=== PATIENT | female | born 1945 | race Caucasian/White ===

== ENCOUNTER → 2018-11-29 10:16 | Outpatient (CLI) | payer MEDICARE, OTHER, SELFPAY ==
--- NOTE | 2018-11-29 16:29 | P.PCN_ITS ---
Cardiac Stress Test Report Referral & Results Date Patient Seen: 11/29/18 Requesting provider: Elias Rojas Indication: Known coronary disease Rest ECG: Right bundle branch block Procedure Note: Today following both written and verbal informed consent the patient was exercised according to a standard Wiliam protocol patient went for a total of 6 min 6 sec achieving a maximum heart rate of 155 maximum systolic blood pressure of 190. This is approximately 7.0 METS. Exercise was terminated at this point because of targets were met. Patient was also given Cardiolite through a previously started Hep-Lock IV by the ground nuclear weapons assembly officer approximately 1 minute prior to the cessation of exercise. There are no ST-T segment changes noted although patient does have right bundle branch block at rest which will certainly obscures some changes Occasional PVC Functional aerobic impairment rated-20% on the active scale Impression: No ECG evidence of ischemia in the face of underlying right bundle branch block Excellent exercise capacity Perfusion imaging to be reported separately Please note: Actual ECG tracings can be found in the PACS system.
--- NOTE | 2018-11-30 08:20 | DI.NM.S_ITS ---
DATE OF SERVICE: 11/29/2018 PROCEDURE PERFORMED: Stress and rest exercise myocardial perfusion study with gating to assess ejection fraction and regional wall motion. ORDERING PROVIDER: Elias Rojas MD INDICATIONS: The patient is a 73-year-old female with a history of LAD stenting with recent new T-wave inversions. EXERCISE TREADMILL TESTING: The patient was able to exercise for a total of 6 minutes 6 seconds on a standard Wiliam protocol, suggesting good exercise capacity with an DAIN of -20%. She had a normal heart rate and blood pressure response to exercise, achieving a maximum heart rate of 155 bpm (105% of her predicted maximum). She had no chest discomfort. Her resting ECG shows a nonspecific interventricular conduction delay with associated ST and T-wave abnormalities. With stress, there were no clear ST segment shifts. There were no arrhythmias. At 5 minutes of exercise, at a heart rate of 152 bpm, 26.9 mCi of technetium-99 Myoview was injected, and the patient was imaged 15 minutes later. She had previously been injected with 13.5 technetium-99 Myoview at rest and imaged 30 minutes after that injection. FINDINGS: 1. RAW DATA: There is fair myocardial tracer uptake, but fairly dense breast shadows are noted, consistent with breast implants, that clearly produce significant attenuation. The lung/heart ratio is normal at 0.32 with a normal TID ratio of 0.98. 2. QUANTITATIVE GATED SPECT: Post-stress ejection fraction is estimated at 46% with severe hypokinesis of the entire inferior and inferoposterior vargas, extending out to the apex. The anterior wall appears to have normal contractility. The resting ejection fraction is estimated at 41% with a similar contraction pattern. Resting end-diastolic volume is borderline increased at 128 mL. 3. MYOCARDIAL PERFUSION SCAN: Post-stress supine images show near-absent perfusion in the majority of the inferolateral wall, extending into the distal inferoapex and septum. This defect persists unchanged on the prone images. In addition, the mid and distal portions of the interventricular septum have mildly reduced perfusion that also remains unchanged on the prone images. The resting images show a very similar perfusion pattern with very slight improvement of the defect near the periphery of the inferolateral defect, but this is a predominantly fixed defect. IMPRESSION: 1. Abnormal myocardial perfusion study. 2. Predominantly fixed but slightly reversible perfusion defect involving the majority of the inferolateral wall, extending out to the apex, and involving the mid to distal portions of the interventricular septum. This would be consistent with a previous transmural myocardial infarction with mild chela-infarct ischemia at the periphery. 3. Moderately reduced left ventricular systolic function with severe hypokinesis of the inferolateral segment, consistent with previous infarction or hibernating myocardium. 4. Good exercise capacity without angina or obvious ECG changes of ischemia, although baseline interventricular conduction abnormalities reduced the sensitivity of the ECG. Reyna Weiss - RS/fn/ts doc#: [id number]/job#: [id number] dd: 11/29/2018 16:28:00 dt: 11/30/2018 07:50:00 DICTATING MD/COPIES TO: Dawson Butler MD; Elias Rojas MD COPIES MNE: KAT AGUILAR
== END ==
PROVIDERS: Family Provider Physician Assistant; PCP Physician Assistant; Visit Provider Internal Medicine Cardiovascular Disease
DX: R94.31 Abnormal electrocardiogram [ECG] [EKG] (principal); I25.10 Atherosclerotic heart disease of native coronary artery without angina pectoris; I45.10 Unspecified right bundle-branch block; Z95.5 Presence of coronary angioplasty implant and graft
CPT/HCPCS: 78452; 93016; 93017; 93018; A9502

== ENCOUNTER 2019-09-30 04:32 | Inpatient (IN) | payer MEDICARE, OTHER, SELFPAY ==
[2019-09-30] VITALS (20 sets, daily range): BP systolic 93–119; BP diastolic 54–76; PULSE 80–110; RESP 7–18; TEMP 36.5–37.8; O2SAT 93–100; BMI 16.7
--- NOTE | 2019-09-30 | DI.RAD.S_ITS ---
PROCEDURE: XR ELBOW RT MIN 3V INDICATIONS: intra-operative right elbow TECHNIQUE: 3 views of the elbow were acquired. COMPARISON: [facility], , XR ELBOW RT MIN 3V, 09/30/2019, 4:57. FINDINGS: Fluoroscopic images demonstrating comminuted olecranon fracture. Fracture fragments are overlapping. IMPRESSION: Intraoperative olecranon fracture. Dictated by: Nesha Baker M.D. on 09/30/2019 at 20:21 Approved by: Nesha Baker M.D. on 09/30/2019 at 20:23
--- NOTE | 2019-09-30 04:37 | ED.EXTPRO ---
HPI - Extremity Problem General Chief complaint: Extremity Injury, Upper Stated complaint: thinks right arm is broken had fall 1 wk ago Time Seen by Provider: 09/30/19 04:36 Source: patient Mode of arrival: Ambulatory Limitations: no limitations History of Present Illness HPI Narrative: This is a 74-year-old female comes to the emergency department who comes in with complaint of right arm pain and swelling. Patient states she fell about a week to week and a half ago. She states she fell into a wooden wall. Since then she has had quite a bit of pain particularly just above the elbow, patient states painful for her to try to flex or extend the arm. She has pretty much been keeping immobilized. She has had increasing swelling over the last week. She did have a small laceration over the elbow which she states drain blood for 2 days. He continues to drain intermittently although she describes it as sort of pinkish clearish fluid. She denies fevers or chills. She denies any new redness or erythema. She denies any warmth. She denies any numbness or tingling. She denies any weakness. She has continued to do her normal activities including [place] shopping, cooking and laundry. She states she takes cardiac medications include lisinopril, metoprolol, simvastatin, aspirin and Plavix. She had cardiac stents placed 12 year ago. She did have a stress test in November 2018. Patient finally came in tonight because she was having increasing episodes of pain intermittently. These episodes would resolve but then returned later. Related Data Home Medications Medication Instructions Recorded Confirmed simvastatin 40 mg PO QDAY #0 08/07/17 09/30/19 aspirin 81 mg PO DAILY 09/30/19 09/30/19 clopidogrel [Plavix] 75 mg PO DAILY 09/30/19 09/30/19 lisinopril 2.5 mg PO DAILY 09/30/19 09/30/19 metoprolol tartrate 25 mg PO BID 09/30/19 09/30/19 Allergies Allergy/AdvReac Type Severity Reaction Status Date / Time No Known Drug Allergies Allergy Unknown Unverified 02/13/18 12:05 [NO KNOWN DRUG ALLERGIES] oxycodone [OXYCODONE] AdvReac Intermediate ?or Unverified 02/13/18 12:05 oxycontin? diarrhea morphine [MORPHINE] AdvReac Mild n/v Unverified 02/13/18 12:05 Review of Systems Review of Systems ROS Unobtainable: All systems reviewed & are unremarkable except as noted in HPI and below Constitutional Constitutional: Denies chills, Denies fever(s), Denies lethargy and Denies weakness ENT Ears, Nose, Mouth, and Throat: Denies neck pain Cardiovascular Cardiovascular: Denies chest pain, Denies dyspnea and Denies dyspnea on exertion Respiratory Respiratory: Denies dyspnea and Denies dyspnea on exertion Gastrointestinal Gastrointestinal: Denies abdominal pain, Denies nausea and Denies vomiting Musculoskeletal Musculoskeletal: Reports as per HPI, Denies back pain, Reports arthralgias, Reports joint swelling, Reports limited range of motion, Denies muscle weakness, Denies neck pain, Denies numbness, Denies stiffness and Denies tingling Integumentary/Breasts Skin/Breast: Reports unusual bruising and Reports wounds Neurologic Neurologic: Denies numbness, Denies tingling and Denies weakness Patient History Medical History (Updated 09/30/19 @ 06:28 by Elise Sinclair DO) Coronary artery disease (Acute) Dyslipidemia (Acute) Hypertension (Acute) Surgical History (Updated 09/30/19 @ 06:29 by Elise Sinclair DO) H/O heart artery stent (Acute) Social History Smoking Status: Current some day smoker Exam Narrative Exam Narrative: GENERAL: Alert and oriented x three, thin, well-appearing female who ambulated in the department. HEENT: Head normocephalic, atraumatic, EOMI, pupils reactive, face symmetric, moist mucous membranes NECK: Supple, full range of motion CARDIOVASCULAR: Regular rate and rhythm without murmurs, rubs or gallops. RESPIRATORY: Breath sounds equal bilaterally, no wheezes rales or rhonchi. ABDOMEN: Soft, nontender. Normoactive bowel sounds all 4 quadrants. No guarding or rebound, rigidity, no mass : No CVA tenderness EXTREMITIES: Decreased range of motion of the right elbow, patient has extensive swelling extending from just above the elbow on the right all the way into the hand. Patient has quite a bit of bruising. Patient has some mild erythema over the elbow. There is a laceration 2cm in length over the olecranon that is deep with subcutaneous tissue exposed, draining serosanguineous drainage, no clubbing. Patient has 2+ radial pulses bilaterally. Decorating Kiln Operator are equal bilaterally. Patient has full range of motion of fingers with extension flexion. She has full range of motion at the wrist. Patient does not have any bony tenderness of the hand or wrist and has very minimal of the proximal forearm majority is the distal humerus elbow region. Patient does have sensation to light touch. Neurovascularly intact NEUROLOGICAL: Cranial nerves II through XII grossly intact. Moving all extremities SKIN: Warm, dry, no petechiae, see above. Initial Vital Signs Initial Vital Signs: Vital Signs Pulse Rate 96 H 09/30/19 04:40 Respiratory Rate 17 09/30/19 04:40 Blood Pressure 112/63 09/30/19 04:40 Pulse Oximetry 100 09/30/19 04:40 Course Orders Ordered: ED Orders 09/30/19 04:44 XR elbow RT min 3V Stat 09/30/19 05:23 Basic Metabolic Panel Stat Complete Blood Count AUTO DIFF Stat EKG-12 Lead Stat Discontinued Medications Diphtheria/Tetanus/Acell Pertussis (Adacel) 0.5 ml IM .ONCE ONE Stop: 09/30/19 05:16 Last Admin: 09/30/19 05:38 Dose: 0.5 ml Documented by: LUPE Cefazolin Sodium/Dextrose (Ancef) 2 gm in 100 mls @ 200 mls/hr IV NOW ONE Stop: 09/30/19 05:40 Last Infusion: 09/30/19 06:20 Dose: 0 mls/hr Documented by: Infusion: 09/30/19 05:41 Dose: 200 mls/hr Documented by: Infusion: 09/30/19 05:40 Dose: 0 mls/hr Documented by: Admin: 09/30/19 05:39 Dose: 200 mls/hr Documented by: LUPE Vital Signs Vital signs: Vital Signs - 8 hr 09/30/19 04:40 09/30/19 05:45 09/30/19 05:51 Pulse Rate 96 H 83 Pulse Rate [Right Radial] 80 Respiratory Rate 17 14 Blood Pressure 112/63 Blood Pressure [Left Arm] 109/66 Pulse Oximetry 100 100 MDM - Extremity (Nontraumatic) Lab Data Result diagrams: 09/30/19 05:23 09/30/19 05:23 Labs: Lab Results 09/30/19 09/30/19 Range/Units 05:23 05:23 WBC 11.5 H (4.5-11.0) X10^3/uL RBC 2.87 L (4.0-5.2) X10^6/uL Hgb 10.9 L (12.0-16.0) g/dL Hct 31.5 L (36-46) % MCV 109.9 H (80-100) fL MCH 37.9 H (26-34) PG MCHC 34.5 (30-36) % RDW 12.9 (11.6-14.8) % Plt Count 222 (150-400) X10^3/uL Neut % (Auto) 71.7 (50-75) % Lymph % (Auto) 7.0 L (25-40) % [place] % (Auto) 20.9 H (3-14) % Eos % (Auto) 0.1 L (2-4) % Baso % (Auto) 0.3 (0-2) % Neut # (Auto) 8200 H (1419-6184) /uL Lymph # (Auto) 800 L (6864-9149) /uL [place] # (Auto) 2400 H (0-900) /uL Eos # (Auto) 0 (0-450) /uL Baso # (Auto) 0 (0-100) /uL Sodium 128 L (137-145) mmol/L Potassium 4.5 (3.4-5.1) mmol/L Chloride 95 L (98-107) mmol/L Carbon Dioxide 27 (22-32) mmol/L BUN 21 H (7-17) mg/dL Creatinine 0.70 (0.52-1.04) mg/dL Estimated GFR > 60.0 (>60) mL/min BUN/Creatinine Ratio 30.0 H (6-22) Glucose 99 (80-110) mg/dL Calcium 9.2 (8.4-10.2) mg/dL ECG Data Attestation EKG: I personally reviewed and interpreted this ECG as follows: Prior ECG tracings: not available for review Interpretation: Sinus rhythm rate of 76 UT 178 QRS of 152 and QTC of 420. LBBB, no prior EKGs available for comparison. MDM Narrative Medical decision making narrative: Spoke with Dr. Dominguez from orthopedic surgery, reviewed images with Dr. Dominguez. Open fracture with mild redness at elbow and extensive swelling of arm. Recommends patient be splinted in extension, IV antibiotics regularly scheduled. If medicine will take the patient based on her cardiac history they would appreciate for surgical clearance plan for OR possibly today but maybe tomorrow. Patient was updated on timeframe, orthopedic recommendations. Spoke with DATA STEWARD Kelly Carter, reviewed patient history, orthopedic recommendations. Patient did have a stress test in November 2018 with abnormalities consistent with prior infarct. She asked if we can contact patient's cardiology team to discuss if she has any outstanding care or concerns. Spoke with cardiology, they did not read the stress test but did review patient records. Findings are consistent with prior infarct and slightly decreased EF. No outstanding care/treatment at this time. Reviewed patient's current medications. They did call back after reviewing patients info, they with a possibly moderate risk more based on patient's EF than motion artifact. She states based on patient's old infarct her stent was in the LAD and this could possibly be motion artifact from that. She states that the stress test was ordered based on patient's EKG and not on symptomatology according to Dr. Khan's notes. And potentially patient might need to have some close watching of fluids but that she would expect she still needs surgery regardless. She did state that may be in the office today and it may be helpful to talk with him as he knows the patient personally. This was all related to the [employer] [employer] [facility] OFFICER and plan for observation at this time. Patient may have some additional work up for cardiac clearance. EKG also shared with hospitalist. splint placed by nursing, patient in extension. NVI afterwards with 2+ radial pulse. Patient continues to have drainage and nursing asked to relay to floor staff so they can keep a close eye on elbow and change as needed if becoming too saturated. Discharge Plan Departure Patient Disposition: Admitted as Observation Clinical Impression: Fracture, olecranon, open, Cellulitis Referrals: Debi Peterson PA-C [Primary Care Provider] - Admit Date/Time: 09/30/19 06:23 Admit Provider: Kelly Carter
--- NOTE | 2019-09-30 04:44 | DI.RAD.S_ITS ---
PROCEDURE: XR ELBOW RT MIN 3V INDICATIONS: right elbow/lower humeral pain x 1 week post fall TECHNIQUE: 3 views of the elbow were acquired. COMPARISON: None. FINDINGS: Bones: Proximal ulnar fracture of the olecranon, with approximately 2 cm diastasis. Linear calcific density projecting at the lateral epicondyle potentially background chronic lateral epicondylitis sequela Soft tissues: No elbow joint effusion. No suspicious soft tissue calcifications. IMPRESSION: Markedly displaced olecranon fracture Dictated by: Keanu Carter M.D. on 09/30/2019 at 9:00 Approved by: Keanu Carter M.D. on 09/30/2019 at 9:02
[2019-09-30 05:33] LABS: Add Manual Diff / Slide Review NO; Basophils Absolute Auto 0 /uL (0-100); Basophils Percent Auto 0.3 % (0-2); Eosinophils Absolute Auto 0 /uL (0-450); Eosinophils Percent Auto 0.1 % (2-4); Hematocrit 31.5 % (36-46); Hemoglobin 10.9 g/dL (12.0-16.0); Lymphocytes Absolute Auto 800 /uL (1100-4500); Mean Corpuscular HGB Conc 34.5 % (30-36); Mean Corpuscular Hemoglobin 37.9 PG (26-34); Mean Corpuscular Volume 109.9 fL (80-100); Monocytes Absolute Auto 2400 /uL (0-900); Monocytes Percent Auto 20.9 % (3-14); Neutrophils Absolute Auto 8200 /uL (1500-7000); Neutrophils Percent Auto 71.7 % (50-75); Platelet Count 222 X10^3/uL (150-400); Red Blood Cell Count 2.87 X10^6/uL (4.0-5.2); Red Cell Distribution Width 12.9 % (11.6-14.8); White Blood Cell Count 11.5 X10^3/uL (4.5-11.0)
[2019-09-30] MEDS: TET,DIPH,PERTUSS(ACELL),VAC/PF 0.5 ML SYRINGE IM (05:38)
[2019-09-30] MEDS: CEFAZOLIN 2 GM/100 ML FROZ.PIGGY IV ×3 (05:39→18:50)
[2019-09-30 05:42] LABS: Blood Urea Nitrogen 21 mg/dL (7-17); Calcium 9.2 mg/dL (8.4-10.2); Carbon Dioxide 27 mmol/L (22-32); Chloride 95 mmol/L (98-107); Estimated Glomerular Filt Rate > 60.0 mL/min (>60); Glucose 99 mg/dL (80-110); HEMOLYSIS < 15 (0-50); Potassium 4.5 mmol/L (3.4-5.1); Sodium 128 mmol/L (137-145)
--- NOTE | 2019-09-30 06:44 | DI.ECHO.S_ITS ---
[facility]---------+ [facility] +---------+ : : [address] : : : : [id number] : : : : Phone: [phone]+ Echocardiogram Report + + :Name: NATALIE BOLANOS Study Date: 09/30/2019 Height: 68 in : :[facility] Weight: 110 lb : : Gender: Female BSA: 1.6 m2 : :: 1945 Age: 74 yrs BP: 108/61 mmHg: :Reason For Study: PRE OP : : Performed By: [facility] Staff : :Referring: MORENA GARNETT : + + Interpretation Summary The study quality was technically limited. Limited windows due to breast implants. The left ventricle is normal in size. The ejection fraction is estimated to be 25-30%. Except lateral segments, apex and basal posterior wall, rest of the LV segments are severely hypokinetic to akinetic. Anterior wall and inferior wall not well seen. The right ventricle is normal in size and function. There is mild to moderate mitral regurgitation. There is trace tricuspid regurgitation. The right ventricular systolic pressure is estimated to be at least 41 mmHg based on an estimated right atrial pressure of 15 mm Hg. Procedure: A two-dimensional transthoracic echocardiogram with color flow and Doppler was performed. The study quality was technically limited. Limited windows due to breast implants. The patient was in normal sinus rhythm during the exam. Left Ventricle: The left ventricle is normal in size. There is mild concentric left ventricular hypertrophy. There is no thrombus. The ejection fraction is estimated to be 25-30%. Except lateral segments, apex and basal posterior wall, rest of the segments are severely hypokinetic to akinetic. Anterior wall and inferior wall not well seen. Diastolic function could not be accurately assessed due to unobtainable data. Right Ventricle: The right ventricle is normal in size and function. Atria: The left atrium is not well visualized. Right atrium not well visualized. The interatrial septum is intact with no evidence for an atrial septal defect. Mitral Valve: The mitral valve leaflets appear mildly thickened, but open well. There is mild mitral annular calcification. The mitral valve chordae are thickened and/or calcified. There is mild to moderate mitral regurgitation. Aortic Valve: There is mild aortic valve sclerosis. The aortic valve is trileaflet. There is minimally reduced leaflet mobility. There is no hemodynamically significant valvular aortic stenosis. No aortic regurgitation is present. Tricuspid Valve: The tricuspid valve is not well visualized. There is trace tricuspid regurgitation. The right ventricular systolic pressure is estimated to be at least 41 mmHg based on an estimated right atrial pressure of 15 mm Hg. Pulmonic Valve: The pulmonic valve is not well visualized. There is trace pulmonic regurgitation. Great Vessels: The aortic root is normal size. The ascending aorta could not be visualized. The pulmonary artery is normal size. The IVC is dilated (diameter is greater than 2.1 cm) and it collapses less than 50% with a sniff. This suggests a high right atrial pressure of 15 mm Hg. Pericardium/ Pleura There is a trivial pericardial effusion noted. There is an anterior echo-free space consistent with a fat pad. There are no echocardiographic indications of cardiac tamponade. There is no pleural effusion. MMode/2D Measurements & Calculations LVIDd: 4.0 cm LVOT diam: 2.0 cm LVIDs: 3.2 cm Ao root diam: 2.7 cm FS: 20.7 % EPSS: 1.1 cm IVSd: 1.2 cm LVPWd: 1.3 cm LV elmore. diameter/BSA (cm/m^2): 2.5 LV sys. diameter/BSA (cm/m^2): 2.0 TAPSE: 1.8 cm Doppler Measurements & Calculations Ao V2 max: 161.7 cm/sec TR max karena: 256.1 cm/sec Ao V2 mean: 109.9 cm/sec TR max P.2 mmHg Ao max P.5 mmHg PA V2 max: 94.3 cm/sec Ao mean P.5 mmHg PA V2 mean: 63.1 cm/sec Ao V2 VTI: 28.6 cm PA mean P.9 mmHg PA Accel Time: 0.13 sec Reading Physician:02:15 PM
--- NOTE | 2019-09-30 06:47 | P.HP_ITS ---
History of Present Illness History of Present Illness Date Patient Seen: 09/30/19 Time Patient Seen: 06:00 Chief complaint: thinks right arm is broken had fall 1 wk ago Narrative: Reyna Weiss is a pleasant 74 y.o. female who was in her usual state of health when she tripped over a rug in her home and when bracing the fall, hit her right elbow against a wood panelled wall approximately 8-9 days ago. She initially thought she just sustained a laceration, and presented to the ED a week plus later due to increased swelling, drainage and pain. She was found to have a displaced open olecrenon fracture of her right elbow. Patient's xray was evaluated in the ED by orthopedic surgery and they requested the Hospitalist service admit the patient for medical management. Patient has a history of stent placements in Patient History Medical History Coronary artery disease (Chronic) Dyslipidemia (Chronic) Hypertension (Chronic) PAD (peripheral artery disease) (Chronic) Surgical History (Updated 09/30/19 @ 06:53 by MARK Serna) H/O heart artery stent (Acute) Family & Social History Family History (Updated 09/30/19 @ 06:52 by MARK Serna) Father Heart disease Mother Alzheimer disease Social History: household members significant other Prior Living Arrangements House Safety & Behavioral: Feels Safe in Current Yes Environment Been Physically Hurt or No Threatened By a Person Suicidal Ideation Description None Suicide Plan Description No Plan Tobacco & Substance use: Tobacco type Smoking Status quit 12 years ago alcohol intake current alcohol intake frequency 0-2 drinks per day Substance Use Type does not use Meds Home Medications and Allergies Home Medications Medication Instructions Recorded Confirmed Type simvastatin 40 mg PO QDAY #0 08/07/17 09/30/19 History aspirin 81 mg PO DAILY 09/30/19 09/30/19 History clopidogrel [Plavix] 75 mg PO DAILY 09/30/19 09/30/19 History lisinopril 2.5 mg PO DAILY 09/30/19 09/30/19 History metoprolol tartrate 25 mg PO BID 09/30/19 09/30/19 History Allergies Allergy/AdvReac Type Severity Reaction Status Date / Time No Known Drug Allergies Allergy Unknown Unverified 02/13/18 12:05 [NO KNOWN DRUG ALLERGIES] oxycodone [OXYCODONE] AdvReac Intermediate ?or Unverified 02/13/18 12:05 oxycontin? diarrhea morphine [MORPHINE] AdvReac Mild n/v Unverified 02/13/18 12:05 Exam Vital Signs (past 8 hours): - 09/30/19 04:40 09/30/19 05:45 09/30/19 05:51 Pulse Rate 96 H 83 Pulse Rate [Right Radial] 80 Respiratory Rate 17 14 Blood Pressure 112/63 Blood Pressure [Left Arm] 109/66 Pulse Oximetry 100 100 Oxygen Delivery Method Room Air Objective Labs Result Diagrams: 09/30/19 05:23 09/30/19 05:23 Labs: Laboratory Results - last 24 hr 09/30/19 09/30/19 05:23 05:23 WBC 11.5 H RBC 2.87 L Hgb 10.9 L Hct 31.5 L MCV 109.9 H MCH 37.9 H MCHC 34.5 RDW 12.9 Plt Count 222 Neut % (Auto) 71.7 Lymph % (Auto) 7.0 L [place] % (Auto) 20.9 H Eos % (Auto) 0.1 L Baso % (Auto) 0.3 Neut # (Auto) 8200 H Lymph # (Auto) 800 L [place] # (Auto) 2400 H Eos # (Auto) 0 Baso # (Auto) 0 Sodium 128 L Potassium 4.5 Chloride 95 L Carbon Dioxide 27 BUN 21 H Creatinine 0.70 Estimated GFR > 60.0 BUN/Creatinine Ratio 30.0 H Glucose 99 Calcium 9.2
--- NOTE | 2019-09-30 07:01 | PM.HP.1 ---
History of Present Illness History of Present Illness Chief complaint: thinks right arm is broken had fall 1 wk ago Narrative: Reyna Weiss is a pleasant 74 y.o. female who was in her usual state of health when she tripped over a rug in her home and when bracing the fall, hit her right elbow against a wood panelled wall approximately 8-9 days ago. She initially thought she just sustained a laceration, and presented to the ED a week plus later due to increased swelling, drainage and pain. She was found to have a displaced open olecrenon fracture of her right elbow. She denies loss of consciousness, jaw pain, chest pain, shortness of breath, nausea or vomiting, dysuria, diarrhea or constipation or numbing and tingling of the affected extremity. Patient's xray was evaluated in the ED by orthopedic surgery and they requested the Hospitalist service admit the patient for medical management. Patient has a history of stent placements in the LAD and her left calf approximately 2006 and her slurry control operator helper is Dr. Rojas. She had an abnormal myocardial perfusion study in November 2018, however the patient stated they did not make any changes. At that time she had a post stress EF of 46% and a resting EF of 41% with severe hypokinesis of of the entire inferior and inferoposterior vargas extending to the apex and the impression indicated a slightly reversible perfusion defect. I requested the ED provider to discuss her possible admission due to these findings and they indicated she should repeat the study or undergo an echocardiogram prior to surgery. Patient History Medical History Coronary artery disease (Chronic) Dyslipidemia (Chronic) Hypertension (Chronic) PAD (peripheral artery disease) (Chronic) Surgical History (Updated 09/30/19 @ 06:53 by MARK Serna) H/O heart artery stent (Acute) Family & Social History Family History (Updated 09/30/19 @ 06:52 by MARK Serna) Father Heart disease Mother Alzheimer disease Social History: household members significant other Prior Living Arrangements House Safety & Behavioral: Feels Safe in Current Yes Environment Been Physically Hurt or No Threatened By a Person Suicidal Ideation Description None Suicide Plan Description No Plan Tobacco & Substance use: Tobacco type cigarettes Smoking Status Current some day smoker alcohol intake current alcohol intake frequency 0-2 drinks per day Substance Use Type does not use Meds Home Medications and Allergies Home Medications Medication Instructions Recorded Confirmed Type simvastatin 40 mg PO QDAY #0 08/07/17 09/30/19 History aspirin 81 mg PO DAILY 09/30/19 09/30/19 History clopidogrel [Plavix] 75 mg PO DAILY 09/30/19 09/30/19 History lisinopril 2.5 mg PO DAILY 09/30/19 09/30/19 History metoprolol tartrate 25 mg PO BID 09/30/19 09/30/19 History Allergies Allergy/AdvReac Type Severity Reaction Status Date / Time No Known Drug Allergies Allergy Unknown Unverified 02/13/18 12:05 [NO KNOWN DRUG ALLERGIES] oxycodone [OXYCODONE] AdvReac Intermediate ?or Unverified 02/13/18 12:05 oxycontin? diarrhea morphine [MORPHINE] AdvReac Mild n/v Unverified 02/13/18 12:05 Review of Systems Review of Systems ROS Unobtainable: All systems reviewed & are unremarkable except as noted in HPI and below Exam Vital Signs (past 8 hours): - 09/30/19 04:40 09/30/19 05:45 09/30/19 05:51 Pulse Rate 96 H 83 Pulse Rate [Right Radial] 80 Respiratory Rate 17 14 Blood Pressure 112/63 Blood Pressure [Left Arm] 109/66 Pulse Oximetry 100 100 Oxygen Delivery Method Room Air Narrative Exam Narrative: Gen: Alert, oriented, well-developed 74 y.o. female HEENT: normocephalic, atraumatic, conjunctiva clear, sclera non-icteric, oral mucosa pink and moist Neck: supple, full ROM Resp: Lungs CTA, non-labored breathing CV: RRR, no murmur or rubs Abd: soft, non-tender, normoactive BTs Skin: draining serosanguinous fluid from her right elbow Neuro: Alert and oriented w/no focal deficits Extremities: right arm has been splinted, has 2-3+ swelling, though brisk capillary refill Psyche: normal mood and affect. Objective Labs Result Diagrams: 09/30/19 05:23 09/30/19 05:23 Labs: Laboratory Results - last 24 hr 09/30/19 09/30/19 05:23 05:23 WBC 11.5 H RBC 2.87 L Hgb 10.9 L Hct 31.5 L MCV 109.9 H MCH 37.9 H MCHC 34.5 RDW 12.9 Plt Count 222 Neut % (Auto) 71.7 Lymph % (Auto) 7.0 L [place] % (Auto) 20.9 H Eos % (Auto) 0.1 L Baso % (Auto) 0.3 Neut # (Auto) 8200 H Lymph # (Auto) 800 L [place] # (Auto) 2400 H Eos # (Auto) 0 Baso # (Auto) 0 Sodium 128 L Potassium 4.5 Chloride 95 L Carbon Dioxide 27 BUN 21 H Creatinine 0.70 Estimated GFR > 60.0 BUN/Creatinine Ratio 30.0 H Glucose 99 Calcium 9.2 Assessment & Plan Assessment & Plan narrative: Reyna Weiss will be admitted to the hospitalist service with orthopedic surgery consulting for a right sided open olecrenon fracture. 1. Right open olecrenon fracture, acute, present on admission Orthopedic surgery to see and may do surgery today or tomorrow NPO unless surgery is delayed to tomorrow She received ancef in the ED LR at 125 ml/hour 2. CAD, chronic, POA She will undergo an echocardiogram Recommend coordination with her slurry control operator helper, Dr. Rojas Holding plavix, she took this am's dose prior to presenting to the ED 3. Essential hypertension, chronic, POA Continue home doses of metoprolol and lisinopril within hypertension parameters Holding aspirin, she took this am's dose prior to presenting to the ED 4. Hyperlipidemia, chronic, POA Resume home dose of simvastatin tonight Patient is admitted inpatient as her stay is anticipated to exceed 2 midnights. FEN: LR at 125 ml/hour, NPO, chemistries in the am. VTE Prophylaxis: bilateral SCDs Disposition: likely discharge to home w/outpatient PT Code status: Full Admission time: 75 minutes Meds reconciled: Yes Time Spent With Patient Time with patient: 15-24 minutes
--- NOTE | 2019-09-30 07:40 | PC.ADMIT ---
Safe hand off from ED. Pt VSS, pain is 6/10 Right elbow. Pt on tele. Bed is low and locked, and pt was educated about use of call light. SCD's are on. [id number] [facility] Admission Note: The patient,Reyna Weiss,74 y/o, was given written information regarding hospital policies, unit procedures and contact persons. Patient's smoking status: Current some day smoker. Vital Signs - 8 hr 09/30/19 04:40 09/30/19 05:45 09/30/19 05:51 Temperature Pulse Rate 96 H 83 Pulse Rate [Right Radial] 80 Respiratory Rate 17 14 Blood Pressure 112/63 Blood Pressure [Left Arm] 109/66 Pulse Oximetry 100 100 09/30/19 06:35 Temperature 98.2 F Pulse Rate 90 Pulse Rate [Right Radial] Respiratory Rate 18 Blood Pressure 119/73 Blood Pressure [Left Arm] Pulse Oximetry 100
--- NOTE | 2019-09-30 07:53 | PM.HP.1 ---
History of Present Illness History of Present Illness Date Patient Seen: 09/30/19 Time Patient Seen: 07:53 Chief complaint: thinks right arm is broken had fall 1 wk ago Narrative: Fior 4-year-old [id number] female fell against a wooden floor and wall approximately 1 week ago and hit her right elbow and hip. She is states she had a cut on her elbow that took about 2 days to stop bleeding and was bleeding quite a bunch. She initially did not notice pain but has had pain over the last 2-3 days and increased bruising and came to the emergency room this morning was diagnosed with a displaced right olecranon fracture with an associated laceration for an open fracture. She denies any fevers or chills. She does have a cardiac history and stents that were placed over 15 years ago. She takes aspirin and Plavix. She last took her Plavix at 3:00 a.m. this morning just before coming to the emergency room. She is currently NPO. She denies any allergies to antibiotics. The wound was washed and placed into a posterior splint in the ER and she is on scheduled IV antibiotics. She states her hip does not hurt anymore. She denies any numbness or tingling. Patient History Medical History Coronary artery disease (Chronic) Dyslipidemia (Chronic) Hypertension (Chronic) PAD (peripheral artery disease) (Chronic) Surgical History H/O heart artery stent (Acute) Family & Social History Family History Father Heart disease Mother Alzheimer disease Social History: household members significant other Prior Living Arrangements House Safety & Behavioral: Feels Safe in Current Yes Environment Been Physically Hurt or No Threatened By a Person Suicidal Ideation Description None Suicide Plan Description No Plan Tobacco & Substance use: Tobacco type cigarettes Smoking Status Current some day smoker alcohol intake current alcohol intake frequency 0-2 drinks per day Substance Use Type does not use Meds Home Medications and Allergies Home Medications Medication Instructions Recorded Confirmed Type simvastatin 40 mg PO QDAY #0 08/07/17 09/30/19 History aspirin 81 mg PO DAILY 09/30/19 09/30/19 History clopidogrel [Plavix] 75 mg PO DAILY 09/30/19 09/30/19 History lisinopril 2.5 mg PO DAILY 09/30/19 09/30/19 History metoprolol tartrate 25 mg PO BID 09/30/19 09/30/19 History Allergies Allergy/AdvReac Type Severity Reaction Status Date / Time No Known Drug Allergies Allergy Unknown Unverified 02/13/18 12:05 [NO KNOWN DRUG ALLERGIES] oxycodone [OXYCODONE] AdvReac Intermediate ?or Unverified 02/13/18 12:05 oxycontin? diarrhea morphine [MORPHINE] AdvReac Mild n/v Unverified 02/13/18 12:05 Review of Systems Review of Systems ROS Unobtainable: All systems reviewed & are unremarkable except as noted in HPI and below Exam Vital Signs (past 8 hours): - 09/30/19 04:40 09/30/19 05:45 09/30/19 05:51 Temperature Pulse Rate 96 H 83 Pulse Rate [Right Radial] 80 Respiratory Rate 17 14 Blood Pressure 112/63 Blood Pressure [Left Arm] 109/66 Pulse Oximetry 100 100 09/30/19 06:35 Temperature 98.2 F Pulse Rate 90 Pulse Rate [Right Radial] Respiratory Rate 18 Blood Pressure 119/73 Blood Pressure [Left Arm] Pulse Oximetry 100 Oxygen Delivery Method Room Air Oxygen Flow Rate 0 Narrative Exam Narrative: General alert and oriented female no acute distress lying in bed HEENT normocephalic atraumatic Respiratory exam unlabored on room air lungs clear to auscultation bilaterally CV exam regular rate and rhythm Upper extremity exam: Right upper extremity and posterior splint. There is ecchymosis over the arm. Moderate swelling. Per ER evaluation there is a 2 cm laceration posterior elbow no blisters. Brisk capillary refill. Sensation grossly intact to light touch median radial ulnar nerves. Demonstrates wrist extension flexion finger extension and flexion. Left upper extremity nontraumatic sensation intact. No tenderness to palpation full range of motion Lower extremities nontender to palpation full range of motion brisk capillary refill. SCDs in place Objective Labs Result Diagrams: 09/30/19 05:23 09/30/19 05:23 Labs: Laboratory Results - last 24 hr 09/30/19 09/30/19 05:23 05:23 WBC 11.5 H RBC 2.87 L Hgb 10.9 L Hct 31.5 L MCV 109.9 H MCH 37.9 H MCHC 34.5 RDW 12.9 Plt Count 222 Neut % (Auto) 71.7 Lymph % (Auto) 7.0 L [place] % (Auto) 20.9 H Eos % (Auto) 0.1 L Baso % (Auto) 0.3 Neut # (Auto) 8200 H Lymph # (Auto) 800 L [place] # (Auto) 2400 H Eos # (Auto) 0 Baso # (Auto) 0 Sodium 128 L Potassium 4.5 Chloride 95 L Carbon Dioxide 27 BUN 21 H Creatinine 0.70 Estimated GFR > 60.0 BUN/Creatinine Ratio 30.0 H Glucose 99 Calcium 9.2 Assessment & Plan Assessment and plan (1) Fracture of olecranon, right, open: Problem details: Open displaced fracture right olecranon. Patient has been indicated for washout and operative fixation of her displaced olecranon fracture to restore her extensor mechanism and reduce the risk of infection. The patient will be on scheduled antibiotics until surgery and for 2 doses after surgery. We discussed depending on her skin integrity she may need a staged procedure with a washout and later fixation but most likely be able to have both procedures in the same setting. We did discuss the patient is on Plavix she may have more bleeding she will hold it from now for a few days after surgery to reduce the bleeding. The risks and benefits of the procedure have been discussed with the patient even opportunity to ask questions. The risks of surgery include but are not limited to infection, malunion, nonunion, persistence of pain, damage to nerves and blood vessels, posttraumatic arthritis, DVT, PE, cardiopulmonary complications and . The patient expressed a thorough understanding of the risks and benefits of surgery and has elected to proceed. Consent was signed today. Plan remain NPO surgery this evening. Continue scheduled antibiotics. Will stay the night after surgery for antibiotics and likely discharged Sunday morning for pain control. Patient will be in a splint. May restart Plavix after 2 days. May continue aspirin Current visit: Yes Status: Acute Quality VTE Deep Vein Thrombosis/Pulmonary Embolism Present on Admission: No
[2019-09-30] MEDS: LACTATED RINGERS 1,000 ML 125 ML IV ×2 (08:48→17:10)
[2019-09-30] MEDS: MORPHINE 2 MG/ML INJ 0.5 MG IV ×2 (11:21→15:47)
--- NOTE | 2019-09-30 12:32 | DIET.PN ---
Dietary Progress Note Assessment: 74y F admitted for fx of olecranon, is currently NPO awaiting surgery at 1700 today. Pt experiencing some px. Reports early to bed and early to rise, looking forward to a light breakfast tomorrow. 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 Encouraged pt to include PRO with each meal and snack with an extra PRO serving per day in form of yogurt or other dairy product to support bone health. HT: 172.7cm WT: 49.8kg UBW: 49.8kg BMI: 16.7 (severe for age) MNA: 11 r/t low bmi Thiago: 21 Nutrition Diagnosis: inadequate PRO intake r/t healing support for olecranon fx aeb increased need for healing, low BMI of 16.7, increased risk for bone fx and osteoporosis r/t low BMI. Interventions: Inc pro to 1.2g/kg with added PRO dairy snack to support tissue healing and bone health Diet Order: NPO awaiting surgery EER: 1500kcal, 60g PRO (1.2g/kg), 1.7cc fluids Monitoring/Evaluations: diet advancement, procedure tolerance
--- NOTE | 2019-09-30 14:25 | PC.NURSE ---
Addendum entered by Liliya Pham R.N. 09/30/19 15:53: Patient resting in bed, would like 0.5 mg of morphine for pain in RUE. Pulse is present, hand edematous, patient still has sensation and cap refill <2. Patient denies further needs at this time. Original Note: Patient resting in bed. Working on ipad. Denies pain at this time. Denies SOB, chest pain, dizziness, numbness or tingling in her RUE. Splint in place from upper right arm to wrist. Pulses are palpable, right hand is edematous, puffy, shiny and bruised. Patient denies hand pain when palpitated. IV is infusing, dsg CDI, site is free from redness, streaking or pain. Tele in place. Patient notified of later sx time, patient states she will call to inform him of delay. Call light in reach, patient denies further needs at this time.
--- NOTE | 2019-09-30 15:34 | CM.DANOTE ---
Discharge Planning/Care Management DCP: case received and discussed in Team Rounds. RN coordinator noted pt was scheduled for surger later this evening. Met with pt and introduced self and role. Pt is a 74 year old female who admitted early this morning to care of hospitalist team. Dr. Claudio is consulting for orthopedics and will take pt to surgery this evening to repair a fractured elbow that s/p a fall about a week ago. Pt confirms she is functionally independent at baseline but was drinking coffee, setting the table and tripped on the area rug in dining room during this process. Admission status: confirmed INPT: [facility] CHANDRAKANT Nelson Payer: Medicare and [facility]. PCP: Brittany Peterson. Pt agrees that more will be known tomorrow after she has had surgery and worked with therapy. She says her romanart Bhanu is available to assist her at home if need be. DCP team will be following as needs unfold. CM Discharge Assessment Start: 09/30/19 15:31 Freq: Status: Active Protocol: Document 09/30/19 15:33 ITV (Rec: 09/30/19 15:34 ITV [id number]) Discharge Planning Assessment Advance Directives? Yes History Provided By Patient,Medical Record Prior Living Arrangements House Household Members significant other Comment lives with life partner of 45 years: Bhanu Sena. Type of transporation used prior to Drives own vehicle admit Independent with ADL's Yes Is patient alert and oriented? Yes Review Status In Process
--- NOTE | 2019-09-30 18:40 | PM.PREOP ---
Pre-operative Note Interval Note History & Physical reviewed/Exam performed by Physician: Yes Changes to H&P: No
--- NOTE | 2019-09-30 20:25 | SUR.OPER ---
Lateral on padded OR bed on granados bad positioner, head on pillow, gel axillary roll in place, bottom leg bent with gel pad under hip to foot, upper leg straight and supported with pillows. Upper arm supported by arm postioner padded with gel padding controlled by surgeon, down arm secured to padded arm board. Safety belt at hip, tape over blanket lower legs, gel between feet.
--- NOTE | 2019-09-30 20:27 | PM.OP.1 ---
Operative Date/Time/Diagnoses Date of procedure: 09/30/19 Time of procedure: 20:27 Pre-op diagnosis: 1. Open fracture right olecranon Post-op diagnosis: other (1. Open fracture right olecranon 2. Septic arthritis an open fracture olecranon with infection ) Procedure & Clinicians Procedure: 1. Irrigation debridement soft tissue muscle and bone, right olecranon open fracture with infection 2. Placement of antibiotic spacer. Same procedure as scheduled: No (I and D and placement of antibiotic spacer. ) Indications: Reyna is a 74-year-old female with a cardiac history on aspirin and Plavix. She is right-hand dominant. She fell and hit her right elbow last week. She sustained a cut but did not present to the emergency 3 room until this morning. She notes at the time of the injury the cut blood for while into the bed 2 days to stop. She has had more pain and swelling over the last few days. Presented [facility] Emergency room this morning where she was found to have an open olecranon fracture. She was admitted for scheduled antibiotics and planned open reduction internal fixation washout. The risks and benefits of the procedure have been discussed with the patient even opportunity to ask questions. The risks of surgery include but are not limited to infection, malunion, nonunion, persistence of pain, damage to nerves and blood vessels, posttraumatic arthritis, DVT, PE, cardiopulmonary complications and . The patient expressed a thorough understanding of the risks and benefits of surgery and has elected to proceed. Consent was signed. Surgeon: Margarita Dominguez [employer] Supervisor: Alber Leon Anesthesia Type: General and Local Operative Notes Findings: Gross purulence drainage right olecranon open wound produce deep to bone fracture and elbow joint. Laceration was excised and incision extended to expose the fracture site and elbow joint. There is gross purulence from the joint again this was cultured and synovium and fracture hematoma sent for culture as well. Joint was thoroughly irrigated. Vancomycin powder and antibiotic spacer with gentamicin was placed. Closure Type: primary Specimen(s): other (Tissue and cultures sent) Estimated Blood Loss (mL): 20 Blood products transfused: none Tourniquet time (min): 30 Procedure in detail: Patient was seen in the preoperative area she has taken back to the operating room by the anesthesia team and positioned on the operative table. General anesthesia was administered. All bony prominences well padded. SCDs were on the lower extremities. Patient was positioned in the lateral decubitus position on the beanbag. Care was taken to pad all bony prominences. The splint was taken down on the right arm and the 2 cm posterior laceration was visualized. At this point there was gross purulence draining from the incision down the arm which was a change from previous reports. This wound did probe deep to the fracture site easily. Cultures were obtained. And decision was made to proceed with I and D placement of antibiotic spacer but defer formal open reduction internal fixation due to the presence of gross infection. The right arm was then prepped and draped in the standard sterile fashion. Formal time-out procedure was performed confirming the patient's side and site of surgery presence of informed consent and administration of appropriate preoperative antibiotics. All were in agreement. [place] exsanguination was utilized and the tourniquet was elevated to 250 mm of mercury and stayed there for 30 minutes. Curvilinear incision was taken around the olecranon incorporating the laceration which was X excised in its entirety. The skin and subcutaneous tissues were elevated in standard fashion which led directly down to the olecranon fracture and into the elbow joint. Again more gross purulence was encountered. Deep cultures were taken as well as fracture hematoma and synovium sent for culture as well. At this point pulsatile lavage with gentamicin was utilized to thoroughly irrigate the joint for 3 L followed by 1 L of normal saline. Next antibiotic cement with gentamicin was then used to make a antibiotic spacer. Additionally 1 g of vancomycin was placed into the wound bed as well for local antibiotic. Once this was placed the elbow was closed in extension and placed into an extension splint. Two 0 PDS and 3 O nylon were used for the closure. A well-padded posterior splint was placed in extension. Tourniquet was released during wound closure and hemostasis was achieved. The drapes removed patient was awoken from anesthesia and taken to the recovery room in good condition. There no immediate complications from this procedure. Complications: none Post-operative Condition: stable Disposition: PACU Plan for aftercare: Nonweightbearing right upper extremity stay in extension splint. Will be on scheduled antibiotics on the floor. Will narrow based on cultures. Will get IV antibiotics before discharge tomorrow. And will have oral antibiotics for . Will arrange for Sunday return to OR for repeat washout and hopefully formal open reduction internal fixation at that point. We discussed if the wound is still purulence at that time would encourage longer admission with home IV antibiotics. Patient will continue to hold Plavix. May take aspirin if desired by Internal Medicine team.
--- NOTE | 2019-09-30 20:43 | SUR.PHASEI ---
Report called to CHANDRAKANT Swann on acute care floor. Pt in stable condition, vss. Drsg observed to be C/D/I. Pt denies any pain/discomfort or nausea at this time. Pt resting in bed with eyes closed, easily arousable to voice when spoken to. pt being transferred to acute care floor at this time.
[2019-09-30] MEDS: VANCOMYCIN 1,000 MG VIAL 1000 MG INTRA-ARTI (21:05)
[2019-09-30] MEDS: GENTAMICIN 80 MG in SODIUM CHLORIDE 0.9% 1,000 ML 12024 MG IRR (21:06)
[2019-09-30] MEDS: BUPIVACAINE 0.25% W/ EPI 30 ML VIAL INJ (21:06)
--- NOTE | 2019-09-30 21:08 | SUR.PHASEI ---
pt transferred to acute care floor in stable condition. VSS upon arrival. Bedside report given to CHANDRAKANT Swann. Pt significant other in room upon arrival. Transferred care of pt to CHANDRAKANT Swann at that time.
[2019-09-30] MEDS: SIMVASTATIN 40 MG TABLET PO (22:05)
[2019-09-30] MEDS: DOCUSATE 100 MG CAPSULE PO (22:06)
[2019-09-30] MEDS: ACETAMINOPHEN 325 MG TABLET 975 MG PO (22:13)
[2019-09-30] MEDS: VANCOMYCIN 1,000 MG/200 ML PIGGYBACK 200 MG IV (23:04)
[2019-10-01] VITALS (9 sets, daily range): BP systolic 87–109; BP diastolic 53–74; PULSE 70–100; RESP 16–18; TEMP 36.2–36.9; O2SAT 94–98
[2019-10-01] MEDS: CIPROFLOXACIN 500 MG TABLET 750 MG PO ×2 (00:35→10:23)
[2019-10-01] MEDS: SODIUM CHLORIDE 0.9% 1,000 ML 1000 ML IV (02:14)
--- NOTE | 2019-10-01 02:17 | PC.NURSE ---
MARK Carter. notified that pt. was hypotensive B/P @ 0031 89/56 HR> 86. Manual B/P 90/52, after she got up to the BSC her B/P was 100/53. Rechecked her B/P again was 89/59, HR 83. Denies any dizziness & other discomfort. Orders received to bolus her with 1 liter of NS, discontinue LR. After bolus is completed to change her IVF to NS @ 150 cc/hr. Did not void much when she used the BSC approximately 2 cc. Bladder scanned her noted 261 cc in her bladder. Will Cont. POC & monitor.
--- NOTE | 2019-10-01 02:42 | PC.NURSE ---
Clarified earlier notes she only voided 2 cc. With bladder scanned of showing 261 cc in her bladder.
[2019-10-01] MEDS: SODIUM CHLORIDE 0.9% 1,000 ML 150 ML IV (03:17)
--- NOTE | 2019-10-01 03:24 | PC.NURSE ---
1 liter NS bolus infused, recheked B/P 90/61 & HR. 85, NS @ 150 cc/hr. infusing. Will monitor.
[2019-10-01 05:50] LABS: Add Manual Diff / Slide Review NO; Basophils Absolute Auto 0 /uL (0-100); Basophils Percent Auto 0.1 % (0-2); Eosinophils Absolute Auto 0 /uL (0-450); Hemoglobin 9.7 g/dL (12.0-16.0); Lymphocytes Absolute Auto 300 /uL (1100-4500); Lymphocytes Percent Auto 2.8 % (25-40); Mean Corpuscular HGB Conc 34.7 % (30-36); Mean Corpuscular Hemoglobin 38.4 PG (26-34); Mean Corpuscular Volume 110.6 fL (80-100); Monocytes Absolute Auto 800 /uL (0-900); Monocytes Percent Auto 8.4 % (3-14); Neutrophils Absolute Auto 8000 /uL (1500-7000); Neutrophils Percent Auto 88.7 % (50-75); Platelet Count 207 X10^3/uL (150-400); Red Blood Cell Count 2.54 X10^6/uL (4.0-5.2); Red Cell Distribution Width 12.7 % (11.6-14.8)
[2019-10-01 05:57] LABS: BUN Creatinine Ratio 28.3 (6-22); Blood Urea Nitrogen 17 mg/dL (7-17); Calcium 7.9 mg/dL (8.4-10.2); Carbon Dioxide 24 mmol/L (22-32); Chloride 100 mmol/L (98-107); Estimated Glomerular Filt Rate > 60.0 mL/min (>60); Glucose 185 mg/dL (80-110); HEMOLYSIS < 15 (0-50); Potassium 4.1 mmol/L (3.4-5.1); Sodium 130 mmol/L (137-145)
[2019-10-01 06:11] LABS: Erythrocyte Sedimentation Rate 65 MM/HR (0-20)
[2019-10-01 06:12] LABS: C-Reactive Protein Quant 22.2 mg/dL (<1.0)
[2019-10-01 06:22] LABS: Macrocytosis 2+
--- NOTE | 2019-10-01 09:00 | P.PN_ITS ---
Subjective Subjective Date Patient Seen: 10/01/19 Time Patient Seen: 09:00 Interval history: Pain is mild. Denies fever/ chills. No numbness tingling right upper extremity. Exam Vital Signs (past 8 hours): - 10/01/19 01:50 10/01/19 03:23 10/01/19 04:00 Temperature 98.5 F Pulse Rate 83 85 70 Respiratory Rate 18 Blood Pressure 89/59 L 90/61 95/62 Pulse Oximetry 97 10/01/19 07:45 Temperature 97.2 F L Pulse Rate 73 Respiratory Rate 16 Blood Pressure 87/59 L Pulse Oximetry 98 Oxygen Delivery Method Room Air Oxygen Flow Rate 0 Narrative Exam Narrative: Pleasant 74-year-old female resting comfortably in bed in no apparent distress. Splint and dressing intact. Sensation grossly intact to light touch right distal upper extremity. Motor functions intact with good finger motion. Good capillary refill. Objective Labs Result Diagrams: 10/01/19 05:40 10/01/19 05:40 Labs: Laboratory Results - last 24 hr 10/01/19 10/01/19 10/01/19 05:40 05:40 05:40 WBC 9.0 RBC 2.54 L Hgb 9.7 L Hct 28.0 L MCV 110.6 H MCH 38.4 H MCHC 34.7 RDW 12.7 Plt Count 207 Neut % (Auto) 88.7 H Lymph % (Auto) 2.8 L [place] % (Auto) 8.4 Eos % (Auto) 0.0 L Baso % (Auto) 0.1 Neut # (Auto) 8000 H Lymph # (Auto) 300 L [place] # (Auto) 800 Eos # (Auto) 0 Baso # (Auto) 0 RBC Morphology See below Macrocytosis 2+ H ESR 65 H Sodium 130 L Potassium 4.1 Chloride 100 Carbon Dioxide 24 BUN 17 Creatinine 0.60 Estimated GFR > 60.0 BUN/Creatinine Ratio 28.3 H Glucose 185 H Calcium 7.9 L C-Reactive Protein 10/01/19 05:40 WBC RBC Hgb Hct MCV MCH MCHC RDW Plt Count Neut % (Auto) Lymph % (Auto) [place] % (Auto) Eos % (Auto) Baso % (Auto) Neut # (Auto) Lymph # (Auto) [place] # (Auto) Eos # (Auto) Baso # (Auto) RBC Morphology Macrocytosis ESR Sodium Potassium Chloride Carbon Dioxide BUN Creatinine Estimated GFR BUN/Creatinine Ratio Glucose Calcium C-Reactive Protein 22.[address] [facility] CLIA ID [id number] [address] [place] [id number] RUN DATE: 10/01/19 Specimen Inquiry PAGE 1 RUN TIME: 901 Name: Reyna Weiss Age/Sex: 74/F Attend Dr: Kelly Carter Unit#: [id number] : 1945Location: AC 211- Re09/30/19 Disch: Status: ADM IN SPEC #: [id number] LEEANNE: 09/30/19 STATUS: RES REQ #: [id number] SPDESC: RECD: 09/30/[address]: Margarita Dominguez MD SOURCE: Arm Rt ENTR: 09/30/[address]: Debi Peterson P.A-C, Debra ARNP FAX TO: ORDERED: WOUND Cx and GS COMMENTS: Comment right olecranon wound superficial Procedure Result Verified Site Gram Stain Final 09/30/192230 No Organism Seen No organisms seen White blood cells Many WBCs seen Aerobic Culture for wounds Pending Anaerobic Culture Pending Assessment & Plan Post-op Postoperative Procedures: Procedures Operation Date: 09/30/19 17:15 Actual Procedures Side Surgeon p ORIF Olecraron Fx Right Margarita Dominguez MD Postop day 1 status post irrigation debridement soft tissue, muscle and bone, right olecranon open fracture with infection. Placement of antibiotic spacer. Per op note:Plan for aftercare: Nonweightbearing right upper extremity stay in extension splint. Will be on scheduled antibiotics on the floor. Will narrow based on cultures. Will get IV antibiotics before discharge tomorrow. And will have oral antibiotics for . Will arrange for Sunday return to OR for repeat washout and hopefully formal open reduction internal fixation at that point. We discussed if the wound is still purulence at that time would encourage longer admission with home IV antibiotics. Patient will continue to hold Plavix. May take aspirin if desired by Internal Medicine team. Discharge home per hospitalist. Patient does really want to be home for and Dr. Dominguez is comfortable with this as long as she receives a dose of vanc. today and may be discharged with oral Bactrim and Cipro. Arrangements are being made for patient to return Sunday10/03/2019 for washout versus fixation. Quality VTE Deep Vein Thrombosis/Pulmonary Embolism Present on Admission: No
--- NOTE | 2019-10-01 09:30 | PT.IIE ---
Current Diagnoses Displaced fracture of olecranon process without intraarticular extension of right ulna, initial encounter for open fracture type I or II (09/30/19) Surgery Performed Operation Date: 09/30/19 17:15 Actual Procedures p ORIF Olecraron Fx(Right) - Margarita Dominguez MD Surgical History (Last Reviewed 09/30/19 @ 07:54 by Margarita Dominguez MD) H/O heart artery stent (Acute) Medical History (Last Reviewed 09/30/19 @ 07:54 by Margarita Dominguez MD) Coronary artery disease (Chronic) Dyslipidemia (Chronic) Hypertension (Chronic) PAD (peripheral artery disease) (Chronic) Physical Therapy Inpatient Evaluation/Re-Eval M1 PT/OT-IP Prior Functional Status Start: 10/01/19 11:11 Freq: NEEDED Status: Active Protocol: Document 10/01/19 09:30 AB (Rec: 10/01/19 11:26 AB [id number]) Medical Review Prior Functional Status Medical History Reviewed Yes Communication able to make needs known Mobility and Gait pt stated that she is independent with all mobilities and ambulation without AD. stated that occasionally has difficulty in walking due to hip pain Social History Household Members significant other Living Arrangements House Number of Floors (Floors) Two Floors Number of Stairs To Enter/Railing? 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 M2 PT-IP Current Condition Start: 10/01/19 11:11 Freq: NEEDED Status: Active Protocol: Document 10/01/19 09:30 AB (Rec: 10/01/19 11:26 AB [id number]) Physical Therapy Current Condition Current Condition Evaluation Date 10/01/19 Treatment Diagnosis R displaced olecranon fx s/p I &D w/ space; difficulty in walking Onset Date 09/30/19 Precautions Brace R UE extension splint Weight Bearing Status Weight Bearing Status Non-Weight Bearing Allowed Weight Bearing Amount (enter % NWB RUE or #) (%) M3 PT-IP Subjective Start: 10/01/19 11:11 Freq: NEEDED Status: Active Protocol: Document 10/01/19 09:30 AB (Rec: 10/01/19 11:26 AB [id number]) Subjective Physical Therapy Visit Type Type Initial Evaluation Visit Start Time 09:30 Visit Stop Time 10:14 Total Visit Minutes 44 Number of BASE FILLER OPERATOR Visits 0 Physical Therapy Visit Comments Patient Comments pt agreeable to do PT Therapy Pain Assessment Pain Present Pain Present Denied Pain M4 PT-IP Mobility and Gait Start: 10/01/19 11:11 Freq: NEEDED Status: Active Protocol: Document 10/01/19 09:30 AB (Rec: 10/01/19 11:26 AB [id number]) PT-Bed Mobility Assessment Supine to Sit Supine to Sit Moderate Assistance,Maximum Assistance,1 Person Assistance Scooting Scooting to Edge of Bed Standby Assistance PT-Transfer Assessment Sit to and From Stand Sit to and from Stand Standby Assistance Equipment Transfer Assistive Device None,Gait Belt Transfers Transfer Destination Chair,Toilet Transfer Technique pt ambulated without AD Transfer Ability Level of Assist Standby Assistance,Contact Guard Assistance Comments Mobility Comments pt completed supine to sit requiring mod to max A and cues. stated that spouse will be able to assist her. pt completed sit to stand SBA and ambulated in room SBA to CGA without AD. pt requested to use the toilet and ambulated to the toilet without AD SBA. completed toileting without assistance. ambulated from the toilet to the sink SBA without AD and was able to maintain standing while completing handwashing SBA. BP stable: 98/63 to 125/66 at end of tx session without c/o nausea/lightheadedness/ dizziness. pt completed ambulation and stair climbing and agreed to sit up on the chair after PT session. set up on chair. call light and table placed within reach. Gait Assessment Gait Gait Assistance Required: Standby Assistance,Contact Guard Assist Distance (Feet) 100 Able to Maintain Weight Bearing Status Yes During Gait Assistive Devices Assistive Device None,Gait Belt Orthotic/Prosthetic Devices or Brace: Yes Gait Deviations General Gait Pattern Antalgic,Decreased Stride Length,Decreased Feet Clearance Factors Limiting Gait Function Factors Limiting Gait Function Decreased Activity Tolerance, Limited Range of Motion,Poor Balance Comments Gait Comments pt requires SBA to occasional CGA with ambulation without AD ~ 100 ft x 2. pt presents with unsteady gait but without LOB; pt can be impulsive. Stair Climbing Assessment Evaluation Level of Assist On Stairs Standby Assistance,Contact Guard Assistance Devices Stair Climbing Assistive Devices None,Left Railing Technique/Endurance Stair Climbing Direction Ascend and Descend Stair Climbing Technique Step to Step Number of Steps Climbed 3 Query Text: Stair Climbing Set # Repetitions (reps) 2 Comments Stair Climbing Comments completed up steps without AD CGA but descend with use of L rail. stated that she has steps in the front of the house and spouse will be able to assist. completed up/down steps with one rail SBA. PT-Balance Assessment Sitting Balance and Reactions Static Sitting Balance Ability Good Dynamic Sitting Balance Ability Good Standing Balance and Reactions Static Standing Balance Ability Fair Dynamic Standing Balance Ability Fair Device Used without AD M5 PT-IP Objective Assessments Start: 10/01/19 11:11 Freq: NEEDED Status: Active Protocol: Document 10/01/19 09:30 AB (Rec: 10/01/19 11:26 AB [id number]) Orientation Orientation/Cognition Level of Alertness Alert Orientation Name,Age,Birthday,Month,Date, Year,Day of Week,Place, Situation Language Function Ability No Deficits Noted Safety Awareness Decreased Safety Awareness Memory Description No Deficits Noted Gross Range of Motion Lower Extremity ROM Assessment Within Functional Limits Strength Lower Extremity Strength Assessment Within Functional Limits Muscle Tone Muscle Tone WNL Yes M6 PT-IP Treatment Start: 10/01/19 11:11 Freq: NEEDED Status: Active Protocol: Document 10/01/19 09:30 AB (Rec: 10/01/19 11:26 AB [id number]) Physical Therapy Treatment Education Education Provided Precautions,Weight Bearing Status,Safety M7 PT-IP Assessment and Plan Start: 10/01/19 11:11 Freq: NEEDED Status: Active Protocol: Document 10/01/19 09:30 AB (Rec: 10/01/19 11:26 AB [id number]) PT Summary Assessment and Plan Potential Rehabilitation Potential Good Status of Condition at Evaluation Stable Summary Impairments Pain,ROM,Strength,Balance, Coordination,Bed Mobility, Transfers,Gait,Activity Tolerance Assessment Summary pt requires SBA to CGA with transfers/ambulation but required mod to max A with supine to sit but spouse will be able to assist pt. pt plans to go home and come back for another elbow surgery on sunday. Goals Bed Mobility Goal Independent Transfer Goal Independent Gait Goal Independent Gait Distance 250 Other Goals up/down 3 steps 1 rail SBA Days to Meet Goals 5 Frequency of Treatment Frequency Of Treatment Once a Day Treatment Plan Physical Therapy Treatment Plan Bed Mobility Training,Transfer Training,Gait Training, Therapeutic Exercise,Balance Retraining,Post Op Education, Discharge Planning,Hot or Cold Pack,Neuromuscular Re-ed, Coordination Retraining,Manual Therapy Recommendations To Nursing Amount of Assist Needed Standby Assistance Discharge Recommendations PT Discharge Recommendations Home with Assistance
[2019-10-01] MEDS: ACETAMINOPHEN 325 MG TABLET 975 MG PO (10:19)
[2019-10-01] MEDS: DOCUSATE 100 MG CAPSULE PO (10:20)
[2019-10-01] MEDS: ASPIRIN EC 81 MG TABLET PO (10:20)
[2019-10-01] MEDS: METOPROLOL IR 25 MG TABLET PO (10:20)
[2019-10-01] MEDS: VANCOMYCIN 1,000 MG/200 ML PIGGYBACK 200 MG IV (11:25)
--- NOTE | 2019-10-01 11:52 | OT.IP.TRT ---
Current Diagnoses Displaced fracture of olecranon process without intraarticular extension of right ulna, initial encounter for open fracture type I or II (09/30/19) Surgery Performed Operation Date: 09/30/19 17:15 Actual Procedures p ORIF Olecraron Fx(Right) - Margarita Dominguez MD Occupational Therapy Treatment Note M3 OT- IP Subjective and Pain Start: 10/01/19 11:44 Freq: Status: Active Protocol: Document 10/01/19 11:44 [facility] (Rec: 10/01/19 11:52 [facility] [id number]) OT- Subjective Occupational Therapy Visit Type Type Treatment Note Visit Start Time 11:25 Visit Stop Time 11:36 Total Visit Minutes 11 Occupational Therapy Visit Comments Patient Comments Pt just being attached to IV for antibiotics but willing to talk to OT. Pt just completed PT eval and PT states pt doing well and has supportive life partner to assist for all needs at home. Patient/Caregiver Goals Pt wanting to go home today and be back sunday for surgery . OT Pain Assessment Pain When Pain Assessed At Rest Pain Present Pain Present Denied Pain M4 OT- IP ADL's Start: 10/01/19 11:44 Freq: Status: Active Protocol: Document 10/01/19 11:44 [facility] (Rec: 10/01/19 11:52 [facility] [id number]) OT ADL-Dressing Comments OT Dressing Comments Spoke at length regarding suggestions of cutting off sweatshirt for right arm. To be sure to hanh right arm first and then over head and then left arm in. Use of loose pants as would be easily then zip up pants or tight clothing as only able to use left hand to assist for clothing needs. OT ADL-Toileting Comments OT Toileting Comments Educated pt may be benficial to wear pad/brief at night as gets up 2-3 time at night. OT ADL-Bathing Comments OT Bathing Comments Use of trash bag to cover her arm while showering.
[2019-10-01 12:50] LABS: Troponin I < 0.012 ng/mL (0.01-0.034)
--- NOTE | 2019-10-01 13:09 | PC.NURSE ---
Patient denies pain to right arm; arm elevated on pillow, MARTIN wrap intact; c/m/s to RUE positive; BP wnl; patient tolerating IV ABx; SBA to bathroom; patient hoping to d/c this afternoon, pending Cardiology
--- NOTE | 2019-10-01 14:13 | PM.DS.1 ---
History of Present Illness History of Present Illness Date Patient Seen: 10/01/19 Time Patient Seen: 13:00 Chief complaint: thinks right arm is broken had fall 1 wk ago Narrative: As per MARK Serna: Reyna Weiss is a pleasant 74 y.o. female who was in her usual state of health when she tripped over a rug in her home and when bracing the fall, hit her right elbow against a wood panelled wall approximately 8-9 days ago. She initially thought she just sustained a laceration, and presented to the ED a week plus later due to increased swelling, drainage and pain. She was found to have a displaced open olecrenon fracture of her right elbow. She denies loss of consciousness, jaw pain, chest pain, shortness of breath, nausea or vomiting, dysuria, diarrhea or constipation or numbing and tingling of the affected extremity. Patient's xray was evaluated in the ED by orthopedic surgery and they requested the Hospitalist service admit the patient for medical management. Patient has a history of stent placements in the LAD and her left calf approximately 2006 and her nuclear chemistry technician is Dr. Rojas. She had an abnormal myocardial perfusion study in November 2018, however the patient stated they did not make any changes. At that time she had a post stress EF of 46% and a resting EF of 41% with severe hypokinesis of of the entire inferior and inferoposterior vargas extending to the apex and the impression indicated a slightly reversible perfusion defect. I requested the ED provider to discuss her possible admission due to these findings and they indicated she should repeat the study or undergo an echocardiogram prior to surgery. Discharge Providers Provider Date of admission: 09/30/19 06:23 Discharge Date: 10/01/19 Primary care physician: Debi Peterson PA-C Consults: 09/30/19 06:43 Consult to Physician Routine Comment: Consulting Provider: Margarita Dominguez Reason for consultation: right sided olecrenon fracture Has provider been notified: Yes 09/30/19 06:47 Consult to Dietitian, Adult Routine Comment: Reason For Exam: per protocol 09/30/19 21:38 Consult to Physical Therapy Evaluate & Treat Comment: JENNA PANIAGUA Physician Instructions: Evaluate and Treat Consult to Respiratory Therapy Evaluate & Treat Comment: Physician Instructions: Evaluate and treat 10/01/19 10:22 Consult to Occupational Therapy Evaluate & Treat Comment: Physician Instructions: Evaluate and treat Discharge provider: Manoj Ulloa DO Summary Hospital Course Hospital Course: Reyna Weiss is a 74 year old female with PMH of CHFrEF, CAD, HTN, and HLD who was admitted to medicine service with right open olecrenon fracture. She underwent washout and was found to have a joint space infection and patient was started on antibiotics and an antibiotic spacer was placed in the OR. She is being discharged home on antibiotics per orthopedic surgery with plans for returning on 10/03 for either another washout or fixation depending on intra-operative findings at that time. As part of her pre-operative evaluation she had a repeat echocardiogram given a stress test showing a decreased EF, which revealed an EF of 25-30% which is down from approximately 40% on her stress testing. She further has a LBBB and needs to follow up with her nuclear chemistry technician for possible STEEL CONSTRUCTION WORKER or further workup of her cardiomyopathy. She is asymptomatic from her cardiac disease at this time, however, and this workup should not preclude her from further surgeries and she has excellent functional status. She will need to be monitored after surgical interventions as she is at moderate cardiac risk. Post operative troponin after her washout was checked and was negative. 1. Right open olecrenon fracture, acute, present on admission - Appeciate orthopedic surgery management. Patient to return on Sunday for either additional washout or fixation. - Continue bactrim and ciprofloxacin while discharged for joint space infection per orthopedic surgery recommendations. - non-weight bearing RUE - evaluated by PT and OT, appreciate assistance - prescribed a few doses of PO morphine as outpatient (patient does not prefer oxycodone but did okay with morphine) for severe pain. 2. Septic arthritis, R joint infection, acute, present on admission, secondary to above open fracture. - see antibiotics noted above - intra-operative cultures are pending. Gram stain negative with many WBCs. 3. CAD, chronic, POA - echocardiogram as noted above - Recommend follow up with Dr. Rojas as an outpatient for further evaluation of worsened EF. She remains asymptomatic. - Hold plavix until surgical procedures are complete and then resume, continue asa 81 mg 4. CHFrEF - - patient is already on an marcial-inhibitor and beta sam. Uptitration of medications was limited by low-normal blood pressures. - recommend outpatient follow up as noted above for possible STEEL CONSTRUCTION WORKER if EF is persistent while on maximal therapy. 5. Essential hypertension, chronic, POA Continue home doses of metoprolol and lisinopril. Hold lisinopril tomorrow given plan for OR on Sunday. 6. Hyperlipidemia, chronic, POA Resume home dose of simvastatin tonight Exam Vital Signs (past 8 hours): - 10/01/19 07:45 10/01/19 10:21 10/01/19 11:27 Temperature 97.2 F L 98.2 F Pulse Rate 73 100 H 72 Respiratory Rate 16 16 Blood Pressure 87/59 L 103/74 109/64 Pulse Oximetry 98 98 Oxygen Delivery Method Room Air Oxygen Flow Rate 0 Narrative Exam Narrative: GENERAL APPEARANCE: Well developed, well nourished, elderly female in no acute distress. SKIN: Inspection of the skin reveals no rashes, ulcerations or petechiae. HEENT: The sclerae were anicteric and conjunctivae were pink and moist. Extraocular movements were intact and pupils were equal, round with normal accommodation. External inspection of the ears and nose showed no scars, lesions, or masses. Lips, teeth, and gums showed normal mucosa. The oral mucosa, hard and soft palate, tongue and posterior pharynx were unremarkable. NECK: Supple and symmetric. There was no thyroid enlargement, and no tenderness, or masses were felt. CHEST: Normal AP diameter and normal contour without any kyphoscoliosis. LUNGS: Auscultation of the lungs revealed no wheezes, rhonchi, or rales. CARDIOVASCULAR: There was a regular rate and rhythm without any murmurs, gallops, rubs. Peripheral pulses were 2+ and symmetric. ABDOMEN: Soft and nontender with normal bowel sounds. No ascites was noted. MUSCULOSKELETAL: RUE marcial wrap in place and dressings c/d/i. EXTREMITIES: No cyanosis, clubbing. There is RUE swelling notable in her R hand. No LE edema. NEUROLOGIC: Alert and oriented x 3. Normal affect. Sensation to touch was normal. Objective Labs Result Diagrams: 10/01/19 05:40 10/01/19 05:40 Labs: Laboratory Results - last 24 hr 10/01/19 10/01/19 10/01/19 05:40 05:40 05:40 WBC 9.0 RBC 2.54 L Hgb 9.7 L Hct 28.0 L MCV 110.6 H MCH 38.4 H MCHC 34.7 RDW 12.7 Plt Count 207 Neut % (Auto) 88.7 H Lymph % (Auto) 2.8 L [place] % (Auto) 8.4 Eos % (Auto) 0.0 L Baso % (Auto) 0.1 Neut # (Auto) 8000 H Lymph # (Auto) 300 L [place] # (Auto) 800 Eos # (Auto) 0 Baso # (Auto) 0 RBC Morphology See below Macrocytosis 2+ H ESR 65 H Sodium 130 L Potassium 4.1 Chloride 100 Carbon Dioxide 24 BUN 17 Creatinine 0.60 Estimated GFR > 60.0 BUN/Creatinine Ratio 28.3 H Glucose 185 H Calcium 7.9 L Troponin I C-Reactive Protein 10/01/19 10/01/19 05:40 05:40 WBC RBC Hgb Hct MCV MCH MCHC RDW Plt Count Neut % (Auto) Lymph % (Auto) [place] % (Auto) Eos % (Auto) Baso % (Auto) Neut # (Auto) Lymph # (Auto) [place] # (Auto) Eos # (Auto) Baso # (Auto) RBC Morphology Macrocytosis ESR Sodium Potassium Chloride Carbon Dioxide BUN Creatinine Estimated GFR BUN/Creatinine Ratio Glucose Calcium Troponin I < 0.012 C-Reactive Protein 22.2 H Discharge Plan Discharge Plan Patient Disposition: Home Discharge comment: You were admitted to the hospital with an open fracture of your right elbow. You underwent a washout procedure with Orthopedic surgery. You were given antibiotics. You are being discharged home with plan for further operative intervention on Sunday. Your right upper extremity is nonweightbearing at this time. Have given you a prescription for antibiotics to continue until you return on Sunday as well as morphine for severe pain. Continue to take Tylenol at home for mild pain. Should you have any symptoms of chest pain or pressure please come to the emergency room. You should continue taking your aspirin but stopped your Plavix. Do not take your lisinopril tomorrow. As part of your evaluation prior to surgery you had an echocardiogram which showed a slight decrease in your ejection fraction compared to your stress test done earlier this year. You will need to follow up with her nuclear chemistry technician for possible placement of a STEEL CONSTRUCTION WORKER device. Following her operative intervention on Sunday should stay overnight for monitoring as well. Discharge orders & Medications Prescriptions: New acetaminophen 325 mg Tablet 975 mg PO TID 10 Days Qty: 90 RF: 0 ciprofloxacin HCl 500 mg tablet 500 mg PO BID 5 Days Qty: 10 RF: 0 sulfamethoxazole-trimethoprim 800-160 mg tablet 1 tab PO BID 5 Days Qty: 10 RF: 0 morphine 15 mg tablet 15 mg PO BID PRN (Reason: pain) 4 Days Qty: 8 RF: 0 Continued simvastatin 40 MG tablet 40 mg PO QDAY Qty: 0 RF: 0 aspirin 81 mg Tablet,Chewable 81 mg PO DAILY RF: 0 lisinopril 2.5 mg Tablet 2.5 mg PO DAILY RF: 0 metoprolol tartrate tablet 25 mg PO BID RF: 0 Discontinued clopidogrel [Plavix] 75 mg Tablet 75 mg PO DAILY RF: 0 Follow up/Referrals: Debi Peterson PA-C [Primary Care Provider] - Diet/Activity/Treatments Diet: Diet as Tolerated and Low-cholesterol Activity: Non weight-bearing right upper extremity Visit Report/Discharge Packet Instructions: DI for Open Reduction Internal Fixation Surgery Discharge Data Primary Care Provider: Debi Peterson Discharges patient from system. Discharge Date/Time: 10/01/19 16:02 Quality VTE Deep Vein Thrombosis/Pulmonary Embolism Present on Admission: No
--- NOTE | 2019-10-01 16:02 | PC.NURSE ---
Pt fully dressed sitting up in recliner. Spouse is present at chairside. Pt has intact marcial wrap to right arm/elbow. Discharge instructions presented to pt and pt reports hospitalist has reviewed all of this information with pt. Repeated as necessary by this law writer to clarify. Written discharge instructions given to pt and pt is in possession for prescription for morphine. Antibiotics have been electronically submitted by MD and pt and spouse informed to pick this up to begin today. Pt left hospital with spouse ambulatory with all personal belongings accounted for. Pt left hospital in stable condition to return Wednesday 10/03 for ORIF.
== END 2019-10-01 16:02 | disposition home or self-care (01) | DRG 501 ==
LOC: ED 06:20 → AC 07:18
PROVIDERS: Internal Medicine; Orthopaedic Surgery Foot and Ankle Surgery; Admitting Provider Nurse Practitioner Family; Emergency Provider Emergency Medicine; Family Provider Physician Assistant; PCP Physician Assistant; Visit Provider Nurse Practitioner Family
PROC: 0RSL04Z Reposition Right Elbow Joint with Internal Fixation Device, Open Approach (ICD-10-PCS; principal; 2019-09-30 17:15)
DX: S52.021B Displaced fracture of olecranon process without intraarticular extension of right ulna, initial encounter for open fracture type I or II (principal); M00.821 Arthritis due to other bacteria, right elbow; I50.20 Unspecified systolic (congestive) heart failure; I11.0 Hypertensive heart disease with heart failure; I25.10 Atherosclerotic heart disease of native coronary artery without angina pectoris; I44.7 Left bundle-branch block, unspecified; I73.9 Peripheral vascular disease, unspecified; F17.210 Nicotine dependence, cigarettes, uncomplicated; E78.5 Hyperlipidemia, unspecified; W01.198A Fall on same level from slipping, tripping and stumbling with subsequent striking against other object, initial encounter; Y92.009 Unspecified place in unspecified non-institutional (private) residence as the place of occurrence of the external cause; Z23 Encounter for immunization
CPT/HCPCS: 36415; 73080; 76000; 80048; 84484; 85025; 85651; 86140; 87070; 87075; 87077; 87147; 87186; 87205; 90471; 93005; 93306; 96365; 97116; 97161; 97535; 99283; 99285; 90715; J0690; J1100; J1170; J2250; J2270; J2405; J2704; J3010

== ENCOUNTER 2019-10-03 15:00 | Observation (INO) | payer MEDICARE, OTHER, SELFPAY ==
[2019-09-30 06:38] VITALS: BMI 16.7
--- NOTE | 2019-10-01 18:28 | P.DS_ITS ---
History of Present Illness History of Present Illness Date Patient Seen: 10/01/19 Time Patient Seen: 13:00 Chief complaint: [id number] Narrative: As per MARK Serna: Reyna Weiss is a pleasant 74 y.o. female who was in her usual state of health when she tripped over a rug in her home and when bracing the fall, hit her right elbow against a wood panelled wall approximately 8-9 days ago. She initially thought she just sustained a laceration, and presented to the ED a week plus later due to increased swelling, drainage and pain. She was found to have a displaced open olecrenon fracture of her right elbow. She denies loss of consciousness, jaw pain, chest pain, shortness of breath, nausea or vomiting, dysuria, diarrhea or constipation or numbing and tingling of the affected extremity. Patient's xray was evaluated in the ED by orthopedic surgery and they requested the Hospitalist service admit the patient for medical management. Patient has a history of stent placements in the LAD and her left calf approximately 2006 and her aerotriangulation specialist is Dr. Rojas. She had an abnormal myocardial perfusion study in November 2018, however the patient stated they did not make any changes. At that time she had a post stress EF of 46% and a resting EF of 41% with severe hypokinesis of of the entire inferior and inferoposterior vargas extending to the apex and the impression indicated a slightly reversible perfusion defect. I requested the ED provider to discuss her possible admission due to these findings and they indicated she should repeat the study or undergo an echocardiogram prior to surgery. Discharge Providers Provider Discharge provider: Manoj Ulloa DO Summary Hospital Course Hospital Course: Reyna Weiss is a 74 year old female with PMH of CHFrEF, CAD, HTN, and HLD who was admitted to medicine service with right open olecrenon fracture. She underwent washout and was found to have a joint space infection and patient was started on antibiotics. She is being discharged home on antibiotics per orthopedic surgery with plans for returning on 10/03 for either another washout or fixation depending on intra-operative findings at that time. 1. Right open olecrenon fracture, acute, present on admission Orthopedic surgery to see and may do surgery today or tomorrow NPO unless surgery is delayed to tomorrow She received ancef in the ED LR at 125 ml/hour 2. R joint infection, acute, present on admission, secondary to above open fracture. 3. CAD, chronic, POA She will undergo an echocardiogram Recommend coordination with her aerotriangulation specialist, Dr. Rojas Holding plavix, she took this am's dose prior to presenting to the ED 4. CHFrEF - 5. Essential hypertension, chronic, POA Continue home doses of metoprolol and lisinopril within hypertension parameters Holding aspirin, she took this am's dose prior to presenting to the ED 6. Hyperlipidemia, chronic, POA Resume home dose of simvastatin tonight Discharge Plan Discharge Med Rec/Prescriptions Prescriptions: No Action simvastatin 40 MG tablet 40 mg PO QDAY Qty: 0 RF: 0 aspirin 81 mg Tablet,Chewable 81 mg PO DAILY RF: 0 lisinopril 2.5 mg Tablet 2.5 mg PO DAILY RF: 0 metoprolol tartrate tablet 25 mg PO BID RF: 0 acetaminophen 325 mg Tablet 975 mg PO TID 10 Days Qty: 90 RF: 0 ciprofloxacin HCl 500 mg tablet 500 mg PO BID 5 Days Qty: 10 RF: 0 sulfamethoxazole-trimethoprim 800-160 mg tablet 1 tab PO BID 5 Days Qty: 10 RF: 0 morphine 15 mg tablet 15 mg PO BID PRN (Reason: pain) 4 Days Qty: 8 RF: 0 Discharge Data Attending Provider: Margarita Dominguez
[2019-10-03] VITALS (12 sets, daily range): BP systolic 100–122; BP diastolic 64–77; PULSE 70–100; RESP 8–20; TEMP 36.2–37.1; O2SAT 92–100; BMI 16.7
--- NOTE | 2019-10-03 | DI.RAD.S_ITS ---
PROCEDURE: XR ELBOW RT MIN 3V INDICATIONS: ORIF OLECRANON, IRRIGATION DEBREDEMENT (RT) TECHNIQUE: 8 intraoperative views of the elbow were acquired. COMPARISON: [facility], ELLA, XR ELBOW RT MIN 3V, 09/30/2019, 20:35. FINDINGS: Intraoperative fluoroscopic images of the right elbow demonstrate interval ORIF of olecranon fracture of the proximal ulna. Alignment appears anatomic. No acute hardware complication identified. IMPRESSION: Intraoperative fluoroscopic support for ORIF of right olecranon fracture. Postsurgical alignment appears anatomic. No acute hardware complication identified. Dictated by: Tera Marrero M.D. on 10/03/2019 at 22:46 Approved by: Tera Marrero M.D. on 10/03/2019 at 22:48
[2019-10-03] MEDS: VANCOMYCIN 1,000 MG/200 ML PIGGYBACK 200 MG IV ×2 (15:42→22:44)
[2019-10-03] MEDS: LACTATED RINGERS 1,000 ML 42 ML IV ×2 (15:42→18:39)
[2019-10-03 16:24] LABS: Basophils Absolute Auto 0 /uL (0-100); Basophils Percent Auto 0.6 % (0-2); Eosinophils Absolute Auto 0 /uL (0-450); Eosinophils Percent Auto 0.7 % (2-4); Hematocrit 27.8 % (36-46); Hemoglobin 9.7 g/dL (12.0-16.0); Lymphocytes Absolute Auto 800 /uL (1100-4500); Lymphocytes Percent Auto 11.5 % (25-40); Mean Corpuscular Hemoglobin 38.5 PG (26-34); Mean Corpuscular Volume 109.9 fL (80-100); Monocytes Absolute Auto 1400 /uL (0-900); Monocytes Percent Auto 20.9 % (3-14); Neutrophils Absolute Auto 4400 /uL (1500-7000); Neutrophils Percent Auto 66.3 % (50-75); Platelet Count 266 X10^3/uL (150-400); Red Blood Cell Count 2.53 X10^6/uL (4.0-5.2); Red Cell Distribution Width 12.6 % (11.6-14.8); White Blood Cell Count 6.6 X10^3/uL (4.5-11.0)
[2019-10-03 16:28] LABS: Add Manual Diff / Slide Review SLIDE REVIEW
[2019-10-03 16:36] LABS: Blood Urea Nitrogen 20 mg/dL (7-17); C-Reactive Protein Quant 7.9 mg/dL (<1.0); Calcium 9.3 mg/dL (8.4-10.2); Carbon Dioxide 26 mmol/L (22-32); Chloride 102 mmol/L (98-107); Estimated Glomerular Filt Rate > 60.0 mL/min (>60); Glucose 95 mg/dL (80-110); HEMOLYSIS < 15 (0-50); Potassium 4.3 mmol/L (3.4-5.1); Sodium 134 mmol/L (137-145)
--- NOTE | 2019-10-03 16:45 | PM.PREOP ---
Pre-operative Note Interval Note History & Physical reviewed/Exam performed by Physician: Yes Changes to H&P: No
[2019-10-03 16:50] LABS: Macrocytosis 2+
[2019-10-03] MEDS: SODIUM CHLORIDE IRRIG SOLUTION 3,000 ML, GENTAMICIN 240 MG IRR (18:19)
--- NOTE | 2019-10-03 18:33 | SUR.OPER ---
right Lateral on padded OR bed, head on pillow, gel axillary roll in place, bottom leg bent with gel pad under knee to foot, upper leg straight and supported with pillows. Upper arm supported by pillows and secured over bottom arm to padded arm board. Safety belt at hip, tape over blanket lower legs.
[2019-10-03] MEDS: TOBRAMYCIN 1.2 GM VIAL 2.4 GM INTRA-ARTI (18:48)
[2019-10-03] MEDS: VANCOMYCIN 1,000 MG VIAL 1000 MG TOP (18:49)
[2019-10-03] MEDS: BUPIVACAINE 0.25% W/ EPI (PF) 10 ML VIAL 20 ML INJ (20:38)
--- NOTE | 2019-10-03 21:04 | SUR.PHASEI ---
Dr. Mendez aware of bundle branch block. No new orders
[2019-10-03] MEDS: fentaNYL 100 MCG/2 ML INJ IV (21:12)
--- NOTE | 2019-10-03 21:15 | PM.OP.1 ---
Operative Date/Time/Diagnoses Date of procedure: 10/03/19 Time of procedure: 18:48 Pre-op diagnosis: Right open olecranon fracture S52.021 Septic arthritis Post-op diagnosis: same Procedure & Clinicians Procedure: 1. Open reduction internal fixation right olecranon fracture, open CPT code 33501 Removal antibiotic spacer CPT code 57170 Irrigation debridement fracture subcutaneous tissue fashion bone, CPT code 46787 Same procedure as scheduled: Yes Indications: The patient is a 74-year-old female that sustained an open olecranon fracture approximately week and half ago. She had a delayed presentation. On the date of her presentation she had infection present as well. She went for an irrigation and debridement and antibiotic spacer was placed. The patient was then kept on IV antibiotics. She is brought back today for staged removal of the antibiotic spacer second-look washout and ORIF with an antibiotic coated plate. Risks and benefits of the procedure were discussed with the patient in detail. She is right-hand dominant and has multiple medical comorbidities. We discussed this is a difficult problem a dealing with the fracture and the infection. We discussed delayed treatment with immobilization until infection is cleared however this is not ideal given the fracture displacement and functional limitations. Additionally this extremity is not not easily tolerable of external fixation. We discussed option for internal fixation with a antibiotic cement coated plate to provide both fracture fixation as well as local antibiotic delivery. We did discuss this would make fixation higher profile and may lead to a higher chance of secondary surgery for plate removal once the fracture is healed I did discuss with the patient that this area of the body is a high risk for needing removal due to plate irritation either way. The patient expressed her consent like to proceed with fixation. We also discussed the necessity for IV antibiotics her approximately 6 weeks postoperatively. The risks and benefits of the procedure have been discussed with the patient even opportunity to ask questions. The risks of surgery include but are not limited to infection, malunion, nonunion, persistence of pain, damage to nerves and blood vessels, posttraumatic arthritis, DVT, PE, cardiopulmonary complications and . The patient expressed a thorough understanding of the risks and benefits of surgery and has elected to proceed. Consent was signed. The patient will be a planned admission and comanagement with the medical service team. Once she has a PICC line and antibiotics set up for home she will be discharged. Currently her cultures have grown gram-positive cocci but these have not be seated out yet. Her CRP is much improved from her 1st washout from 20 to to 7.9 today and she remains afebrile stable vital signs. Surgeon: Margarita Dominguez Click Yes if Unassisted: Yes Anesthesia Type: General and Local Operative Notes Findings: Open olecranon fracture sutures are removed antibiotic spacer removed no additional gross purulence. Fracture is irrigated and remaining hematoma removed. This is an oblique fracture after through irrigation debridement and change of the drapes and gloves this was reduced with a ilhgl-wl-[id number] reduction clamp then pinned an interfragmentary lag screw was placed across the oblique fracture then a 1/3 tubular plate was bent and contoured to the fracture this was then removed and coated with antibiotic cement with tobramycin and vancomycin and then replaced in the fracture site. Care was made to leave the screw heads open for easy removal should this be necessary. Closure Type: primary Specimen(s): other (Tissue for PCR site deep elbow, right) Applied: implant(s) (Main and Nephew 7 hole 1/3 tubular locking plate coated with antibiotic cement with 2.4 g tobramycin 1 g vancomycin) Estimated Blood Loss (mL): 30 Blood products transfused: none Tourniquet time (min): 106 Procedure in detail: Patient was seen in the preoperative area the site of surgery was marked informed consent confirmed. The patient was then brought back to the operating room by the anesthesia team positioned supine on the operative table. General anesthesia was administered. The patient was then positioned in the lateral position on the beanbag. All bony prominences were well padded. Gel pads were placed under the legs perineal nerve between the legs on and around all bony prominences. SCDs were 1 on the legs. The arm was positioned lateral over a bolster. An axillary bump was placed. The right upper extremity was prepped and draped in the standard sterile fashion formal time-out procedure was performed confirming the patient's side and site of surgery administration of preoperative antibiotics which in this case was vancomycin. All were in agreement. At this point the I and D took place . Fracture hematoma edges and devitalized fascia and subcutaneous tissue were removed. A deep tissue was sent for culture. This was an excisional debridement. The incision was reopened and the antibiotic spacer removed. The wound was then irrigated with 6 L of saline using pulsatile lavage. The 1st 3 L contained gentamicin. The 2nd 3 L was plain saline. Following this the drapes were changed and gloves changed and the separate Zazueta stand that was used for the ID was moved to the side. Next new drapes were placed and gloves were changed the sterile tourniquet was placed onto the brachium and the arm was elevated for gravity exsanguination then elevated to 250 mm of mercury and stayed there for 106 minutes. The incision was extended proximally and distally. The fracture site was further cleaned and then reduced this was an oblique pattern and the paoem-uy-dryni clamp was used for reduction. This was then pinned in pain place provisionally and 2.7 inter frag lag screws placed across the oblique fracture perpendicular to the fracture line. Next a 7 hole 1/3 tubular locking plate from the Main and Nephew set was contoured to the posterior olecranon using the bending irons and this was provisionally placed on the olecranon using nonlocking screws to help contour it to the bone both proximally and distally. Once the plate was contoured to her satisfaction it was then removed. At this time the cement and antibiotics were mixed this was 40 g of cement with 2.4 g of tobramycin and 1 g of vancomycin. Unfortunately there was some difficulty with some equipment on the back table in a splint did get hard quite quickly therefore the underside and most of the plate but not all of it were coated with the cement once this was hardened trimmed around the edges to provide a nice even thin coating this was then placed on to the olecranon again. The plate holes had been cleared out using a screw from the set as well as the and drill. This was placed in place again using the nonlocking screws 1st proximally and distally and then several locking screws were added for additional fixation. Next to finish a coding the plate and also filling in any remaining gaps another bag of cement vancomycin were mixed and spread along with a remaining open area is again keep taking care to make sure the screw heads a remained open but all other aspects of plate were covered in a good layer of antibiotic cement. Once this had finished drying the wound was irrigated and closed in layers with 0 PDS, 2 0 PDS, 2 O and 3 O nylon suture. Final x-rays were taken the elbow was taken through full range of motion and pronation and supination without any grinding or evidence of impingement. Final AP and lateral fluoroscopic views were obtained. Sterile dressing was placed with Xeroform, gauze, ABD pads and a posterior splint. Patient was awoken from anesthesia and taken to the recovery room in good condition. There no immediate complications from this procedure. All counts were correct. Complications: none Post-operative Condition: stable Disposition: Acute Care Plan for aftercare: 2 lb weight limit right upper extremity. Elevate hand above heart level to help with swelling. May use hand for eating or pencil or typing appear continue splint for 2 weeks. Follow up as an outpatient for wound check. Sutures will remain in place minimum 2 weeks. Patient will get a PICC line and have home antibiotics tailored. She will have 6 weeks of IV antibiotics with weekly CRP ESR BMP and CBC with diff.
--- NOTE | 2019-10-03 21:26 | SUR.PHASEI ---
Patient verbalized pain abating slowly.
--- NOTE | 2019-10-03 21:49 | P.PN_ITS ---
Subjective Subjective Date Patient Seen: 10/03/19 Time Patient Seen: 21:49 Interval history: Postop day 0 I and D ORIF with antibiotic cement coated plate for open olecranon fracture. Patient resting easily in bed. Plan 2 lb weight limit right upper extremity, maintain splint. Elevate hand to help with swelling. Will continue scheduled vancomycin. Dosing per pharmacy. Will get PICC line. Still waiting for speciation of gram-positive cocci. Once this is c omplete discharge with appropriate antibiotics--will get IV antibiotics 6 weeks. Will need weekly ESR CRP CBC with diff and BMP. May restart Plavix 48 hours from surgery. may continue aspirin now. Exam Vital Signs (past 8 hours): - 10/03/19 15:43 10/03/19 20:51 10/03/19 20:55 Temperature 97.2 F L 98.0 F Pulse Rate 100 H 95 H 96 H Respiratory Rate 20 10 L 12 Blood Pressure 122/77 104/64 105/68 Pulse Oximetry 100 92 95 10/03/19 21:00 10/03/19 21:05 10/03/19 21:16 Temperature Pulse Rate 93 H 91 H 89 Respiratory Rate 11 L 10 L 8 L Blood Pressure 101/72 109/68 108/66 Pulse Oximetry 95 94 94 10/03/19 21:26 10/03/19 21:35 Temperature 97.4 F L Pulse Rate 91 H 85 Respiratory Rate 13 11 L Blood Pressure 113/70 110/68 Pulse Oximetry 96 96 Oxygen Delivery Method Nasal Cannula Oxygen Flow Rate 2 Objective Labs Result Diagrams: 10/03/19 15:45 10/03/19 15:45 Labs: Laboratory Results - last 24 hr 10/03/19 10/03/19 15:45 15:45 WBC 6.6 RBC 2.53 L Hgb 9.7 L Hct 27.8 L MCV 109.9 H MCH 38.5 H MCHC 35.0 RDW 12.6 Plt Count 266 Neut % (Auto) 66.3 Lymph % (Auto) 11.5 L [place] % (Auto) 20.9 H Eos % (Auto) 0.7 L Baso % (Auto) 0.6 Neut # (Auto) 4400 Lymph # (Auto) 800 L [place] # (Auto) 1400 H Eos # (Auto) 0 Baso # (Auto) 0 RBC Morphology sociology research assistant Macrocytosis 2+ H Sodium 134 L Potassium 4.3 Chloride 102 Carbon Dioxide 26 BUN 20 H Creatinine 0.80 Estimated GFR > 60.0 BUN/Creatinine Ratio 25.0 H Glucose 95 Calcium 9.3 C-Reactive Protein 7.9 H Assessment & Plan Post-op Postoperative Procedures: Procedures Operation Date: 10/03/19 16:45 Actual Procedures Side Surgeon p ORIF Olecranon , Irrigation Debridement Margarita Dominguez MD
--- NOTE | 2019-10-03 21:52 | SUR.PHASEI ---
Report called to Jerry
--- NOTE | 2019-10-03 22:09 | SUR.PHASEI ---
Patient transferred to the floor on o2 monitor, deep breaths encouraged intermittently. Report given to Jerry. VS stable. Rt arm dressing CDI, sling in place. Pt moving fingers independently. IV saline locked. Belongings bag and cloth bag with patient.
[2019-10-03] MEDS: LACTATED RINGERS 1,000 ML 75 ML IV (22:43)
[2019-10-03] MEDS: SIMVASTATIN 40 MG TABLET PO (22:44)
[2019-10-03] MEDS: DOCUSATE 100 MG CAPSULE PO (22:44)
[2019-10-03 23:08] LABS: BUN Creatinine Ratio 23.8 (6-22); Blood Urea Nitrogen 19 mg/dL (7-17); Carbon Dioxide 26 mmol/L (22-32); Chloride 101 mmol/L (98-107); Estimated Glomerular Filt Rate > 60.0 mL/min (>60); Glucose 120 mg/dL (80-110); HEMOLYSIS < 15 (0-50); Potassium 4.5 mmol/L (3.4-5.1); Sodium 133 mmol/L (137-145)
--- NOTE | 2019-10-03 23:25 | PC.NURSE ---
Arrival to Floor Patient arrives to acute care floor alert and oriented. Right arm secured in sling, MARTIN wrap CDI. Patient denies any numbness or tingling to right arm, denies pain. Right hand and fingers swollen and discolored with abrasions noted upon arrival to floor, OR care team aware per RESPIRATORY CARE PRACTITIONER. 2 RN skin assessment completed and ordered IV fluids and ABX administered. Care is ongoing.
--- NOTE | 2019-10-04 | DI.RAD.S_ITS ---
PROCEDURE: XR CHEST FOR PICC 1V INDICATIONS: PICC PLACEMENT COMPARISON: None. FINDINGS: PICC was placed by the intravenous therapy team from the left side. Fluoroscopic spot film demonstrates the tip of PICC overlying the left brachiocephalic vein. IMPRESSION: Tip of PICC projects overlying the left brachiocephalic vein. Please consider repositioning, as clinically appropriate. Dictated by: Marty León M.D. on 10/04/2019 at 11:11 Approved by: Marty León M.D. on 10/04/2019 at 11:12
[2019-10-04 02:10] VITALS: BP 107/67; PULSE 95; RESP 16; TEMP 37.2; O2SAT 95
[2019-10-04] MEDS: TRAMADOL 50 MG TABLET PO ×2 (02:42→12:23)
[2019-10-04 03:10] VITALS: BP 108/67; PULSE 99; RESP 15; TEMP 37.2; O2SAT 99
[2019-10-04 07:30] VITALS: BP 102/67; PULSE 102; RESP 16; TEMP 37.1; O2SAT 99
[2019-10-04 07:32] LABS: Hematocrit 27.6 % (36-46); Hemoglobin 9.4 g/dL (12.0-16.0); Mean Corpuscular HGB Conc 34.2 % (30-36); Platelet Count 254 X10^3/uL (150-400); Red Blood Cell Count 2.48 X10^6/uL (4.0-5.2); Red Cell Distribution Width 12.6 % (11.6-14.8); White Blood Cell Count 7.2 X10^3/uL (4.5-11.0)
[2019-10-04] MEDS: ACETAMINOPHEN 325 MG TABLET 975 MG PO (08:57)
[2019-10-04] MEDS: DOCUSATE 100 MG CAPSULE PO (08:57)
[2019-10-04] MEDS: METOPROLOL IR 25 MG TABLET PO (08:57)
[2019-10-04] MEDS: SODIUM CHLORIDE 0.9% FLUSH 10 ML IV (08:58)
[2019-10-04] MEDS: ASPIRIN 81 MG CHEW TAB PO (09:08)
--- NOTE | 2019-10-04 10:53 | CM.DANOTE ---
Addendum entered by REN Guzman 10/04/19 13:45: ADD: [facility] called pt and updated that pt could be responsible for around $600 a day if her Reg[employer] doesn't cover. Pt initially states she would prefer to look into other options besides Home infusion. SW and RN met with pt and discussed outpt infusion twice a day or SNF and pt declines both options for multiple reasons. SW discussed with Pharmacy and helpdesk specialist options of changing to Q24 and since pt's cultures and trough not available until tomorrow at the earliest then no safe abx change at this time but likely pt will be able to safely change to Q24 soon pending trough. PRAMOD discussed above with pt bedside and inquired if pt would be willing to stay tonight until trough could be drawn in the morning to provide more information about changing her dosing frequency and pt states she does not want to stay another night and her preference is to pay [facility] for home dosing and wait for them to draw her trough and determine if she can eventually change to Q24. Pt requests that SW set up services for her through [facility] for d/c home via sig other today. PRAMOD called Judy at [facility] and updated and she is agreeable with setting the pt up for service for tomorrow and requests pt's next dose be provided by them around 0900 tomorrow and trough draw Sunday for a more reliable test. PRAMOD called Dr. Main and updated and she is agreeable with [facility] plan. PRAMOD called Judy back and confirmed they will open pt to service in the morning and will call and update pt as well and confirm her home address. PRAMOD called [facility] and confirmed they received referral and they can open the pt to service within 48 hours and SW faxed MD Marzena orders and d/c summary. PRAMOD updated RN. Plan: Patient to d/c home this afternoon via sig other POV and [facility] to open pt to service in the morning with Trough draw Sunday and [facility] HH RN and maybe OT to open pt to service. REN Guzman Original Note: Patient is a 74 year old female READMIT on 10/03/19 for I&D. Pt has MCR and REG [place] for insurance and her PCP is not listed. EMR was reviewed. Per [place] DOMINGUEZ, pt will require 6 weeks IV-Abx at d/c and waiting final culture results to determine abx and frequency. PICC to be placed today. SW met bedside with pt and explained role and pt confirms that she was recently discharged home with sig other and oral abx and failed outpt. Pt lives at home in [place] with her very supportive Sig Bronwyn Bhanu who is available for assist at d/c. 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 SW discussed the need for IV-Abx for 6 weeks at d/c and discussed options of oupt infusion, home infusion, SNF pending culture results to determine final abx, frequency and dosing. Pt states that currently her preference is home infusion and agreeable to SW making referral to [facility] after reviewing HH/Infusion Choice List to determine her coverage and possible out of pocket expense. Pt has no HH RN preference and agreeable to HH to follow for PICC and med management. Pt states she does not want to ask her Sig Other for daily transport to oupt infusion center as she cannot currently drive with her arm healing at this time. Pt is adamant that she cannot go to SNF as she works from home and is not interested in staying in SNF for 6 weeks. SW faxed clinicals to [facility] to review and determine coverage for IV-Abx and [facility] weekend sanitation truck cleaner staff cannot run pt's insurance as its the weekend but think that likely she will not be covered much by her insurance and will call pt in her room to discuss further to determine pt's Regence secondary. SW made HH referral to [facility] based on Vendor Calendar as pt has no HH preference. Plan: SW to follow closely for [facility] discussion with pt regarding coverage and out of pocket expense to determine if Home infusion an option and [facility] review for HH RN for new PICC and IV-Abx. REN Guzman Discharge Planning/Care Management CM Discharge Assessment Start: 10/04/19 10:39 Freq: Status: Active Protocol: Document 10/04/19 10:40 BF (Rec: 10/04/19 10:53 BF [id number]) Discharge Planning Assessment Assigned Senior Software Systems Engineer REN Jiménez Advance Directives? Yes Advance Directives on File No History Provided By Patient,Medical Record Has Patient been admitted in last 30 Yes days? Comment Discharged home with sig other and po meds on 10/01/19 Prior Living Arrangements House Household Members significant other Type of transporation used prior to Drives own vehicle admit Independent with ADL's Yes Is patient alert and oriented? Yes Patient/Family Preference Home with Home Health Comment 6 weeks IV-Abx needed Barriers to Discharge No Discharge Plan Home with Home Health Community [facility] Home Health Nurse,IV Therapy Transportation Arrangement Sig Other available to provide transport at d/c. Referrals Initiated Other Additional Comment [facility] referral made to determine coverage Medicare Choice List Provided Yes SNF/HH Preference Preference is home with home infusion Whiteboard Updated in Patient Room with Yes name and ext. # of Senior Software Systems Engineer Review Status In Process Please Provide Date Initial DC 10/04/19 Assessment Was Performed Next Review Type Continued Stay Review
--- NOTE | 2019-10-04 11:20 | P.CONS_ITS ---
History of Present Illness Consult details Date Patient Seen: 10/04/19 Time Patient Seen: 11:20 Chief complaint: [id number] Reason for consult: Coronary Artery Disease Requesting provider: Margarita Dominguez Narrative: This is a 74 year old female with a right elbow infection and a history of CAD. She has been admitted for a washout/fixation of the right olecranon fracture. Previously a spacer had been placed and oral antibiotics were initiated. The culture so far is reportedly growing Staph aureus which has not been clarified as to sensitivities yet. On her recent admission 10/01 she was noted to have a decreased ejection fraction of 25-30% on echocardiogram which was decreased from her previous 40% on stress testing. She has been directed to follow up with her farmhand for possible WEB MARKETING COORDINATOR and needed to be monitored after her surgical intervention because of her moderate cardiac risk. Her Plavix has been held but her aspirin, metoprolol and simvastatin have been given. Lisinopril was also held. Overnight she has done well without any heart failure or anginal symptoms and with close monitoring on telemetry. She will be discharging home with a plan for 6 weeks of IV antibiotics, and either va ncomycin or some other antibiotic depending on the culture sensitivity results. Her last cardiac stress test was in November and was read as severe hypokinesis of the anterior inferior and inferoposterior vargas extending to the apex with a slightly reversible perfusion defect. 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 She drinks one glass of wine per day. Meds Home Medications and Allergies Home Medications Medication Instructions Recorded Confirmed Type simvastatin 40 mg PO QDAY #0 08/07/17 10/03/19 History aspirin 81 mg PO DAILY 09/30/19 10/03/19 History lisinopril 2.5 mg PO DAILY 09/30/19 10/03/19 History metoprolol tartrate 25 mg PO BID #0 09/30/19 10/03/19 History acetaminophen 975 mg PO TID 10 Days #90 tab 10/01/19 10/03/19 Rx ciprofloxacin HCl 500 mg PO BID 5 Days #10 tab 10/01/19 10/03/19 Rx tramadol 50 mg PO QID PRN #0 tab 10/04/19 Rx vancomycin in dextrose 5 % 750 mg IV Q12H 41 Days #24886 ml 10/04/19 Rx Allergies Allergy/AdvReac Type Severity Reaction Status Date / Time oxycodone [OXYCODONE] AdvReac Intermediate ?or Verified 10/03/19 15:41 oxycontin? diarrhea morphine [MORPHINE] AdvReac Mild n/v Verified 10/03/19 15:41 Review of Systems Review of Systems Narrative: Positive for right arm pain and swelling negative for fevers, chills, sweats, chest pain, nausea, vomiting, shortness of breath, coughing, rashes, dysuria, bleeding, seizures, headaches, sore throat, new allergies, difficulty talking. ROS Unobtainable: All systems reviewed & are unremarkable except as noted in HPI and below Exam Vital Signs (past 8 hours): - 10/04/19 07:30 Temperature 98.7 F Pulse Rate 102 H Respiratory Rate 16 Blood Pressure 102/67 Pulse Oximetry 99 Oxygen Delivery Method Room Air Oxygen Flow Rate 0 Narrative Exam Narrative: She is alert and oriented. No apparent distress. She is definitely a very ?take charge? personality. Pupils are equally round and reactive to light and accommodation. Extraocular muscles are intact. Sclerae are pink and nonicteric. Throat looks normal. No lymph nodes are felt head, neck, supraclavicular area. There is no thyromegaly. JVD is less than 6 cm. There is no carotid bruit heard. Heart is regular rate and rhythm without murmur. Lungs are clear to auscultation bilaterally. Abdomen is soft, bowel sounds positive, nontender, no organomegaly. Extremities there is no ankle edema. There is no left hand edema. The right hand is swollen 3+ with a sling in place and a brace/splint around the right elbow. She is able to move the right hand and fingers normally. She has normal sensation in the right hand. Cranial nerves 2-12 test intact. There is no tremor. Motor function is 5/5 throughout except for 4/5 in the right hand. Skin has no rash or jaundice. Objective Labs Result Diagrams: 10/04/19 07:16 10/03/19 22:31 Labs: Laboratory Results - last 24 hr 10/03/19 10/03/19 10/03/19 15:45 15:45 22:31 WBC 6.6 RBC 2.53 L Hgb 9.7 L Hct 27.8 L MCV 109.9 H MCH 38.5 H MCHC 35.0 RDW 12.6 Plt Count 266 Neut % (Auto) 66.3 Lymph % (Auto) 11.5 L [place] % (Auto) 20.9 H Eos % (Auto) 0.7 L Baso % (Auto) 0.6 Neut # (Auto) 4400 Lymph # (Auto) 800 L [place] # (Auto) 1400 H Eos # (Auto) 0 Baso # (Auto) 0 RBC Morphology gender studies professor Macrocytosis 2+ H Sodium 134 L 133 L Potassium 4.3 4.5 Chloride 102 101 Carbon Dioxide 26 26 BUN 20 H 19 H Creatinine 0.80 0.80 Estimated GFR > 60.0 > 60.0 BUN/Creatinine Ratio 25.0 H 23.8 H Glucose 95 120 H Calcium 9.3 9.0 C-Reactive Protein 7.9 H 10/04/19 07:16 WBC 7.2 RBC 2.48 L Hgb 9.4 L Hct 27.6 L MCV 111.0 H MCH 38.0 H MCHC 34.2 RDW 12.6 Plt Count 254 Neut % (Auto) Lymph % (Auto) [place] % (Auto) Eos % (Auto) Baso % (Auto) Neut # (Auto) Lymph # (Auto) [place] # (Auto) Eos # (Auto) Baso # (Auto) RBC Morphology Macrocytosis Sodium Potassium Chloride Carbon Dioxide BUN Creatinine Estimated GFR BUN/Creatinine Ratio Glucose Calcium C-Reactive Protein Assessment & Plan Assessment & Plan narrative: Coronary Artery Disease - Continue Aspirin, Metoprolol and Simvastatin - Resume Lisinopril and Plavix at home tomorrow - Follow up with Dr. Rojas for possible WEB MARKETING COORDINATOR soon Right Olecranon Fracture - ORIF after second washout procedure yesterday - management and follow up with orthopedics Septic Arthritis - Apparent Staph growth with sensitivities pending - PICC placement today with plan for 6 weeks of IV treatment CHFrEF - Continue Metoprolol Hypertension - Continue Metoprolol and resume Lisinopril Hyperlipidemia - Continue Simvastatin Anemia - Hgb 9.7 to 9.4 - Continue following this with your primary care physician
--- NOTE | 2019-10-04 11:40 | P.DS_ITS ---
History of Present Illness History of Present Illness Date Patient Seen: 10/04/19 Time Patient Seen: 11:40 Chief complaint: [id number] Narrative: She notes that she is doing well. She has been afebrile overnight. She has had a vancomycin peak drawn and is awaiting a trough which is due tomorrow a.m.. 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 She has no pain in her elbow. Discharge Providers Provider Discharge Date: 10/04/19 Consults: 10/03/19 22:11 Consult to Discharge Planning Routine Comment: iv abx at home x 6 wks Consult to Hospitalist Service Routine Comment: Consulting Provider: Shea Tidwell Reason for consultation: cardiac -medical management Has provider been notified: Yes Consult to Physical Therapy Evaluate & Treat Comment: 2# limit RUE Physician Instructions: Evaluate and Treat Consult to Respiratory Therapy Evaluate & Treat Comment: Physician Instructions: Evaluate and treat Discharge provider: Beata Main MD Exam Vital Signs (past 8 hours): - 10/04/19 07:30 Temperature 98.7 F Pulse Rate 102 H Respiratory Rate 16 Blood Pressure 102/67 Pulse Oximetry 99 Oxygen Delivery Method Room Air Oxygen Flow Rate 0 Objective Labs Result Diagrams: 10/04/19 07:16 10/03/19 22:31 Labs: Laboratory Results - last 24 hr 10/03/19 10/03/19 10/03/19 15:45 15:45 22:31 WBC 6.6 RBC 2.53 L Hgb 9.7 L Hct 27.8 L MCV 109.9 H MCH 38.5 H MCHC 35.0 RDW 12.6 Plt Count 266 Neut % (Auto) 66.3 Lymph % (Auto) 11.5 L [place] % (Auto) 20.9 H Eos % (Auto) 0.7 L Baso % (Auto) 0.6 Neut # (Auto) 4400 Lymph # (Auto) 800 L [place] # (Auto) 1400 H Eos # (Auto) 0 Baso # (Auto) 0 RBC Morphology window cutter Macrocytosis 2+ H Sodium 134 L 133 L Potassium 4.3 4.5 Chloride 102 101 Carbon Dioxide 26 26 BUN 20 H 19 H Creatinine 0.80 0.80 Estimated GFR > 60.0 > 60.0 BUN/Creatinine Ratio 25.0 H 23.8 H Glucose 95 120 H Calcium 9.3 9.0 C-Reactive Protein 7.9 H 10/04/19 07:16 WBC 7.2 RBC 2.48 L Hgb 9.4 L Hct 27.6 L MCV 111.0 H MCH 38.0 H MCHC 34.2 RDW 12.6 Plt Count 254 Neut % (Auto) Lymph % (Auto) [place] % (Auto) Eos % (Auto) Baso % (Auto) Neut # (Auto) Lymph # (Auto) [place] # (Auto) Eos # (Auto) Baso # (Auto) RBC Morphology Macrocytosis Sodium Potassium Chloride Carbon Dioxide BUN Creatinine Estimated GFR BUN/Creatinine Ratio Glucose Calcium C-Reactive Protein Discharge Plan Discharge Plan Patient Disposition: Home Discharge comment: Okay to discharge to home when PICC line is adequately placed and outpatient IV antibiotics have been arranged for 6 weeks of IV vancomycin. Discharge orders & Medications Prescriptions: New tramadol 50 mg Tablet 50 mg PO QID PRN (Reason: Pain, Moderate (4-6)) Qty: 0 RF: 0 vancomycin in dextrose 5 % 750 mg/150 mL Piggyback 750 mg IV Q12H 41 Days Qty: 82249 RF: 0 Continued simvastatin 40 MG tablet 40 mg PO QDAY Qty: 0 RF: 0 aspirin 81 mg Tablet,Chewable 81 mg PO DAILY RF: 0 lisinopril 2.5 mg Tablet 2.5 mg PO DAILY RF: 0 metoprolol tartrate 25 mg Tablet 25 mg PO BID Qty: 0 RF: 0 acetaminophen 325 mg Tablet 975 mg PO TID 10 Days Qty: 90 RF: 0 ciprofloxacin HCl 500 mg tablet 500 mg PO BID 5 Days Qty: 10 RF: 0 Discontinued sulfamethoxazole-trimethoprim 800-160 mg tablet 1 tab PO BID 5 Days Qty: 10 RF: 0 morphine 15 mg tablet 15 mg PO BID PRN (Reason: pain) 4 Days Qty: 8 RF: 0 Diet/Activity/Treatments Diet: Diet as Tolerated Activity: sling prn Cold/Heat Therapy: ice as needed Other treatments: vancomycin 750mg iv every 12 hours. vancomycin trough tomorrow at 1030 prior to 11am dose of vancomycin. Skin/Wound/Dressing Care Report to your healthcare provider any signs of infection, such as:: chills, fever, night sweats, increased pain, unusual drainage and unusual redness Dressing: keep spint on, ok to move shoulder Visit Report/Discharge Packet Instructions: DI for Open Reduction Internal Fixation Surgery Stand Alone Forms: Surgery Discharge Discharge Data Attending Provider: Margarita Dominguez Admit Date/Time: 10/03/19 15:00 Discharges patient from system. Discharge Date/Time: 10/04/19 13:57 Quality VTE Deep Vein Thrombosis/Pulmonary Embolism Present on Admission: No
[2019-10-04] MEDS: VANCOMYCIN 750 MG/150 ML FROZ.PIGGY 150 MG IV (12:23)
--- NOTE | 2019-10-04 13:45 | PC.NURSE ---
assumed care of Pt from Nava STALLINGS. Pt to be d/c'd soon. PICC patent and intact. Pt home with . Abx at home with infusion solutions.
== END 2019-10-04 13:57 | disposition home or self-care (01) ==
LOC: OR 15:07 → AC 22:04
PROVIDERS: Admitting Provider Orthopaedic Surgery Foot and Ankle Surgery; Visit Provider Orthopaedic Surgery Foot and Ankle Surgery
PROC: (CPT 24685; principal; 2019-10-03 16:45)
DX: S52.021A Displaced fracture of olecranon process without intraarticular extension of right ulna, initial encounter for closed fracture (principal); I25.10 Atherosclerotic heart disease of native coronary artery without angina pectoris; M00.021 Staphylococcal arthritis, right elbow; B95.8 Unspecified staphylococcus as the cause of diseases classified elsewhere; D64.9 Anemia, unspecified; F17.210 Nicotine dependence, cigarettes, uncomplicated; I10 Essential (primary) hypertension
CPT/HCPCS: 24685; 11982; 36415; 36569; 73080; 76000; 80048; 85025; 85027; 86140; 87040; 87801; G0378; J1100; J2250; J2405; J2704; J3010; J3370

== ENCOUNTER 2019-10-08 02:29 | Inpatient (IN) | payer MEDICARE, OTHER, SELFPAY ==
[2019-10-03 22:09] VITALS: BMI 16.7
[2019-10-08] VITALS (28 sets, daily range): BP systolic 57–144; BP diastolic 21–99; PULSE 74–135; RESP 13–29; TEMP 35.9–37.2; O2SAT 83–100; BMI 17.2; BMI 20.2
--- NOTE | 2019-10-08 02:37 | ED_ITS ---
HPI - SOB/Dyspnea General Chief Complaint: Shortness of Breath/Dyspnea Stated Complaint: dizzy, incoherent, possible allergic rx Time Seen by Provider: 10/08/19 02:30 Source: patient and old records reviewed Mode of arrival: Family Vehicle Limitations: no limitations History of Present Illness HPI Narrative: This is a 74-year-old female who comes in complaining of possible allergic reaction. Patient states that she was admitted here for fracture elbow with an infection. Her fracture had been present for a week prior to being seen in the emergency department, there was a open wound and she was seen here at the hospital admitted for IV antibiotics and She was discharged home on vancomycin. They have been giving a twice daily regularly. Her last dose was about 4:00 a.m. in the afternoon. Patient started developing shortness of breath this evening about 9:00 a.m. and has been worsening. She denies chest pain or pressure. She feels lightheaded like she wants to pass out. She states that she has felt swollen all over. She has not noticed any redness or other rash. Related Data Home Medications Medication Instructions Recorded Confirmed simvastatin 40 mg PO QDAY #0 08/07/17 10/03/19 aspirin 81 mg PO DAILY 09/30/19 10/03/19 lisinopril 2.5 mg PO DAILY 09/30/19 10/03/19 metoprolol tartrate 25 mg PO BID #0 09/30/19 10/03/19 Previous Rx's Medication Instructions Recorded acetaminophen 975 mg PO TID 10 Days #90 tab 10/01/19 ciprofloxacin HCl 500 mg PO BID 5 Days #10 tab 10/01/19 tramadol 50 mg PO QID PRN #0 tab 10/04/19 vancomycin in dextrose 5 % 750 mg IV Q12H 41 Days #35541 ml 10/04/19 Allergies Allergy/AdvReac Type Severity Reaction Status Date / Time oxycodone [OXYCODONE] AdvReac Intermediate ?or Verified 10/03/19 15:41 oxycontin? diarrhea morphine [MORPHINE] AdvReac Mild n/v Verified 10/03/19 15:41 Review of Systems Review of Systems ROS Unobtainable: All systems reviewed & are unremarkable except as noted in HPI and below Constitutional Constitutional: Denies chills, Denies fever(s), Denies lethargy and Denies weakness Cardiovascular Cardiovascular: Denies chest pain, Denies syncope, Reports edema (all over per patient), Denies irregular heart rhythm, Denies lightheadedness, Denies palpitat ions, Reports dyspnea, Denies dyspnea on exertion and Denies orthopnea Respiratory Respiratory: Denies change in phlegm color, Denies chest congestion, Denies cough, Reports dyspnea, Denies dyspnea on exertion and Denies wheezing Gastrointestinal Gastrointestinal: Denies abdominal pain, Denies melena, Denies hematochezia, Denies change in bowel habits, Denies diarrhea, Denies nausea and Denies vomiting Genitourinary Genitourinary: Denies hematuria, Denies urinary frequency, Denies dysuria, Denies flank pain, Denies urinary incontinence and Denies urinary urgency Musculoskeletal Musculoskeletal: Reports as per HPI, Denies muscle weakness, Denies numbness, Denies tingling and Reports other (healing fracture right arm, no increase in pain.) Integumentary/Breasts Skin/Breast: Denies erythema and Denies rash Neurologic Neurologic: Reports confusion, Denies syncope, Denies numbness, Denies tingling and Denies weakness Psychiatric Psychiatric: Reports confusion Endocrine Endocrine: Denies palpitations Allergic/Immunologic Allergic/Immunologic: Denies wheezing Patient History Medical History Coronary artery disease (Chronic) Dyslipidemia (Chronic) Hypertension (Chronic) PAD (peripheral artery disease) (Chronic) Septic olecranon bursitis of right elbow (Acute) Surgical History H/O elbow surgery (Acute) H/O heart artery stent (Acute) Social History household members: significant other Smoking Status: Current some day smoker alcohol intake: current tobacco type: cigarettes alcohol intake frequency: 0-2 drinks per day Substance Use Type: does not use Exam Initial Vital Signs Initial Vital Signs: Vital Signs Temperature 96.7 F L 10/08/19 02:54 Pulse Rate 135 H 10/08/19 02:54 Respiratory Rate 26 H 10/08/19 02:54 Blood Pressure 64/21 L 10/08/19 02:54 Pulse Oximetry 83 L 10/08/19 02:54 GEN: well nourished, female, alert and oriented x 3, patient appears to be in severe distress. patient appears pale. HEENT: Atraumatic, pupils are equal round reactive to light, extraocular movements are intact, nares are clear, Throat is clear without any exudates, erythema, tonsillar enlargement or uvular deviation HEART: Tachycardic but Regular rate and rhythm without murmur, clicks, rubs. No carotid bruits, pulses are equal in upper and lower extremities. patient has some mottling of her distal fingers and toes. LUNGS:Lungs clear to auscultation, no wheezes, rales, crackles, chest moves symmetrically ABD:bowel sounds normal, soft, non-tender, no guarding, rebound, rigidity, no masses noted, no hepatosplenomegaly :No CVA tenderness. MSCL: Non-tender, no muscle atrophy, patient's right upper extremity is in a splint, she has 2+ radial pulse on the right with full range of motion of her fingers. I do not appreciate any swelling of her right hand in comparison to the left. Patient was able to stand and pivot to bed. NEURO:CN 2-12 intact, sensation normal SKIN: no rash noted. Course Orders Ordered: ED Orders 10/08/19 02:38 Consult to Respiratory Therapy Evaluate & Treat Arterial Blood Gas Stat EKG-12 Lead Stat 10/08/19 02:39 XR chest 1V Stat 10/08/19 02:40 B Type Natriuretic Peptide Stat Complete Blood Count AUTO DIFF Stat Comprehensive Metabolic Panel Stat D Dimer Stat Lactate (Lactic Acid) Stat Magnesium Stat Partial Thromboplastin Time Stat Procalcitonin Stat Prothrombin Time INR Stat Troponin & CK Cardiac Panel Stat 10/08/19 02:41 CT angio chest PE protocol Stat 10/08/19 03:05 Blood Culture Stat 10/08/19 03:18 Arterial Blood Gas Stat Dopamine HCl/Dextrose (Dopamine 400 Mg-D5w 250 Ml) 400 mg in 250 mls @ 9.355 mls/hr IV TITRATE SALINAS; Protocol Last Admin: 10/08/19 04:33 Dose: Not Given Documented by: JUSTA Discontinued Medications Furosemide (Lasix) 60 mg IV NOW ONE Stop: 10/08/19 03:23 Last Admin: 10/08/19 04:00 Dose: 60 mg Documented by: JUSTA Sodium Chloride (Normal Saline 0.9%) 1,000 mls @ 1,000 mls/hr IV BOLUS ONE Stop: 10/08/19 03:37 Last Infusion: 10/08/19 04:14 Dose: 0 mls/hr Documented by: Admin: 10/08/19 02:58 Dose: 1,000 mls/hr Documented by: [email or web address] Methylprednisolone (Solu-Medrol 125 Mg Vial) 125 mg IV NOW ONE Stop: 10/08/19 02:39 Last Admin: 10/08/19 02:57 Dose: 125 mg Documented by: ERWIN Vital Signs Vital signs: Vital Signs - 8 hr 10/08/19 02:54 10/08/19 03:03 10/08/19 03:07 Temperature 96.7 F L Pulse Rate 135 H 130 H 131 H Respiratory Rate 26 H 29 H 28 H Blood Pressure 64/21 L Blood Pressure [Left Wrist] 61/39 L 57/28 L Pulse Oximetry 83 L 99 99 10/08/19 03:19 10/08/19 03:55 10/08/19 03:56 Temperature 97.7 F Pulse Rate 130 H Respiratory Rate 20 Blood Pressure 130/97 H Blood Pressure [Left Wrist] 137/93 H Pulse Oximetry 99 10/08/19 04:04 10/08/19 04:07 Temperature Pulse Rate 132 H 129 H Respiratory Rate 24 23 Blood Pressure Blood Pressure [Left Wrist] 130/97 H 144/99 H Pulse Oximetry 97 97 MDM - SOB/Dyspnea Lab Data Attestation: I reviewed the patient's lab results. Result diagrams: 10/08/19 02:40 10/08/19 02:40 Labs: Lab Results 10/08/19 10/08/19 10/08/19 Range/Units 02:40 02:40 02:40 WBC 10.9 (4.5-11.0) X10^3/uL RBC 2.49 L (4.0-5.2) X10^6/uL Hgb 9.4 L (12.0-16.0) g/dL Hct 27.5 L (36-46) % MCV 110.1 H (80-100) fL MCH 37.6 H (26-34) PG MCHC 34.1 (30-36) % RDW 12.9 (11.6-14.8) % Plt Count 429 H (150-400) X10^3/uL Neut % (Auto) Not Reportable Lymph % (Auto) Not Reportable Hamb[place] % (Auto) Not Reportable Eos % (Auto) Not Reportable Baso % (Auto) Not Reportable Lymph # (Auto) Not Reportable Hamb[place] # (Auto) Not Reportable Baso # (Auto) Not Reportable Total Counted 100 Seg Neutrophils % 67.0 (38-70) % Lymphocytes % (Manual) 17.0 L (25-45) % Monocytes % (Manual) 15.0 H (2-11) % Eosinophils % (Manual) 1.0 L (2-4) % Neutrophils # (Manual) 7303 H (9335-8927) /uL RBC Morphology See below Macrocytosis 2+ H PT 11.8 (10.1-12.7) SECONDS INR 1.0 (0.9-1.3) APTT 26 L (26.4-36.2) SECONDS D-Dimer 2329 H (<230) ng/mL ABG pH (7.35-7.45) ABG pCO2 (35-45) mmHg ABG pO2 (80-100) mmHg ABG HCO3 (22-26) mmol/L ABG Total CO2 (21-31) mmol/L ABG O2 Saturation (95-100) % ABG Base Excess (-2-2) mmol/L FiO2 Sodium 134 L (137-145) mmol/L Potassium 4.2 (3.4-5.1) mmol/L Chloride 103 (98-107) mmol/L Carbon Dioxide 21 L (22-32) mmol/L BUN 16 (7-17) mg/dL Creatinine 0.70 (0.52-1.04) mg/dL Estimated GFR > 60.0 (>60) mL/min BUN/Creatinine Ratio 22.9 H (6-22) Glucose 219 H (80-110) mg/dL Lactate (0.7-2.1) mmol/L Calcium 8.9 (8.4-10.2) mg/dL Magnesium 2.0 (1.6-2.3) mg/dL Total Bilirubin 0.6 (0.2-1.3) mg/dL AST 37 H (14-36) IU/L ALT 16 (<35) IU/L Alkaline Phosphatase 114 (38-126) U/L Total Creatine Kinase 38 (30-135) U/L CK-MB (CK-2) TNP CK-MB (CK-2) Rel Index TNP Troponin I < 0.012 (0.01-0.034) ng/mL B-Natriuretic Peptide 1200 H (<100) Total Protein 6.7 (6.3-8.2) g/dL Albumin 3.3 L (3.5-5.0) g/dL Globulin 3.4 (1.7-4.1) g/dL Albumin/Globulin Ratio 1.0 (1.0-2.8) Procalcitonin (<0.5) ng/mL 10/08/19 10/08/19 10/08/19 Range/Units 02:40 02:40 03:18 WBC (4.5-11.0) X10^3/uL RBC (4.0-5.2) X10^6/uL Hgb (12.0-16.0) g/dL Hct (36-46) % MCV (80-100) fL MCH (26-34) PG MCHC (30-36) % RDW (11.6-14.8) % Plt Count (150-400) X10^3/uL Neut % (Auto) Lymph % (Auto) Hamb[place] % (Auto) Eos % (Auto) Baso % (Auto) Lymph # (Auto) Hamb[place] # (Auto) Baso # (Auto) Total Counted Seg Neutrophils % (38-70) % Lymphocytes % (Manual) (25-45) % Monocytes % (Manual) (2-11) % Eosinophils % (Manual) (2-4) % Neutrophils # (Manual) (8415-8622) /uL RBC Morphology Macrocytosis PT (10.1-12.7) SECONDS INR (0.9-1.3) APTT (26.4-36.2) SECONDS D-Dimer (<230) ng/mL ABG pH 7.34 L (7.35-7.45) ABG pCO2 36.8 (35-45) mmHg ABG pO2 91 (80-100) mmHg ABG HCO3 20 L (22-26) mmol/L ABG Total CO2 21 (21-31) mmol/L ABG O2 Saturation 97 (95-100) % ABG Base Excess -6.0 L (-2-2) mmol/L FiO2 0.50 Sodium (137-145) mmol/L Potassium (3.4-5.1) mmol/L Chloride (98-107) mmol/L Carbon Dioxide (22-32) mmol/L BUN (7-17) mg/dL Creatinine (0.52-1.04) mg/dL Estimated GFR (>60) mL/min BUN/Creatinine Ratio (6-22) Glucose (80-110) mg/dL Lactate 2.5 H (0.7-2.1) mmol/L Calcium (8.4-10.2) mg/dL Magnesium (1.6-2.3) mg/dL Total Bilirubin (0.2-1.3) mg/dL AST (14-36) IU/L ALT (<35) IU/L Alkaline Phosphatase (38-126) U/L Total Creatine Kinase (30-135) U/L CK-MB (CK-2) CK-MB (CK-2) Rel Index Troponin I (0.01-0.034) ng/mL B-Natriuretic Peptide (<100) Total Protein (6.3-8.2) g/dL Albumin (3.5-5.0) g/dL Globulin (1.7-4.1) g/dL Albumin/Globulin Ratio (1.0-2.8) Procalcitonin < 0.05 (<0.5) ng/mL Point of Care Testing Glucose POC 168 Urine Dip Bedside Urine Glucose Negative Bedside Urine Bilirubin - Negative Bedside Urine Ketone - Negative Urine Specific Dahlgren 1.020 Bedside Urine Occult Blood + Bedside Urine pH 6.0 Bedside Urine Protein + 30 Bedside Urine Urobilinogen - Negative Bedside Urine Nitrite - Negative Bedside Urine Leukocytes - Negative Esterase ABG Data ABG results: pH7.342/PCO2 36/O2 91/bicarb of 19 on 50% FiO2. Attestation: I personally reviewed and interpreted this ABG as follows: Interpretation: metabolic acidosis Imaging Data Chest x-ray: Attestation: I personally reviewed and interpreted this imaging study as follows: My impression: pulm edema, patient has prior CXR for PICC line for comparison which appears similar so patient may have some pulm fibrosis. Patient has implants which obscure image some. CT scan - chest: Radiologist's impression: No PE, aortic aneurysm or aortic dissection, thickening of the internal in interlobular septa with moderate-sized bilateral pleural effusions suggesting congestive heart failure. Innumerable pulmonary nodules measuring up to 9 x 6 mm recommend 3-6 month follow-up CT. Prominent mediastinal and hilar lymph nodes likely reactive. Small pericardial effusion. ECG Data Attestation: I personally reviewed and interpreted this ECG as follows: Prior ECG tracings: available for review Interpretation: Sinus tachycardia rate of 136 P are 147 QRS of 141 and QTC of 371. Patient has left axis deviation. Patient does not appear to have new ST elevation. She has ST segments that appears to her prior EKG from 09/30/2019. Does not meet Sgarbossa criteria. MDM Narrative Medical decision making narrative: Patient's echo showed an EF fraction of 25- 30% with severely hypo to akinetic segments except for lateral, apex and basal posterior wall. Right ventricle is normal size and function with mild to moderate mitral regurg and trace tricuspid regurg. There is mild concentric left ventricular. Trivial pericardial effusion noted there is an anterior echo free space consistent fat pad there are no echocardiographic indications of cardiac tamponade and no pleural effusion. Patient was placed on bipap, O2 improved quickly. Patient is feeling better but still uncomfortable. CXR appears to show pulmonary edema. Spoke with cardiology, Dr. Benjamin. Patient's regular english composition teacher is Dr. Khan in [place]. Pending labs but discussed recommendations with patient's EF of 2 5%, s/s of CHF and potential PE. Recommends dopamine, lasix and respiratory support from cardiology standpoint if BP is not improving. [place] does not have beds regardless. Hemoglobin stable at 9.4, white count 10 with a platelets 429. Patient's D-dimer is 2300, show sodium 134 with a CO2 of 21 and a glucose of 219 with lactated 2.5. Renal function appears normal and consistent with prior visits. BNP is 1200. Troponin is negative, procalcitonin is negative. PE study shows, no pulmonary emboli, patient has pulmonary edema with multiple pulmonary nodules. Patient was updated on her CT findings and that she would need further imaging in the future regarding her pulmonary nodules. Patient's asked that I call Dr. Dominguez, I discussed that we may be in contact with her when patient is more stable but my main concern is her lungs and to protect her breathing and evaluating the main cause of this, patient's was also quiet concerned about patient receiving her Vancomycin at 4am and we also discussed that this is important but my first goal is to stablize her first. I did ask the patient about code status, she is full code and stated in front of . Spoke SIGN LANGUAGE TEACHER Yesenia, discussed initial cardiology recommendations from Dr. Benjamin although this was prior to labs being returned. Patient's labs, imaging, potential that her CHF may have been exacerbated by recent hospital stay and twice daily IV vancomycin infusions for her infected open fracture. We did discuss that patient appeared quite wet initially, her blood pressure improved significantly during her ER stay so dopamine was not started, she did receive Lasix and has been on BiPAP since initial arrival. We discussed that her heart rate has continued to be tachycardic although her respiratory rate has improved, and patient has been feeling much better. Patient and I discussed it is her preference to stay locally at [facility]. She has been improving during her stay in the ER and I feel that would be appropriate at this time. Patient has had several episodes of urine output since lasix given. Lungs sound more clear at this time. Critical Care Time Critical Care Time Critical Care Time: Yes Total Critical Care Time: 95 Attestation: The high probability of a clinically significant, sudden or life threatening deterioration of the [cardiac and pulmonary] system(s) required my full and direct attention, intervention and personal management. The aggregate critical care time was [95] minutes. This time is in addition to time spent performing reported procedures but includes the following: [x] Data Review and interpretation [x] Patient assessment and monitoring of vital signs [x] Documentation [x] Medication orders and management Discharge Plan Departure Patient Disposition: Home Clinical Impression: Acute respiratory failure with hypoxia, CHF exacerbation Admit Date/Time: 10/08/19 04:47 Admit Provider: Nena Patterson
--- NOTE | 2019-10-08 02:39 | DI.RAD.S_ITS ---
PROCEDURE: XR CHEST 1V INDICATIONS: shortness of breath, hypoxia, tachycardia, recent fracture in arm TECHNIQUE: One view of the chest was acquired. COMPARISON: None. FINDINGS: Surgical changes and devices: None. Lungs and pleura: There is cephalization of pulmonary vasculature and interstitial prominence including Nancy B-lines compatible with CHF. No pleural effusions or pneumothorax. Mediastinum: Mediastinal contours appear normal. Heart is enlarged Bones and chest wall: No suspicious bony lesions. Overlying soft tissues appear unremarkable. IMPRESSION: Pulmonary edema likely related to CHF. Dictated by: Tatiana Catalan MD, PhD on 10/08/2019 at 8:51 Approved by: Tatiana Catalan MD, PhD on 10/08/2019 at 8:52
--- NOTE | 2019-10-08 02:41 | DI.CT.S_ITS ---
PROCEDURE: CT ANGIO CHEST PE PROTOCOL INDICATIONS: shortness of breath, recent surgery TECHNIQUE: After the administration of intravenous contrast, 2 mm thick sections acquired from the pulmonary apices to the posterior costophrenic angles. 3-dimensional maximum intensity projection (MIP) coronal and sagittal reformats were then acquired through the thorax. For radiation dose reduction, the following was used: automated exposure control, adjustment of mA and/or kV according to patient size. COMPARISON: None. FINDINGS: Image quality: Excellent. Pulmonary arteries: Pulmonary arteries are normal in size, and demonstrate no intraluminal filling defects to suggest central pulmonary embolism. Lungs and pleura: There is a diffuse interstitial pattern with thickening of intralobular septa. There are innumerable bilateral pulmonary nodules throughout. The largest pulmonary nodule is present to on image 194/5, measuring 0.9 x 0.6 cm. Mild to moderate right pleural effusion and mild left pleural effusion with bibasilar compressive atelectasis. Mediastinum: Heart size is normal, without pericardial effusion. Extensive coronary artery calcifications. No mediastinal or hilar adenopathy. Thoracic aorta is normal in caliber and enhancement. Extensive atherosclerotic plaque. Esophagus is normal in caliber, without hiatal hernia. Bones and chest wall: No suspicious bony lesions. Ribs and thoracic spine appear intact throughout. Thyroid gland is unremarkable. No axillary or supraclavicular adenopathy. Calcified breast implants. Abdomen: Question cirrhotic change in the liver. IMPRESSION: 1. Extensive interstitial pattern with innumerable small pulmonary nodules. Differential diagnosis includes interstitial spread of tumor, miliary TB, sarcoidosis, pneumoconiosis, and histoplasmosis. 2. Findings may also represent congestive heart fire with pulmonary edema and pleural effusions superimposed on a separate process involving innumerable pulmonary nodules. 3. Question cirrhotic change in the liver. Comment: In addition to other potential diagnostic testing, recommend followup CT with contrast in 3 months Comment: Final report is concordant with preliminary interpretation provided by [facility]. Dictated by: Britton Lucero M.D. on 10/08/2019 at 7:56 Approved by: Britton Lucero M.D. on 10/08/2019 at 8:10
[2019-10-08] MEDS: methylPREDNISolone 125 MG/2 ML VIAL IV (02:57)
[2019-10-08] MEDS: SODIUM CHLORIDE 0.9% 1,000 ML 1000 ML IV (02:58)
[2019-10-08 03:01] LABS: Hematocrit 27.5 % (36-46); Hemoglobin 9.4 g/dL (12.0-16.0); Mean Corpuscular HGB Conc 34.1 % (30-36); Mean Corpuscular Hemoglobin 37.6 PG (26-34); Mean Corpuscular Volume 110.1 fL (80-100); Platelet Count 429 X10^3/uL (150-400); Red Blood Cell Count 2.49 X10^6/uL (4.0-5.2); Red Cell Distribution Width 12.9 % (11.6-14.8); White Blood Cell Count 10.9 X10^3/uL (4.5-11.0)
[2019-10-08 03:06] LABS: Add Manual Diff / Slide Review YES; Prothrombin Time 11.8 SECONDS (10.1-12.7)
[2019-10-08 03:09] LABS: PTT Partial Thromboplastin Tim 26 SECONDS (26.4-36.2)
[2019-10-08 03:13] LABS: Alanine Aminotransferase 16 IU/L (<35); Albumin 3.3 g/dL (3.5-5.0); Alkaline Phosphatase 114 U/L (38-126); Aspartate Aminotransferase 37 IU/L (14-36); BUN Creatinine Ratio 22.9 (6-22); Bilirubin Total 0.6 mg/dL (0.2-1.3); Blood Urea Nitrogen 16 mg/dL (7-17); Calcium 8.9 mg/dL (8.4-10.2); Carbon Dioxide 21 mmol/L (22-32); Chloride 103 mmol/L (98-107); Creatine Kinase 38 U/L (30-135); Estimated Glomerular Filt Rate > 60.0 mL/min (>60); Globulin 3.4 g/dL (1.7-4.1); Glucose 219 mg/dL (80-110); HEMOLYSIS < 15 (0-50); Potassium 4.2 mmol/L (3.4-5.1); Sodium 134 mmol/L (137-145); Total Protein 6.7 g/dL (6.3-8.2)
[2019-10-08 03:14] LABS: Lactate (Lactic Acid) 2.5 mmol/L (0.7-2.1)
[2019-10-08 03:16] LABS: D Dimer 2329 ng/mL (<230)
[2019-10-08 03:18] LABS: B Type Natriuretic Peptide 1200 (<100)
[2019-10-08 03:22] LABS: Macrocytosis 2+; Neutrophils Absolute Manual 7303 /uL (3000-5900); Total Cells Counted 100
[2019-10-08 03:25] LABS: Troponin I < 0.012 ng/mL (0.01-0.034)
[2019-10-08 03:27] LABS: Procalcitonin < 0.05 ng/mL (<0.5)
[2019-10-08 03:31] LABS: PCO2 ABG 36.8 mmHg (35-45); pH ABG 7.34 (7.35-7.45)
[2019-10-08 03:32] LABS: HCO3 ABG 20 mmol/L (22-26); Oxygen Saturation ABG 97 % (95-100); PO2 ABG 91 mmHg (80-100); TCO2 ABG 21 mmol/L (21-31)
[2019-10-08] MEDS: FUROSEMIDE 100 MG/10 ML VIAL 60 MG IV (04:00)
[2019-10-08 04:56] LABS: Reflexed Lactate in 2 Hours Y
--- NOTE | 2019-10-08 04:56 | P.HP_ITS ---
History of Present Illness History of Present Illness Date Patient Seen: 10/08/19 Chief complaint: dizzy, incoherent, possible allergic rx Narrative: The patient is a 74-year-old female with PMH of HTN, CAD (h/o PCI, stenting), HFrEF 25-30%, PAD, dyslipidemia, prior tobacco dependence, and Raynaud's. Patient presented to the ED on 10/08/2019 with sudden onset of dyspnea. Sy mptoms initially noted on 10/07/19 in the 2100 hour. Associated symptoms include lightheadedness, diaphoresis, and peripheral edema. Patient reports progressive worsening lower extremity edema since Sunday (10/03). Patient denies experiencing fever, chills, headache, orthopnea, PND, syncopal events, pleurisy, palpitations, abdominal pain, gastrointestinal distress, new rash, joint pain, or changes in pattern of micturition. She is known to have HFrEF of 25-30% per echo . Patient's weight on 09/30 is noted as 110 lbs. Today (10/08) her admitting weight is 129 lbs. She is not on a diuretic. Patient presented to the ED acutely ill. She was hemodynamically unstable. T 96.7F BP 64/21 mmHg HR 135 RR 26 and SpO2 83% on room air. She was noted to be in a severe respiratory distress with associated diaphoresis, accessory muscle use, hypoxia, and hypotension. She was treated with methylprednisolone 125 mg IV x1 (0257), 1L NS bolus (0258), started on BiPap, and received 60 mg of IV lasix. She responded well, with significant improvement. Diuresed 1400 ml. Patient was recently hospitalized 09/30 through 10/04 for an acute displaced right olecranon fracture. Patient had a delayed presentation at that time, almost 1 week after the injury has occurred. On 09/30 patient was taken to the OR and underwent an irrigation and debridement with placement of an antibiotic s pacer. On 10/03 patient underwent removal of the antibiotic spacer with a follow- up excisional irrigation /debridement of the fracture, evacuation of a small hematoma those at site, and ORIF. Consequently, she was discharged home (10/04) on a 6 week course of IV vancomycin. Her cultures from 09/30 have grown gram MRSA. Patient has CAD with prior PCI and stenting. She was on ASA and Plavix. On discharge patient did not know she had to continue Plavix, and for this reason has not take the medicatioin. Patient History Medical History Coronary artery disease (Chronic) Dyslipidemia (Chronic) Hypertension (Chronic) PAD (peripheral artery disease) (Chronic) Septic olecranon bursitis of right elbow (Acute) Surgical History H/O elbow surgery (Acute) H/O heart artery stent (Acute) Family & Social History Family History Father Heart disease Mother Alzheimer disease Social History: household members significant other Safety & Behavioral: Feels Safe in Current Yes Environment Tobacco & Substance use: Tobacco type cigarettes Smoking Status former smoker, quit 12 years ago alcohol intake current alcohol intake frequency 0-2 drinks per day Substance Use Type does not use Meds Home Medications and Allergies Home Medications Medication Instructions Recorded Confirmed Type simvastatin 40 mg PO QDAY #0 08/07/17 10/08/19 History aspirin 81 mg PO DAILY 09/30/19 10/08/19 History lisinopril 2.5 mg PO DAILY 09/30/19 10/08/19 History metoprolol tartrate 25 mg PO BID #0 09/30/19 10/08/19 History vancomycin in dextrose 5 % 750 mg IV Q12H 41 Days #31366 ml 10/04/19 10/08/19 Rx clopidogrel [Plavix] 75 mg PO DAILY 10/08/19 10/08/19 History Allergies Allergy/AdvReac Type Severity Reaction Status Date / Time oxycodone [OXYCODONE] AdvReac Intermediate ?or Verified 10/03/19 15:41 oxycontin? diarrhea morphine [MORPHINE] AdvReac Mild n/v Verified 10/03/19 15:41 Review of Systems Review of Systems ROS Unobtainable: All systems reviewed & are unremarkable except as noted in HPI and below Exam Vital Signs (past 8 hours): - 10/08/19 02:54 10/08/19 03:03 10/08/19 03:07 Temperature 96.7 F L Pulse Rate 135 H 130 H 131 H Respiratory Rate 26 H 29 H 28 H Blood Pressure 64/21 L Blood Pressure [Left Wrist] 61/39 L 57/28 L Pulse Oximetry 83 L 99 99 10/08/19 03:19 10/08/19 03:55 10/08/19 03:56 Temperature 97.7 F Pulse Rate 130 H Respiratory Rate 20 Blood Pressure 130/97 H Blood Pressure [Left Wrist] 137/93 H Pulse Oximetry 99 10/08/19 04:04 10/08/19 04:07 Temperature Pulse Rate 132 H 129 H Respiratory Rate 24 23 Blood Pressure Blood Pressure [Left Wrist] 130/97 H 144/99 H Pulse Oximetry 97 97 Fraction of Inspired Oxygen 0.40 Oxygen Delivery Method BiPAP Narrative Exam Narrative: Constitutional: NAD, still mildly tachypneic, BMI 20.3 / weight 58.8 kg Neurologic: AOx3, no focal neurological deficits Head: NC, AT Eyes: PERRL, EOMI, sclerae anicteric Ears: external ears normal, no otorrhea Nose: external nose normal, no rhinorrhea or epistaxis Throat: MMM, oropharynx w/o exudate Neck: no masses, lymphadenopathy, or JVD Chest / Respiratory: DIminished, tolerating BiPAP FiO2 40% Heart / CV: S1S2, distant heart tones Abdomen / GI: round, NT, ND, + BS, no organomegaly : no suprapubic distention, tenderness Peripheral / Vascular: BLE + edema 2-3+ pitting, mildly cool RUE in a cast, sensation intact, radial pulse palpable Musc: Limited ROM of right upper extremity Skin: no ecchymosis or suspicious lesions / ulcers Bilateral fingers with Raynaud phenomena (patient does not endorse new discoloration from her baseline) Objective Labs Result Diagrams: 10/08/19 02:40 10/08/19 02:40 Labs: Laboratory Results - last 24 hr 10/08/19 10/08/19 10/08/19 02:40 02:40 02:40 WBC 10.9 RBC 2.49 L Hgb 9.4 L Hct 27.5 L MCV 110.1 H MCH 37.6 H MCHC 34.1 RDW 12.9 Plt Count 429 H Neut % (Auto) Not Reportable Lymph % (Auto) Not Reportable Dickinson % (Auto) Not Reportable Eos % (Auto) Not Reportable Baso % (Auto) Not Reportable Lymph # (Auto) Not Reportable Dickinson # (Auto) Not Reportable Baso # (Auto) Not Reportable Total Counted 100 Seg Neutrophils % 67.0 Lymphocytes % (Manual) 17.0 L Monocytes % (Manual) 15.0 H Eosinophils % (Manual) 1.0 L Neutrophils # (Manual) 7303 H RBC Morphology See below Macrocytosis 2+ H PT 11.8 INR 1.0 APTT 26 L D-Dimer 2329 H ABG pH ABG pCO2 ABG pO2 ABG HCO3 ABG Total CO2 ABG O2 Saturation ABG Base Excess FiO2 Sodium 134 L Potassium 4.2 Chloride 103 Carbon Dioxide 21 L BUN 16 Creatinine 0.70 Estimated GFR > 60.0 BUN/Creatinine Ratio 22.9 H Glucose 219 H Lactate Calcium 8.9 Magnesium 2.0 Total Bilirubin 0.6 AST 37 H ALT 16 Alkaline Phosphatase 114 Total Creatine Kinase 38 CK-MB (CK-2) TNP CK-MB (CK-2) Rel Index TNP Troponin I < 0.012 B-Natriuretic Peptide 1200 H Total Protein 6.7 Albumin 3.3 L Globulin 3.4 Albumin/Globulin Ratio 1.0 Procalcitonin 10/08/19 10/08/19 10/08/19 02:40 02:40 03:18 WBC RBC Hgb Hct MCV MCH MCHC RDW Plt Count Neut % (Auto) Lymph % (Auto) Dickinson % (Auto) Eos % (Auto) Baso % (Auto) Lymph # (Auto) Dickinson # (Auto) Baso # (Auto) Total Counted Seg Neutrophils % Lymphocytes % (Manual) Monocytes % (Manual) Eosinophils % (Manual) Neutrophils # (Manual) RBC Morphology Macrocytosis PT INR APTT D-Dimer ABG pH 7.34 L ABG pCO2 36.8 ABG pO2 91 ABG HCO3 20 L ABG Total CO2 21 ABG O2 Saturation 97 ABG Base Excess -6.0 L FiO2 0.50 Sodium Potassium Chloride Carbon Dioxide BUN Creatinine Estimated GFR BUN/Creatinine Ratio Glucose Lactate 2.5 H Calcium Magnesium Total Bilirubin AST ALT Alkaline Phosphatase Total Creatine Kinase CK-MB (CK-2) CK-MB (CK-2) Rel Index Troponin I B-Natriuretic Peptide Total Protein Albumin Globulin Albumin/Globulin Ratio Procalcitonin < 0.05 Assessment & Plan Assessment & Plan narrative: Patient is being admitted to the ICU for acute respiratory failure and acute on chronic systolic heart failure. Pulmonary edema with decompensated congestive heart failure w/ reduced LV function, present on admission, active/improving - CTA chest No PE, aortic aneurysm, or aortic dissection. Thickening of the internal and interlobular septa with moderate-sized bilateral pleural effusions suggesting CHF. Innumerable pulmonary nodules measuring up to 9 x 6 mm. Prominent mediastinal and hilar lymph nodes, likely reactive. Small pericardial effusion. - Echo (09/30/19), LVEF 25-30%(previously 41% 11/2018). LV is normal in size. LV segments are severely hypokinetic to akinetic, with exception of lateral segments, apex, and basal posterior wall. Right ventricle is normal in size and function. Mild to moderate mitral regurgitation. Trace tricuspid regurgitation. RVSP 41 mmHg. Trivial pericardial effusion noted. Anterior echo free space consistent with a fat pad. - Elevated D-Dimer 9. CTA chest (PE protocol) -negative for PE, aortic aneurysm, and aortic dissection. - ABG 7.34 pCO2 36.8 pO2 91 HCO3 20... Primary metabolic acidosis w/ normal AG, w/full respiratory compensation. Continue BiPap for now. - Questionable EKG w/ concern for AFlutter vs ST, repeat EKG this am - Received 60 mg IV lasix (@ 0400), diuresed 1400. Will give another dose of 40 mg IV Lasix at 1200. - Repeat EKG this am, concern for arrhythmia - Daily weight, strict I/O is Septic shock, acute, present on admission, active - Concern for septic shock given history of recent MRSA positive tissue culture - Lactate 2.5, repeat lactate w/ am lab. Hypotension w/ acute respiratory decompensation - Blood cx collected in ED pending - Check UA, - CXR and PE not indicative of an infectious organism - Reports improved swelling in right extremity, no change/decrease in sensation - Continue vancomycin Acute respiratory failure with hypoxia, present on admission, active / improving - 2/2 pulmonary edema / HF - see 'POC' for pulmonary edema CAD, chronic condition w/ remote history of PCI-stenting, stable - On [employer] regimen of ASA, Plavix, metoprolol, and lisinopril - Patient had her Plavix held temporarily, she has not restarted the Plavix aft er going home, restart today History of right olecranon fracture, subacute, present on admission, active - complicated by septic arthritis w/ tissue cultures positive for MRSA - contineu vancomycin - neurovascular check Q4H Macrocytic anemia, chronic condition, present on admission, active / stable - Hgb 9.4 MCV 110.1 - Trend Hgb level w/ routine lab Code status discussed. Wishes to be full code. Home medications reviewed and reconciled accordingly. Plavix restarted. VTE prophylaxis w/ SCDs
--- NOTE | 2019-10-08 07:59 | P.HP_ITS ---
History of Present Illness History of Present Illness Date Patient Seen: 10/08/19 Time Patient Seen: 07:59 Chief complaint: dizzy, incoherent, possible allergic rx Narrative: Reyna is a 75 Reyna is a 74-year-old female that is status post right open olecranon fracture I and D ORIF with antibiotic coated plate. She is on vancomycin 750 b.i.d. through PICC line on home infusions. I was called by the patient has a life partner Bhanu Sena, while the patient was then [facility] Emergency Room. He reports to me that over the course of the day she'd been filling generalized worsening and then about 2:00 a.m. in the morning complained that she was having trouble breathing. They had noticed throughout the day both feet were swollen. Alternatively, her right hand which had been swollen prior to surgery has very much improved over the last few days as she has been able to elevate it. He states he had to carry her out of the house to bring her to [facility] Emergency Room. In the emergency room the patient was worked up for cardiac and pulmonary issues she was found to have appeared to be volume overload was given Lasix. Her pulmonary CT was negative for embolism. She was admitted to the hospitalist service in the ICU. I've evaluated her this morning she is on BiPAP she reports that she is doing much better feeling much improved and she was earlier in the morning. She was able to tell me that she did urinate several times after the Lasix. She states she has no elbow pain and is impressed with how much her swelling in her hand is improved. She stated prior to coming to the emergency room she was feeling ?horrible and per Bhanu like she was going to . She states she feels much better now and is conversational with me this morning. Patient History Medical History Coronary artery disease (Chronic) Dyslipidemia (Chronic) Hypertension (Chronic) PAD (peripheral artery disease) (Chronic) Septic olecranon bursitis of right elbow (Acute) Surgical History H/O elbow surgery (Acute) H/O heart artery stent (Acute) Family & Social History Family History Father Heart disease Mother Alzheimer disease Social History: household members significant other Prior Living Arrangements House Safety & Behavioral: Feels Safe in Current Yes Environment Been Physically Hurt or No Threatened By a Person Suicidal Ideation Description None Suicide Plan Description No Plan Tobacco & Substance use: Tobacco type cigarettes Smoking Status Former smoker alcohol intake current alcohol intake frequency 0-2 drinks per day Substance Use Type does not use Meds Home Medications and Allergies Home Medications Medication Instructions Recorded Confirmed Type simvastatin 40 mg PO QDAY #0 08/07/17 10/08/19 History aspirin 81 mg PO DAILY 09/30/19 10/08/19 History lisinopril 2.5 mg PO DAILY 09/30/19 10/08/19 History metoprolol tartrate 25 mg PO BID #0 09/30/19 10/08/19 History vancomycin in dextrose 5 % 750 mg IV Q12H 41 Days #50841 ml 10/04/19 10/08/19 Rx clopidogrel [Plavix] 75 mg PO DAILY 10/08/19 10/08/19 History Allergies Allergy/AdvReac Type Severity Reaction Status Date / Time oxycodone [OXYCODONE] AdvReac Intermediate ?or Verified 10/03/19 15:41 oxycontin? diarrhea morphine [MORPHINE] AdvReac Mild n/v Verified 10/03/19 15:41 Review of Systems Review of Systems Narrative: On presentation had dyspnea, improving now after Lasix and BiPAP ROS Unobtainable: All systems reviewed & are unremarkable except as noted in HPI and below Exam Vital Signs (past 8 hours): - 10/08/19 02:54 10/08/19 03:03 10/08/19 03:07 Temperature 96.7 F L Pulse Rate 135 H 130 H 131 H Respiratory Rate 26 H 29 H 28 H Blood Pressure 64/21 L Blood Pressure [Left Wrist] 61/39 L 57/28 L Pulse Oximetry 83 L 99 99 10/08/19 03:19 10/08/19 03:55 10/08/19 03:56 Temperature 97.7 F Pulse Rate 130 H Respiratory Rate 20 Blood Pressure 130/97 H Blood Pressure [Left Wrist] 137/93 H Pulse Oximetry 99 10/08/19 04:04 10/08/19 04:07 10/08/19 05:45 Temperature 96.6 F L Pulse Rate 132 H 129 H 112 H Respiratory Rate 24 23 26 H Blood Pressure 107/62 Blood Pressure [Left Wrist] 130/97 H 144/99 H Pulse Oximetry 97 97 100 10/08/19 06:00 10/08/19 06:03 10/08/19 07:00 Temperature 97.2 F L Pulse Rate 104 H 106 H Respiratory Rate 20 22 Blood Pressure 89/67 L Blood Pressure [Left Wrist] Pulse Oximetry 100 100 10/08/19 07:02 10/08/19 07:52 Temperature Pulse Rate 95 H Respiratory Rate 16 Blood Pressure 110/70 110/70 Blood Pressure [Left Wrist] Pulse Oximetry 100 Fraction of Inspired Oxygen 0.30 Oxygen Delivery Method BiPAP Narrative Exam Narrative: General: Alert and oriented female. Wearing a BiPAP mask but no acute distress HEENT exam: Normocephalic atraumatic Respiratory exam: On BiPAP. Conversing easily with me through mask CV exam: Positive bilateral pedal edema. Musculoskeletal exam: Splint in place on right upper extremity hand swelling much improved from several days ago. Demonstrates active finger flexion and extension. Skin intact. Sensation grossly intact median radial ulnar nerves. Palpable radial pulse. Left upper extremity moving full range of motion no tenderness to palpation. Bilateral lower extremities: Moving freely no tenderness to palpation. There is bilateral pedal edema, no wounds or blisters. Calves are soft. Demonstrates active knee flexion extension ankle flexion extension. Objective Labs Result Diagrams: 10/08/19 02:40 10/08/19 02:40 Labs: Laboratory Results - last 24 hr 10/08/19 10/08/19 10/08/19 02:40 02:40 02:40 WBC 10.9 RBC 2.49 L Hgb 9.4 L Hct 27.5 L MCV 110.1 H MCH 37.6 H MCHC 34.1 RDW 12.9 Plt Count 429 H Neut % (Auto) Not Reportable Lymph % (Auto) Not Reportable Emanuel % (Auto) Not Reportable Eos % (Auto) Not Reportable Baso % (Auto) Not Reportable Lymph # (Auto) Not Reportable Emanuel # (Auto) Not Reportable Baso # (Auto) Not Reportable Total Counted 100 Seg Neutrophils % 67.0 Lymphocytes % (Manual) 17.0 L Monocytes % (Manual) 15.0 H Eosinophils % (Manual) 1.0 L Neutrophils # (Manual) 7303 H RBC Morphology See below Macrocytosis 2+ H PT 11.8 INR 1.0 APTT 26 L D-Dimer 2329 H ABG pH ABG pCO2 ABG pO2 ABG HCO3 ABG Total CO2 ABG O2 Saturation ABG Base Excess FiO2 Sodium 134 L Potassium 4.2 Chloride 103 Carbon Dioxide 21 L BUN 16 Creatinine 0.70 Estimated GFR > 60.0 BUN/Creatinine Ratio 22.9 H Glucose 219 H Lactate Calcium 8.9 Magnesium 2.0 Total Bilirubin 0.6 AST 37 H ALT 16 Alkaline Phosphatase 114 Total Creatine Kinase 38 CK-MB (CK-2) TNP CK-MB (CK-2) Rel Index TNP Troponin I < 0.012 B-Natriuretic Peptide 1200 H Total Protein 6.7 Albumin 3.3 L Globulin 3.4 Albumin/Globulin Ratio 1.0 Procalcitonin 10/08/19 10/08/19 10/08/19 02:40 02:40 03:18 WBC RBC Hgb Hct MCV MCH MCHC RDW Plt Count Neut % (Auto) Lymph % (Auto) Emanuel % (Auto) Eos % (Auto) Baso % (Auto) Lymph # (Auto) Emanuel # (Auto) Baso # (Auto) Total Counted Seg Neutrophils % Lymphocytes % (Manual) Monocytes % (Manual) Eosinophils % (Manual) Neutrophils # (Manual) RBC Morphology Macrocytosis PT INR APTT D-Dimer ABG pH 7.34 L ABG pCO2 36.8 ABG pO2 91 ABG HCO3 20 L ABG Total CO2 21 ABG O2 Saturation 97 ABG Base Excess -6.0 L FiO2 0.50 Sodium Potassium Chloride Carbon Dioxide BUN Creatinine Estimated GFR BUN/Creatinine Ratio Glucose Lactate 2.5 H Calcium Magnesium Total Bilirubin AST ALT Alkaline Phosphatase Total Creatine Kinase CK-MB (CK-2) CK-MB (CK-2) Rel Index Troponin I B-Natriuretic Peptide Total Protein Albumin Globulin Albumin/Globulin Ratio Procalcitonin < 0.05 10/08/19 05:20 WBC RBC Hgb Hct MCV MCH MCHC RDW Plt Count Neut % (Auto) Lymph % (Auto) Emanuel % (Auto) Eos % (Auto) Baso % (Auto) Lymph # (Auto) Emanuel # (Auto) Baso # (Auto) Total Counted Seg Neutrophils % Lymphocytes % (Manual) Monocytes % (Manual) Eosinophils % (Manual) Neutrophils # (Manual) RBC Morphology Macrocytosis PT INR APTT D-Dimer ABG pH ABG pCO2 ABG pO2 ABG HCO3 ABG Total CO2 ABG O2 Saturation ABG Base Excess FiO2 Sodium Potassium Chloride Carbon Dioxide BUN Creatinine Estimated GFR BUN/Creatinine Ratio Glucose Lactate 1.0 Calcium Magnesium Total Bilirubin AST ALT Alkaline Phosphatase Total Creatine Kinase CK-MB (CK-2) CK-MB (CK-2) Rel Index Troponin I B-Natriuretic Peptide Total Protein Albumin Globulin Albumin/Globulin Ratio Procalcitonin Assessment & Plan Assessment & Plan narrative: 1. Status post ORIF I and D and antibiotic coated plate right open olecranon fracture with septic arthritis. Continue splint. 2 lb weight limit right hand. Once stable from medical perspective please restart vancomycin 750 b.i.d.--pharmacy can manage dosing in-hospital then will resume home infusions when discharge for total of 6 weeks IV antibiotics. 2. Will follow-up as scheduled 2 weeks status post surgery for wound check and suture removal. Time Spent With Patient Time with patient: less than 15 minutes Quality VTE Deep Vein Thrombosis/Pulmonary Embolism Present on Admission: No
[2019-10-08 08:08] LABS: Bacteria Urine None Seen; RBC Urine None Seen (0-5/HPF); WBC Urine None Seen (0-5/HPF)
[2019-10-08 08:12] LABS: Appearance Urine UA CLEAR; Bilirubin Urine UA NEGATIVE (NEGATIVE); Color Urine UA YELLOW; Glucose Urine UA NEGATIVE (Negative); Ketones Urine UA NEGATIVE (NEGATIVE); Leukocyte Esterase Urine UA NEGATIVE (NEGATIVE); Nitrite Urine UA NEGATIVE (Negative); Occult Blood Urine UA NEGATIVE (Negative); Protein Urine UA NEGATIVE (Negative); Specific Gravity Urine UA <=1.005 (1.000-1.035); Urobilinogen Urine UA 0.2 E.U./dL (0.2)
[2019-10-08 08:16] LABS: pH Urine UA 5.5 (4.5-8.0)
[2019-10-08 08:22] LABS: Culture Indicated Urine Cult Not Indicated; Urine Comments Microscopic Normal
[2019-10-08 09:07] LABS: BUN Creatinine Ratio 27.1 (6-22); Blood Urea Nitrogen 19 mg/dL (7-17); Calcium 8.7 mg/dL (8.4-10.2); Carbon Dioxide 26 mmol/L (22-32); Chloride 102 mmol/L (98-107); Estimated Glomerular Filt Rate > 60.0 mL/min (>60); Glucose 132 mg/dL (80-110); HEMOLYSIS < 15 (0-50); Lactate (Lactic Acid) 0.7 mmol/L (0.7-2.1); Magnesium 1.9 mg/dL (1.6-2.3); Potassium 4.2 mmol/L (3.4-5.1); Sodium 134 mmol/L (137-145)
[2019-10-08 09:12] LABS: Add Manual Diff / Slide Review NO; Basophils Absolute Auto 0 /uL (0-100); Basophils Percent Auto 0.3 % (0-2); Eosinophils Absolute Auto 0 /uL (0-450); Hematocrit 27.2 % (36-46); Hemoglobin 9.3 g/dL (12.0-16.0); Lymphocytes Absolute Auto 200 /uL (1100-4500); Lymphocytes Percent Auto 1.8 % (25-40); Mean Corpuscular HGB Conc 34.2 % (30-36); Mean Corpuscular Hemoglobin 37.6 PG (26-34); Mean Corpuscular Volume 109.9 fL (80-100); Monocytes Absolute Auto 300 /uL (0-900); Monocytes Percent Auto 2.7 % (3-14); Neutrophils Absolute Auto 11200 /uL (1500-7000); Neutrophils Percent Auto 95.2 % (50-75); Platelet Count 382 X10^3/uL (150-400); Red Blood Cell Count 2.48 X10^6/uL (4.0-5.2); Red Cell Distribution Width 12.6 % (11.6-14.8); White Blood Cell Count 11.8 X10^3/uL (4.5-11.0)
[2019-10-08] MEDS: ASPIRIN 81 MG CHEW TAB PO (10:05)
[2019-10-08] MEDS: VANCOMYCIN 750 MG/150 ML FROZ.PIGGY 100 MG IV ×2 (10:05→20:39)
[2019-10-08] MEDS: METOPROLOL IR 25 MG TABLET PO ×2 (10:05→22:26)
[2019-10-08] MEDS: CLOPIDOGREL 75 MG TABLET PO (10:05)
--- NOTE | 2019-10-08 12:33 | CM.DANOTE ---
DCP Assessment: EMR reviewed: Patient is a 74 yr old female who was admitted to the ICU for difficulty breathing. patients PCP is ANJELICA Peterson. CM/RN met with patient at the bedside and explained CM/RN role. patient was alert and oriented x3 during CM/Rn visit. Patient currently lives in a two story home but does not need to go the second floor. Patient lives with her life partner Bhanu. Patient was just d/c from the hospital on 10/04/2019 after having surgery to repair her fractured elbow. Patient ended up with MRSA infection and was placed on 6 wk IV antibiotics. [facility] care with [facility] prior to this IP stay. CM spoke with Kirt at [facility] at [phone] about the patient. Letting them know that patient will be receiving her IV antibiotics while she is here at the hospital but will finish up with [facility] once she is D/C home. CM department will contact Kirt at discharge to let him know when to start services back up again. I: 1st medicare 2nd: [facility] Plan: D/C home when medically stable with family and finish 6weeks of IV antibiotic treatment with [facility]. CM department will continue to follow to determine if any other d/c planning needs arise. Komal Main RN Discharge Planning/Care Management Advanced directive, confirm from FAMILY Start: 10/08/19 06:00 Freq: Q24H Status: Active Protocol: Document 10/08/19 06:00 HNB (Rec: 10/08/19 06:33 HNB [id number]) Advance Directive, confirm on record Time 06:33 Person contacted Bhanu Copy received No CM Discharge Assessment Start: 10/08/19 12:31 Freq: Status: Active Protocol: Document 10/08/19 12:31 HS (Rec: 10/08/19 12:33 HS [id number]) Discharge Planning Assessment Assigned [employer] Komal Main RN DPOA/Assigned Designee Name Bhanu hughes (life partner) Contact Information [phone] Advance Directives? Yes Advance Directives on File No History Provided By Patient,Medical Record Has Patient been admitted in last 30 Yes days? Comment Patient was inpatient on 09-30 thru 10/04. Prior Living Arrangements House Household Members significant other Type of transporation used prior to Drives own vehicle admit Independent with ADL's Yes Is patient alert and oriented? Yes Discharge Plan Home Transportation Arrangement Sig Other available to provide transport at d/c. Referrals Initiated Other Additional Comment [facility] referral made to determine coverage and will continue at D/C Whiteboard Updated in Patient Room with Yes name and ext. # of [employer] Review Status In Process Next Review Type Continued Stay Review Komal Main RN
[2019-10-08] MEDS: FUROSEMIDE 40 MG/4 ML VIAL IV ×2 (12:49→17:05)
[2019-10-08 15:35] LABS: Adenovirus Not Detected (Not Detect); Bordetella pertussis Not Detected (Not Detect); Chlamydophila pneumoniae Not Detected (Not Detect); Coronavirus 229E Not Detected (Not Detect); Coronavirus HKU1 Not Detected (Not Detect); Coronavirus NL 63 Not Detected (Not Detect); Coronavirus OC43 Not Detected (Not Detect); Human Metapneumovirus Not Detected (Not Detect); Human Rhinovirus/Enterovirus Not Detected (Not Detect); Influenza A Not Detected (Not Detect); Influenza B Not Detected (Not Detect); Mycoplasma pneumoniae Not Detected (Not Detect); Parainfluenza Virus 1 Not Detected (Not Detect); Parainfluenza Virus 2 Not Detected (Not Detect); Parainfluenza Virus 3 Not Detected (Not Detect); Parainfluenza Virus 4 Not Detected (Not Detect); Respiratory Syncytial Virus Not Detected (Not Detect)
[2019-10-08] MEDS: AZITHROMYCIN 500 MG in DEXTROSE 5% IN WATER 250 ML IV (17:07)
[2019-10-08] MEDS: SIMVASTATIN 40 MG TABLET PO (20:39)
--- NOTE | 2019-10-08 22:59 | PC.NURSE ---
Evening shift: Patient complains of no pain or shortness of breath. Sat 96% on room air. Patient says Dr. Bay told her she does not have to wear Bipap at night as she is having no problems breathing. No significant decrease in edema of lower extremities during shift. Initially held metoprolol for BP 90's/50's but around 2029 patient's BP had come up to 120/60 and resting HR in 80's so metoprolol was given around 2029. Heart rate increased to 120's briefly while patient was agitated trying to get comfortable in bed around 2029 as well.
[2019-10-09] VITALS (8 sets, daily range): BP systolic 92–127; BP diastolic 61–78; PULSE 72–95; RESP 11–20; TEMP 36.3–36.7; O2SAT 94–99
[2019-10-09 08:55] LABS: Vancomycin Trough 18.6 ug/mL (10-20)
[2019-10-09] MEDS: CLOPIDOGREL 75 MG TABLET PO (09:20)
[2019-10-09] MEDS: METOPROLOL IR 25 MG TABLET PO (09:20)
[2019-10-09] MEDS: ASPIRIN 81 MG CHEW TAB PO (09:20)
[2019-10-09] MEDS: VANCOMYCIN 750 MG/150 ML FROZ.PIGGY 100 MG IV (09:20)
--- NOTE | 2019-10-09 13:07 | CM.DPC ---
DCP continued: CHRIST/Rn spoke with Kirt with [facility] and let him know that the patient is d/c home today and will need to continue IV antibiotics Vancomycin 750mg q 12 hours. Kirt stated he will reach out to the patient today and f/u with them with services. CHRIST/RN will fax d/c summary when it is ready. Komal Main RN.
[2019-10-09 14:33] LABS: BUN Creatinine Ratio 32.5 (6-22); Blood Urea Nitrogen 26 mg/dL (7-17); Calcium 8.4 mg/dL (8.4-10.2); Carbon Dioxide 27 mmol/L (22-32); Chloride 101 mmol/L (98-107); Estimated Glomerular Filt Rate > 60.0 mL/min (>60); Glucose 103 mg/dL (80-110); HEMOLYSIS < 15 (0-50); Potassium 3.7 mmol/L (3.4-5.1); Sodium 133 mmol/L (137-145)
--- NOTE | 2019-10-09 16:03 | PC.NURSE ---
Reviewed discharge instructions with patient and significant other. D/C'd peripheral IV from left forearm, upper arm PICC remaining for outpatient infusion of vanc. No additional questions on discharge information. Discharged by wheelchair to private vehicle.
--- NOTE | 2019-10-09 17:12 | P.DS_ITS ---
History of Present Illness History of Present Illness Date Patient Seen: 10/08/19 Chief complaint: dizzy, incoherent, possible allergic rx Narrative: Written by Nena FLORES: The patient is a 74-year-old female with PMH of HTN, CAD (h/o PCI, stenting), HFrEF 25-30%, PAD, dyslipidemia, prior tobacco dependence, and Raynaud's. Patient presented to the ED on 10/08/2019 with sudden onset of dyspnea. Symptoms initially noted on 10/07/19 in the 2100 hour. Associated symptoms include lightheadedness, diaphoresis, and peripheral edema. Patient reports progressive worsening lower extremity edema since Sunday (10/03). Patient denies experiencing fever, chills, headache, orthopnea, PND, syncopal events, pleurisy, palpitations, abdominal pain, gastrointestinal distress, new rash, joint pain, or changes in pattern of micturition. She is known to have HFrEF of 25-30% per echo . Patient's weight on 09/30 is noted as 110 lbs. Today (10/08) her admitting weight is 129 lbs. She is not on a diuretic. Patient presented to the ED acutely ill. She was hemodynamically unstable. T 96.7F BP 64/21 mmHg HR 135 RR 26 and SpO2 83% on room air. She was noted to be in a severe respiratory distress with associated diaphoresis, accessory muscle use, hypoxia, and hypotension. She was treated with methylprednisolone 125 mg IV x1 (0257), 1L NS bolus (0258), started on BiPap, and received 60 mg of IV lasix. She responded well, with significant improvement. Diuresed 1400 ml. Patient was recently hospitalized 09/30 through 10/04 for an acute displaced right olecranon fracture. Patient had a delayed presentation at that time, almost 1 week after the injury has occurred. On 09/30 patient was taken to the OR and underwent an irrigation and debridement with placement of an antibiotic spacer. On 10/03 patient underwent removal of the antibiotic spacer with a follow- up excisional irrigation /debridement of the fracture, evacuation of a small hematoma those at site, and ORIF. Consequently, she was discharged home (10/04) on a 6 week course of IV vancomycin. Her cultures from 09/30 have grown gram MRSA. Patient has CAD with prior PCI and stenting. She was on ASA and Plavix. On discharge patient did not know she had to continue Plavix, and for this reason has not take the medicatioin. Discharge Providers Provider Date of admission: 10/08/19 04:47 Discharge Date: 10/09/19 Consults: 10/08/19 02:38 Consult to Respiratory Therapy Evaluate & Treat Comment: Physician Instructions: Evaluate and treat Discharge provider: Kaylee Bay DO Summary Hospital Course Discharge Diagnosis: 1. Decompensated congestive heart failure with reduced LV function, present on admission. Resolved. 2. Sepsis and septic shock ruled out. 3. Abnormal CTA chest, unclear acuity, present on admission. Stable. 4. Acute hypoxemic respiratory failure, present on admission. Resolved. 5. CAD status post stents, chronic, present on admission. Presumed stable. 6. History of right olecranon fracture, subacute, present on admission. Stable. 7. Macrocytic anemia, chronic, present on admission. Stable. 8. Alcohol dependence, chronic, present on admission. Stable. Hospital Course: 1. Decompensated congestive heart failure with reduced LV function, present on admission. Resolved. -Echo (09/30/19) demonstrated LVEF 25-30%(previously 41% 11/2018). LV is normal in size. LV segments are severely hypokinetic to akinetic, with exception of lateral segments, apex, and basal posterior wall. Right ventricle is normal in size and function. Mild to moderate mitral regurgitation. Trace tricuspid regurgitation. RVSP 41 mmHg. Trivial pericardial effusion noted. Anterior echo free space consistent with a fat pad. -Elevated D-Dimer 2329. CTA chest PE protocol was negative for PE, aortic aneurysm, and aortic dissection. -ABG demonstrated 7.34 pCO2 36.8 pO2 91 HCO3 20. Primary metabolic acidosis with normal AG and respiratory compensation. Continued BiPap and titrated off as tolerated. -EKG with concern for atrial flutter versus sinus tachycardia and repeat demonstrated normal sinus rhythm. -Received 60 mg IV lasix (@ 0400), diuresed 1400. Will give another dose of 40 mg IV Lasix at 1200. -Continue daily weights and strict I&Os. Net -2 L. 2. Sepsis and septic shock ruled out. -Initially concerned for septic shock given history of recent MRSA positive tissue culture. Do not believe the patient was septic on admission rather in decompensated heart failure with hypoxemia causing lactic acidosis and hypotension due to diuresis. -Lactate 2.5 and resolved with diuresis. -Blood cultures x 2 have no growth to date. -UA negative. -CXR and PE not indicative of an infectious organism. -Reports improved swelling in right extremity, no change/decrease in sensation -Continued outpatient vancomycin infusions. 3. Abnormal CTA chest, unclear acuity, present on admission. Stable. -CTA chest demonstrated: No PE, aortic aneurysm, or aortic dissection. Thickening of the internal and interlobular septa with moderate-sized bilateral pleural effusions suggesting CHF. Innumerable pulmonary nodules measuring up to 9 x 6 mm. Prominent mediastinal and hilar lymph nodes, likely reactive. Small pericardial effusion. -Discussed case with on-call pulmonology at [facility] who recommended treatment for atypical pneumonia do due to CT findings of it extensive interstitial lung disease with micronodular appearance. Differential diagnosis is vast. 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 and [facility]. Patient is also a former smoker, therefore, malignancy is not out of the question. She denies history of night sweats or unintentional weight loss. She is very thin and cachectic appearing but reports she has been this way her entire life and her weight does not usually fluctuate from 110-112 lbs. Recommended treat for atypical pneumonia with azithromycin 500 mg x 3 doses which the patient was discharged with one dose to complete course. Plan for outpatient follow-up with pulmonology. 4. Acute hypoxemic respiratory failure, present on admission. Resolved. -Secondary to pulmonary edema and CHF exacerbation. -Treated underlying cause as above. 5. CAD status post stents, chronic, present on admission. Presumed stable. -Continued home regimen of ASA, Plavix, metoprolol, and lisinopril. -Patient had Plavix held temporarily during last hospitalization and she never restarted it as instructed at previous discharge. Restarted plavix 75 mg daily. 6. History of right olecranon fracture, subacute, present on admission. Stable. -Complicated by recent septic arthritis with tissue cultures positive for MRSA. -Continued vancomycin -Continued to monitor neurovascular status which was intact. 7. Macrocytic anemia, chronic, present on admission. Stable. -Likely due to anemia of chronic disease and possibly bone marrow suppression from alcohol use. Recommend outpatient work-up per PCP. -Hgb 9.4 with MCV 110.1. -Continued to monitor CBC which was stable. 8. Alcohol dependence, chronic, present on admission. Stable. -Patient endorses 1-2 glasses of wine a night. -CTA chest demonstrated nodular appearance of liver with possible cirrhosis or other etiology. -Low threshold to initiate CIWA but patient did not exhibit any signs of alcohol withdraw during admission. -Recommended cut back significantly or abstain from alcohol indefinitely. Exam Vital Signs (past 8 hours): - 10/09/19 10:00 10/09/19 12:00 10/09/19 14:00 Pulse Rate 87 95 H 79 Respiratory Rate 18 20 20 Blood Pressure 95/63 98/78 120/76 Pulse Oximetry 96 99 97 Fraction of Inspired Oxygen 0.30 Oxygen Delivery Method Room Air Oxygen Flow Rate 0 Narrative Exam Narrative: General: Elderly thin and cachetic female lying in bed and in no acute distress, appears older than stated age, anxious but otherwise appropriately interactive. HEENT: Normocephalic, atraumatic. External ears without defect. Pupils equal, round, and reactive to light. Anicteric sclerae, moist conjunctivae, and no lid lag. Neck: Supple with full range of motion. No jugular venous distension. No lymphadenopathy or thyromegaly. Cardiovascular: Regular rate and rhythm without murmurs, rubs, or gallops appreciated. Pulmonary: Clear to auscultation bilaterally without crackles, wheezes, or rhonchi. Normal respiratory effort with no use of accessory muscles. Abdomen: Soft, bowel sounds present, nontender, nondistended. No hepatosplenom egaly or masses appreciated. Extremities: No clubbing or cyanosis. Bilateral lower extremity edema resolved with compression stockings in place. Right are with dressing in place and distal pulse and ROM intact. Skin: Normal temperature, turgor, and texture; no rash, ulcers, or subcutaneous nodules appreciated. Neurological: Cranial nerves grossly intact. Psychiatric: Anxious mood and affect. Alert and oriented to person, place, and time. Objective Labs Result Diagrams: 10/08/19 08:40 10/09/19 14:10 Labs: Laboratory Results - last 24 hr 10/09/19 10/09/19 08:20 14:10 Sodium 133 L Potassium 3.7 Chloride 101 Carbon Dioxide 27 BUN 26 H Creatinine 0.80 Estimated GFR > 60.0 BUN/Creatinine Ratio 32.5 H Glucose 103 Calcium 8.4 Magnesium 2.0 Vancomycin Trough 18.6 Discharge Plan Discharge Plan Patient Disposition: Home Discharge comment: You're being discharged home. You had a heart failure exacerbation and were diuresed with removal of 2L of fluid. You have been provided CHF teaching. Please eat a diet low in sodium less than 2 g or 2000 mg a day and fluid restriction of 1.5 L daily. Please weigh yourself daily and keep track of your weight in a journal. If you gain more than 2-3 lb in a 1-2 day period or become symptomatic with swelling of your lower extremity or shortness of breath you may take furosemide 20 mg and call your physician. Please follow-up with your optometry assistant, Dr. Khan, as soon as possible at your scheduled appointment. Please follow-up with your primary care provider, Brittany Peterson, in the next 1 week at your scheduled appointment regarding your hospitalization. Continue your vancomycin infusions through the infusion company as previously directed. Please follow-up with Orthopedic surgery as previously directed. You also have a nodular appearance to your lung tissue for which the differential diagnosis is vast. You are being treated for atypical pneumonia and have 1 more dose of azithromycin 500 mg tomorrow to complete the course. Please have your primary care provider place in expedited referral to pulmonology for further evaluation of your lungs. You also have a nodular appearance to your liver which potentially is due to scarring from alcohol use versus other etiology. Please discuss further workup with your primary care provider. Discharge orders & Medications Prescriptions: Continued simvastatin 40 MG tablet 40 mg PO QDAY Qty: 0 RF: 0 vancomycin in dextrose 5 % 750 mg/150 mL Piggyback 750 mg IV Q12H 41 Days Qty: 90638 RF: 0 clopidogrel [Plavix] 75 mg Tablet 75 mg PO DAILY RF: 0 aspirin 81 mg Tablet,Chewable 81 mg PO DAILY RF: 0 lisinopril 2.5 mg Tablet 2.5 mg PO DAILY RF: 0 metoprolol tartrate 25 mg Tablet 25 mg PO BID Qty: 0 RF: 0 No Action furosemide 20 mg tablet 20 mg PO DAILY PRN (Reason: edema or shortness of breath) Qty: 90 RF: 0 Follow up/Referrals: Debi Peterson PA-C [[facility] [employer] [facility]] - 1 Week Diet/Activity/Treatments Diet: Low-fat, Low-sodium and Low-cholesterol Diet comment: Fluid restriction 1.5 L and low sodium diet less than 2g or 2000 mg daily Activity: Activity as tolerated Visit Report/Discharge Packet Instructions: DI for Heart Failure, DI for Cirrhosis, Fluid Restricted Diet, Low-Sodium Diet, Furosemide, Azithromycin Discharges patient from system. Discharge Date/Time: 10/09/19 16:08 Quality VTE Deep Vein Thrombosis/Pulmonary Embolism Present on Admission: No
[2019-10-11 17:40] LABS: Strep pneumoniae Ag, Urine NOT DETECTED
== END 2019-10-09 16:08 | disposition home or self-care (01) | DRG 291 ==
LOC: ED 04:47 → AC 04:48 → ICU 04:54
PROVIDERS: Internal Medicine; Admitting Provider Nurse Practitioner Gerontology; Emergency Provider Emergency Medicine; Visit Provider Nurse Practitioner Gerontology
DX: I11.0 Hypertensive heart disease with heart failure (principal); J96.01 Acute respiratory failure with hypoxia; J18.9 Pneumonia, unspecified organism; M00.9 Pyogenic arthritis, unspecified; M00.021 Staphylococcal arthritis, right elbow; I50.23 Acute on chronic systolic (congestive) heart failure; B95.62 Methicillin resistant Staphylococcus aureus infection as the cause of diseases classified elsewhere; I25.10 Atherosclerotic heart disease of native coronary artery without angina pectoris; E78.5 Hyperlipidemia, unspecified; I73.9 Peripheral vascular disease, unspecified; I73.00 Raynaud's syndrome without gangrene; D53.9 Nutritional anemia, unspecified; Z87.891 Personal history of nicotine dependence
CPT/HCPCS: 36415; 36592; 36600; 71045; 71275; 80048; 80053; 80202; 81001; 81003; 82550; 82805; 82962; 83605; 83735; 83880; 84145; 84484; 85025; 85379; 85610; 85730; 87040; 87449; 87633; 87797; 93005; 94660; 94762; 96361; 96374; 96375; 99285; 99291; J1940; J2930; J3370; Q9967

== ENCOUNTER → 2019-10-23 07:06 | Outpatient (CLI) | payer MEDICARE, OTHER, SELFPAY ==
[2019-10-08 04:50] VITALS: BMI 20.2
[2019-10-08 07:52] VITALS: PULSE 93; RESP 16; O2SAT 100
[2019-10-23 09:19] LABS: HEMOLYSIS < 15 (0-50); Iron 64 ug/dL (37-170)
[2019-10-23 09:29] LABS: Percent Iron Saturation 27 % (15-50); Total Iron Binding Capacity 235 ug/dL (265-497); Transferrin 183 mg/dL (206-381)
[2019-10-23 09:54] LABS: Ferritin 85.9 ng/mL (11.1-264)
[2019-10-23 10:07] LABS: Vitamin B12 940 pg/mL (239-931)
== END ==
PROVIDERS: PCP Family Medicine; Visit Provider Family Medicine
DX: I10 Essential (primary) hypertension (principal); I50.9 Heart failure, unspecified; Z13.0 Encounter for screening for diseases of the blood and blood-forming organs and certain disorders involving the immune mechanism
CPT/HCPCS: 36415; 82607; 82728; 83540; 83550

== ENCOUNTER 2019-11-14 06:05 | Day surgery (SDC) | payer MEDICARE, OTHER, SELFPAY ==
[2019-10-08 04:50] VITALS: BMI 20.2
[2019-10-08 07:52] VITALS: PULSE 93; RESP 16; O2SAT 100
[2019-11-12 15:10] VITALS: BMI 18.3
[2019-11-14] VITALS (18 sets, daily range): BP systolic 79–104; BP diastolic 46–64; PULSE 67–91; RESP 10–18; TEMP 36.2–37.3; O2SAT 92–100; BMI 16.6
--- NOTE | 2019-11-14 | DI.RAD.S_ITS ---
PROCEDURE: XR ELBOW RT MIN 3V INDICATIONS: RIGHT ELBOW OLECRANON REPAIR TECHNIQUE: 3 views of the elbow were acquired. COMPARISON: [facility], CR, XR ELBOW RT MIN 3V, 09/30/2019, 20:35. [facility], CR, XR ELBOW 1 OR 2 VIEWS RIGHT, 10/16/2019, 14:25. [facility], CR, XR ELBOW RT MIN 3V, 10/03/2019, 19:31. FINDINGS: 3 intraoperative fluoroscopy images demonstrate removal of surgical hardware and partial resection of olecranon fracture fragments. Please correlate with the surgical note. IMPRESSION: Fluoroscopy for intraoperative olecranon repair. Dictated by: Nixon Burnham M.D. on 11/14/2019 at 9:56 Approved by: Nixon Burnham M.D. on 11/14/2019 at 9:58
[2019-11-14] MEDS: LACTATED RINGERS 1,000 ML 42 ML IV ×2 (06:53→10:14)
[2019-11-14] MEDS: VANCOMYCIN 1,000 MG/200 ML PIGGYBACK 200 MG IV (06:56)
--- NOTE | 2019-11-14 07:27 | PM.PREOP ---
Pre-operative Note Interval Note History & Physical reviewed/Exam performed by Physician: Yes Changes to H&P: No
--- NOTE | 2019-11-14 07:27 | PM.OP.1 ---
Operative Date/Time/Diagnoses Date of procedure: 11/14/19 Pre-op diagnosis: 1. Type 1 open olecranon fracture with infection at presentation, right 2. Wound dehiscence with exposed hardware, right elbow Post-op diagnosis: same Procedure & Clinicians Procedure: 1. Excision and triceps advancement right elbow olecranon fracture 38790 2. Staged removal of hardware and antibiotic coated plate right elbow 14789-65 3. Irrigation debridement bone, subcutaneous tissue, fascia cpt 34009 Same procedure as scheduled: Yes Indications: Patient is a 74-year-old female that had a late presentation of an open olecranon fracture. She presented with acute infection over week after her fracture. She had staged treatment with irrigation debridement antibiotic spacer and then repair with antibiotic coated plate. She was on IV antibiotics with vancomycin for MRSA. She was doing well and then presented postoperatively with wound dehiscence and exposed antibiotic coated plate and hardware. She was indicated for staged removal of the antibiotic coated plate and excision of the fragment and advancement of the triceps tendon to remove hardware burden and retained continuity of the extensor mechanism. Was discussed with the patient that she may require wound care and or negative pressure wound therapy if the wound is not closable opened again. Patient understands and agrees with the plan. The risks and benefits of the procedure have been discussed with the patient even opportunity to ask questions. She has no evidence of sepsis and her inflammatory markers have returned to normal with her scheduled IV antibiotics. The again discussed the complex nature of the patient's presentation with an open displaced fracture with acute infection and the staged treatments required to eradicate infection and restore integrity of the extensor mechanism. The risks of surgery include but are not limited to infection, malunion, nonunion, persistence of pain, damage to nerves and blood vessels, posttraumatic arthritis, DVT, PE, cardiopulmonary complications and . The patient expressed a thorough understanding of the risks and benefits of surgery and has elected to proceed. Consent was signed in the office . Surgeon: Margarita Dominguez Click Yes if Unassisted: Yes Anesthesia Type: General and Local Operative Notes Findings: Open 2 x 3 cm area directly over the olecranon with exposed antibiotic plate. No surrounding erythema but friable tissue. No purulence or abscess. Incision was reopened in plate was was removed along with all screws. Olecranon nonunion fragment was excised. The triceps was freed up and repaired with 2. FiberWire through 3 drill holes and over tied at the ulna. Excellent repair was obtained and tested in extension and flexion without gapping. Wound was closed primarily. Closure Type: primary Specimen(s): other (Tissue for culture) Prosthetic devices, grafts, tissues, transplants, or devices: None Estimated Blood Loss (mL): 30 Blood products transfused: none Tourniquet time (min): 90 Procedure in detail: Patient was seen in the preoperative area the site of surgery was marked and informed consent confirmed. The patient was brought back to the operating by the anesthesia team. General anesthesia was administered. Patient was then positioned on the lateral position on the beanbag. All bony prominences well padded. An axillary bump was placed. And the peroneal nerve was well-padded. Right upper extremity was positioned on a bolster that was padded. This was prepped and draped in the standard sterile fashion. Formal time-out procedure was performed confirming the patient's side and site of surgery presence of informed consent. Patient had IV antibiotics with vancomycin administered. All were in agreement. Sterile brachial tourniquet was placed. Elevation was used for exsanguination the tourniquet was raised on the brachium to 250 mm of mercury and stayed there for 90 minutes. Attention was turned to the right olecranon. The open wound was debrided and the remainder of the incision reopened and old sutures removed. The antibiotic coated plate was exposed the screw heads had been left expose exposed and were removed. The 3rd screw did take some removal of a small amount of antibiotic cement for access but this was removed with little difficulty. The plate an antibiotic spacer were removed in their entirety. This exposed the nonunion olecranon fragment. Meticulous dissection was taken at the skin flaps there was copious start scar tissue. And meticulous dissection was taken to expose and protect the ulnar nerve throughout the case. Once this was identified and protected the remainder of the olecranon fragment was excised free up the triceps for mobilization and repair. The wound was then irrigated with pulsatile lavage. The triceps was prepped with 2. Krackow suture for a 4 strand repair. And then 3 drill holes were placed in the proximal olecranon starting close to the joint line to give a tight repair of the triceps to the level of the joint. The drill holes exited out the posterior surface of the ulna. The strands were brought through the drill holes with the lateral medial strands brought through the lateral medial holes and the 2 middle strands brought through the middle hole. These were isolated tensioned and tied securely creating a excellent repair. This was then taken through range of motion and no gapping was noted. Additionally the drill holes were done under fluoroscopic guidance confirming adequate trajectory and placement close to the joint line. The wound was irrigated again with pulsatile lavage and then closed the layered fashion with 2 O Vicryl and 2 O and 3 O nylon suture. 1 g of powdered vancomycin was placed in the wound. Approximately 10 cc of lidocaine was used for local anesthetic in the skin. The tourniquet was released and the hemostasis achieved in the arm pinked up well. A kinjal dressing was placed to suction. And a posterior extensions splint placed with ABD pads along the olecranon to make sure that the elbow was well-padded. The patient was then woken from anesthesia and taken to the recovery room in good condition. Complications: none Post-operative Condition: stable Disposition: Acute Care Plan for aftercare: The patient will go to the floor she will be monitored. Plan for discharge tomorrow morning. Patient will resume antibiotic therapy with home infusion. We've kinjal dressing in place. Follow up next orthopedic clinic. Maintain splint. Wiggle fingers. Nonweightbearing to right upper extremity.
--- NOTE | 2019-11-14 08:25 | SUR.OPER ---
Lateral on granados bag on OR bed, head on pillow, gel axillary roll in place, bottom leg bent with gel pad under knee to foot, upper leg straight and supported with pillows. Upper arm supported by pillows and secured over bottom arm to padded arm board. Safety belt at hip, tape over blanket lower legs.
[2019-11-14] MEDS: VANCOMYCIN 1,000 MG VIAL 1000 MG TOP (09:35)
[2019-11-14] MEDS: BUPIVACAINE 0.25% W/ EPI (PF) 10 ML VIAL 20 ML INJ (09:48)
[2019-11-14] MEDS: TRAMADOL 50 MG TABLET PO (10:59)
--- NOTE | 2019-11-14 11:01 | P.PN_ITS ---
Subjective Subjective Date Patient Seen: 11/14/19 Time Patient Seen: 11:01 Interval history: Postop day 0 removal of hardware and triceps advancement for open right olecranon fracture with infection and wound dehiscence. Wound was able to be closed. This was done primarily. Nirali dressing was placed. Patient will keep this intact until she follows up with me. Make an appointment for 11/20/2019. Patient will receive vancomycin while in the hospital. She has a PICC line and has already been set up with [facility]. on discharge she will resume her vancomycin with [facility]. She will remain nonweightbearing on the right upper extremity and in the splint to take tension off the repair. She may resume her aspirin and Plavix on 11/15/2019. Plan for discharge to home on 11/15/2019 Discussed with home infusion--most current dosage was 850 mg of vancomycin Q 24 hours. She doses this typically at 4:00 p.m.--therefore plan will be the single dose patient had today and then no more dosing while in the hospital and patient will resume home infusion does on Sunday11/15/2019 with home infusions.--please call home infusions tomorrow morning in preparation for discharge to confirm this plan. I did speak with them today and state that this would be the anticipated plan. [email or web address]: [phone] fax number: [phone] Exam Vital Signs (past 8 hours): - 11/14/19 07:03 11/14/19 10:30 11/14/19 10:36 Temperature 97.1 F L 98.3 F Pulse Rate 67 84 76 Respiratory Rate 15 15 16 Blood Pressure 96/63 83/47 L 80/46 L Pulse Oximetry 100 94 94 11/14/19 10:42 11/14/19 10:49 11/14/19 10:53 Temperature 98.7 F Pulse Rate 78 83 78 Respiratory Rate 18 15 10 L Blood Pressure 83/54 L 89/54 L 80/46 L Pulse Oximetry 94 92 94 Oxygen Delivery Method Room Air Assessment & Plan Post-op Postoperative Procedures: Procedures Operation Date: 11/14/19 07:45 Actual Procedures Side Surgeon p ORIF olecranon triceps advancement, I&D - removable antibiotic spacer Right Margarita Dominguez MD
--- NOTE | 2019-11-14 11:29 | CM.IDA ---
Addendum entered by REN Reid 11/14/19 13:45: Met w/pt this afternoon and she confirmed she was going home tomorrow w/resumption of infusion services through [facility]. Pt very pleased w/[facility]. Pt explains further that her partner Bhanu and she have been together for 45 years and he is available to assist her as needed w/ADLs, chores and transportation. Bhanu has been assisting w/infusion at home and will continue to do so. LAZARO Original Note: Initial DCP Assessment Note: Pt is a 74 yo female, resident of [place]. Pt here for wound closure, s/p recent repair of an elbow fx and subsequent wound dihiscence. Dr Dominguez is following performing wound closure this AM. PCP: Galen Michael Payer: DADA/Eloy Per chart review, pt has had [facility] for her home infusion of Vanc Q24 and pt and Dr Dominguez would like this to resume upon pt's DC, expected on 11.15.19. This SPECTROGRAPHIC ANALYST placed call to [facility] w/ [facility], explained above and that pt would receive a 1600 dose of her usual Vanc today and would need to be seen Sunday, at home, after DC from . Kirt will investigate and f/u w/this SPECTROGRAPHIC ANALYST. This SPECTROGRAPHIC ANALYST will plan to complete a more thorough assessment today w/pt once she returns from the OR. REN Reid
[2019-11-14] MEDS: ACETAMINOPHEN 325 MG TABLET 975 MG PO ×2 (14:36→20:56)
[2019-11-14] MEDS: SIMVASTATIN 40 MG TABLET PO (14:37)
[2019-11-14] MEDS: LACTATED RINGERS 1,000 ML 20 ML IV (14:56)
--- NOTE | 2019-11-14 15:17 | PT.IIE ---
Current Diagnoses Displaced fracture of olecranon process without intraarticular extension of right ulna, initial encounter for open fracture type I or II (11/14/19) Surgery Performed Operation Date: 11/14/19 07:45 Actual Procedures p ORIF olecranon triceps advancement, I&D - removable antibiotic spacer(Right) - Margarita Dominguez MD Surgical History (Last Updated 11/13/19 @ 08:54 by Kandi Calvo RN) Anesthesia (Resolved) H/O elbow surgery (Acute ~10/2019) H/O heart artery stent (Acute ~2006) History of bilateral breast implants (Acute) History of cataract removal with insertion of prosthetic lens (Resolved ~2016) History of incision and drainage (Acute 09/30/19) History of knee surgery (Resolved ~2005) Hx of bilateral cataract extraction (Acute ~2016) Medical History (Last Updated 11/12/19 @ 15:18 by Kandi Calvo RN) Chicken pox (Resolved) Coronary artery disease (Chronic ~2006) Dyslipidemia (Chronic) Fracture of right olecranon process (Acute ~09/2019) HLD (hyperlipidemia) (Acute) Hypertension (Chronic) Mumps (Resolved) Osteoarthritis (Chronic) PAD (peripheral artery disease) (Chronic) Pulmonary edema (Acute) Septic olecranon bursitis of right elbow (Acute) Wrist fracture (Resolved ~2014) Physical Therapy Inpatient Evaluation/Re-Eval M1 PT/OT-IP Prior Functional Status Start: 11/14/19 17:11 Freq: NEEDED Status: Active Protocol: Document 11/14/19 15:17 AB (Rec: 11/14/19 17:28 AB [id number]) Medical Review Prior Functional Status Medical History Reviewed Yes Communication able to make needs known Mobility and Gait pt stated that she is modified independent with bed mobility , transfers and ambulation without AD Activities of Daily Living and IADL's partner assists pt with putting her shoes on and house chores Social History Household Members significant other Living Arrangements House Number of Floors (Floors) Two Floors Number of Stairs To Enter/Railing? 1 step to enter from the garage without rails but stated that there is a table that she hold on to; has 2 steps from the front with L rail ascending has 8 steps +landing+7 steps all with 2 rails to 2nd level bedroom Home Environment High Toilet,Walk in Shower, Built-In Shower Seat Home Equipment Hand Held Shower,Grab Bars Near Toilet,Grab Bars In Shower Additional Social History Comment pt stated she just sponge bathe due to picc line and RUE cannot get wet. pt washes her hair by the sink M2 PT-IP Current Condition Start: 11/14/19 17:11 Freq: NEEDED Status: Active Protocol: Document 11/14/19 15:17 AB (Rec: 11/14/19 17:28 AB [id number]) Physical Therapy Current Condition Current Condition Evaluation Date 11/14/19 Treatment Diagnosis R olecranon fx s/p hardware removal and wound closure; difficulty in walkin Onset Date 11/14/2019 Precautions Brace has R arm splint Weight Bearing Status Weight Bearing Status Non-Weight Bearing Allowed Weight Bearing Amount (enter % RUE NWB or #) (%) M3 PT-IP Subjective Start: 11/14/19 17:11 Freq: NEEDED Status: Active Protocol: Document 11/14/19 15:17 AB (Rec: 11/14/19 17:28 AB [id number]) Subjective Physical Therapy Visit Type Type Initial Evaluation Visit Start Time 15:17 Visit Stop Time 15:48 Total Visit Minutes 31 Number of CONTRACT ADMINISTRATIVE ASSISTANT Visits 0 Physical Therapy Visit Comments Patient Goals to go home Therapy Pain Assessment Pain Present Pain Present Denied Pain M4 PT-IP Mobility and Gait Start: 11/14/19 17:11 Freq: NEEDED Status: Active Protocol: Document 11/14/19 15:17 AB (Rec: 11/14/19 17:28 [id number]) PT-Bed Mobility Assessment Supine to Sit Supine to Sit Standby Assistance,Head of Bed Elevated Sit to Supine Sit to Supine Standby Assistance PT-Transfer Assessment Sit to and From Stand Sit to and from Stand Standby Assistance Equipment Transfer Assistive Device None,Gait Belt Orthotic/Prosthetic Devices or Brace: Yes Comments Mobility Comments Pt with a PICC line on L upper arm and has surgery on R arm. positioned BP cuff on L forearm but cuff is still too big for pt. BP taken from L leg/calf: 116/62. pt completed bed mobility supine to sit SBA with HOB elevated. pt was able to sit on EOB SBA. pt without complaints and stated that she feels great. BP checked in sittin/68. pt ambulated in room ~ 25 ft without AD. pt requested to go back to bed and completed sit to supine SBA. positioned pt in bed. BP: 122/65. call light and table placed within reach. Gait Assessment Gait Gait Assistance Required: Standby Assistance Distance (Feet) 25 Able to Maintain Weight Bearing Status Yes During Gait Assistive Devices Assistive Device None,Gait Belt Orthotic/Prosthetic Devices or Brace: Yes Gait Deviations General Gait Pattern Antalgic,Lateral Trunk Lean Factors Limiting Gait Function Factors Limiting Gait Function Decreased Strength,Poor Balance Comments Gait Comments pt ambulate in room SBA; presents with unsteady antalgic gait with increase trunk lean to the R but without any LOB. PT-Balance Assessment Sitting Balance and Reactions Static Sitting Balance Ability Good Dynamic Sitting Balance Ability Good Standing Balance and Reactions Static Standing Balance Ability Good Dynamic Standing Balance Ability Fair Device Used without AD M5 PT-IP Objective Assessments Start: 11/14/19 17:11 Freq: NEEDED Status: Active Protocol: Document 11/14/19 15:17 AB (Rec: 11/14/19 17:28 AB [id number]) Orientation Orientation/Cognition Level of Alertness Alert Orientation Name,Place,Situation Language Function Ability No Deficits Noted Memory Description No Deficits Noted Gross Range of Motion Upper Extremity ROM Impairments RUE on a splint Lower Extremity ROM Assessment Within Functional Limits Strength Lower Extremity Strength Assessment Within Functional Limits Muscle Tone Muscle Tone WNL Yes M6 PT-IP Treatment Start: 11/14/19 17:11 Freq: NEEDED Status: Active Protocol: Document 11/14/19 15:17 AB (Rec: 11/14/19 17:28 AB [id number]) Physical Therapy Treatment Education Education Provided Weight Bearing Status,Safety M7 PT-IP Assessment and Plan Start: 11/14/19 17:11 Freq: NEEDED Status: Active Protocol: Document 11/14/19 15:17 AB (Rec: 11/14/19 17:28 AB [id number]) PT Summary Assessment and Plan Potential Rehabilitation Potential Good Status of Condition at Evaluation Stable Summary Impairments Pain,ROM,Strength,Balance, Coordination,Bed Mobility, Transfers,Gait,Activity Tolerance Assessment Summary pt requiring SBA with mobility . pt has her partner to assist her at home and stated that her partner has been assisting her since the initial fracture with her arm. will conduct stair climbing prior to d/c. Goals Bed Mobility Goal Independent Transfer Goal Independent Gait Goal Independent Gait Distance 150 Other Goals up/dwon 16 steps with 1 rail SBA Days to Meet Goals 3 Frequency of Treatment Frequency Of Treatment Twice a Day Treatment Plan Physical Therapy Treatment Plan Bed Mobility Training,Transfer Training,Gait Training, Therapeutic Exercise,Balance Retraining,Post Op Education, Discharge Planning,Hot or Cold Pack,Neuromuscular Re-ed, Coordination Retraining,Manual Therapy Other Recommendations and Next Treatment ambulation, stair climbing Focus Recommendations To Nursing Amount of Assist Needed 1 Person Assist Discharge Recommendations PT Discharge Recommendations Home with Assistance
[2019-11-14] MEDS: DOCUSATE 100 MG CAPSULE PO (20:55)
--- NOTE | 2019-11-15 00:16 | PC.NURSE ---
Patient is alert and oriented. Breath sounds CTA with RA sat of 96%. HRR. Low BP of 84/56 which is reportedly normal for patient. Denies nausea. BT present and states has passed some flatus. Denies dysuria, frequency or urgency. Able to move self in bed. Out of bed with 1 assist and is steady on feet. Right UE with TOYA dressing, splint and wrapped with marcial which is all CDI. CMS is intact with good cap refill. Denies pain at present time. Wearing bilateral calf SCD's. Fell in September which is how original injury occurred; fall risk score is high and bed alarm is activated.
[2019-11-15 04:30] VITALS: BP 85/57; PULSE 84; RESP 16; TEMP 37; O2SAT 96
[2019-11-15] MEDS: TRAMADOL 50 MG TABLET PO (04:45)
[2019-11-15 08:00] VITALS: BP 128/70; PULSE 78; RESP 16; TEMP 36.9; O2SAT 97
[2019-11-15] MEDS: ACETAMINOPHEN 325 MG TABLET 975 MG PO (08:28)
[2019-11-15] MEDS: DOCUSATE 100 MG CAPSULE PO (08:29)
[2019-11-15] MEDS: ASPIRIN 81 MG CHEW TAB PO (08:29)
[2019-11-15] MEDS: METOPROLOL IR 25 MG TABLET PO (08:31)
[2019-11-15] MEDS: LISINOPRIL 5 MG TABLET 2.5 MG PO (08:31)
--- NOTE | 2019-11-15 08:50 | PM.DS.1 ---
History of Present Illness History of Present Illness Date Patient Seen: 11/15/19 Time Patient Seen: 08:50 Chief complaint: [id number] Narrative: Interval history: Postop day 1 removal of hardware and triceps advancement for open right olecranon fracture with infection and wound dehiscence. Reyna is a 74-year-old female that fell and sustained a displaced type 1 open olecranon fracture. Unfortunately the patient did not realize she had a fracture little wound open fracture and did not present until over week after her presentation. By the time she presented she was infected and draining. She underwent staged treatment with serial debridement/I&D, placement of antibiotic spacer and then 2nd debridement with antibiotic plate and treatment with IV antibiotics. She then presented to clinic this week with wound dehiscence and exposed antibiotic cement and hardware. She was taken to the OR for I and D removal of the antibiotic plate fragment excision and triceps advancement in order to facilitate wound closure and remove remaining hardware. Cultures were taken intraop no growth to date. Patient will remain on her IV vancomycin. The wound was closable and triceps advanced through drill holes with good repair. Patient was admitted to the floor postoperatively for monitoring given her medical comorbidities including coronary artery disease heart failure with EF estimated less than 25%. She also has a recent history of flash pulmonary edema and CHF. Fluid status was monitored carefully in the hospital. Patient had no acute events postoperatively. And pain is controlled this morning. Discharge Providers Provider Date of admission: 11/14/19 06:05 Discharge Date: 11/15/19 Primary care physician: Galen Michael DO Consults: 11/14/19 06:00 Consult to Anesthesiology Routine Comment: Consulting Provider: Anesthesiologist Reason for consultation: cardiac Has provider been notified: No 11/14/19 11:37 Consult to Discharge Planning Routine Comment: will resume IV abx- has them Consult to Physical Therapy Evaluate & Treat Comment: Physician Instructions: Evaluate and Treat Consult to Physician Routine Comment: Consulting Provider: Kaylee Bay Reason for consultation: medical management-- cardiac hx Has provider been notified: Yes Consult to Respiratory Therapy Evaluate & Treat Comment: Physician Instructions: Evaluate and treat Discharge provider: Margarita Dominguez MD Summary Hospital Course Discharge Diagnosis: Open type 1 olecranon fracture with infection Coronary artery disease Hospital Course: Interval history: Postop day 1 removal of hardware and triceps advancement for open right olecranon fracture with infection and wound dehiscence. Doing well postop day 1. Pain controlled on occasional tramadol. Wiggles fingers. Denies numbness or tingling. Comfortable in bed eating breakfast. Vital signs stable. Appropriate for discharge. Wound was able to be closed. This was done primarily. Kinjal dressing was placed. Patient will keep this intact until she follows up with me. Make an appointment for 11/20/2019. Patient will receive vancomycin while in the hospital. She has a PICC line and has already been [facility] with [facility]. on discharge she will resume her vancomycin with [facility]. She will remain nonweightbearing on the right upper extremity and in the splint to take tension off the repair. She may resume her aspirin and Plavix on 11/15/2019. Plan for discharge to home today 11/15/2019 Discussed with home infusion--most current dosage was 850 mg of vancomycin Q 24 hours. She doses this typically at 4:00 p.m.--therefore plan will be to resume home infusion on Sunday11/15/2019 with home infusions.-- [facility]: [phone] fax number: [phone]. [facility] aware of plan. Status at Discharge Cognitive/behavioral status at discharge: oriented Functional status at discharge: independent ambulation Time Spent with Patient Time spent: Less than 30 minutes Exam Vital Signs (past 8 hours): - 11/15/19 04:30 11/15/19 08:00 Temperature 98.6 F 98.5 F Pulse Rate 84 78 Respiratory Rate 16 16 Blood Pressure 85/57 L 128/70 Pulse Oximetry 96 97 Oxygen Delivery Method Room Air Oxygen Flow Rate 0 Narrative Exam Narrative: General: Alert oriented female in no acute distress. Sitting up in bed eating breakfast. No complaints. Very thin HEENT exam: Normocephalic atraumatic Respiratory exam: Unlabored on room air CV exam: Regular rate and rhythm Extremity exam: Right upper extremity in splint. And no visible edema. Wiggles fingers the flexes and extends wrist. Demonstrates finger flexion extension. Sensation grossly intact median radial ulnar nerves. FPL EPL and interosseous 5/5. Splinted elbow in place and extension. Kinjal dressing in place with good suction. Moving left upper extremity and bilateral lower extremities full range of motion no tenderness no wounds. Full range of motion. SCDs on bilateral lower extremities Discharge Plan Discharge Plan Patient Disposition: Home Discharge comment: Will resume home infusion with vancomycin--this afternoon at 4:00 p.m. may resume her home Plavix and aspirin tomorrow. Discharge orders & Medications Prescriptions: New tramadol 50 mg Tablet 50 mg PO Q6H PRN (Reason: Pain, Moderate (4-6)) Qty: 40 RF: 0 Continued simvastatin 40 MG tablet 40 mg PO QDAY Qty: 0 RF: 0 furosemide 20 mg tablet 20 mg PO DAILY PRN (Reason: edema or shortness of breath) Qty: 90 RF: 0 clopidogrel [Plavix] 75 mg Tablet 75 mg PO DAILY RF: 0 aspirin 81 mg Tablet,Chewable 81 mg PO DAILY RF: 0 lisinopril 2.5 mg Tablet 2.5 mg PO DAILY RF: 0 metoprolol tartrate 25 mg Tablet 25 mg PO BID Qty: 0 RF: 0 Changed vancomycin in dextrose 5 % 750 mg/150 mL Piggyback 850 mg IV Q24H 41 Days Qty: 21086 RF: 0 Follow up/Referrals: Margarita Dominguez MD [Physician] - (Call for appointment to follow up next week on 11/20/2019) Galen Michael DO [Primary Care Provider] - Diet/Activity/Treatments Diet: Diet as Tolerated Activity: Nonweightbearing right upper extremity. May wiggle fingers. No lifting. keep splint in place. Keep kinjal dressing in place. Skin/Wound/Dressing Care Report to your healthcare provider any signs of infection, such as:: chills, fever, night sweats and increased pain Dressing: Keep splint clean dry and intact. Visit Report/Discharge Packet Instructions: DI for Open Reduction Internal Fixation Surgery Stand Alone Forms: Surgery Discharge Discharge Data Primary Care Provider: Galen Michael Quality VTE Deep Vein Thrombosis/Pulmonary Embolism Present on Admission: No
[2019-11-15 09:10] VITALS: PULSE 78; RESP 14; O2SAT 98
--- NOTE | 2019-11-15 09:17 | PC.NURSE ---
Addendum entered by Jillian Lancaster R.N. 11/15/19 10:26: Discharge Summary packet reviewed with pt and her spouse Bhanu. All questions answered. Pt aware to call Dr. Dominguez office on Sunday AM to make a follow up appointment. Pt states has all her belongings. Pt left unit via wheelchair at 1017 with Float RN escort, pt's Bhanu present to drive pt home. Original Note: Day Shift- Pt A&OX4, denies any pain to right arm, TOYA dressing covered with splint and marcial wrap. Battery pack flashing green intermittent light. Radial pulse palpable, denies numbness or tingling. Able to move all fingers and touch fingers to thumb. OOB with SBA, steady gait. BP taken to Left Ankle 128/70. Scheduled BP medications given. Pt states normally has low BP. Asymptomatic at this time. Will monitor. Pt states her Bhanu was taught to give Vancomycin infusions at home, pt to resume infusions tonight, states starts around 1600. business continuity planner confirming with home infusion care. Pt states is ready to go home. Her will pick her up for discharge.
--- NOTE | 2019-11-15 09:42 | PT.IPTN ---
Current Diagnoses Displaced fracture of olecranon process without intraarticular extension of right ulna, initial encounter for open fracture type I or II (11/14/19) Surgery Performed Operation Date: 11/14/19 07:45 Actual Procedures p ORIF olecranon triceps advancement, I&D - removable antibiotic spacer(Right) - Margarita Dominguez MD Physical Therapy Treatment Note M2 PT-IP Current Condition Start: 11/14/19 17:11 Freq: NEEDED Status: Active Protocol: Document 11/14/19 15:17 AB (Rec: 11/14/19 17:28 AB [id number]) Physical Therapy Current Condition Current Condition Evaluation Date 11/14/19 Treatment Diagnosis R olecranon fx s/p hardware removal and wound closure; difficulty in walkin Onset Date 11/14/2019 Precautions Brace has R arm splint Weight Bearing Status Weight Bearing Status Non-Weight Bearing Allowed Weight Bearing Amount (enter % RUE NWB or #) (%) M3 PT-IP Subjective Start: 11/14/19 17:11 Freq: NEEDED Status: Active Protocol: Document 11/15/19 09:09 LJ (Rec: 11/15/19 09:42 LJ [id number]) Subjective Physical Therapy Visit Type Type Treatment Note Visit Start Time 09:09 Visit Stop Time 09:23 Total Visit Minutes 14 Number of INDUSTRIAL X RAY OPERATOR Visits 1 Physical Therapy Visit Comments Patient Goals to go home Therapy Pain Assessment Pain Present Pain Present Denied Pain M4 PT-IP Mobility and Gait Start: 11/14/19 17:11 Freq: NEEDED Status: Active Protocol: Document 11/15/19 09:09 LJ (Rec: 11/15/19 09:42 LJ [id number]) PT-Bed Mobility Assessment Supine to Sit Supine to Sit Standby Assistance,Head of Bed Elevated Sit to Supine Sit to Supine Standby Assistance PT-Transfer Assessment Sit to and From Stand Sit to and from Stand Standby Assistance Equipment Transfer Assistive Device None,Gait Belt Orthotic/Prosthetic Devices or Brace: Yes Comments Mobility Comments Pt SBA for all mobility and transfers. Assist with IV during mobility. Gait Assessment Gait Gait Assistance Required: Standby Assistance Distance (Feet) 200 Able to Maintain Weight Bearing Status Yes During Gait Assistive Devices Assistive Device None,Gait Belt Orthotic/Prosthetic Devices or Brace: Yes Gait Deviations General Gait Pattern Within Normal Limits Factors Limiting Gait Function Factors Limiting Gait Function Decreased Strength Comments Gait Comments Pt ambulated in hallway 150+ feet with normalized gait. Pt needed ques to slow down due to IV pole assist but was able to accomidate. No LOB during gait. Stair Climbing Assessment Evaluation Level of Assist On Stairs Standby Assistance Devices Stair Climbing Assistive Devices Left Railing Technique/Endurance Stair Climbing Direction Ascend and Descend Stair Climbing Technique Step to Step Number of Steps Climbed 1 Stair Climbing Set # Repetitions (reps) 2 Comments Stair Climbing Comments Pt states she has 1 step to get into the house and the rest of the living situation in on one floor. M5 PT-IP Objective Assessments Start: 11/14/19 17:11 Freq: NEEDED Status: Active Protocol: Document 11/14/19 15:17 AB (Rec: 11/14/19 17:28 AB [id number]) Orientation Orientation/Cognition Level of Alertness Alert Orientation Name,Place,Situation Language Function Ability No Deficits Noted Memory Description No Deficits Noted Gross Range of Motion Upper Extremity ROM Impairments RUE on a splint Lower Extremity ROM Assessment Within Functional Limits Strength Lower Extremity Strength Assessment Within Functional Limits Muscle Tone Muscle Tone WNL Yes M6 PT-IP Treatment Start: 11/14/19 17:11 Freq: NEEDED Status: Active Protocol: Document 11/15/19 09:09 LJ (Rec: 11/15/19 09:42 LJ [id number]) Physical Therapy Treatment Education Education Provided Weight Bearing Status,Safety M7 PT-IP Assessment and Plan Start: 11/14/19 17:11 Freq: NEEDED Status: Active Protocol: Document 11/15/19 09:09 LJ (Rec: 11/15/19 09:42 LJ [id number]) PT Summary Assessment and Plan Potential Rehabilitation Potential Good Status of Condition at Evaluation Stable Summary Impairments Pain,ROM,Strength,Balance, Coordination,Bed Mobility, Transfers,Gait,Activity Tolerance Assessment Summary pt requiring SBA with mobility . Demonstrates understanding with her precautions. WNL for gait. Stair climbing SBA using LUE for assist. Goals Bed Mobility Goal Independent Transfer Goal Independent Gait Goal Independent Gait Distance 150 Other Goals up/dwon 16 steps with 1 rail SBA Days to Meet Goals 3 Frequency of Treatment Frequency Of Treatment Twice a Day Treatment Plan Physical Therapy Treatment Plan Bed Mobility Training,Transfer Training,Gait Training, Therapeutic Exercise,Balance Retraining,Post Op Education, Discharge Planning,Hot or Cold Pack,Neuromuscular Re-ed, Coordination Retraining,Manual Therapy Other Recommendations and Next Treatment ambulation, stair climbing Focus Recommendations To Nursing Amount of Assist Needed Standby Assistance Discharge Recommendations PT Discharge Recommendations Home with Assistance
--- NOTE | 2019-11-15 12:32 | CM.DPNOTE ---
DC Note: DC order placed for home w/resumption of [facility] for IV Vanc Q6. Placed call to [facility] answering service and spoke to Chelsea RN communications executive. She explained she would get in touch w/the Pharmacist working today to update on pt's DC and they would plan to meet pt once home for her afternoon Vanc dose. Faxed Dr Dominguez's completed DC Summary outlining pt's need for resumption of IV abx to [facility]. Pt remained aware and agreeable to DC home today w/partner Bhanu and resumption of her home infusion though [facility]. Judy Hebert MSW
== END 2019-11-15 10:17 | disposition home or self-care (01) ==
LOC: AC 11-15 08:50 → OR 11-16 10:31
PROVIDERS: PCP Family Medicine; Visit Provider Orthopaedic Surgery Foot and Ankle Surgery
PROC: 0RSL04Z Reposition Right Elbow Joint with Internal Fixation Device, Open Approach (ICD-10-PCS; CPT 24301; principal; 2019-11-14 07:45)
DX: T81.42XA Infection following a procedure, deep incisional surgical site, initial encounter (principal); T81.31XA Disruption of external operation (surgical) wound, not elsewhere classified, initial encounter; S52.021B Displaced fracture of olecranon process without intraarticular extension of right ulna, initial encounter for open fracture type I or II; I25.10 Atherosclerotic heart disease of native coronary artery without angina pectoris; I10 Essential (primary) hypertension; E78.5 Hyperlipidemia, unspecified
CPT/HCPCS: 24301; 11044; 11982; 73080; 76000; 87070; 87075; 87077; 87176; 87186; 87205; 94760; 97116; 97161; J1100; J2405; J2704; J3010

== ENCOUNTER → 2023-08-15 07:38 | Outpatient (CLI) | payer MEDICARE, OTHER, SELFPAY ==
[2019-10-08 07:52] VITALS: PULSE 93; RESP 16; O2SAT 100
[2019-11-14 13:51] VITALS: BMI 16.6
[2023-08-15 08:23] LABS: Add Manual Diff / Slide Review NO; Basophils Absolute Auto 100 /uL (0-100); Basophils Percent Auto 1.1 % (0-2); Eosinophils Absolute Auto 100 /uL (0-450); Eosinophils Percent Auto 2.3 % (2-4); Hematocrit 26.2 % (36-46); Hemoglobin 9.1 g/dL (12.0-16.0); Lymphocytes Absolute Auto 800 /uL (1100-4500); Lymphocytes Percent Auto 14.7 % (25-40); Mean Corpuscular HGB Conc 34.7 % (30-36); Mean Corpuscular Hemoglobin 38.1 PG (26-34); Mean Corpuscular Volume 109.7 fL (80-100); Monocytes Absolute Auto 900 /uL (0-900); Monocytes Percent Auto 16.5 % (3-14); Neutrophils Absolute Auto 3500 /uL (1500-7000); Neutrophils Percent Auto 65.4 % (50-75); Platelet Count 218 X10^3/uL (150-400); Red Blood Cell Count 2.39 X10^6/uL (4.0-5.2); Red Cell Distribution Width 13.7 % (11.6-14.8); White Blood Cell Count 5.4 X10^3/uL (4.5-11.0)
[2023-08-15 08:52] LABS: Alanine Aminotransferase 15 IU/L (<35); Albumin 3.6 g/dL (3.5-5.0); Albumin Globulin Ratio 1.2 (1.0-2.8); Alkaline Phosphatase 97 U/L (38-126); Aspartate Aminotransferase 27 IU/L (14-36); BUN Creatinine Ratio 30.6 (6-22); Bilirubin Total 0.3 mg/dL (0.2-1.3); Blood Urea Nitrogen 49 mg/dL (7-17); C-Reactive Protein Quant 0.6 mg/dL (<1.0); Calcium 9.5 mg/dL (8.4-10.2); Carbon Dioxide 18 mmol/L (22-32); Chloride 105 mmol/L (98-107); Estimated Glomerular Filt Rate 33 mL/min (>60); Globulin 3.1 g/dL (1.7-4.1); Glucose 94 mg/dL (80-110); HEMOLYSIS < 15 (0-50); Sodium 131 mmol/L (137-145); Total Protein 6.7 g/dL (6.3-8.2)
[2023-08-15 09:01] LABS: Potassium 6.2 mmol/L (3.4-5.1)
[2023-08-15 09:04] LABS: Erythrocyte Sedimentation Rate 34 MM/HR (0-20)
== END ==
PROVIDERS: PCP Family Medicine; Referring Provider Orthopaedic Surgery Foot and Ankle Surgery; Visit Provider Orthopaedic Surgery Foot and Ankle Surgery
DX: Z01.818 Encounter for other preprocedural examination (principal); R70.0 Elevated erythrocyte sedimentation rate
CPT/HCPCS: 36415; 80053; 85025; 85651; 86140

== ENCOUNTER 2023-08-31 13:20 | Inpatient (IN) | payer MEDICARE, OTHER, SELFPAY ==
[2019-10-08 07:52] VITALS: PULSE 93; RESP 16; O2SAT 100
[2019-11-14 13:51] VITALS: BMI 16.6
[2023-08-30 10:54] VITALS: BMI 17.0
[2023-08-31] VITALS (9 sets, daily range): BP systolic 107–165; BP diastolic 53–89; PULSE 79–88; RESP 12–17; TEMP 36.4–36.8; O2SAT 95–100; BMI 16.2
--- NOTE | 2023-08-31 | PATH_ITS ---
[facility] Accession Number: [id number] No. of containers..02 Tissue . 01 Material submitted: . PART A: bone - OLECRANON BONE PART B: SINUS - SINUS TRACT . 01 Diagnosis: A. Olecranon Bone, Biopsy: Acute on chronic osteomyelitis. . B. Sinus Tract, Biopsy: Skin and underlying fibroconnective tissue with fibrosis and chronic inflammation consistent with sinus tract. MRV 09/10/2023 1545 Local . 01 Electronically signed: . Fátima López MD, Pathologist NPI- [id number] . 01 Gross description: . A. Received in formalin, labeled with the patient's name, , and olecranon bone, and consists of multiple cuenca, hard tissue fragments consistent with bone, aggregating to 1.6 x 0.8 x 0.2 cm. Filtered and submitted entirely in cassette A1 following decalcification. B. Received in formalin, labeled with the patient's name, , and sinus tract, and consists of an unoriented ellipse of skin measuring 1.5 x 0.5 cm and 0.3 cm thick. The margin is inked green. The specimen is serially sectioned into six slices and submitted entirely as follows: B1: Tips. B2: Remaining slices. ([id number]) /FRR 09/01/2023 190 Local . 01 Pathologist provided ICD-10: M86.9 . 01 CPT . 437765, 492220, [id number] Specimen Comment: A courtesy copy of this report has been sent to [phone] Performed at: [address] [address], [place], [place] [id number] MD Omar Bangura MD Phone: [phone]
[2023-08-31] MEDS: LACTATED RINGERS 1,000 ML 42 ML IV (11:38)
[2023-08-31 12:10] LABS: BUN Creatinine Ratio 31.1 (6-22); Blood Urea Nitrogen 52 mg/dL (7-17); Calcium 9.6 mg/dL (8.4-10.2); Carbon Dioxide 18 mmol/L (22-32); Chloride 101 mmol/L (98-107); Estimated Glomerular Filt Rate 31 mL/min (>60); Glucose 84 mg/dL (80-110); HEMOLYSIS < 15 (0-50); Potassium 5.8 mmol/L (3.4-5.1); Sodium 130 mmol/L (137-145)
--- NOTE | 2023-08-31 13:00 | PM.PREOP ---
Pre-operative Note Interval Note History & Physical reviewed/Exam performed by Physician: Yes Changes to H&P: No
[2023-08-31] MEDS: BUPIVACAINE 0.25% (PF) 30 ML, EPINEPHrine 0.15 MG INJ (14:03)
--- NOTE | 2023-08-31 14:31 | P.HP_ITS ---
History of Present Illness History of Present Illness Date Patient Seen: 08/31/23 Chief complaint: Right Incision and Drainage Wound/Extremity Narrative: Reyna Weiss is a 78yo F with PMH of PAD on DAPT, HFrEF improved from 25-30% to 35% followed by Dr. Rojas, HTN, HLD, CAD, and LBBB who presents for surgical washout of infected R elbow for inpatient IV abx. Patient was sent in by Dr. Dariana FLANAGAN. She was seen after washout and said it went very well, and she now has more range of motion of her R elbow and less pain than before. She understands needing IV abx at home as she has done it before. She denies CP, NV, SOB, fever/chills, abd pain or diarrhea. [facility] Medical History (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/23 @ 00:01 by ) [facility] current use of anticoagulant therapy PVD (peripheral vascular disease) LBBB (left bundle branch block) Chronic systolic (congestive) heart failure Pulmonary edema Fracture of right olecranon process (~09/2019) HLD (hyperlipidemia) Osteoarthritis Wrist fracture (~2014) Mumps Chicken pox Septic olecranon bursitis of right elbow PAD (peripheral artery disease) Coronary artery disease (~2006) Dyslipidemia Hypertension Surgical History (Updated 08/30/23 @ 12:02 by Kandi Calvo RN) History of surgical procedure (2008) History of orthopedic surgery (11/14/19) History of bilateral breast implants Hx of bilateral cataract extraction (~2016) History of incision and drainage (09/30/19) Anesthesia History of knee surgery (~2005) History of cataract removal with insertion of prosthetic lens (~2016) H/O elbow surgery (10/03/19) H/O heart artery stent (~2006) Family History (Updated 10/14/19 @ 22:27 by Kelly Miranda) Father Heart disease Mother Alzheimer disease Sister Hyperlipidemia Hypertension Sister Hyperlipidemia Hypertension Social History household members: significant other Smoking Status: Former smoker alcohol intake: current Meds Home Medications and Allergies Home Medications Medication Instructions Recorded Confirmed Type aspirin 81 mg chewable tablet 81 mg PO DAILY 09/30/19 08/31/23 History lisinopril 2.5 mg tablet 2.5 mg PO DAILY 09/30/19 08/31/23 History clopidogrel 75 mg tablet (Plavix) 75 mg PO DAILY 10/08/19 08/31/23 History atorvastatin 40 mg tablet 40 mg PO QPM 08/30/23 08/31/23 History carvedilol 6.25 mg tablet 6.25 mg PO BID 08/30/23 08/31/23 History spironolactone 25 mg tablet 25 mg PO DAILY 08/31/23 08/31/23 History Allergies Allergy/AdvReac Type Severity Reaction Status Date / Time oxycodone [OXYCODONE] AdvReac Intermediate ?or Verified 08/31/23 11:43 oxycontin? diarrhea morphine [MORPHINE] AdvReac Mild n/v Verified 08/31/23 11:43 Review of Systems Review of Systems Narrative: All other systems reviewed with the patient and are negative unless otherwise stated. Exam Vital Signs (past 8 hours): - 08/31/23 11:51 Temperature 97.9 F Pulse Rate 85 Respiratory Rate 17 Blood Pressure 162/74 H Pulse Oximetry 96 Oxygen Delivery Method Room Air Oxygen Delivery Method Room Air Narrative Exam Narrative: GEN: no acute distress HEENT: moist mucous membranes, PERRL NECK: trachea midline, no JVD CV: regular rate and rhythm, no murmurs PULM: clear bilaterally ABD: soft, nontender, nondistended, no organomegaly EXT: R elbow wrapped in gauze and MARTIN wrap NEURO: awake, alert, oriented, no focal deficits Objective Labs 09/01/23 06:00 09/01/23 06:00 Labs: Laboratory Results - last 24 hr 08/31/23 11:53 Sodium 130 L Potassium 5.8 H Chloride 101 Carbon Dioxide 18 L BUN 52 H Creatinine 1.67 H Estimated GFR 31 L BUN/Creatinine Ratio 31.1 H Glucose 84 Calcium 9.6 Assessment & Plan Assessment & Plan narrative: # right elbow osteomyelitis -s/p washout by Dr. Bedoya on 08/31, sustained fracture after fall in 11/2019 -per ID at [facility], initiated daptomycin 8 mg/kg q48h and cefepime 2 g q24h -CK normal prior to admit, recheck in 2 days -obtain blood cultures -f/up wound cultures -will have PICC placed for 6 weeks of IV abx once blood cultures negative -wound care per ortho # hyperkalemia, improving -K 6.2 in clinic and spironolactone held -5.8 on admission -give lokelma and monitor -now 5.1 # hyponatremia -Na 129 -IVF and monitor # TIANA -Cr up to 1.67, baseline appears to be 0.8 -IVF -monitor and renally dose meds -hold home lisinopril # ischemic cardiomyopathy -followed by Dr. Rojas cardiology at [facility] -continue coreg -holding lisinopril and aldactone for now # severe PAD -on statin, DAPT -hold ASA and plavix until 09/02 -hold statin due to dapto use # HLD -holding statin Code status is full code. DVT prophylaxis with heparin subQ on 09/01. Proxy is Bhanu Sena, life partner. I have reviewed home meds and used all available resources to reconcile the home meds. Case discussed with ED physician/APC and patient will be admitted to the hospitalist service for further workup and management. This patient will be admitted as inpatient and will require greater than 2 midnights of hospital time to treat elbow osteomyelitis.
[2023-08-31] MEDS: VANCOMYCIN 1,000 MG/200 ML PIGGYBACK 200 MG IV (14:42)
[2023-08-31 14:53] LABS: Magnesium 2.1 mg/dL (1.6-2.3)
[2023-08-31] MEDS: CEFEPIME 2 GM in SODIUM CHLORIDE 0.9% 100 ML IV (15:59)
[2023-08-31] MEDS: SODIUM ZIRCONIUM CYCLOSILICATE 10 GM POWD.PACK PO ×2 (16:31→21:11)
--- NOTE | 2023-08-31 16:48 | PC.NURSE ---
Addendum entered by Sara Means R.N. 08/31/23 18:08: Potassium 5.8, and patient received Lokelma after repeat blood drawn for K+ recheck. aware. Original Note: Patient arrived to room 225 at 1540 this afternoon. She is A&OX4, VSS, afebrile. She denies pain to R elbow, wrapped in kerlix and koban. Dressing C/D/I. +CMS to forearm, hand and fingers. She is able to ambulate, void in BR and is tolerating po fluid this evening. She receives Cefepime IV, and daptomycin IV antibiotics which are tolerated well. Oriented to room, continuous pulse ox, SCD's on, bed alarm on, LR at 42 ml/hr running, and frequent rounding.
[2023-08-31 16:49] LABS: BUN Creatinine Ratio 32.7 (6-22); Blood Urea Nitrogen 50 mg/dL (7-17); Calcium 9.2 mg/dL (8.4-10.2); Carbon Dioxide 18 mmol/L (22-32); Chloride 104 mmol/L (98-107); Estimated Glomerular Filt Rate 35 mL/min (>60); Glucose 88 mg/dL (80-110); HEMOLYSIS 27 (0-50); Sodium 131 mmol/L (137-145)
--- NOTE | 2023-08-31 16:53 | PM.OP.1 ---
Operative Date/Time/Diagnoses Date of procedure: 08/31/23 Time of procedure: 13:00 Pre-op diagnosis: Right elbow osteomyelitis M86.8 Post-op diagnosis: same Procedure & Clinicians Procedure: Irrigation and debridement of skin subcutaneous tissue and bone and excision sinus tract right elbow osteomyelitis with sinus tract CPT code 12343, right Manual preparation of drug delivery device, antibiotic beads CPT code 82149 Same procedure as scheduled: Yes Indications: The patient is a 78-year-old female with a history of a open infected olecranon fracture 3 years ago. She is presented with a draining open fracture. This occurred at a fall at home she noted bleeding at the time but did not know her elbow was broken. She presented later with skyla infection this was treated in a staged fashion with antibiotics and debridements. She eventually had a olecranon partial excision and triceps advancement. She is otherwise done well over the last 3 years. She has cardiovascular disease and sees Dr. Rojas. Her EF 3 years ago at the time of surgery was 20% but had improved and she believes she is been doing well. About 6 months ago she noted a pin-hole spot on the back of her elbow that would drain. She denies any erythema redness fevers or chills. She did not think much of it but it continued. She states otherwise her elbow has been functioning great. And she has full range of motion. She was seen in the office and found to have a draining sinus. This was medial to her olecranon approach there was no surrounding erythema her inflammatory markers were grossly normal her x-ray demonstrated a lucency that was new from x-rays 3 years ago suspicious for a sequestrum concern was for osteomyelitis and deep infection of her triceps advancement likely involvement of her permanent sutures. She was indicated for debridement soft tissue and bone as indicated, implantation of antibiotic beads. We discussed she will likely need IV antibiotics and a PICC line. She had a consultation with Dr. Calixto with [facility] 0 based on her previous organisms of both Pseudomonas and staph suggested initial antibiotics of daptomycin and cefepime until cultures return. Additionally she was found to have an elevated potassium level of 6.2. She is chronically on spironolactone. She was asked to hold this and today her repeat level is 5.8. Repeat EKG was appropriate to proceed with the anesthesia for procedure today She is indicated surgery and inpatient admission after surgery today for IV antibiotics she will require blood cultures and a PICC line scheduled antibiotics and tailoring of the antibiotics based on intraoperative cultures. She will require monitoring of her potassium and potential medical treatment. She will require formal internal medicine consultation versus admission to medicine team with orthopedic consultation. She is a medically complex patient with significant cardiovascular disease. Plan would be to restart her home Plavix and aspirin 48 hours after surgery. The risks and benefits of the procedure have been discussed with the patient and given the opportunity to ask questions. The risks of surgery include but are not limited to infection, malunion, nonunion, need for additional procedures persistence of pain, damage to nerves and blood vessels, posttraumatic arthritis, DVT, PE, oardiopulmonary complications and . The patient expressed a thorough understanding of the risks and benefits of surgery and has elected to proceed. Consent was signed. Surgeon: Margarita Dominguez Click Yes if Unassisted: Yes Anesthesia Type: General and Local Operative Notes Findings: Small 2 x 2 mm draining sinus medial to the olecranon between the olecranon process and the medial epicondyle noted to express small amount of purulence. There is a healed previous olecranon ORIF and triceps advancement scar laterally that is well healed but on opening the incision there is noted to be purulence in the areas of the permanent FiberWire type suture as well as additional purulence distally at the area of the tunnels for the triceps advancement and in the area that corresponded with the sequestrum on radiographs. This was debrided all suture encountered was removed. Bone was debrided at the sequestrum with a rongeur and curette. Removal of the suture did not require any formal detachment of the triceps. Purulence appeared to track directly along the permanent suture. Closure Type: primary Specimen(s): other (Sinus was sent for pathology. Bone was sent for culture pathology and bacterial PCR additional culture swabs were taken) Estimated Blood Loss (mL): 20 Blood products transfused: none Tourniquet time (min): 47 Procedure in detail: Patient was seen in the preoperative area the site of surgery was marked informed consent confirmed. The patient was brought back to the operating room by the anesthesia team and positioned supine on operative table. General anesthetic was administered patient was then positioned lateral on a beanbag with the arm over a bolster. A well-padded axillary roll was placed. A brachial tourniquet was placed. Right lower extremity was prepped and draped in the standard sterile fashion a formal time-out procedure was performed confirming the patient's side and site of surgery and antibiotics were held for cultures. Attention was turned to the right elbow an incision was marked out to ellipse size the draining sinus this was removed with a scalpel and sent for pathology. Next the previous olecranon incision was reopened. There was noted to be purulence tracking along the permanent some sutures from the previous triceps advancement. The sutures were carefully removed without disruption of the triceps. This was followed all the way distal to the trans osseous holes which again was noted to demonstrate purulence. The sutures were removed. The bone was debrided in this area using a rongeur and curette this corresponded to the suspected sequestrum noted on x-ray. Once these cultures were sent for pathology, cultures and bacterial PCR the antibiotic was administered this was IV vancomycin 1 g. Debridement was completed of the skin, sinus tendon and bone once this was completed the pulsatile lavage was used with 3 L of saline to thoroughly irrigate the wound. New drapes and new gloves and new instruments were then utilized for the remainder of the procedure. At this point the manual preparation of the drug delivery devices was completed and the 3 cc kit of calcium phosphate bead mixture was then mixed with 500 mg of vancomycin to create the small 3 mm beads. Once these were hardened they were placed into the cavity of bone from the sequestrum and then packed into the soft tissues and pressed into the triceps and subcutaneous pocket medially and laterally. The wound was closed in a layered fashion with 3-0 PDS subcutaneous 4-0 Monocryl and 3-0 nylon suture in the skin. Tourniquet was released pressure was utilized and hemostasis was achieved. A dressing was placed with Xeroform, gauze, fluffs, ABD pad and Webril and an Wesley wrap. Patient was woken from anesthesia drapes removed and the patient was taken to the recovery area in good condition. There were no immediate complications from this procedure. In the PACU the patient was noted to actively flex and extend her elbow. Complications: none Post-operative Condition: stable Disposition: PACU Plan for aftercare: Weightbear as tolerated. Soft dressing. May change as needed. Sutures will stay in place 3-4 weeks possibly longer if required based on healing. Full range of motion of the elbow as tolerated. May restart aspirin and Plavix 48 hours postop. Plan inpatient admission Plan for PICC line Monitor labs and blood cultures Initial antibiotics with scheduled daptomycin and cefepime We will tailor based on cultures and consultation was Dr. Kierra Calixto at [facility]. Appreciate Internal Medicine, hospitalist services and assistance with this medically complex patient indicated for inpatient treatment regarding her multiple comorbidities osteomyelitis requiring IV antibiotics hyperkalemia and coronary artery disease
[2023-08-31 16:59] LABS: Hemoglobin A1C% w Est Avg Glu 5.1 % (4.0-6.0)
[2023-08-31 17:02] LABS: Potassium 5.9 mmol/L (3.4-5.1)
[2023-08-31] MEDS: carvediloL 12.5 MG TABLET 6.25 MG PO (21:10)
[2023-09-01] VITALS (7 sets, daily range): BP systolic 105–147; BP diastolic 50–80; PULSE 65–83; RESP 16–17; TEMP 36.3–37.2; O2SAT 97–100
--- NOTE | 2023-09-01 05:38 | PC.NURSE ---
rn shift mgr Pt bleed thru bandage dressing, RN changed 4x4 sterile gauze and rewrapped in fresh kerlex gauze and marcial wrap. Pt tolerated dressing change very well without any pain.
[2023-09-01 06:19] LABS: Add Manual Diff / Slide Review NO; Basophils Absolute Auto 0 /uL (0-100); Basophils Percent Auto 0.5 % (0-2); Eosinophils Absolute Auto 0 /uL (0-450); Hematocrit 27.5 % (36-46); Hemoglobin 9.4 g/dL (12.0-16.0); Lymphocytes Absolute Auto 500 /uL (1100-4500); Lymphocytes Percent Auto 9.7 % (25-40); Mean Corpuscular HGB Conc 34.4 % (30-36); Mean Corpuscular Hemoglobin 37.8 PG (26-34); Mean Corpuscular Volume 110.1 fL (80-100); Monocytes Absolute Auto 700 /uL (0-900); Monocytes Percent Auto 13.4 % (3-14); Neutrophils Absolute Auto 4200 /uL (1500-7000); Neutrophils Percent Auto 76.4 % (50-75); Platelet Count 190 X10^3/uL (150-400); Red Cell Distribution Width 13.4 % (11.6-14.8); White Blood Cell Count 5.5 X10^3/uL (4.5-11.0)
[2023-09-01 06:25] LABS: BUN Creatinine Ratio 32.3 (6-22); Blood Urea Nitrogen 50 mg/dL (7-17); Calcium 9.1 mg/dL (8.4-10.2); Carbon Dioxide 17 mmol/L (22-32); Chloride 104 mmol/L (98-107); Estimated Glomerular Filt Rate 34 mL/min (>60); Glucose 135 mg/dL (80-110); HEMOLYSIS < 15 (0-50); Potassium 5.1 mmol/L (3.4-5.1); Sodium 129 mmol/L (137-145)
[2023-09-01 07:50] LABS: Macrocytosis 1+
--- NOTE | 2023-09-01 10:29 | P.PN_ITS ---
Subjective Subjective Date Patient Seen: 09/01/23 Time Patient Seen: 10:29 Interval history: Reyna is doing well and is comfortable. She has minimal pain with good range of motion. The dressing did bleed through last night. It was changed this morning. Exam Vital Signs (past 8 hours): - 09/01/23 04:20 09/01/23 08:00 Temperature 97.3 F L 97.6 F Pulse Rate 72 69 Respiratory Rate 16 Blood Pressure 105/57 L 131/80 Pulse Oximetry 98 98 Oxygen Delivery Method Room Air Oxygen Flow Rate 0 Narrative Exam Narrative: Removing the MARTIN wrap shows mateo gauze. Mild spotting of blood coming through. Able to flex and extend at the elbow with out difficultly. Upper extremity sensation grossly intact. Const General: cooperative and comfortable Nutritional Appearance: well nourished Orientation: alert and oriented x3 Resp Effort & Inspection: normal respiratory effort and able to speak in complete sentences Objective Labs 09/01/23 06:00 09/01/23 06:00 Labs: Laboratory Results - last 24 hr 08/31/23 08/31/23 09/01/23 11:53 16:19 06:00 WBC 5.5 RBC 2.50 L Hgb 9.4 L Hct 27.5 L MCV 110.1 H MCH 37.8 H MCHC 34.4 RDW 13.4 Plt Count 190 Neut % (Auto) 76.4 H Lymph % (Auto) 9.7 L [place] % (Auto) 13.4 Eos % (Auto) 0.0 L Baso % (Auto) 0.5 Neut # (Auto) 4200 Lymph # (Auto) 500 L [place] # (Auto) 700 Eos # (Auto) 0 Baso # (Auto) 0 RBC Morphology Not Reportable Macrocytosis 1+ H Sodium 130 L 131 L 129 L Potassium 5.8 H 5.9 H 5.1 Chloride 101 104 104 Carbon Dioxide 18 L 18 L 17 L BUN 52 H 50 H 50 H Creatinine 1.67 H 1.53 H 1.55 H Estimated GFR 31 L 35 L 34 L BUN/Creatinine Ratio 31.1 H 32.7 H 32.3 H Glucose 84 88 135 H Hemoglobin A1c 5.1 Calcium 9.6 9.2 9.1 Magnesium 2.1 PFSH Medical History (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/23 @ 00:01 by ) [facility] current use of anticoagulant therapy PVD (peripheral vascular disease) LBBB (left bundle branch block) Chronic systolic (congestive) heart failure Pulmonary edema Fracture of right olecranon process (~09/2019) HLD (hyperlipidemia) Osteoarthritis Wrist fracture (~2014) Mumps Chicken pox Septic olecranon bursitis of right elbow PAD (peripheral artery disease) Coronary artery disease (~2006) Dyslipidemia Hypertension Surgical History (Updated 08/30/23 @ 12:02 by Kandi Calvo RN) History of surgical procedure (2008) History of orthopedic surgery (11/14/19) History of bilateral breast implants Hx of bilateral cataract extraction (~2016) History of incision and drainage (09/30/19) Anesthesia History of knee surgery (~2005) History of cataract removal with insertion of prosthetic lens (~2016) H/O elbow surgery (10/03/19) H/O heart artery stent (~2006) Family History (Updated 10/14/19 @ 22:27 by Kelly Miranda) Father Heart disease Mother Alzheimer disease Sister Hyperlipidemia Hypertension Sister Hyperlipidemia Hypertension Social History household members: significant other Smoking Status: Former smoker alcohol intake: current Assessment & Plan Post-op Postoperative Procedures: Procedures Operation Date: 08/31/23 12:45 Actual Procedure Side Surgeon p elbow infection debridement of bone & sinus tract, placement of antibiotic beads Right Margarita Dominguez MD Postoperative day: 1 Postoperative status: doing well Postoperative plan: see orders Postoperative plan narrative: Continue with course and care as outlined by Medicine/ID and Dr. Dominguez.
[2023-09-01] MEDS: carvediloL 12.5 MG TABLET 6.25 MG PO ×2 (10:36→21:29)
[2023-09-01] MEDS: HEPARIN 5,000 UNIT/ML VIAL 5000 UNIT SUBCUT (10:36)
[2023-09-01] MEDS: SODIUM CHLORIDE 0.9% 1,000 ML 100 ML IV (10:38)
[2023-09-01] MEDS: SODIUM ZIRCONIUM CYCLOSILICATE 10 GM POWD.PACK PO ×3 (10:38→21:31)
--- NOTE | 2023-09-01 13:52 | CM.DANOTE ---
Initial DCP Assessment Note Pt is a 78 yo female, resident of [place], now POD#1 from surgical washout of infected R elbow. Patient will require ongoing IV abx, drug/dosing/duration will depend on wound and culture results. Patient expected to be admitted at least until Sunday, PICC placement likely in house on Sunday. PCP: Galen Michael Payer: DADA/Eloy Met w/patient to introduce self and role. Patient lives w/life partner of 50 years, Bhanu. 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 Patient anticipates returning home upon discharge, explains she had [facility] in the past and would like a referral to them again. Patient reports she had a good experience with [facility] and expects to pay for any out of pocket costs necessary. Initial referral to [facility] faxed today, will plan to keep them updated as patient's medical course unfolds. Plan: Discharge home w/SO Bhanu is anticipated, with [facility] for ongoing IV abx, Dr Westbrook for management of the IV abx orders REN Caal Discharge Planning/Care Management CM Discharge Assessment Start: 09/01/23 13:50 Freq: Status: Active Protocol: Document 09/01/23 13:51 LAZARO (Rec: 09/01/23 13:52 LAZARO [id number]) Discharge Planning Assessment Assigned Handy Man REN Monson DPOA/Assigned Designee Name Bhanu Sena life partner Contact Information [phone] Advance Directives? Yes Advance Directives on File No History Provided By Patient,Medical Record Prior Living Arrangements House Household Members significant other Type of transporation used prior to Drives own vehicle admit Independent with ADL's Yes Is patient alert and oriented? Yes Patient/Family Preference Home with Home Health Barriers to Discharge No Discharge Plan Home Transportation Arrangement Sig Other available to provide transport at d/c. Referrals Initiated Other Additional Comment [facility] referral made to determine coverage and will continue at D/C Whiteboard Updated in Patient Room with Yes name and ext. # of Handy Man
[2023-09-01] MEDS: CEFEPIME 2 GM in SODIUM CHLORIDE 0.9% 100 ML IV (16:05)
--- NOTE | 2023-09-01 17:15 | P.PN_ITS ---
Subjective Subjective Interval history: Patient doing well and no complaints. Wound and blood cultures still pending. Exam Vital Signs (past 8 hours): - 09/01/23 10:36 09/01/23 12:00 09/01/23 16:00 Temperature 98.1 F 99.0 F Pulse Rate 69 75 65 Respiratory Rate 16 Blood Pressure 131/80 119/50 L 147/67 H Pulse Oximetry 98 100 Oxygen Delivery Method Room Air Oxygen Flow Rate 0 Narrative Exam Narrative: GEN: no acute distress HEENT: moist mucous membranes, PERRL NECK: trachea midline, no JVD CV: regular rate and rhythm, no murmurs PULM: clear bilaterally ABD: soft, nontender, nondistended, no organomegaly EXT: R elbow wrapped in gauze and MARTIN wrap NEURO: awake, alert, oriented, no focal deficits Objective Labs 09/01/23 06:00 09/01/23 06:00 Labs: Laboratory Results - last 24 hr 09/01/23 06:00 WBC 5.5 RBC 2.50 L Hgb 9.4 L Hct 27.5 L MCV 110.1 H MCH 37.8 H MCHC 34.4 RDW 13.4 Plt Count 190 Neut % (Auto) 76.4 H Lymph % (Auto) 9.7 L [place] % (Auto) 13.4 Eos % (Auto) 0.0 L Baso % (Auto) 0.5 Neut # (Auto) 4200 Lymph # (Auto) 500 L [place] # (Auto) 700 Eos # (Auto) 0 Baso # (Auto) 0 RBC Morphology Not Reportable Macrocytosis 1+ H Sodium 129 L Potassium 5.1 Chloride 104 Carbon Dioxide 17 L BUN 50 H Creatinine 1.55 H Estimated GFR 34 L BUN/Creatinine Ratio 32.3 H Glucose 135 H Calcium 9.1 PFSH Medical 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 (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/23 @ 00:01 by ) 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 PVD (peripheral vascular disease) LBBB (left bundle branch block) Chronic systolic (congestive) heart failure Pulmonary edema Fracture of right olecranon process (~09/2019) HLD (hyperlipidemia) Osteoarthritis Wrist fracture (~2014) Mumps Chicken pox Septic olecranon bursitis of right elbow PAD (peripheral artery disease) Coronary artery disease (~2006) Dyslipidemia Hypertension Surgical History (Updated 08/30/23 @ 12:02 by Kandi Calvo RN) History of surgical procedure (2008) History of orthopedic surgery (11/14/19) History of bilateral breast implants Hx of bilateral cataract extraction (~2016) History of incision and drainage (09/30/19) Anesthesia History of knee surgery (~2005) History of cataract removal with insertion of prosthetic lens (~2016) H/O elbow surgery (10/03/19) H/O heart artery stent (~2006) Family History (Updated 10/14/19 @ 22:27 by Kelly Miranda) Father Heart disease Mother Alzheimer disease Sister Hyperlipidemia Hypertension Sister Hyperlipidemia Hypertension Social History household members: significant other Smoking Status: Former smoker alcohol intake: current Assessment & Plan Assessment & Plan narrative: # right elbow osteomyelitis -s/p washout by Dr. Bedoya on 08/31, sustained fracture after fall in 11/2019 -per ID at [facility], initiated daptomycin 8 mg/kg q48h and cefepime 2 g q24h -CK normal prior to admit, recheck in AM -blood cultures pending -f/up wound cultures, still pending -will have PICC placed for 6 weeks of IV abx once blood cultures negative at 48hrs -wound care per ortho # hyperkalemia, resolved -K 6.2 in clinic and spironolactone held -5.8 on admission -give lokelma and monitor -now 5.1 # hyponatremia -Na 129 -monitor -holding on IVF due to HFrEF, does not appear dry or volume overloaded on exam # TIANA, improving -Cr up to 1.67, baseline appears to be 0.8 -IVF -monitor and renally dose meds -hold home lisinopril # ischemic cardiomyopathy -followed by Dr. Rojas cardiology at [facility] -continue coreg -holding lisinopril and aldactone for now # severe PAD -on statin, DAPT -hold ASA and plavix until 09/02 -hold statin due to dapto use # HLD -holding statin due to interaction with dapto Code status is full code. DVT prophylaxis with heparin subQ on 09/01. Proxy is Bhanu Sena, life partner. Dispo: Likely home on 09/03 with IV home infusions. Awaiting culture results.
[2023-09-02 04:00] VITALS: BP 140/66; PULSE 66; RESP 17; TEMP 36.6; O2SAT 96
[2023-09-02 04:39] LABS: Add Manual Diff / Slide Review NO; Basophils Absolute Auto 100 /uL (0-100); Basophils Percent Auto 1.4 % (0-2); Eosinophils Absolute Auto 100 /uL (0-450); Eosinophils Percent Auto 1.8 % (2-4); Hematocrit 24.9 % (36-46); Hemoglobin 8.5 g/dL (12.0-16.0); Lymphocytes Absolute Auto 1400 /uL (1100-4500); Lymphocytes Percent Auto 26.7 % (25-40); Mean Corpuscular HGB Conc 33.9 % (30-36); Mean Corpuscular Hemoglobin 37.2 PG (26-34); Mean Corpuscular Volume 109.7 fL (80-100); Monocytes Absolute Auto 900 /uL (0-900); Monocytes Percent Auto 16.7 % (3-14); Neutrophils Absolute Auto 2800 /uL (1500-7000); Neutrophils Percent Auto 53.4 % (50-75); Platelet Count 170 X10^3/uL (150-400); Red Blood Cell Count 2.27 X10^6/uL (4.0-5.2); Red Cell Distribution Width 13.4 % (11.6-14.8); White Blood Cell Count 5.2 X10^3/uL (4.5-11.0)
[2023-09-02 04:49] LABS: BUN Creatinine Ratio 28.9 (6-22); Blood Urea Nitrogen 46 mg/dL (7-17); Calcium 9.1 mg/dL (8.4-10.2); Carbon Dioxide 22 mmol/L (22-32); Chloride 107 mmol/L (98-107); Creatine Kinase 82 U/L (30-135); Estimated Glomerular Filt Rate 33 mL/min (>60); Glucose 91 mg/dL (80-110); HEMOLYSIS 16 (0-50); Potassium 4.1 mmol/L (3.4-5.1); Sodium 133 mmol/L (137-145)
--- NOTE | 2023-09-02 07:36 | PC.NURSE ---
^ R elbow incision. Swelling and redness noted, not tender or warm to the touch. Minimal serosanguinous drainage seen. Patient experiencing minimal pain, declined pain medication at this time. Dressing changed @ 0645; covered w/ non-adhesive pad, kerlex, and MARTIN wrap. Elevating R arm on pillow.
[2023-09-02] MEDS: carvediloL 12.5 MG TABLET 6.25 MG PO ×2 (08:39→21:13)
[2023-09-02] MEDS: SODIUM ZIRCONIUM CYCLOSILICATE 10 GM POWD.PACK PO (08:39)
[2023-09-02 09:20] VITALS: BP 118/56; PULSE 77; RESP 18; TEMP 36.7; O2SAT 97
--- NOTE | 2023-09-02 10:26 | P.PN_ITS ---
Subjective Subjective Interval history: Reyna is doing well and is comfortable. She has minimal pain with good range of motion. The dressing did bleed through last night. It was changed last night. Patient believes the bleeding was due to Heprain. She would like to have tramadol as needed for pain. She typically takes 1 or 1/2 a 50mg tablet from home. There was also some difficulty re-establishing her PICC line, but that was established. Exam Vital Signs (past 8 hours): - 09/02/23 04:00 09/02/23 09:20 Temperature 97.8 F 98.0 F Pulse Rate 66 77 Respiratory Rate 17 18 Blood Pressure 140/66 118/56 L Pulse Oximetry 96 97 Oxygen Flow Rate 0 Oxygen Delivery Method Room Air Oxygen Flow Rate 0 Narrative Exam Narrative: RUE: Removing the MARTIN bandage, shows some minor pink coloration coming through. Otherwise the dressing is clean and dry. Able to flex and extend at the elboe 0 to 90, limited by dressing. No swelling or discoloration of the wrist and hand. Neurovascuarlly intact. Const General: cooperative and comfortable Resp Effort & Inspection: normal respiratory effort and able to speak in complete sentences Objective Labs 09/02/23 04:11 09/02/23 04:11 Labs: Laboratory Results - last 24 hr 09/02/23 04:11 WBC 5.2 RBC 2.27 L Hgb 8.5 L Hct 24.9 L MCV 109.7 H MCH 37.2 H MCHC 33.9 RDW 13.4 Plt Count 170 Neut % (Auto) 53.4 D Lymph % (Auto) 26.7 [place] % (Auto) 16.7 H Eos % (Auto) 1.8 L Baso % (Auto) 1.4 Neut # (Auto) 2800 Lymph # (Auto) 1400 [place] # (Auto) 900 Eos # (Auto) 100 Baso # (Auto) 100 Sodium 133 L Potassium 4.1 Chloride 107 Carbon Dioxide 22 BUN 46 H Creatinine 1.59 H Estimated GFR 33 L BUN/Creatinine Ratio 28.9 H Glucose 91 Calcium 9.1 Total Creatine Kinase 82 [facility] Medical History (Updated 09/02/23 @ 00:00 by ) prison current use of anticoagulant therapy PVD (peripheral vascular disease) LBBB (left bundle branch block) Chronic systolic (congestive) heart failure Pulmonary edema Fracture of right olecranon process (~09/2019) HLD (hyperlipidemia) Osteoarthritis Wrist fracture (~2014) Mumps Chicken pox Septic olecranon bursitis of right elbow PAD (peripheral artery disease) Coronary artery disease (~2006) Dyslipidemia Hypertension Surgical History (Updated 08/30/23 @ 12:02 by Kandi Calvo RN) History of surgical procedure (2008) History of orthopedic surgery (11/14/19) History of bilateral breast implants Hx of bilateral cataract extraction (~2016) History of incision and drainage (09/30/19) Anesthesia History of knee surgery (~2005) History of cataract removal with insertion of prosthetic lens (~2016) H/O elbow surgery (10/03/19) H/O heart artery stent (~2006) Family History (Updated 10/14/19 @ 22:27 by Kelly Miranda) Father Heart disease Mother Alzheimer disease Sister Hyperlipidemia Hypertension Sister Hyperlipidemia Hypertension Social History household members: significant other Smoking Status: Former smoker alcohol intake: current Assessment & Plan Post-op Postoperative Procedures: Procedures Operation Date: 08/31/23 12:45 Actual Procedure Side Surgeon p elbow infection debridement of bone & sinus tract, placement of antibiotic beads Right Margarita Dominguez MD Postoperative day: 2 Postoperative status: doing well Postoperative plan narrative: Continue with course and care as outlined by Medicine/ID and Dr. Dominguez. If there is concern about DVT, Reyna is able to ambulate as tolerated around the floor as she had an upper extremity operation.
[2023-09-02] MEDS: TRAMADOL 50 MG TABLET PO (12:22)
--- NOTE | 2023-09-02 12:59 | DI.RAD.S_ITS ---
PROCEDURE: XR CHEST FOR PICC 1V INDICATIONS: Confirm PICC line placement TECHNIQUE: One view of the chest was acquired. COMPARISON: [facility], CR, XR CHEST 1V, 10/08/2019, 2:43. [facility], CR, XR CHEST FOR PICC 1V, 10/04/2019, 11:06. FINDINGS: Surgical changes and devices: Calcified breast implants. Right upper extremity approach PICC tip projects over the low SVC. Lungs and pleura: Lungs are clear. No pleural effusions or pneumothorax. Mediastinum: Mediastinal contours appear normal. Heart size is normal. Bones and chest wall: No suspicious bony lesions. Overlying soft tissues appear unremarkable. IMPRESSION: Right upper extremity approach PICC tip projects over the low SVC. Dictated by: Sundar Erickson M.D. on 09/02/2023 at 13:42 Approved by: Sundar Erickson M.D. on 09/02/2023 at 13:42
[2023-09-02] MEDS: CEFEPIME 2 GM in SODIUM CHLORIDE 0.9% 100 ML IV (16:07)
--- NOTE | 2023-09-02 17:18 | PM.PN.1 ---
Subjective Subjective Interval history: PICC placed today as BC negative at 24 hours. Wound culture no growth so far. Patient reports more elbow pain but relieved with tramadol. Exam Vital Signs (past 8 hours): - 09/02/23 09:20 Temperature 98.0 F Pulse Rate 77 Respiratory Rate 18 Blood Pressure 118/56 L Pulse Oximetry 97 Oxygen Flow Rate 0 Oxygen Delivery Method Room Air Oxygen Flow Rate 0 Narrative Exam Narrative: GEN: no acute distress HEENT: moist mucous membranes, PERRL NECK: trachea midline, no JVD CV: regular rate and rhythm, no murmurs PULM: clear bilaterally ABD: soft, nontender, nondistended, no organomegaly EXT: R elbow wrapped in gauze and MARTIN wrap NEURO: awake, alert, oriented, no focal deficits Objective Labs 09/02/23 04:11 09/02/23 04:11 Labs: Laboratory Results - last 24 hr 09/02/23 04:11 WBC 5.2 RBC 2.27 L Hgb 8.5 L Hct 24.9 L MCV 109.7 H MCH 37.2 H MCHC 33.9 RDW 13.4 Plt Count 170 Neut % (Auto) 53.4 D Lymph % (Auto) 26.7 [place] % (Auto) 16.7 H Eos % (Auto) 1.8 L Baso % (Auto) 1.4 Neut # (Auto) 2800 Lymph # (Auto) 1400 [place] # (Auto) 900 Eos # (Auto) 100 Baso # (Auto) 100 Sodium 133 L Potassium 4.1 Chloride 107 Carbon Dioxide 22 BUN 46 H Creatinine 1.59 H Estimated GFR 33 L BUN/Creatinine Ratio 28.9 H Glucose 91 Calcium 9.1 Total Creatine Kinase 82 PFSH Medical History (Updated 09/02/23 @ 00:00 by ) 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 PVD (peripheral vascular disease) LBBB (left bundle branch block) Chronic systolic (congestive) heart failure Pulmonary edema Fracture of right olecranon process (~09/2019) HLD (hyperlipidemia) Osteoarthritis Wrist fracture (~2014) Mumps Chicken pox Septic olecranon bursitis of right elbow PAD (peripheral artery disease) Coronary artery disease (~2006) Dyslipidemia Hypertension Surgical History (Updated 08/30/23 @ 12:02 by Kandi Calvo RN) History of surgical procedure (2008) History of orthopedic surgery (11/14/19) History of bilateral breast implants Hx of bilateral cataract extraction (~2016) History of incision and drainage (09/30/19) Anesthesia History of knee surgery (~2005) History of cataract removal with insertion of prosthetic lens (~2016) H/O elbow surgery (10/03/19) H/O heart artery stent (~2006) Family History (Updated 10/14/19 @ 22:27 by Kelly Miranda) Father Heart disease Mother Alzheimer disease Sister Hyperlipidemia Hypertension Sister Hyperlipidemia Hypertension Social History household members: significant other Smoking Status: Former smoker alcohol intake: current Assessment & Plan Assessment & Plan narrative: # right elbow osteomyelitis -s/p washout by Dr. Bedoya on 08/31, sustained fracture after fall in 11/2019 -per ID at [facility], initiated daptomycin 8 mg/kg q48h and cefepime 2 g q24h -CK normal prior to admit, recheck is 82 -blood cultures NG at 24 hours -f/up wound cultures, aerobic negative but anaerobic still pending -PICC placed on 09/02 -wound care per ortho # hyperkalemia, resolved -K 6.2 in clinic and spironolactone held -5.8 on admission -gave lokelma and now 4.1 # hyponatremia, improving -Na 129 -monitor -now up to 133 # TIANA vs CKD, improving -Cr up to 1.67, baseline appears to be 0.8 -IVF -monitor and renally dose meds -hold home lisinopril -Cr now settled around 1.5 # ischemic cardiomyopathy -followed by Dr. Rojas cardiology at [facility] -continue coreg -holding lisinopril and aldactone for now # severe PAD -on statin, DAPT -hold ASA and plavix until after discharge per ortho -hold statin due to dapto use # HLD -holding statin due to interaction with dapto Code status is full code. DVT prophylaxis with SCD's. Proxy is Bhanu Sena, life partner. Dispo: Likely home on 09/03 with IV home infusions. Awaiting wound culture results.
[2023-09-02 17:42] VITALS: BP 145/67; PULSE 68; RESP 18; TEMP 37; O2SAT 97
[2023-09-02 21:09] VITALS: BP 104/52; PULSE 72; RESP 17; TEMP 36.8; O2SAT 95
[2023-09-02 21:13] VITALS: BP 104/52; PULSE 72
[2023-09-03 00:23] VITALS: BP 138/84; PULSE 71; RESP 18; O2SAT 96
[2023-09-03] MEDS: TRAMADOL 50 MG TABLET PO (02:31)
[2023-09-03 05:20] LABS: Add Manual Diff / Slide Review NO; Basophils Absolute Auto 0 /uL (0-100); Basophils Percent Auto 0.7 % (0-2); Eosinophils Absolute Auto 200 /uL (0-450); Eosinophils Percent Auto 2.4 % (2-4); Hemoglobin 8.4 g/dL (12.0-16.0); Lymphocytes Absolute Auto 1100 /uL (1100-4500); Lymphocytes Percent Auto 17.4 % (25-40); Mean Corpuscular HGB Conc 33.6 % (30-36); Mean Corpuscular Hemoglobin 37.1 PG (26-34); Mean Corpuscular Volume 110.4 fL (80-100); Monocytes Absolute Auto 1200 /uL (0-900); Monocytes Percent Auto 19.1 % (3-14); Neutrophils Absolute Auto 3800 /uL (1500-7000); Neutrophils Percent Auto 60.4 % (50-75); Platelet Count 147 X10^3/uL (150-400); Red Blood Cell Count 2.27 X10^6/uL (4.0-5.2); Red Cell Distribution Width 13.6 % (11.6-14.8); White Blood Cell Count 6.3 X10^3/uL (4.5-11.0)
[2023-09-03 05:34] LABS: BUN Creatinine Ratio 30.6 (6-22); Blood Urea Nitrogen 38 mg/dL (7-17); Calcium 9.3 mg/dL (8.4-10.2); Carbon Dioxide 24 mmol/L (22-32); Chloride 106 mmol/L (98-107); Estimated Glomerular Filt Rate 45 mL/min (>60); Glucose 84 mg/dL (80-110); HEMOLYSIS < 15 (0-50); Potassium 4.4 mmol/L (3.4-5.1); Sodium 134 mmol/L (137-145)
[2023-09-03 07:34] VITALS: BP 137/68; RESP 18; TEMP 36; O2SAT 98
[2023-09-03 07:42] LABS: Macrocytosis 1+
--- NOTE | 2023-09-03 07:48 | P.PN_ITS ---
Subjective Subjective Date Patient Seen: 09/03/23 Time Patient Seen: 07:48 Interval history: Patient states her pain is currently well controlled with tramadol as needed pain. She does live in [place]. Patient is hopeful to go home today. Otherwise without complaints. Exam Vital Signs (past 8 hours): - 09/03/23 00:23 09/03/23 07:34 Temperature 96.8 F L Pulse Rate 71 Respiratory Rate 18 18 Blood Pressure 138/84 137/68 Pulse Oximetry 96 98 Oxygen Flow Rate 0 Oxygen Delivery Method Room Air Oxygen Flow Rate 0 Narrative Exam Narrative: 70-year-old female resting comfortably in bed in no apparent distress. Right elbow dressing is intact and clean. Motor functions intact distal right upper extremity. Const General: cooperative and comfortable Nutritional Appearance: average body habitus Orientation: alert Resp Effort & Inspection: normal respiratory effort and able to speak in complete sentences Objective Labs 09/03/23 04:15 09/03/23 04:15 Labs: Laboratory Results - last 24 hr 09/03/23 04:15 WBC 6.3 RBC 2.27 L Hgb 8.4 L Hct 25.0 L MCV 110.4 H MCH 37.1 H MCHC 33.6 RDW 13.6 Plt Count 147 L Neut % (Auto) 60.4 Lymph % (Auto) 17.4 L [place] % (Auto) 19.1 H Eos % (Auto) 2.4 Baso % (Auto) 0.7 Neut # (Auto) 3800 Lymph # (Auto) 1100 [place] # (Auto) 1200 H Eos # (Auto) 200 Baso # (Auto) 0 RBC Morphology Not Reportable Macrocytosis 1+ H Sodium 134 L Potassium 4.4 Chloride 106 Carbon Dioxide 24 BUN 38 H Creatinine 1.24 H Estimated GFR 45 L BUN/Creatinine Ratio 30.6 H Glucose 84 Calcium 9.3 [facility] CLIA ID [id number] [address] [place] [address], [id number] RUN DATE: 09/03/23 Specimen Inquiry PAGE 1 RUN TIME: 075 Name: Reyna Weiss Age/Sex: 78/F Attend Dr: Margarita Melissa MD Unit#: [id number] : 1945Location: 225-1 Re08/31/23 Disch: Status: ADM IN SPEC #: [id number] LEEANNE: 08/31/23 STATUS: RES REQ #: [id number] SPDESC: RECD: 08/31/[address]: Margarita Dominguez MD SOURCE: Elbow Rt ENTR: 08/31/[address]: Galen Michael D.O. FAX TO: ORDERED: WOUND Cx and GS COMMENTS: Comment olecranon bone for wound culture Procedure Result Verified Site Gram Stain Final 08/31/232339 No Organism Seen No organisms seen White blood cells Few WBCs Aerobic Culture for wounds Preliminary 09/02/23814 No growth. Anaerobic Culture Pending wound culture and Gram stain from November 14, 2019 SPEC #: [id number] LEEANNE: 11/14/19 STATUS: COMP REQ #: [id number] SPDESC: RECD: 11/14/[address]: Margarita Dominguez MD SOURCE: Elbow Rt ENTR: 11/14/[address]: FAX TO: ORDERED: WOUND Cx and GS COMMENTS: Comment deep elbow tissue Procedure Result Verified Site Gram Stain Final 11/14/19952 No Organism Seen No organisms seen White blood cells Few WBCs Aerobic Culture for wounds Final 11/17/19906 Organism 1 Pseudomonas alcaligenes Growth SCANT 1. Pseudomonas alcaligenes M.I.C. RX --------- --- * Amikacin S * Cefepime S * Ceftriaxone S * Ciprofloxacin S * Gentamicin S * Imipenem S * Levofloxacin S * Meropenem S * Tobramycin S * Trimethoprim/Sulfamethoxazole R * Piperacillin/Tazobactam S Anaerobic Culture Final 11/19/191138 No growth. 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 PVD (peripheral vascular disease) LBBB (left bundle branch block) Chronic systolic (congestive) heart failure Pulmonary edema Fracture of right olecranon process (~09/2019) HLD (hyperlipidemia) Osteoarthritis Wrist fracture (~2014) Mumps Chicken pox Septic olecranon bursitis of right elbow PAD (peripheral artery disease) Coronary artery disease (~2006) Dyslipidemia Hypertension Surgical History History of surgical procedure (2008) History of orthopedic surgery (11/14/19) History of bilateral breast implants Hx of bilateral cataract extraction (~2016) History of incision and drainage (09/30/19) Anesthesia History of knee surgery (~2005) History of cataract removal with insertion of prosthetic lens (~2016) H/O elbow surgery (10/03/19) H/O heart artery stent (~2006) Family History Father Heart disease Mother Alzheimer disease Sister Hyperlipidemia Hypertension Sister Hyperlipidemia Hypertension Social History household members: significant other Smoking Status: Former smoker alcohol intake: current Assessment & Plan Post-op Postoperative Procedures: Procedures Operation Date: 08/31/23 12:45 Actual Procedure Side Surgeon p elbow infection debridement of bone & sinus tract, placement of antibiotic beads Right Margarita Dominguez MD Postoperative day: 3 Postoperative status narrative: Stable status post irrigation debridement of skin subcutaneous tissue and bone and excision sinus tract right elbow osteomyelitis with sinus tract, right August 31, 2023 Postoperative plan narrative: Blood cultures from September 01, 2023 preliminary no growth after 24 hours x2 Cherelle home antibiotics based on cultures and consultation with Dr. Calixto infectious disease [facility] Internal Medicine assisting in following this medically complex patient. Disposition home on IV antibiotics when medically stable and cultures final.
[2023-09-03 08:24] VITALS: BP 137/68
[2023-09-03] MEDS: carvediloL 12.5 MG TABLET 6.25 MG PO (08:24)
[2023-09-03] MEDS: SODIUM CHLORIDE 0.9% FLUSH 10 ML IV (08:25)
--- NOTE | 2023-09-03 10:55 | CM.DPC ---
Addendum entered by REN Guzman 09/03/23 14:39: ADD: PRAMOD spoke to Kirt at [facility] and he confirms pt will have about $600 a week and he updated pt via phone and she is agreeable and they can provide her next dose at home tomorrow 09/04 around 1500. PRAMOD updated RN and pt will be able to d/c home after her infusion today. PRAMOD faxed the orders with [facility] to follow to manage after d/c and awaiting d/c summary. BF Original Note: DCP Discharge Home Infusion Per MD, pt is medically stable to d/c today on IV Dapto Q[address] Westbrook to follow and Ortho MD. PRAMOD faxed MD note, PICC insertion note, and med list to [facility] to review and spoke to Kirt at [facility] and updated and he will review and run pt's insurance to determine any out of pocket costs. Plan: SW to follow closely for [facility] to confirm plan of d/c home today after IV-Abx dose around 1400 and ongoing home infusion. REN Guzman
--- NOTE | 2023-09-03 16:09 | PC.NURSE ---
Discharge Note Patient A&O, VSS, RA, no complaints of pain/discomfort. Patient agreeable to discharge plan, discharge packet reviewed w/ patient, all questions/concerns addressed. PICC dressing changed. Patient able to dress self and pack all belongings. Patient taken down via wheelchair to POV.
--- NOTE | 2023-09-05 19:32 | PM.DS.1 ---
History of Present Illness History of Present Illness Date Patient Seen: 08/31/23 Chief complaint: Right Incision and Drainage Wound/Extremity Narrative: Per admitting physician: Reyna Weiss is a 78yo F with PMH of PAD on DAPT, HFrEF improved from 25-30% to 35% followed by Dr. Rojas, HTN, HLD, CAD, and LBBB who presents for surgical washout of infected R elbow for inpatient IV abx. Patient was sent in by Dr. Westbrook ID. She was seen after washout and said it went very well, and she now has more range of motion of her R elbow and less pain than before. She understands needing IV abx at home as she has done it before. She denies CP, NV, SOB, fever/chills, abd pain or diarrhea. Discharge Providers Provider Date of admission: 08/31/23 13:20 Discharge Date: 09/03/23 Primary care physician: Galen Michael DO Consults: 08/30/23 18:21 Consult to Anesthesiology Routine Comment: Consulting Provider: Anesthesiologist Reason for consultation: Review new potassium and EKG Has provider been notified: No 08/31/23 14:22 Consult to Orthopedic Surgery Routine Comment: Consulting Provider: Margarita Dominguez Reason for consultation: R elbow osteomyelitis 09/02/23 12:18 Consult After Hours PICC Line RN Routine Comment: Discharge provider: Baron Hayes MD Summary Hospital Course Discharge Diagnosis: 1. Right Elbow Osteomyelitis 2. TIANA 3. Ischemic cardiomyopathy 4. PAD 5. Hyperlipidemia Hospital Course: Ms. Weiss was admitted with right elbow osteomytelitis. She underwent washout with ortho on 08/31. Cultures at time of discharge had no growth. Bacterial PCR was pending at discharge. I did discuss the plan after discharge with her ID physician Dr. Calixto who recommended daily daptomycin 400mg IV for six weeks. She is planned to follow up with ID who will monitor her response. She had PICC line and infusion at home setup at discharge. Exam Vital Signs (past 8 hours): Oxygen Delivery Method Room Air Oxygen Flow Rate 0 Narrative Exam Narrative: GEN: no acute distress CV: regular rate and rhythm, no murmurs PULM: clear bilaterally ABD: soft, nontender, nondistended, no organomegaly EXT: R elbow wrapped in gauze and MARTIN wrap Objective Labs 09/03/23 04:15 09/03/23 04:15 PFSH Medical History longterm current use of anticoagulant therapy PVD (peripheral vascular disease) LBBB (left bundle branch block) Chronic systolic (congestive) heart failure Pulmonary edema Fracture of right olecranon process (~09/2019) HLD (hyperlipidemia) Osteoarthritis Wrist fracture (~2014) Mumps Chicken pox Septic olecranon bursitis of right elbow PAD (peripheral artery disease) Coronary artery disease (~2006) Dyslipidemia Hypertension Surgical History History of surgical procedure (2008) History of orthopedic surgery (11/14/19) History of bilateral breast implants Hx of bilateral cataract extraction (~2016) History of incision and drainage (09/30/19) Anesthesia History of knee surgery (~2005) History of cataract removal with insertion of prosthetic lens (~2016) H/O elbow surgery (10/03/19) H/O heart artery stent (~2006) Family History Father Heart disease Mother Alzheimer disease Sister Hyperlipidemia Hypertension Sister Hyperlipidemia Hypertension Social History household members: significant other Smoking Status: Former smoker alcohol intake: current Discharge Plan Discharge Plan Patient Disposition: Home Provider Discharge Comment: Ms. Weiss came in to the hospital with an infected elbow. She had surgery for this. She was discharged on antibiotics. She should follow up with Dr. Westbrook as scheduled. [facility] to manage Dapto 400 mg Q24 at discharge. Discharge orders & Medications Prescriptions: New tramadol 50 mg Tablet 50 mg PO TID PRN (Reason: Pain, Moderate (4-6)) Qty: 16 0RF daptomycin 350 mg recon soln 400 mg IV Q24H Rx Instructions: administer over 30 mins Continued clopidogrel [Plavix] 75 mg Tablet 75 mg PO DAILY atorvastatin 40 mg tablet 40 mg PO QPM carvedilol 6.25 mg tablet 6.25 mg PO BID spironolactone 25 mg tablet 25 mg PO DAILY aspirin 81 mg Tablet,Chewable 81 mg PO DAILY lisinopril 2.5 mg Tablet 2.5 mg PO DAILY Follow up/Referrals: Galen Michael, [Primary Care Provider] - 2 Weeks (hospitalized elbow infection, usp antibiotics) Diet/Activity/Treatments Diet: Regular Visit Report/Discharge Packet Stand Alone Forms: Patient Portal/API, Stroke Signs & Symptoms Discharge Data Primary Care Provider: Galen Michael
== END 2023-09-03 15:30 | disposition home or self-care (01) | DRG 478 ==
LOC: ENDO 15:37 → AC 15:37
PROVIDERS: Student in an Organized Health Care Education/Training Program; Admitting Provider Orthopaedic Surgery Foot and Ankle Surgery; PCP Family Medicine; Referring Provider Orthopaedic Surgery Foot and Ankle Surgery; Visit Provider Orthopaedic Surgery Foot and Ankle Surgery
PROC: 0PBK0ZX Excision of Right Ulna, Open Approach, Diagnostic (ICD-10-PCS; principal; 2023-08-31 12:45)
DX: M86.631 Other chronic osteomyelitis, right radius and ulna (principal); E87.1 Hypo-osmolality and hyponatremia; N17.9 Acute kidney failure, unspecified; E87.5 Hyperkalemia; I25.5 Ischemic cardiomyopathy; I73.9 Peripheral vascular disease, unspecified; E78.5 Hyperlipidemia, unspecified; I25.10 Atherosclerotic heart disease of native coronary artery without angina pectoris; I10 Essential (primary) hypertension; Z87.891 Personal history of nicotine dependence; Z79.02 Long term (current) use of antithrombotics/antiplatelets
CPT/HCPCS: 36415; 36573; 36592; 80048; 82550; 83036; 83735; 85025; 87040; 87070; 87075; 87205; 87801; 93005; 93010; J0171; J0692; J0878; J1100; J1644; J2405; J2704; J3010

== ENCOUNTER → 2023-10-06 07:50 | Outpatient (CLI) | payer MEDICARE, OTHER, SELFPAY ==
[2019-10-08 07:52] VITALS: PULSE 93; RESP 16; O2SAT 100
[2023-08-31 17:10] VITALS: BMI 16.2
[2023-10-06 09:51] LABS: Alanine Aminotransferase 22 IU/L (<35); Albumin 3.1 g/dL (3.5-5.0); Alkaline Phosphatase 92 U/L (38-126); Aspartate Aminotransferase 30 IU/L (14-36); Bilirubin Total 0.6 mg/dL (0.2-1.3); Blood Urea Nitrogen 71 mg/dL (7-17); Calcium 9.1 mg/dL (8.4-10.2); Carbon Dioxide 18 mmol/L (22-32); Chloride 104 mmol/L (98-107); Estimated Glomerular Filt Rate 27 mL/min (>60); Globulin 3.1 g/dL (1.7-4.1); Glucose 102 mg/dL (80-110); HEMOLYSIS < 15 (0-50); Potassium 4.4 mmol/L (3.4-5.1); Sodium 130 mmol/L (137-145); Total Protein 6.2 g/dL (6.3-8.2)
== END ==
PROVIDERS: PCP Family Medicine; Referring Provider Internal Medicine Infectious Disease; Visit Provider Internal Medicine Infectious Disease
DX: M86.9 Osteomyelitis, unspecified (principal)
CPT/HCPCS: 36415; 80053

== ENCOUNTER → 2023-10-12 09:02 | Outpatient (CLI) | payer MEDICARE, OTHER, SELFPAY ==
[2019-10-08 07:52] VITALS: PULSE 93; RESP 16; O2SAT 100
[2023-08-31 17:10] VITALS: BMI 16.2
[2023-10-12 10:29] LABS: Blood Urea Nitrogen 62 mg/dL (7-17); Calcium 8.8 mg/dL (8.4-10.2); Carbon Dioxide 22 mmol/L (22-32); Chloride 102 mmol/L (98-107); Estimated Glomerular Filt Rate 33 mL/min (>60); Glucose 103 mg/dL (80-110); HEMOLYSIS < 15 (0-50); Potassium 4.4 mmol/L (3.4-5.1); Sodium 129 mmol/L (137-145); Uric Acid 5.4 mg/dL (2.5-6.2)
[2023-10-15 16:27] LABS: Osmolality, Serum 296 mOsmol/kg (280-301)
== END ==
PROVIDERS: PCP Family Medicine; Referring Provider Internal Medicine Nephrology; Visit Provider Internal Medicine Nephrology
DX: N17.9 Acute kidney failure, unspecified (principal); N18.32 Chronic kidney disease, stage 3b; E87.1 Hypo-osmolality and hyponatremia
CPT/HCPCS: 36415; 80048; 82043; 82570; 83930; 83935; 84300; 84550

== ENCOUNTER → 2023-11-01 08:39 | Outpatient (CLI) | payer MEDICARE, OTHER, SELFPAY ==
[2019-10-08 07:52] VITALS: PULSE 93; RESP 16; O2SAT 100
[2023-08-31 17:10] VITALS: BMI 16.2
[2023-11-01 10:00] LABS: BUN Creatinine Ratio 23.6 (6-22); Blood Urea Nitrogen 30 mg/dL (7-17); Calcium 9.2 mg/dL (8.4-10.2); Carbon Dioxide 27 mmol/L (22-32); Chloride 102 mmol/L (98-107); Estimated Glomerular Filt Rate 43 mL/min (>60); Glucose 108 mg/dL (80-110); HEMOLYSIS < 15 (0-50); Potassium 3.8 mmol/L (3.4-5.1); Sodium 135 mmol/L (137-145)
== END ==
PROVIDERS: PCP Family Medicine; Referring Provider Internal Medicine Nephrology; Visit Provider Internal Medicine Nephrology
DX: N17.9 Acute kidney failure, unspecified (principal)
CPT/HCPCS: 36415; 80048

== ENCOUNTER → 2023-11-27 08:00 | Outpatient (CLI) | payer MEDICARE, OTHER, SELFPAY ==
[2019-10-08 07:52] VITALS: PULSE 93; RESP 16; O2SAT 100
[2023-08-31 17:10] VITALS: BMI 16.2
[2023-11-27 09:59] LABS: BUN Creatinine Ratio 46.1 (6-22); Blood Urea Nitrogen 82 mg/dL (7-17); Calcium 9.4 mg/dL (8.4-10.2); Carbon Dioxide 19 mmol/L (22-32); Chloride 103 mmol/L (98-107); Estimated Glomerular Filt Rate 29 mL/min (>60); Glucose 83 mg/dL (80-110); HEMOLYSIS < 15 (0-50); Potassium 5.2 mmol/L (3.4-5.1); Sodium 132 mmol/L (137-145)
== END ==
LOC: LAB 08:01
PROVIDERS: PCP Family Medicine; Referring Provider Internal Medicine Nephrology; Visit Provider Internal Medicine Nephrology
DX: N17.9 Acute kidney failure, unspecified (principal)
CPT/HCPCS: 36415; 80048

== ENCOUNTER → 2023-12-10 07:27 | Outpatient (CLI) | payer MEDICARE, OTHER, SELFPAY ==
[2019-10-08 07:52] VITALS: PULSE 93; RESP 16; O2SAT 100
[2023-08-31 17:10] VITALS: BMI 16.2
[2023-12-10 08:13] LABS: BUN Creatinine Ratio 35.8 (6-22); Blood Urea Nitrogen 57 mg/dL (7-17); Calcium 9.7 mg/dL (8.4-10.2); Carbon Dioxide 19 mmol/L (22-32); Chloride 107 mmol/L (98-107); Estimated Glomerular Filt Rate 33 mL/min (>60); Glucose 91 mg/dL (80-110); HEMOLYSIS < 15 (0-50); Potassium 4.4 mmol/L (3.4-5.1); Sodium 136 mmol/L (137-145)
== END ==
LOC: LAB 07:29
PROVIDERS: PCP Family Medicine; Referring Provider Internal Medicine Nephrology; Visit Provider Internal Medicine Nephrology
DX: N17.9 Acute kidney failure, unspecified (principal)
CPT/HCPCS: 36415; 80048

== ENCOUNTER 2024-01-27 03:35 | Emergency (ER) | payer MEDICARE, OTHER, SELFPAY ==
[2019-10-08 07:52] VITALS: PULSE 93; RESP 16; O2SAT 100
[2023-08-31 17:10] VITALS: BMI 16.2
[2024-01-27] VITALS (131 sets, daily range): BP systolic 52–134; BP diastolic 37–71; PULSE 48–85; RESP 10–37; TEMP 33.3–37.7; O2SAT 66–100
[2024-01-27] MEDS: SODIUM CHLORIDE 0.9% FLUSH 9 ML, EPINEPHrine 0.1 MG IV ×2 (03:39→04:01)
[2024-01-27] MEDS: KETAMINE 500 MG/5 ML INJ 100 MG IV (03:43)
[2024-01-27] MEDS: ROCURONIUM 50 MG/5 ML INJ IV (03:45)
--- NOTE | 2024-01-27 03:55 | DI.CT.S_ITS ---
PROCEDURE: CT ANGIO CHEST ABDOMEN PELVIS INDICATIONS: hypoxia back pain TECHNIQUE: Precontrast 5 mm thick sections acquired from the lung apices to the iliac crests. After the administration of intravenous contrast, 2.5 mm thick sections again acquired from the lung apices to the iliac crests. Maximum intensity projection (MIP) oblique sagittal and coronal reformats were then acquired. For radiation dose reduction, the following was used: automated exposure control. COMPARISON: None. FINDINGS: Image quality: Images are reversed, a technical ever when compared to prior imaging. AORTA: No aortic aneurysm. No acute aortic syndrome. CHEST: Lower Neck: No enlarged lymph nodes. Thyroid: No thyroid nodules which require sonographic evaluation. Axillae: No enlarged lymph nodes. Chest Wall: Calcified bilateral implants. Lungs and Pleura: Bilateral small layering pleural effusions. Diffuse interstitial thickening throughout bilateral lungs. Multiple pulmonary nodules measuring up to 8 mm. Nataly septal emphysematous changes. Central bronchiectasis with wall thickening. Heart: Heart size is enlarged. No pericardial effusion. Thoracic Vessels: Pulmonary arteries demonstrate normal size. No central thrombus identified. Mediastinum and Wendy: No enlarged lymph nodes. Esophagus: No wall thickening. No hiatal hernia. ABDOMEN: Liver: No solid mass. Gallbladder: No radiopaque gallstones or wall thickening. Biliary ducts: Moderate central biliary dilation. Pancreas: No ductal dilation. Spleen: Size is within normal limits. Adrenal Glands: No adrenal nodules. Kidneys and Ureters: No hydronephrosis. No solid mass. No complex renal cystic lesion which requires follow up. Stomach and Bowel: Normal colonic caliber, without significant wall thickening. Colonic diverticulosis without evidence of acute diverticulitis. Peritoneum: No abnormal intraperitoneal fluid. No free air. Ventral Wall: No hernia. Abdominal Nodes: No retroperitoneal or mesenteric adenopathy by size criteria. Vessels: Inferior vena cava is normal in size. Extensive atherosclerotic calcifications. Opacification of the lower pelvic arteries is poor. PELVIS: Pelvic Organs: Unremarkable. Bladder: Unremarkable. Pelvic Nodes: No enlarged lymph nodes. Miscellaneous: No inguinal hernias are seen. Bones: Moderate spondylitic changes throughout the thoracolumbar spine.. IMPRESSION: 1. Extensive calcific atherosclerotic disease of the aorta without aneurysm or dissection. 2. Numerous pulmonary nodules measure up to 8 mm. Recommend nonemergent routine follow-up. 3. Extensive pulmonary edema and interstitial thickening. 4. Central bronchiectasis. 5. Moderate central biliary ductal dilation, consider ultrasound evaluation of the right upper quadrant. Interpretation is concordant with overnight interpretation. Dictated by: Nolan Owens M.D. on 01/27/2024 at 8:35 Approved by: Nolan Owens M.D. on 01/27/2024 at 8:47
--- NOTE | 2024-01-27 03:55 | DI.CT.S_ITS ---
PROCEDURE: CT STROKE INDICATIONS: found down TECHNIQUE: Noncontrast 4.5 mm thick angled axial sections acquired from the foramen magnum to the vertex, with coronal reformats. For radiation dose reduction, the following was used: automated exposure control, adjustment of mA and/or kV according to patient size. COMPARISON: None. FINDINGS: Image quality: Diagnostic. CSF spaces: Basal cisterns are patent. No extra-axial fluid collections. Ventricles are normal in size and shape. Brain: No midline shift. No intracranial masses or hemorrhage. Eddy-white matter interface is normal. Diffuse parenchymal volume loss with symmetric expansion CSF containing spaces. Periventricular white matter hypodensities consistent with chronic microvascular ischemic disease. Skull and face: Calvarium and visualized facial bones are intact, without suspicious lesions. Sinuses: Visualized sinuses and mastoids are clear. IMPRESSION: No acute intracranial pathology. Sequela of chronic microvascular ischemic disease. Interpretation is concordant with overnight read. Dictated by: Nolan Owens M.D. on 01/27/2024 at 8:50 Approved by: Nolan Owens M.D. on 01/27/2024 at 8:52
--- NOTE | 2024-01-27 03:56 | DI.RAD.S_ITS ---
PROCEDURE: XR CHEST 1V INDICATIONS: intubated TECHNIQUE: One view of the chest was acquired. COMPARISON: [facility], CR, XR CHEST FOR PICC 1V, 09/02/2023, 13:03. FINDINGS: Surgical changes and devices: Endotracheal tube within the thoracic inlet. No enteric tube identified. Lungs and pleura: Diffuse interstitial markings throughout the bilateral lungs. No pneumothorax. Small layering effusions. Mediastinum: Mediastinal contours appear normal. Heart size is normal. Bones and chest wall: No suspicious bony lesions. Overlying soft tissues appear unremarkable. IMPRESSION: Appropriate positioning of the ET tube. Diffuse pulmonary interstitial opacities suggestive of pulmonary edema. Dictated by: Nolan Owens M.D. on 01/27/2024 at 8:52 Approved by: Nolan Owens M.D. on 01/27/2024 at 8:54
--- NOTE | 2024-01-27 03:59 | ED.SOB ---
HPI - SOB/Dyspnea <Susi Harkins, DO - Last Filed: 01/28/24 09:53> General Chief Complaint: Shortness of Breath/Dyspnea Stated Complaint: SOB Time Seen by Provider: 01/27/24 03:55 Mode of arrival: EMS History of Present Illness HPI Narrative: Patient is a 78-year-old female history of pulmonary hypertension, coronary artery disease with stents, hyperlipidemia, congestive heart failure, PAD, presenting to day with acute hypoxia and found down. She and her went to [place] today where everything was normal. Apparently she got up in the middle of night she was found down 7 stairs on a landing. It is unknown how long she laid there that has been thinks about 20-30 minutes. He got to her and she was saying that she could not breathe. EMS reports that they had a hard time getting a blood pressure she appears mottled. She is awake she is able to answer some questions. She states that she is short of breath and complaining of pain in her back. She is able to move her toes and squeeze fingers. Able to get much more history out of her. She was previously admitted to the hospital 08/31/2023 through September 05 for cellulitis when she did have some abnormal blood work as well during that admission. Related Data Home Medications Medication Instructions Recorded Confirmed aspirin 81 mg chewable tablet 81 mg PO DAILY 09/30/19 08/31/23 lisinopril 2.5 mg tablet 2.5 mg PO DAILY 09/30/19 08/31/23 clopidogrel 75 mg tablet (Plavix) 75 mg PO DAILY 10/08/19 08/31/23 atorvastatin 40 mg tablet 40 mg PO QPM 08/30/23 08/31/23 carvedilol 6.25 mg tablet 6.25 mg PO BID 08/30/23 08/31/23 spironolactone 25 mg tablet 25 mg PO DAILY 08/31/23 08/31/23 Previous Rx's Medication Instructions Recorded daptomycin 350 mg intravenous 400 mg IV Q24H 09/03/23 solution tramadol 50 mg tablet 50 mg PO TID PRN Pain, Moderate 09/03/23 (4-6) #16 tabs Allergies Allergy/AdvReac Type Severity Reaction Status Date / Time oxycodone [OXYCODONE] AdvReac Intermediate ?or Verified 08/31/23 11:43 oxycontin? diarrhea morphine [MORPHINE] AdvReac Mild n/v Verified 08/31/23 11:43 Patient History <DO Marion Avendaño Last Filed: 01/28/24 09:53> Medical History [facility] current use of anticoagulant therapy PVD (peripheral vascular disease) LBBB (left bundle branch block) Chronic systolic (congestive) heart failure Pulmonary edema Fracture of right olecranon process (~09/2019) HLD (hyperlipidemia) Osteoarthritis Wrist fracture (~2014) Mumps Chicken pox Septic olecranon bursitis of right elbow PAD (peripheral artery disease) Coronary artery disease (~2006) Dyslipidemia Hypertension Surgical History History of surgical procedure (2008) History of orthopedic surgery (11/14/19) History of bilateral breast implants Hx of bilateral cataract extraction (~2016) History of incision and drainage (09/30/19) Anesthesia History of knee surgery (~2005) History of cataract removal with insertion of prosthetic lens (~2016) H/O elbow surgery (10/03/19) H/O heart artery stent (~2006) Family History Father Heart disease Mother Alzheimer disease Sister Hyperlipidemia Hypertension Sister Hyperlipidemia Hypertension Social History household members: significant other Smoking Status: Former smoker alcohol intake: current Smoking Status: Former smoker tobacco type: cigarettes alcohol intake frequency: 0-2 drinks per day Substance Use Type: does not use Exam <Susi Harkins DO - Last Filed: 01/28/24 09:53> Initial Vital Signs Initial Vital Signs: Vital Signs Pulse Rate 80 01/27/24 03:45 Respiratory Rate 12 01/27/24 03:45 Blood Pressure 117/71 01/27/24 03:45 Oxygen Delivery Method Ambu Bag 01/27/24 03:45 GENERAL: 78-year-old female in severe distress HEENT: Head atraumatic,EOMI, pupils reactive, face symmetric CARDIOVASCULAR: Regular rate and rhythm RESPIRATORY: Coarse breath sounds bilaterally tachypneic speaking only and couple word sentences ABDOMEN: Soft, nontender. Normoactive bowel sounds all 4 quadrants. No guarding or rebound. EXTREMITIES: Normal range of motion, no clubbing or edema. Neurovascularly intact, no gross bony deformity NEUROLOGICAL: Glass Block Installer strength equal bilaterally moving toes bilaterally SKIN: Cool and mottled <Elise Love MD - Last Filed: 01/27/24 13:50> Initial Vital Signs Initial Vital Signs: Vital Signs Pulse Rate 80 01/27/24 03:45 Respiratory Rate 12 01/27/24 03:45 Blood Pressure 117/71 01/27/24 03:45 Oxygen Delivery Method Ambu Bag 01/27/24 03:45 Procedures <Susi Harkins DO - Last Filed: 01/28/24 09:53> Central Line Placement Left IJ: MD Prep: mask, gown and gloves Central Line Prep: Chlorhexidine scrub and sterile drapes applied Local Anesthetic: lidocaine 1% Amount of anesthesia used (mL): 3 Ultrasound Used for Placement: Yes Central Line Lumen Inserted: triple Post Procedure: good blood return, all ports aspirated, flushed, capped, sterile dressing applied and line stabilization device Post Procedure X-Ray: tip of catheter in good position and no pneumothorax seen Patient Tolerated Procedure: Well and No complications Complications: none Intubation sedative: Ketamine Mg Given: 100 paralytic: Rocuronium Mg Given: 50 Laryngoscope: other (glide scope) ET Tube Size: 7 Tube Placement Confirmation: Visualized tube passing through cords, Equal breath sounds bilaterally, No breath sounds over epigastrium, Confirmation by capnometry and Chest Xray Patient Tolerated Procedure: Well and No complications Course <Susi Harkins DO - Last Filed: 01/28/24 09:53> Orders Ordered: Discontinued Medications Chlorhexidine Gluconate (Chlorhexidine Gluconate 15 Ml Cup) 15 ml PO Q6HR [facility] Last Admin: 01/27/24 11:18 Dose: 15 ml Documented By: Admin: 01/27/24 08:26 Dose: Not Given Documented By: CTS Sodium Chloride 9 ml/ (Epinephrine HCl 0.1 mg) 0 ml IV NOW ONE Stop: 01/27/24 04:19 Last Admin: 01/27/24 03:39 Dose: 2 ml Documented By: SB Sodium Chloride 9 ml/ (Epinephrine HCl 0.1 mg) 0 ml IV NOW ONE Stop: 01/27/24 04:24 Last Admin: 01/27/24 04:01 Dose: 2 ml Documented By: SB Famotidine (Famotidine 20 Mg/2 Ml Vial) 20 mg IV NOW [facility] Fentanyl (Fentanyl 100 Mcg/2 Ml Inj) 50 mcg IV NOW ONE Stop: 01/27/24 03:57 Last Admin: 01/27/24 04:58 Dose: 50 mcg Documented By: SB(2) Heparin Sodium (Porcine) (Heparin 5,000 Unit/Ml Vial) 5,000 unit IV NOW ONE Stop: 01/27/24 07:16 Last Admin: 01/27/24 07:47 Dose: 5,000 unit Documented By: CTS Sodium Chloride (Normal Saline 0.9%) 1,000 mls @ 150 mls/hr IV CONT [facility] Last Infusion: 01/27/24 08:22 Dose: Infused Documented By: Admin: 01/27/24 07:10 Dose: 150 mls/hr Documented By: SB(2) Propofol (Propofol) 1,000 mg in 100 mls @ 1.388 mls/hr IV TITRATE [facility]; Protocol Last Titration: 01/27/24 13:54 Dose: Infused Documented By: Titration: 01/27/24 09:33 Dose: 20 mcg/kg/min, 5.552 mls/hr Documented By: Titration: 01/27/24 07:53 Dose: 15 mcg/kg/min, 4.164 mls/hr Documented By: Titration: 01/27/24 07:49 Dose: 10 mcg/kg/min, 2.776 mls/hr Documented By: Titration: 01/27/24 06:57 Dose: 15 mcg/kg/min, 4.164 mls/hr Documented By: SB(2) Titration: 01/27/24 06:33 Dose: 20 mcg/kg/min, 5.552 mls/hr Documented By: SB(2) Titration: 01/27/24 05:39 Dose: 10 mcg/kg/min, 2.776 mls/hr Documented By: SB(2) Admin: 01/27/24 05:18 Dose: 5 mcg/kg/min, 1.388 mls/hr Documented By: SB(2) NOREPINEPHRINE BITARTRATE/D5W (Levophed) 4 mg in 250 mls @ 17.35 mls/hr IV TITRATE [facility]; Protocol Last Titration: 01/27/24 13:53 Dose: Infused Documented By: Titration: 01/27/24 11:19 Dose: 0.26 mcg/kg/min, 45 mls/hr Documented By: Titration: 01/27/24 11:10 Dose: 0.22 mcg/kg/min, 37.5 mls/hr Documented By: Titration: 01/27/24 09:58 Dose: 0.13 mcg/kg/min, 22.5 mls/hr Documented By: Titration: 01/27/24 09:46 Dose: 0.17 mcg/kg/min, 30 mls/hr Documented By: Titration: 01/27/24 08:26 Dose: 0.22 mcg/kg/min, 37.5 mls/hr Documented By: Titration: 01/27/24 08:01 Dose: 0.32 mcg/kg/min, 56.2 mls/hr Documented By: Admin: 01/27/24 07:48 Dose: 0.17 mcg/kg/min, 30 mls/hr Documented By: CTS Fentanyl 1,000 mcg/ Dextrose 250 mls @ 8.097 mls/hr IV TITRATE [facility]; Protocol Last Titration: 01/27/24 13:53 Dose: Infused Documented By: Titration: 01/27/24 07:54 Dose: 2.42 mcg/kg/hr, 28 mls/hr Documented By: Titration: 01/27/24 07:48 Dose: 2.16 mcg/kg/hr, 25 mls/hr Documented By: Admin: 01/27/24 06:14 Dose: 1.12 mcg/kg/hr, 13 mls/hr Documented By: SB(2) Furosemide 60 mg/ Sodium (Chloride) 56 mls @ 112 mls/hr IV NOW ONE Stop: 01/27/24 04:59 Last Infusion: 01/27/24 06:30 Dose: Infused Documented By: SB(2) Admin: 01/27/24 05:28 Dose: 112 mls/hr Documented By: SB(2) Piperacillin Sod/Tazobactam (Sod 4.5 gm/ Sodium Chloride) 100 mls @ 200 mls/hr IV NOW ONE Stop: 01/27/24 04:59 Last Infusion: 01/27/24 07:50 Dose: Infused Documented By: Admin: 01/27/24 07:10 Dose: 200 mls/hr Documented By: CATHY(2) Heparin Sodium/Dextrose (Heparin Drip) 25,000 unit in 500 mls @ 11.104 mls/hr IV CONT [facility]; Protocol Last Titration: 01/27/24 13:55 Dose: Infused Documented By: ANABELLE Co-signed By: NIO Admin: 01/27/24 07:50 Dose: 12 units/kg/hr, 11.104 mls/hr Documented By: SONU Co-signed By: INO dexmedeTOMIDine in 0.9 % NaCL (Precedex) 400 mcg in 100 mls @ 2.313 mls/hr IV TITRATE [facility]; Protocol Last Admin: 01/27/24 09:00 Dose: Not Given Documented By: ANABELLE Sodium Bicarbonate 150 meq/ (Dextrose) 1,150 mls @ 150 mls/hr IV CONT [facility] Last Infusion: 01/27/24 13:56 Dose: Infused Documented By: Admin: 01/27/24 09:28 Dose: 150 mls/hr Documented By: ANABELLE Insulin Human Regular (Insulin Regular 100 Unit/Ml 3 Ml Vial) 5 unit IV NOW ONE Stop: 01/27/24 13:48 Last Admin: 01/27/24 13:50 Dose: 5 unit Documented By: ANABELLE Co-signed By: INO Insulin Human Regular (Insulin Regular 100 Unit/Ml 3 Ml Vial) 5 unit IV NOW ONE Stop: 01/27/24 13:48 Last Admin: 01/27/24 13:51 Dose: Not Given Documented By: ANABELLE Ketamine HCl (Ketamine 500 Mg/5 Ml Inj) 100 mg IV NOW ONE Stop: 01/27/24 04:25 Last Admin: 01/27/24 03:43 Dose: 100 mg Documented By: CATHY Propofol (Propofol 200 Mg/20 Ml Vial) 30 mg IV NOW ONE Stop: 01/27/24 05:40 Last Admin: 01/27/24 06:01 Dose: 30 mg Documented By: CATHY(2) Rocuronium [place] (Rocuronium 50 Mg/5 Ml Inj) 50 mg IV NOW ONE Stop: 01/27/24 04:26 Last Admin: 01/27/24 03:45 Dose: 50 mg Documented By: CATHY Vital Signs Vital signs: Vital Signs - 8 hr 01/27/24 05:50 01/27/24 05:50 01/27/24 05:55 Temperature 92.8 F L 92.8 F L Pulse Rate 75 76 Respiratory Rate 11 L 20 Blood Pressure 115/58 L Pulse Oximetry 99 99 Oxygen Delivery Method 01/27/24 05:55 01/27/24 06:00 01/27/24 06:00 Temperature 92.8 F L Pulse Rate 74 Respiratory Rate 17 Blood Pressure 113/60 116/58 L Pulse Oximetry 98 Oxygen Delivery Method 01/27/24 06:05 01/27/24 06:05 01/27/24 06:10 Temperature 92.8 F L 93.0 F L Pulse Rate 75 73 Respiratory Rate 20 15 Blood Pressure 123/61 Pulse Oximetry 99 100 Oxygen Delivery Method 01/27/24 06:10 01/27/24 06:15 01/27/24 06:15 Temperature 93.0 F L Pulse Rate 73 Respiratory Rate 29 H Blood Pressure 125/60 134/67 Pulse Oximetry 98 Oxygen Delivery Method 01/27/24 06:20 01/27/24 06:20 01/27/24 06:25 Temperature 93.0 F L 93.2 F L Pulse Rate 83 76 Respiratory Rate 20 18 Blood Pressure 133/63 Pulse Oximetry 97 99 Oxygen Delivery Method 01/27/24 06:25 01/27/24 06:30 01/27/24 06:30 Temperature 93.2 F L Pulse Rate 75 Respiratory Rate 19 Blood Pressure 116/56 L 115/56 L Pulse Oximetry 100 Oxygen Delivery Method 01/27/24 06:35 01/27/24 06:35 01/27/24 06:40 Temperature 93.4 F L Pulse Rate 76 Respiratory Rate 16 Blood Pressure 122/61 116/56 L Pulse Oximetry 100 Oxygen Delivery Method 01/27/24 06:40 01/27/24 06:45 01/27/24 06:45 Temperature 93.4 F L 93.6 F L Pulse Rate 82 77 Respiratory Rate 24 21 Blood Pressure 117/55 L Pulse Oximetry 97 100 Oxygen Delivery Method 01/27/24 06:50 01/27/24 06:50 01/27/24 06:55 Temperature 93.6 F L Pulse Rate 75 Respiratory Rate 17 Blood Pressure 102/54 L 82/48 L Pulse Oximetry 100 Oxygen Delivery Method 01/27/24 06:55 01/27/24 07:00 01/27/24 07:00 Temperature 93.6 F L 93.7 F L Pulse Rate 72 73 Respiratory Rate 15 18 Blood Pressure 93/51 L Pulse Oximetry 100 98 Oxygen Delivery Method 01/27/24 07:05 01/27/24 07:05 01/27/24 07:10 Temperature 93.7 F L Pulse Rate 73 Respiratory Rate 19 Blood Pressure 120/55 L 121/62 Pulse Oximetry 99 Oxygen Delivery Method 01/27/24 07:10 01/27/24 07:15 01/27/24 07:15 Temperature 93.9 F L 93.9 F L Pulse Rate 71 72 Respiratory Rate 15 12 Blood Pressure 127/62 Pulse Oximetry 99 99 Oxygen Delivery Method 01/27/24 07:20 01/27/24 07:20 01/27/24 07:25 Temperature 94.1 F L Pulse Rate 72 Respiratory Rate 17 Blood Pressure 120/58 L 118/58 L Pulse Oximetry 98 Oxygen Delivery Method 01/27/24 07:25 01/27/24 07:30 01/27/24 07:30 Temperature 94.3 F L 94.3 F L Pulse Rate 79 71 Respiratory Rate 10 L 16 Blood Pressure 94/55 L Pulse Oximetry 99 98 Oxygen Delivery Method 01/27/24 07:35 01/27/24 07:35 01/27/24 07:39 Temperature 94.5 F L Pulse Rate 67 Respiratory Rate 14 Blood Pressure 79/46 L 54/38 L Pulse Oximetry 99 Oxygen Delivery Method 01/27/24 07:39 01/27/24 07:41 01/27/24 07:41 Temperature 94.5 F L 94.5 F L Pulse Rate 71 69 Respiratory Rate 16 17 Blood Pressure 52/37 L Pulse Oximetry 95 98 Oxygen Delivery Method 01/27/24 07:44 01/27/24 07:44 01/27/24 07:45 Temperature 94.5 F L Pulse Rate 71 Respiratory Rate 16 Blood Pressure 94/55 L 109/58 L Pulse Oximetry 94 Oxygen Delivery Method 01/27/24 07:45 01/27/24 07:50 01/27/24 07:50 Temperature 94.5 F L 94.6 F L Pulse Rate 70 60 Respiratory Rate 16 12 Blood Pressure 107/56 L Pulse Oximetry 97 99 Oxygen Delivery Method 01/27/24 07:55 01/27/24 07:55 01/27/24 08:00 Temperature 94.8 F L Pulse Rate 52 L Respiratory Rate 15 Blood Pressure 96/51 L 85/47 L Pulse Oximetry 95 Oxygen Delivery Method 01/27/24 08:00 01/27/24 08:02 01/27/24 08:02 Temperature 95.0 F L 95.0 F L Pulse Rate 48 L 51 L Respiratory Rate 12 12 Blood Pressure 97/56 L Pulse Oximetry 95 96 Oxygen Delivery Method 01/27/24 08:03 01/27/24 08:03 01/27/24 08:05 Temperature 95.0 F L 95.0 F L Pulse Rate 55 L 57 L Respiratory Rate 15 12 Blood Pressure 101/59 L Pulse Oximetry 97 97 Oxygen Delivery Method Mechanical Ventilation Blow By 01/27/24 08:06 01/27/24 08:06 01/27/24 08:09 Temperature 95.0 F L 95.0 F L Pulse Rate 55 L 52 L Respiratory Rate 11 L 11 L Blood Pressure 99/57 L Pulse Oximetry 96 96 Oxygen Delivery Method 01/27/24 08:09 01/27/24 08:10 01/27/24 08:12 Temperature 95.2 F L Pulse Rate 51 L Respiratory Rate 10 L Blood Pressure 96/54 L 97/54 L Pulse Oximetry 95 Oxygen Delivery Method 01/27/24 08:12 01/27/24 08:15 01/27/24 08:15 Temperature 95.2 F L Pulse Rate 50 L 50 L Respiratory Rate 12 15 Blood Pressure 95/53 L Pulse Oximetry 95 94 Oxygen Delivery Method 01/27/24 08:18 01/27/24 08:18 01/27/24 08:20 Temperature 95.4 F L Pulse Rate 61 62 Respiratory Rate 15 15 Blood Pressure 96/51 L Pulse Oximetry 93 95 Oxygen Delivery Method 01/27/24 08:21 01/27/24 08:21 01/27/24 08:24 Temperature 95.4 F L 95.4 F L Pulse Rate 59 L 57 L Respiratory Rate 16 14 Blood Pressure 108/54 L Pulse Oximetry 95 95 Oxygen Delivery Method 01/27/24 08:24 01/27/24 08:25 01/27/24 08:27 Temperature 95.4 F L Pulse Rate 59 L 57 L Respiratory Rate 16 16 Blood Pressure 124/58 L Pulse Oximetry 95 94 Oxygen Delivery Method 01/27/24 08:27 01/27/24 08:30 01/27/24 08:30 Temperature 95.5 F L Pulse Rate 59 L Respiratory Rate 15 Blood Pressure 101/55 L 117/55 L Pulse Oximetry 94 Oxygen Delivery Method 01/27/24 08:33 01/27/24 08:33 01/27/24 08:35 Temperature Pulse Rate 56 L 57 L Respiratory Rate 19 15 Blood Pressure 100/54 L Pulse Oximetry 93 93 Oxygen Delivery Method 01/27/24 08:36 01/27/24 08:36 01/27/24 08:39 Temperature 95.7 F L Pulse Rate 58 L Respiratory Rate 17 Blood Pressure 102/51 L 98/56 L Pulse Oximetry 94 Oxygen Delivery Method 01/27/24 08:39 01/27/24 08:40 01/27/24 08:42 Temperature 95.7 F L 95.7 F L Pulse Rate 58 L 59 L 58 L Respiratory Rate 16 16 16 Blood Pressure Pulse Oximetry 94 93 93 Oxygen Delivery Method 01/27/24 08:42 01/27/24 08:44 01/27/24 08:45 Temperature 95.9 F L Pulse Rate 60 Respiratory Rate 15 Blood Pressure 103/59 L 104/55 L Pulse Oximetry 93 Oxygen Delivery Method 01/27/24 08:51 01/27/24 08:51 01/27/24 08:54 Temperature 96.1 F L Pulse Rate 59 L Respiratory Rate 17 Blood Pressure 101/56 L 109/57 L Pulse Oximetry 93 Oxygen Delivery Method 01/27/24 08:54 01/27/24 08:55 01/27/24 08:57 Temperature 96.1 F L 96.1 F L Pulse Rate 61 60 Respiratory Rate 18 20 Blood Pressure 111/55 L Pulse Oximetry 92 Oxygen Delivery Method 01/27/24 08:57 01/27/24 09:00 01/27/24 09:00 Temperature 96.3 F L Pulse Rate 60 60 Respiratory Rate 19 20 Blood Pressure 102/54 L Pulse Oximetry 92 92 Oxygen Delivery Method 01/27/24 09:03 01/27/24 09:03 01/27/24 09:05 Temperature 96.4 F L Pulse Rate 58 L 61 Respiratory Rate 20 18 Blood Pressure 109/55 L Pulse Oximetry 93 92 Oxygen Delivery Method 01/27/24 09:06 01/27/24 09:06 01/27/24 09:09 Temperature 96.6 F L Pulse Rate 61 58 L Respiratory Rate 19 17 Blood Pressure 109/54 L Pulse Oximetry 92 92 Oxygen Delivery Method 01/27/24 09:09 01/27/24 09:10 01/27/24 09:12 Temperature Pulse Rate 53 L Respiratory Rate 18 Blood Pressure 101/54 L 113/59 L Pulse Oximetry 93 Oxygen Delivery Method 01/27/24 09:12 01/27/24 09:15 01/27/24 09:15 Temperature 96.8 F L Pulse Rate 64 62 Respiratory Rate 17 16 Blood Pressure 111/56 L Pulse Oximetry 93 92 Oxygen Delivery Method 01/27/24 09:18 01/27/24 09:18 01/27/24 09:20 Temperature 96.8 F L 97.0 F L Pulse Rate 61 61 Respiratory Rate 18 17 Blood Pressure 104/54 L Pulse Oximetry 92 92 Oxygen Delivery Method 01/27/24 09:21 01/27/24 09:21 01/27/24 09:24 Temperature Pulse Rate 52 L Respiratory Rate 16 Blood Pressure 109/54 L 117/58 L Pulse Oximetry 93 Oxygen Delivery Method 01/27/24 09:24 01/27/24 09:25 01/27/24 09:27 Temperature 97.2 F L Pulse Rate 64 62 Respiratory Rate 18 17 Blood Pressure 125/59 L Pulse Oximetry 94 94 Oxygen Delivery Method 01/27/24 09:27 01/27/24 09:30 01/27/24 09:30 Temperature 97.3 F L Pulse Rate 62 62 Respiratory Rate 16 18 Blood Pressure 115/58 L Pulse Oximetry 94 93 Oxygen Delivery Method 01/27/24 09:33 01/27/24 09:33 01/27/24 09:35 Temperature 97.5 F L Pulse Rate 62 62 Respiratory Rate 17 16 Blood Pressure 113/59 L Pulse Oximetry 93 94 Oxygen Delivery Method 01/27/24 09:36 01/27/24 09:36 01/27/24 09:39 Temperature 97.7 F Pulse Rate 61 61 Respiratory Rate 16 16 Blood Pressure 121/57 L Pulse Oximetry 93 94 Oxygen Delivery Method 01/27/24 09:39 01/27/24 09:40 01/27/24 09:42 Temperature Pulse Rate 61 61 Respiratory Rate 18 16 Blood Pressure 113/55 L Pulse Oximetry 94 95 Oxygen Delivery Method 01/27/24 09:42 01/27/24 09:45 01/27/24 09:45 Temperature 97.9 F Pulse Rate 61 Respiratory Rate 16 Blood Pressure 120/59 L 116/59 L Pulse Oximetry 95 Oxygen Delivery Method 01/27/24 09:48 01/27/24 09:48 01/27/24 09:50 Temperature Pulse Rate 61 61 Respiratory Rate 16 16 Blood Pressure 113/58 L Pulse Oximetry 95 95 Oxygen Delivery Method 01/27/24 09:51 01/27/24 09:51 01/27/24 12:06 Temperature 97.9 F 99.5 F Pulse Rate 61 57 L Respiratory Rate 16 16 Blood Pressure 109/56 L Pulse Oximetry 95 97 Oxygen Delivery Method 01/27/24 12:09 01/27/24 12:09 01/27/24 12:10 Temperature Pulse Rate 56 L 56 L Respiratory Rate 16 16 Blood Pressure 107/53 L Pulse Oximetry 97 97 Oxygen Delivery Method 01/27/24 12:12 01/27/24 12:12 01/27/24 12:15 Temperature 99.5 F Pulse Rate 56 L Respiratory Rate 16 Blood Pressure 108/53 L 107/54 L Pulse Oximetry 97 Oxygen Delivery Method 01/27/24 12:15 01/27/24 12:18 01/27/24 12:18 Temperature 99.7 F H Pulse Rate 57 L 56 L Respiratory Rate 16 16 Blood Pressure 105/52 L Pulse Oximetry 97 97 Oxygen Delivery Method 01/27/24 12:20 01/27/24 12:21 01/27/24 12:21 Temperature 99.7 F H 99.7 F H Pulse Rate 56 L 56 L Respiratory Rate 16 16 Blood Pressure 105/53 L Pulse Oximetry 98 98 Oxygen Delivery Method 01/27/24 12:24 01/27/24 12:24 01/27/24 12:25 Temperature Pulse Rate 56 L Respiratory Rate 16 Blood Pressure 100/50 L 104/52 L Pulse Oximetry 99 Oxygen Delivery Method 01/27/24 12:25 01/27/24 12:27 01/27/24 12:27 Temperature 99.7 F H 99.7 F H Pulse Rate 58 L 65 Respiratory Rate 16 16 Blood Pressure 114/58 L Pulse Oximetry 99 98 Oxygen Delivery Method 01/27/24 12:30 01/27/24 12:30 01/27/24 12:33 Temperature 99.7 F H Pulse Rate 55 L Respiratory Rate 16 Blood Pressure 102/52 L 106/55 L Pulse Oximetry 98 Oxygen Delivery Method 01/27/24 12:33 01/27/24 12:35 01/27/24 12:36 Temperature 99.7 F H Pulse Rate 63 53 L Respiratory Rate 16 16 Blood Pressure 102/51 L Pulse Oximetry 97 97 Oxygen Delivery Method 01/27/24 12:36 01/27/24 12:39 01/27/24 12:39 Temperature Pulse Rate 54 L 63 Respiratory Rate 16 16 Blood Pressure 107/57 L Pulse Oximetry 98 98 Oxygen Delivery Method 01/27/24 12:40 01/27/24 12:42 01/27/24 12:42 Temperature 99.9 F H Pulse Rate 61 54 L Respiratory Rate 16 16 Blood Pressure 101/51 L Pulse Oximetry 98 99 Oxygen Delivery Method 01/27/24 12:45 01/27/24 12:45 01/27/24 12:48 Temperature Pulse Rate 54 L Respiratory Rate 16 Blood Pressure 98/50 L 103/51 L Pulse Oximetry 99 Oxygen Delivery Method 01/27/24 12:48 01/27/24 12:50 01/27/24 12:51 Temperature 99.9 F H Pulse Rate 55 L 55 L 54 L Respiratory Rate 16 16 16 Blood Pressure Pulse Oximetry 100 99 99 Oxygen Delivery Method 01/27/24 12:51 01/27/24 12:54 01/27/24 12:54 Temperature 99.9 F H Pulse Rate 59 L Respiratory Rate 16 Blood Pressure 113/53 L 102/51 L Pulse Oximetry 98 Oxygen Delivery Method 01/27/24 12:55 01/27/24 12:57 01/27/24 12:57 Temperature 99.9 F H Pulse Rate 52 L 56 L Respiratory Rate 16 16 Blood Pressure 106/51 L Pulse Oximetry 98 99 Oxygen Delivery Method 01/27/24 13:00 01/27/24 13:00 01/27/24 13:03 Temperature Pulse Rate 61 Respiratory Rate 16 Blood Pressure 103/53 L 100/53 L Pulse Oximetry 99 Oxygen Delivery Method 01/27/24 13:03 01/27/24 13:05 01/27/24 13:06 Temperature 99.9 F H Pulse Rate 54 L 62 Respiratory Rate 16 16 Blood Pressure 101/52 L Pulse Oximetry 99 97 Oxygen Delivery Method 01/27/24 13:06 Temperature 99.9 F H Pulse Rate 55 L Respiratory Rate 16 Blood Pressure Pulse Oximetry 97 Oxygen Delivery Method <Elise Love MD - Last Filed: 01/27/24 13:50> Orders Ordered: Discontinued Medications Chlorhexidine Gluconate (Chlorhexidine Gluconate 15 Ml Cup) 15 ml PO Q6HR [facility] Last Admin: 01/27/24 11:18 Dose: 15 ml Documented By: Admin: 01/27/24 08:26 Dose: Not Given Documented By: CTS Sodium Chloride 9 ml/ (Epinephrine HCl 0.1 mg) 0 ml IV NOW ONE Stop: 01/27/24 04:19 Last Admin: 01/27/24 03:39 Dose: 2 ml Documented By: SB Sodium Chloride 9 ml/ (Epinephrine HCl 0.1 mg) 0 ml IV NOW ONE Stop: 01/27/24 04:24 Last Admin: 01/27/24 04:01 Dose: 2 ml Documented By: SB Famotidine (Famotidine 20 Mg/2 Ml Vial) 20 mg IV NOW [facility] Fentanyl (Fentanyl 100 Mcg/2 Ml Inj) 50 mcg IV NOW ONE Stop: 01/27/24 03:57 Last Admin: 01/27/24 04:58 Dose: 50 mcg Documented By: SB(2) Heparin Sodium (Porcine) (Heparin 5,000 Unit/Ml Vial) 5,000 unit IV NOW ONE Stop: 01/27/24 07:16 Last Admin: 01/27/24 07:47 Dose: 5,000 unit Documented By: SONU Sodium Chloride (Normal Saline 0.9%) 1,000 mls @ 150 mls/hr IV CONT [facility] Last Infusion: 01/27/24 08:22 Dose: Infused Documented By: Admin: 01/27/24 07:10 Dose: 150 mls/hr Documented By: SB(2) Propofol (Propofol) 1,000 mg in 100 mls @ 1.388 mls/hr IV TITRATE [facility]; Protocol Last Titration: 01/27/24 13:54 Dose: Infused Documented By: Titration: 01/27/24 09:33 Dose: 20 mcg/kg/min, 5.552 mls/hr Documented By: Titration: 01/27/24 07:53 Dose: 15 mcg/kg/min, 4.164 mls/hr Documented By: Titration: 01/27/24 07:49 Dose: 10 mcg/kg/min, 2.776 mls/hr Documented By: Titration: 01/27/24 06:57 Dose: 15 mcg/kg/min, 4.164 mls/hr Documented By: SB(2) Titration: 01/27/24 06:33 Dose: 20 mcg/kg/min, 5.552 mls/hr Documented By: SB(2) Titration: 01/27/24 05:39 Dose: 10 mcg/kg/min, 2.776 mls/hr Documented By: SB(2) Admin: 01/27/24 05:18 Dose: 5 mcg/kg/min, 1.388 mls/hr Documented By: SB(2) NOREPINEPHRINE BITARTRATE/D5W (Levophed) 4 mg in 250 mls @ 17.35 mls/hr IV TITRATE [facility]; Protocol Last Titration: 01/27/24 13:53 Dose: Infused Documented By: Titration: 01/27/24 11:19 Dose: 0.26 mcg/kg/min, 45 mls/hr Documented By: Titration: 01/27/24 11:10 Dose: 0.22 mcg/kg/min, 37.5 mls/hr Documented By: Titration: 01/27/24 09:58 Dose: 0.13 mcg/kg/min, 22.5 mls/hr Documented By: Titration: 01/27/24 09:46 Dose: 0.17 mcg/kg/min, 30 mls/hr Documented By: Titration: 01/27/24 08:26 Dose: 0.22 mcg/kg/min, 37.5 mls/hr Documented By: Titration: 01/27/24 08:01 Dose: 0.32 mcg/kg/min, 56.2 mls/hr Documented By: Admin: 01/27/24 07:48 Dose: 0.17 mcg/kg/min, 30 mls/hr Documented By: CTS Fentanyl 1,000 mcg/ Dextrose 250 mls @ 8.097 mls/hr IV TITRATE SALINAS; Protocol Last Titration: 01/27/24 13:53 Dose: Infused Documented By: Titration: 01/27/24 07:54 Dose: 2.42 mcg/kg/hr, 28 mls/hr Documented By: Titration: 01/27/24 07:48 Dose: 2.16 mcg/kg/hr, 25 mls/hr Documented By: Admin: 01/27/24 06:14 Dose: 1.12 mcg/kg/hr, 13 mls/hr Documented By: CATHY(2) Furosemide 60 mg/ Sodium (Chloride) 56 mls @ 112 mls/hr IV NOW ONE Stop: 01/27/24 04:59 Last Infusion: 01/27/24 06:30 Dose: Infused Documented By: SB(2) Admin: 01/27/24 05:28 Dose: 112 mls/hr Documented By: SB(2) Piperacillin Sod/Tazobactam (Sod 4.5 gm/ Sodium Chloride) 100 mls @ 200 mls/hr IV NOW ONE Stop: 01/27/24 04:59 Last Infusion: 01/27/24 07:50 Dose: Infused Documented By: Admin: 01/27/24 07:10 Dose: 200 mls/hr Documented By: CATHY(2) Heparin Sodium/Dextrose (Heparin Drip) 25,000 unit in 500 mls @ 11.104 mls/hr IV CONT SALINAS; Protocol Last Titration: 01/27/24 13:55 Dose: Infused Documented By: ANABELLE Co-signed By: INO Admin: 01/27/24 07:50 Dose: 12 units/kg/hr, 11.104 mls/hr Documented By: SONU Co-signed By: INO dexmedeTOMIDine in 0.9 % NaCL (Precedex) 400 mcg in 100 mls @ 2.313 mls/hr IV TITRATE SALINAS; Protocol Last Admin: 01/27/24 09:00 Dose: Not Given Documented By: ANABELLE Sodium Bicarbonate 150 meq/ (Dextrose) 1,150 mls @ 150 mls/hr IV CONT SALINAS Last Infusion: 01/27/24 13:56 Dose: Infused Documented By: Admin: 01/27/24 09:28 Dose: 150 mls/hr Documented By: ANABELLE Insulin Human Regular (Insulin Regular 100 Unit/Ml 3 Ml Vial) 5 unit IV NOW ONE Stop: 01/27/24 13:48 Last Admin: 01/27/24 13:50 Dose: 5 unit Documented By: ANABELLE Co-signed By: INO Insulin Human Regular (Insulin Regular 100 Unit/Ml 3 Ml Vial) 5 unit IV NOW ONE Stop: 01/27/24 13:48 Last Admin: 01/27/24 13:51 Dose: Not Given Documented By: ANABELLE Ketamine HCl (Ketamine 500 Mg/5 Ml Inj) 100 mg IV NOW ONE Stop: 01/27/24 04:25 Last Admin: 01/27/24 03:43 Dose: 100 mg Documented By: CATHY Propofol (Propofol 200 Mg/20 Ml Vial) 30 mg IV NOW ONE Stop: 01/27/24 05:40 Last Admin: 01/27/24 06:01 Dose: 30 mg Documented By: CATHY(2) Rocuronium [place] (Rocuronium 50 Mg/5 Ml Inj) 50 mg IV NOW ONE Stop: 01/27/24 04:26 Last Admin: 01/27/24 03:45 Dose: 50 mg Documented By: CATHY Vital Signs Vital signs: Vital Signs - 8 hr 01/27/24 05:50 01/27/24 05:50 01/27/24 05:55 Temperature 92.8 F L 92.8 F L Pulse Rate 75 76 Respiratory Rate 11 L 20 Blood Pressure 115/58 L Pulse Oximetry 99 99 Oxygen Delivery Method 01/27/24 05:55 01/27/24 06:00 01/27/24 06:00 Temperature 92.8 F L Pulse Rate 74 Respiratory Rate 17 Blood Pressure 113/60 116/58 L Pulse Oximetry 98 Oxygen Delivery Method 01/27/24 06:05 01/27/24 06:05 01/27/24 06:10 Temperature 92.8 F L 93.0 F L Pulse Rate 75 73 Respiratory Rate 20 15 Blood Pressure 123/61 Pulse Oximetry 99 100 Oxygen Delivery Method 01/27/24 06:10 01/27/24 06:15 01/27/24 06:15 Temperature 93.0 F L Pulse Rate 73 Respiratory Rate 29 H Blood Pressure 125/60 134/67 Pulse Oximetry 98 Oxygen Delivery Method 01/27/24 06:20 01/27/24 06:20 01/27/24 06:25 Temperature 93.0 F L 93.2 F L Pulse Rate 83 76 Respiratory Rate 20 18 Blood Pressure 133/63 Pulse Oximetry 97 99 Oxygen Delivery Method 01/27/24 06:25 01/27/24 06:30 01/27/24 06:30 Temperature 93.2 F L Pulse Rate 75 Respiratory Rate 19 Blood Pressure 116/56 L 115/56 L Pulse Oximetry 100 Oxygen Delivery Method 01/27/24 06:35 01/27/24 06:35 01/27/24 06:40 Temperature 93.4 F L Pulse Rate 76 Respiratory Rate 16 Blood Pressure 122/61 116/56 L Pulse Oximetry 100 Oxygen Delivery Method 01/27/24 06:40 01/27/24 06:45 01/27/24 06:45 Temperature 93.4 F L 93.6 F L Pulse Rate 82 77 Respiratory Rate 24 21 Blood Pressure 117/55 L Pulse Oximetry 97 100 Oxygen Delivery Method 01/27/24 06:50 01/27/24 06:50 01/27/24 06:55 Temperature 93.6 F L Pulse Rate 75 Respiratory Rate 17 Blood Pressure 102/54 L 82/48 L Pulse Oximetry 100 Oxygen Delivery Method 01/27/24 06:55 01/27/24 07:00 01/27/24 07:00 Temperature 93.6 F L 93.7 F L Pulse Rate 72 73 Respiratory Rate 15 18 Blood Pressure 93/51 L Pulse Oximetry 100 98 Oxygen Delivery Method 01/27/24 07:05 01/27/24 07:05 01/27/24 07:10 Temperature 93.7 F L Pulse Rate 73 Respiratory Rate 19 Blood Pressure 120/55 L 121/62 Pulse Oximetry 99 Oxygen Delivery Method 01/27/24 07:10 01/27/24 07:15 01/27/24 07:15 Temperature 93.9 F L 93.9 F L Pulse Rate 71 72 Respiratory Rate 15 12 Blood Pressure 127/62 Pulse Oximetry 99 99 Oxygen Delivery Method 01/27/24 07:20 01/27/24 07:20 01/27/24 07:25 Temperature 94.1 F L Pulse Rate 72 Respiratory Rate 17 Blood Pressure 120/58 L 118/58 L Pulse Oximetry 98 Oxygen Delivery Method 01/27/24 07:25 01/27/24 07:30 01/27/24 07:30 Temperature 94.3 F L 94.3 F L Pulse Rate 79 71 Respiratory Rate 10 L 16 Blood Pressure 94/55 L Pulse Oximetry 99 98 Oxygen Delivery Method 01/27/24 07:35 01/27/24 07:35 01/27/24 07:39 Temperature 94.5 F L Pulse Rate 67 Respiratory Rate 14 Blood Pressure 79/46 L 54/38 L Pulse Oximetry 99 Oxygen Delivery Method 01/27/24 07:39 01/27/24 07:41 01/27/24 07:41 Temperature 94.5 F L 94.5 F L Pulse Rate 71 69 Respiratory Rate 16 17 Blood Pressure 52/37 L Pulse Oximetry 95 98 Oxygen Delivery Method 01/27/24 07:44 01/27/24 07:44 01/27/24 07:45 Temperature 94.5 F L Pulse Rate 71 Respiratory Rate 16 Blood Pressure 94/55 L 109/58 L Pulse Oximetry 94 Oxygen Delivery Method 01/27/24 07:45 01/27/24 07:50 01/27/24 07:50 Temperature 94.5 F L 94.6 F L Pulse Rate 70 60 Respiratory Rate 16 12 Blood Pressure 107/56 L Pulse Oximetry 97 99 Oxygen Delivery Method 01/27/24 07:55 01/27/24 07:55 01/27/24 08:00 Temperature 94.8 F L Pulse Rate 52 L Respiratory Rate 15 Blood Pressure 96/51 L 85/47 L Pulse Oximetry 95 Oxygen Delivery Method 01/27/24 08:00 01/27/24 08:02 01/27/24 08:02 Temperature 95.0 F L 95.0 F L Pulse Rate 48 L 51 L Respiratory Rate 12 12 Blood Pressure 97/56 L Pulse Oximetry 95 96 Oxygen Delivery Method 01/27/24 08:03 01/27/24 08:03 01/27/24 08:05 Temperature 95.0 F L 95.0 F L Pulse Rate 55 L 57 L Respiratory Rate 15 12 Blood Pressure 101/59 L Pulse Oximetry 97 97 Oxygen Delivery Method Mechanical Ventilation Blow By 01/27/24 08:06 01/27/24 08:06 01/27/24 08:09 Temperature 95.0 F L 95.0 F L Pulse Rate 55 L 52 L Respiratory Rate 11 L 11 L Blood Pressure 99/57 L Pulse Oximetry 96 96 Oxygen Delivery Method 01/27/24 08:09 01/27/24 08:10 01/27/24 08:12 Temperature 95.2 F L Pulse Rate 51 L Respiratory Rate 10 L Blood Pressure 96/54 L 97/54 L Pulse Oximetry 95 Oxygen Delivery Method 01/27/24 08:12 01/27/24 08:15 01/27/24 08:15 Temperature 95.2 F L Pulse Rate 50 L 50 L Respiratory Rate 12 15 Blood Pressure 95/53 L Pulse Oximetry 95 94 Oxygen Delivery Method 01/27/24 08:18 01/27/24 08:18 01/27/24 08:20 Temperature 95.4 F L Pulse Rate 61 62 Respiratory Rate 15 15 Blood Pressure 96/51 L Pulse Oximetry 93 95 Oxygen Delivery Method 01/27/24 08:21 01/27/24 08:21 01/27/24 08:24 Temperature 95.4 F L 95.4 F L Pulse Rate 59 L 57 L Respiratory Rate 16 14 Blood Pressure 108/54 L Pulse Oximetry 95 95 Oxygen Delivery Method 01/27/24 08:24 01/27/24 08:25 01/27/24 08:27 Temperature 95.4 F L Pulse Rate 59 L 57 L Respiratory Rate 16 16 Blood Pressure 124/58 L Pulse Oximetry 95 94 Oxygen Delivery Method 01/27/24 08:27 01/27/24 08:30 01/27/24 08:30 Temperature 95.5 F L Pulse Rate 59 L Respiratory Rate 15 Blood Pressure 101/55 L 117/55 L Pulse Oximetry 94 Oxygen Delivery Method 01/27/24 08:33 01/27/24 08:33 01/27/24 08:35 Temperature Pulse Rate 56 L 57 L Respiratory Rate 19 15 Blood Pressure 100/54 L Pulse Oximetry 93 93 Oxygen Delivery Method 01/27/24 08:36 01/27/24 08:36 01/27/24 08:39 Temperature 95.7 F L Pulse Rate 58 L Respiratory Rate 17 Blood Pressure 102/51 L 98/56 L Pulse Oximetry 94 Oxygen Delivery Method 01/27/24 08:39 01/27/24 08:40 01/27/24 08:42 Temperature 95.7 F L 95.7 F L Pulse Rate 58 L 59 L 58 L Respiratory Rate 16 16 16 Blood Pressure Pulse Oximetry 94 93 93 Oxygen Delivery Method 01/27/24 08:42 01/27/24 08:44 01/27/24 08:45 Temperature 95.9 F L Pulse Rate 60 Respiratory Rate 15 Blood Pressure 103/59 L 104/55 L Pulse Oximetry 93 Oxygen Delivery Method 01/27/24 08:51 01/27/24 08:51 01/27/24 08:54 Temperature 96.1 F L Pulse Rate 59 L Respiratory Rate 17 Blood Pressure 101/56 L 109/57 L Pulse Oximetry 93 Oxygen Delivery Method 01/27/24 08:54 01/27/24 08:55 01/27/24 08:57 Temperature 96.1 F L 96.1 F L Pulse Rate 61 60 Respiratory Rate 18 20 Blood Pressure 111/55 L Pulse Oximetry 92 Oxygen Delivery Method 01/27/24 08:57 01/27/24 09:00 01/27/24 09:00 Temperature 96.3 F L Pulse Rate 60 60 Respiratory Rate 19 20 Blood Pressure 102/54 L Pulse Oximetry 92 92 Oxygen Delivery Method 01/27/24 09:03 01/27/24 09:03 01/27/24 09:05 Temperature 96.4 F L Pulse Rate 58 L 61 Respiratory Rate 20 18 Blood Pressure 109/55 L Pulse Oximetry 93 92 Oxygen Delivery Method 01/27/24 09:06 01/27/24 09:06 01/27/24 09:09 Temperature 96.6 F L Pulse Rate 61 58 L Respiratory Rate 19 17 Blood Pressure 109/54 L Pulse Oximetry 92 92 Oxygen Delivery Method 01/27/24 09:09 01/27/24 09:10 01/27/24 09:12 Temperature Pulse Rate 53 L Respiratory Rate 18 Blood Pressure 101/54 L 113/59 L Pulse Oximetry 93 Oxygen Delivery Method 01/27/24 09:12 01/27/24 09:15 01/27/24 09:15 Temperature 96.8 F L Pulse Rate 64 62 Respiratory Rate 17 16 Blood Pressure 111/56 L Pulse Oximetry 93 92 Oxygen Delivery Method 01/27/24 09:18 01/27/24 09:18 01/27/24 09:20 Temperature 96.8 F L 97.0 F L Pulse Rate 61 61 Respiratory Rate 18 17 Blood Pressure 104/54 L Pulse Oximetry 92 92 Oxygen Delivery Method 01/27/24 09:21 01/27/24 09:21 01/27/24 09:24 Temperature Pulse Rate 52 L Respiratory Rate 16 Blood Pressure 109/54 L 117/58 L Pulse Oximetry 93 Oxygen Delivery Method 01/27/24 09:24 01/27/24 09:25 01/27/24 09:27 Temperature 97.2 F L Pulse Rate 64 62 Respiratory Rate 18 17 Blood Pressure 125/59 L Pulse Oximetry 94 94 Oxygen Delivery Method 01/27/24 09:27 01/27/24 09:30 01/27/24 09:30 Temperature 97.3 F L Pulse Rate 62 62 Respiratory Rate 16 18 Blood Pressure 115/58 L Pulse Oximetry 94 93 Oxygen Delivery Method 01/27/24 09:33 01/27/24 09:33 01/27/24 09:35 Temperature 97.5 F L Pulse Rate 62 62 Respiratory Rate 17 16 Blood Pressure 113/59 L Pulse Oximetry 93 94 Oxygen Delivery Method 01/27/24 09:36 01/27/24 09:36 01/27/24 09:39 Temperature 97.7 F Pulse Rate 61 61 Respiratory Rate 16 16 Blood Pressure 121/57 L Pulse Oximetry 93 94 Oxygen Delivery Method 01/27/24 09:39 01/27/24 09:40 01/27/24 09:42 Temperature Pulse Rate 61 61 Respiratory Rate 18 16 Blood Pressure 113/55 L Pulse Oximetry 94 95 Oxygen Delivery Method 01/27/24 09:42 01/27/24 09:45 01/27/24 09:45 Temperature 97.9 F Pulse Rate 61 Respiratory Rate 16 Blood Pressure 120/59 L 116/59 L Pulse Oximetry 95 Oxygen Delivery Method 01/27/24 09:48 01/27/24 09:48 01/27/24 09:50 Temperature Pulse Rate 61 61 Respiratory Rate 16 16 Blood Pressure 113/58 L Pulse Oximetry 95 95 Oxygen Delivery Method 01/27/24 09:51 01/27/24 09:51 01/27/24 12:06 Temperature 97.9 F 99.5 F Pulse Rate 61 57 L Respiratory Rate 16 16 Blood Pressure 109/56 L Pulse Oximetry 95 97 Oxygen Delivery Method 01/27/24 12:09 01/27/24 12:09 01/27/24 12:10 Temperature Pulse Rate 56 L 56 L Respiratory Rate 16 16 Blood Pressure 107/53 L Pulse Oximetry 97 97 Oxygen Delivery Method 01/27/24 12:12 01/27/24 12:12 01/27/24 12:15 Temperature 99.5 F Pulse Rate 56 L Respiratory Rate 16 Blood Pressure 108/53 L 107/54 L Pulse Oximetry 97 Oxygen Delivery Method 01/27/24 12:15 01/27/24 12:18 01/27/24 12:18 Temperature 99.7 F H Pulse Rate 57 L 56 L Respiratory Rate 16 16 Blood Pressure 105/52 L Pulse Oximetry 97 97 Oxygen Delivery Method 01/27/24 12:20 01/27/24 12:21 01/27/24 12:21 Temperature 99.7 F H 99.7 F H Pulse Rate 56 L 56 L Respiratory Rate 16 16 Blood Pressure 105/53 L Pulse Oximetry 98 98 Oxygen Delivery Method 01/27/24 12:24 01/27/24 12:24 01/27/24 12:25 Temperature Pulse Rate 56 L Respiratory Rate 16 Blood Pressure 100/50 L 104/52 L Pulse Oximetry 99 Oxygen Delivery Method 01/27/24 12:25 01/27/24 12:27 01/27/24 12:27 Temperature 99.7 F H 99.7 F H Pulse Rate 58 L 65 Respiratory Rate 16 16 Blood Pressure 114/58 L Pulse Oximetry 99 98 Oxygen Delivery Method 01/27/24 12:30 01/27/24 12:30 01/27/24 12:33 Temperature 99.7 F H Pulse Rate 55 L Respiratory Rate 16 Blood Pressure 102/52 L 106/55 L Pulse Oximetry 98 Oxygen Delivery Method 01/27/24 12:33 01/27/24 12:35 01/27/24 12:36 Temperature 99.7 F H Pulse Rate 63 53 L Respiratory Rate 16 16 Blood Pressure 102/51 L Pulse Oximetry 97 97 Oxygen Delivery Method 01/27/24 12:36 01/27/24 12:39 01/27/24 12:39 Temperature Pulse Rate 54 L 63 Respiratory Rate 16 16 Blood Pressure 107/57 L Pulse Oximetry 98 98 Oxygen Delivery Method 01/27/24 12:40 01/27/24 12:42 01/27/24 12:42 Temperature 99.9 F H Pulse Rate 61 54 L Respiratory Rate 16 16 Blood Pressure 101/51 L Pulse Oximetry 98 99 Oxygen Delivery Method 01/27/24 12:45 01/27/24 12:45 01/27/24 12:48 Temperature Pulse Rate 54 L Respiratory Rate 16 Blood Pressure 98/50 L 103/51 L Pulse Oximetry 99 Oxygen Delivery Method 01/27/24 12:48 01/27/24 12:50 01/27/24 12:51 Temperature 99.9 F H Pulse Rate 55 L 55 L 54 L Respiratory Rate 16 16 16 Blood Pressure Pulse Oximetry 100 99 99 Oxygen Delivery Method 01/27/24 12:51 01/27/24 12:54 01/27/24 12:54 Temperature 99.9 F H Pulse Rate 59 L Respiratory Rate 16 Blood Pressure 113/53 L 102/51 L Pulse Oximetry 98 Oxygen Delivery Method 01/27/24 12:55 01/27/24 12:57 01/27/24 12:57 Temperature 99.9 F H Pulse Rate 52 L 56 L Respiratory Rate 16 16 Blood Pressure 106/51 L Pulse Oximetry 98 99 Oxygen Delivery Method 01/27/24 13:00 01/27/24 13:00 01/27/24 13:03 Temperature Pulse Rate 61 Respiratory Rate 16 Blood Pressure 103/53 L 100/53 L Pulse Oximetry 99 Oxygen Delivery Method 01/27/24 13:03 01/27/24 13:05 01/27/24 13:06 Temperature 99.9 F H Pulse Rate 54 L 62 Respiratory Rate 16 16 Blood Pressure 101/52 L Pulse Oximetry 99 97 Oxygen Delivery Method 01/27/24 13:06 Temperature 99.9 F H Pulse Rate 55 L Respiratory Rate 16 Blood Pressure Pulse Oximetry 97 Oxygen Delivery Method MDM - SOB/Dyspnea <Susi Harkins, DO - Last Filed: 01/28/24 09:53> Lab Data 01/27/24 03:55 01/27/24 13:12 Labs: Lab Results 01/27/24 01/27/24 01/27/24 Range/Units 03:55 05:05 06:10 WBC 7.5 (4.5-11.0) X10^3/uL RBC 2.76 L (4.0-5.2) X10^6/uL Hgb 9.5 L (12.0-16.0) g/dL Hct 29.3 L (36-46) % MCV 106.4 H (80-100) fL MCH 34.5 H (26-34) PG MCHC 32.5 (30-36) % RDW 14.1 (11.6-14.8) % Plt Count 245 (150-400) X10^3/uL Neut % (Auto) 74.2 (50-75) % Lymph % (Auto) 10.6 L (25-40) % [place] % (Auto) 8.4 (3-14) % Eos % (Auto) 3.1 (2-4) % Baso % (Auto) 3.7 H (0-2) % Neut # (Auto) 5500 (9449-2656) /uL Lymph # (Auto) 800 L (9825-4635) /uL [place] # (Auto) 600 (0-900) /uL Eos # (Auto) 200 (0-450) /uL Baso # (Auto) 300 H (0-100) /uL PT 12.1 (9.4-12.5) SECONDS INR 1.1 (0.9-1.3) APTT 22 L (25.1-36.5) SECONDS ABG Sample Site Right brachial ABG pH 7.12 L* (7.35-7.45) ABG pCO2 49.5 H (35-45) mmHg ABG pO2 109 H (80-100) mmHg ABG HCO3 16 L (23-27) mmol/L ABG Total CO2 18 L (23-27) mmol/L ABG O2 Saturation 96 (95-100) % ABG Base Excess -13.0 L (-2-3) mmol/L FiO2 100 Sodium 136 L (137-145) mmol/L Potassium 5.2 H (3.4-5.1) mmol/L Chloride 110 H (98-107) mmol/L Carbon Dioxide 12 L (22-32) mmol/L BUN 71 H (7-17) mg/dL Creatinine 1.84 H (0.52-1.04) mg/dL Estimated GFR 28 L (>60) mL/min BUN/Creatinine Ratio 38.6 H (6-22) Glucose 160 H (80-110) mg/dL Lactate 5.8 H* (0.7-2.1) mmol/L Calcium 8.7 (8.4-10.2) mg/dL Total Bilirubin 0.7 (0.2-1.3) mg/dL AST 54 H (14-36) IU/L ALT 30 (<35) IU/L Alkaline Phosphatase 94 (38-126) U/L Total Creatine Kinase 64 (30-135) U/L Troponin I < 0.012 0.034 (0.01-0.034) ng/mL NT-Pro-B Natriuret Pep 70881 H (<450) pg/mL Total Protein 6.6 (6.3-8.2) g/dL Albumin 3.4 L (3.5-5.0) g/dL Globulin 3.2 (1.7-4.1) g/dL Albumin/Globulin Ratio 1.1 (1.0-2.8) Lipase 156 (23-300) U/L Procalcitonin 0.07 (<0.5) ng/mL Urine Color Urine Appearance Urine pH (4.5-8.0) Ur Specific [place] (1.000-1.035) Urine Protein (Negative) Urine Glucose (UA) (Negative) g/dL Urine Ketones (NEGATIVE) Urine Occult Blood (Negative) Urine Nitrate (Negative) Urine Bilirubin (NEGATIVE) Urine Urobilinogen (0.2) E.U./dL Ur Leukocyte Esterase (NEGATIVE) Urine RBC (0-5/HPF) Urine WBC (0-5/HPF) Ur Squamous Epith Cells (0-5/HPF) Urine Bacteria (None) Ur Culture Indicated? Vol Urine Centrifuged U Opiates 300ng/mL cut (Negative) Ur Oxycodone Screen (Negative) Urine Methadone Screen (Negative) Ur Barbiturates Screen (Negative) U Tricyclic Antidepress (Negative) Ur Phencyclidine Scrn (Negative) Ur Amphetamines Screen (Negative) U Methamphetamines Scrn (Negative) Ur MDMA Scrn (Ecstasy) (Negative) U Benzodiazepines Scrn (Negative) Urine Cocaine Screen (Negative) U Marijuana (THC) Screen (Negative) Urine Specific [place] (Normal) Ur Creatinine (Normal) Chlamy pneumoniae PCR (Not Detect) Adenovirus (PCR) (Not Detect) B.parapertussis DNA PCR (Not Detecte) Coronavirus OC43 (PCR) (Not Detect) Coronavirus HKU1 (PCR) (Not Detect) Coronavirus 229E (PCR) (Not Detect) SARS-CoV-2 (PCR) (Not Detecte) Coronavirus NL63 (PCR) (Not Detect) Human Metapneumovir PCR (Not Detect) Influenza Type A (PCR) (Not Detect) Influenza Type B (PCR) (Not Detect) M. pneumoniae (PCR) (Not Detect) Parainfluenza 1 (PCR) (Not Detect) Parainfluenza 2 (PCR) (Not Detect) Parainfluenza 3 (PCR) (Not Detect) Parainfluenza 4 (PCR) (Not Detect) RSV (PCR) (Not Detect) Entero/Rhino (PCR) (Not Detect) 01/27/24 01/27/24 01/27/24 Range/Units 06:25 06:25 07:40 WBC (4.5-11.0) X10^3/uL RBC (4.0-5.2) X10^6/uL Hgb (12.0-16.0) g/dL Hct (36-46) % MCV (80-100) fL MCH (26-34) PG MCHC (30-36) % RDW (11.6-14.8) % Plt Count (150-400) X10^3/uL Neut % (Auto) (50-75) % Lymph % (Auto) (25-40) % [place] % (Auto) (3-14) % Eos % (Auto) (2-4) % Baso % (Auto) (0-2) % Neut # (Auto) (5714-1157) /uL Lymph # (Auto) (8193-0343) /uL [place] # (Auto) (0-900) /uL Eos # (Auto) (0-450) /uL Baso # (Auto) (0-100) /uL PT (9.4-12.5) SECONDS INR (0.9-1.3) APTT (25.1-36.5) SECONDS ABG Sample Site Right radial ABG pH 7.17 L* (7.35-7.45) ABG pCO2 46.3 H (35-45) mmHg ABG pO2 99 (80-100) mmHg ABG HCO3 17 L (23-27) mmol/L ABG Total CO2 18 L (23-27) mmol/L ABG O2 Saturation 96 (95-100) % ABG Base Excess -11.0 L (-2-3) mmol/L FiO2 70 Sodium (137-145) mmol/L Potassium (3.4-5.1) mmol/L Chloride (98-107) mmol/L Carbon Dioxide (22-32) mmol/L BUN (7-17) mg/dL Creatinine (0.52-1.04) mg/dL Estimated GFR (>60) mL/min BUN/Creatinine Ratio (6-22) Glucose (80-110) mg/dL Lactate (0.7-2.1) mmol/L Calcium (8.4-10.2) mg/dL Total Bilirubin (0.2-1.3) mg/dL AST (14-36) IU/L ALT (<35) IU/L Alkaline Phosphatase (38-126) U/L Total Creatine Kinase (30-135) U/L Troponin I (0.01-0.034) ng/mL NT-Pro-B Natriuret Pep (<450) pg/mL Total Protein (6.3-8.2) g/dL Albumin (3.5-5.0) g/dL Globulin (1.7-4.1) g/dL Albumin/Globulin Ratio (1.0-2.8) Lipase (23-300) U/L Procalcitonin (<0.5) ng/mL Urine Color Yellow Urine Appearance Clear Urine pH 5.0 Normal (4.5-8.0) Ur Specific [place] 1.015 (1.000-1.035) Urine Protein 1+ H (Negative) Urine Glucose (UA) Negative (Negative) g/dL Urine Ketones Negative (NEGATIVE) Urine Occult Blood Negative (Negative) Urine Nitrate Negative (Negative) Urine Bilirubin Negative (NEGATIVE) Urine Urobilinogen 0.2 (0.2) E.U./dL Ur Leukocyte Esterase Negative (NEGATIVE) Urine RBC None seen (0-5/HPF) Urine WBC None seen (0-5/HPF) Ur Squamous Epith Cells 0-1 /hpf (0-5/HPF) Urine Bacteria None seen (None) Ur Culture Indicated? Cult not indicated Vol Urine Centrifuged 10ml (spun) U Opiates 300ng/mL cut Negative (Negative) Ur Oxycodone Screen Negative (Negative) Urine Methadone Screen Negative (Negative) Ur Barbiturates Screen Negative (Negative) U Tricyclic Antidepress Negative (Negative) Ur Phencyclidine Scrn Negative (Negative) Ur Amphetamines Screen Negative (Negative) U Methamphetamines Scrn Negative (Negative) Ur MDMA Scrn (Ecstasy) Negative (Negative) U Benzodiazepines Scrn Negative (Negative) Urine Cocaine Screen Negative (Negative) U Marijuana (THC) Screen Negative (Negative) Urine Specific [place] Normal (Normal) Ur Creatinine Normal (Normal) Chlamy pneumoniae PCR Not detected (Not Detect) Adenovirus (PCR) Not detected (Not Detect) B.parapertussis DNA PCR Not detected (Not Detecte) Coronavirus OC43 (PCR) Not detected (Not Detect) Coronavirus HKU1 (PCR) Not detected (Not Detect) Coronavirus 229E (PCR) Not detected (Not Detect) SARS-CoV-2 (PCR) Not detected (Not Detecte) Coronavirus NL63 (PCR) Not detected (Not Detect) Human Metapneumovir PCR Not detected (Not Detect) Influenza Type A (PCR) Not detected (Not Detect) Influenza Type B (PCR) Not detected (Not Detect) M. pneumoniae (PCR) Not detected (Not Detect) Parainfluenza 1 (PCR) Not detected (Not Detect) Parainfluenza 2 (PCR) Not detected (Not Detect) Parainfluenza 3 (PCR) Not detected (Not Detect) Parainfluenza 4 (PCR) Not detected (Not Detect) RSV (PCR) Not detected (Not Detect) Entero/Rhino (PCR) Not detected (Not Detect) 01/27/24 01/27/24 Range/Units 08:00 13:12 WBC (4.5-11.0) X10^3/uL RBC (4.0-5.2) X10^6/uL Hgb (12.0-16.0) g/dL Hct (36-46) % MCV (80-100) fL MCH (26-34) PG MCHC (30-36) % RDW (11.6-14.8) % Plt Count (150-400) X10^3/uL Neut % (Auto) (50-75) % Lymph % (Auto) (25-40) % [place] % (Auto) (3-14) % Eos % (Auto) (2-4) % Baso % (Auto) (0-2) % Neut # (Auto) (0728-3184) /uL Lymph # (Auto) (8490-5372) /uL [place] # (Auto) (0-900) /uL Eos # (Auto) (0-450) /uL Baso # (Auto) (0-100) /uL PT (9.4-12.5) SECONDS INR (0.9-1.3) APTT (25.1-36.5) SECONDS ABG Sample Site ABG pH (7.35-7.45) ABG pCO2 (35-45) mmHg ABG pO2 (80-100) mmHg ABG HCO3 (23-27) mmol/L ABG Total CO2 (23-27) mmol/L ABG O2 Saturation (95-100) % ABG Base Excess (-2-3) mmol/L FiO2 Sodium 131 L 128 L (137-145) mmol/L Potassium 5.5 H 6.3 H* (3.4-5.1) mmol/L Chloride 108 H 103 (98-107) mmol/L Carbon Dioxide 15 L 17 L (22-32) mmol/L BUN 75 H 80 H (7-17) mg/dL Creatinine 1.98 H 2.20 H (0.52-1.04) mg/dL Estimated GFR 25 L 22 L (>60) mL/min BUN/Creatinine Ratio 37.9 H 36.4 H (6-22) Glucose 149 H 230 H (80-110) mg/dL Lactate 0.8 (0.7-2.1) mmol/L Calcium 8.3 L 8.1 L (8.4-10.2) mg/dL Total Bilirubin (0.2-1.3) mg/dL AST (14-36) IU/L ALT (<35) IU/L Alkaline Phosphatase (38-126) U/L Total Creatine Kinase (30-135) U/L Troponin I (0.01-0.034) ng/mL NT-Pro-B Natriuret Pep (<450) pg/mL Total Protein (6.3-8.2) g/dL Albumin (3.5-5.0) g/dL Globulin (1.7-4.1) g/dL Albumin/Globulin Ratio (1.0-2.8) Lipase (23-300) U/L Procalcitonin (<0.5) ng/mL Urine Color Urine Appearance Urine pH (4.5-8.0) Ur Specific [place] (1.000-1.035) Urine Protein (Negative) Urine Glucose (UA) (Negative) g/dL Urine Ketones (NEGATIVE) Urine Occult Blood (Negative) Urine Nitrate (Negative) Urine Bilirubin (NEGATIVE) Urine Urobilinogen (0.2) E.U./dL Ur Leukocyte Esterase (NEGATIVE) Urine RBC (0-5/HPF) Urine WBC (0-5/HPF) Ur Squamous Epith Cells (0-5/HPF) Urine Bacteria (None) Ur Culture Indicated? Vol Urine Centrifuged U Opiates 300ng/mL cut (Negative) Ur Oxycodone Screen (Negative) Urine Methadone Screen (Negative) Ur Barbiturates Screen (Negative) U Tricyclic Antidepress (Negative) Ur Phencyclidine Scrn (Negative) Ur Amphetamines Screen (Negative) U Methamphetamines Scrn (Negative) Ur MDMA Scrn (Ecstasy) (Negative) U Benzodiazepines Scrn (Negative) Urine Cocaine Screen (Negative) U Marijuana (THC) Screen (Negative) Urine Specific [place] (Normal) Ur Creatinine (Normal) Chlamy pneumoniae PCR (Not Detect) Adenovirus (PCR) (Not Detect) B.parapertussis DNA PCR (Not Detecte) Coronavirus OC43 (PCR) (Not Detect) Coronavirus HKU1 (PCR) (Not Detect) Coronavirus 229E (PCR) (Not Detect) SARS-CoV-2 (PCR) (Not Detecte) Coronavirus NL63 (PCR) (Not Detect) Human Metapneumovir PCR (Not Detect) Influenza Type A (PCR) (Not Detect) Influenza Type B (PCR) (Not Detect) M. pneumoniae (PCR) (Not Detect) Parainfluenza 1 (PCR) (Not Detect) Parainfluenza 2 (PCR) (Not Detect) Parainfluenza 3 (PCR) (Not Detect) Parainfluenza 4 (PCR) (Not Detect) RSV (PCR) (Not Detect) Entero/Rhino (PCR) (Not Detect) Point of Care Testing Glucose POC 245 MDM Narrative Medical decision making narrative: MDM CC: Back pain shortness of breath found Complicating co-morbidities: Coronary artery disease with stents congestive heart failure, pulmonary edema Data collected from: and EMS Medical records reviewed: Recent admission August 27 through September 05 with osteomyelitis Differential considered: Pulmonary embolism dissection aneurysm sepsis, rhabdomyolysis, trauma, stroke Exam documented above, pertinent findings include: Mottled cool tachypneic, thin does not appear hypervolemic Lab Test results independently reviewed as above. Pertinent findings: Lactate 5.8, hemoglobin stable at 9.5 and hematocrit 29.3 previously 8.4 and 25 WBC 7.5, sodium 136 which is stable, potassium 5.2, chloride 110, bicarb 12, BUN 71, creatinine 1.8, baseline 1.27-1.59, glucose 160, bili 0.7, AST 54, ALT 30, troponin negative x2, BNP 82291,. Procalcitonin 0.7, CPK 64 Independently reviewed EKG as above: Probable new left bundle branch block, no Sgarbossa criteria Imaging studies independently reviewed: Chest x-ray initially for ET tube placement and repeat chest x-ray for central line placement-no pneumo, CT head CT cervical spine CT angio chest abdomen pelvis no evidence of pulmonary embolism dissection aneurysm. Consultations: 07:11 Dr. Choi, cardiology at [facility] updated patient's symptoms test results concern with pulmonary edema new left bundle concern for cardiac event. He agrees that patient likely needs higher level of care but she has a [facility] patient and recommends going up there. Treatments: Intubation, Levophed, antibiotics Re-evaluations: She has had significant improvement with intubation and oxygenation. She remains hypothermic, but blood pressure has also significantly improved. Discussion: Patient brought in cool mottled and an obvious distress. She was having some shortness of breath. She was immediately intubated. It was difficult to get good oxygen read and blood pressure. She was then taken to the CT scanner. She was found down and cool and hypoxic. Worried about pulmonary embolism and dissection. Although those were negative. She does have obvious pulmonary edema on her x-ray. Patient actually quickly improved when she started oxygenating. Elevated BNP sudden onset possible flash pulmonary edema. She has new left bundle and EKG changes since August. Concern for cardiac event causing pulmonary edema. Cardiology agrees that patient likely needs higher level of care recommends going to [facility] where her care is. Patient overall continued to improve. Patient signed out to Dr. Love <Elise Love MD - Last Filed: 01/27/24 13:50> Lab Data Labs: Lab Results 01/27/24 01/27/24 01/27/24 Range/Units 03:55 05:05 06:10 WBC 7.5 (4.5-11.0) X10^3/uL RBC 2.76 L (4.0-5.2) X10^6/uL Hgb 9.5 L (12.0-16.0) g/dL Hct 29.3 L (36-46) % MCV 106.4 H (80-100) fL MCH 34.5 H (26-34) PG MCHC 32.5 (30-36) % RDW 14.1 (11.6-14.8) % Plt Count 245 (150-400) X10^3/uL Neut % (Auto) 74.2 (50-75) % Lymph % (Auto) 10.6 L (25-40) % [place] % (Auto) 8.4 (3-14) % Eos % (Auto) 3.1 (2-4) % Baso % (Auto) 3.7 H (0-2) % Neut # (Auto) 5500 (1183-9204) /uL Lymph # (Auto) 800 L (4199-0784) /uL [place] # (Auto) 600 (0-900) /uL Eos # (Auto) 200 (0-450) /uL Baso # (Auto) 300 H (0-100) /uL PT 12.1 (9.4-12.5) SECONDS INR 1.1 (0.9-1.3) APTT 22 L (25.1-36.5) SECONDS ABG Sample Site Right brachial ABG pH 7.12 L* (7.35-7.45) ABG pCO2 49.5 H (35-45) mmHg ABG pO2 109 H (80-100) mmHg ABG HCO3 16 L (23-27) mmol/L ABG Total CO2 18 L (23-27) mmol/L ABG O2 Saturation 96 (95-100) % ABG Base Excess -13.0 L (-2-3) mmol/L FiO2 100 Sodium 136 L (137-145) mmol/L Potassium 5.2 H (3.4-5.1) mmol/L Chloride 110 H (98-107) mmol/L Carbon Dioxide 12 L (22-32) mmol/L BUN 71 H (7-17) mg/dL Creatinine 1.84 H (0.52-1.04) mg/dL Estimated GFR 28 L (>60) mL/min BUN/Creatinine Ratio 38.6 H (6-22) Glucose 160 H (80-110) mg/dL Lactate 5.8 H* (0.7-2.1) mmol/L Calcium 8.7 (8.4-10.2) mg/dL Total Bilirubin 0.7 (0.2-1.3) mg/dL AST 54 H (14-36) IU/L ALT 30 (<35) IU/L Alkaline Phosphatase 94 (38-126) U/L Total Creatine Kinase 64 (30-135) U/L Troponin I < 0.012 0.034 (0.01-0.034) ng/mL NT-Pro-B Natriuret Pep 64925 H (<450) pg/mL Total Protein 6.6 (6.3-8.2) g/dL Albumin 3.4 L (3.5-5.0) g/dL Globulin 3.2 (1.7-4.1) g/dL Albumin/Globulin Ratio 1.1 (1.0-2.8) Lipase 156 (23-300) U/L Procalcitonin 0.07 (<0.5) ng/mL Urine Color Urine Appearance Urine pH (4.5-8.0) Ur Specific [place] (1.000-1.035) Urine Protein (Negative) Urine Glucose (UA) (Negative) g/dL Urine Ketones (NEGATIVE) Urine Occult Blood (Negative) Urine Nitrate (Negative) Urine Bilirubin (NEGATIVE) Urine Urobilinogen (0.2) E.U./dL Ur Leukocyte Esterase (NEGATIVE) Urine RBC (0-5/HPF) Urine WBC (0-5/HPF) Ur Squamous Epith Cells (0-5/HPF) Urine Bacteria (None) Ur Culture Indicated? Vol Urine Centrifuged U Opiates 300ng/mL cut (Negative) Ur Oxycodone Screen (Negative) Urine Methadone Screen (Negative) Ur Barbiturates Screen (Negative) U Tricyclic Antidepress (Negative) Ur Phencyclidine Scrn (Negative) Ur Amphetamines Screen (Negative) U Methamphetamines Scrn (Negative) Ur MDMA Scrn (Ecstasy) (Negative) U Benzodiazepines Scrn (Negative) Urine Cocaine Screen (Negative) U Marijuana (THC) Screen (Negative) Urine Specific [place] (Normal) Ur Creatinine (Normal) Chlamy pneumoniae PCR (Not Detect) Adenovirus (PCR) (Not Detect) B.parapertussis DNA PCR (Not Detecte) Coronavirus OC43 (PCR) (Not Detect) Coronavirus HKU1 (PCR) (Not Detect) Coronavirus 229E (PCR) (Not Detect) SARS-CoV-2 (PCR) (Not Detecte) Coronavirus NL63 (PCR) (Not Detect) Human Metapneumovir PCR (Not Detect) Influenza Type A (PCR) (Not Detect) Influenza Type B (PCR) (Not Detect) M. pneumoniae (PCR) (Not Detect) Parainfluenza 1 (PCR) (Not Detect) Parainfluenza 2 (PCR) (Not Detect) Parainfluenza 3 (PCR) (Not Detect) Parainfluenza 4 (PCR) (Not Detect) RSV (PCR) (Not Detect) Entero/Rhino (PCR) (Not Detect) 01/27/24 01/27/24 01/27/24 Range/Units 06:25 06:25 07:40 WBC (4.5-11.0) X10^3/uL RBC (4.0-5.2) X10^6/uL Hgb (12.0-16.0) g/dL Hct (36-46) % MCV (80-100) fL MCH (26-34) PG MCHC (30-36) % RDW (11.6-14.8) % Plt Count (150-400) X10^3/uL Neut % (Auto) (50-75) % Lymph % (Auto) (25-40) % [place] % (Auto) (3-14) % Eos % (Auto) (2-4) % Baso % (Auto) (0-2) % Neut # (Auto) (5225-7504) /uL Lymph # (Auto) (0996-2182) /uL [place] # (Auto) (0-900) /uL Eos # (Auto) (0-450) /uL Baso # (Auto) (0-100) /uL PT (9.4-12.5) SECONDS INR (0.9-1.3) APTT (25.1-36.5) SECONDS ABG Sample Site Right radial ABG pH 7.17 L* (7.35-7.45) ABG pCO2 46.3 H (35-45) mmHg ABG pO2 99 (80-100) mmHg ABG HCO3 17 L (23-27) mmol/L ABG Total CO2 18 L (23-27) mmol/L ABG O2 Saturation 96 (95-100) % ABG Base Excess -11.0 L (-2-3) mmol/L FiO2 70 Sodium (137-145) mmol/L Potassium (3.4-5.1) mmol/L Chloride (98-107) mmol/L Carbon Dioxide (22-32) mmol/L BUN (7-17) mg/dL Creatinine (0.52-1.04) mg/dL Estimated GFR (>60) mL/min BUN/Creatinine Ratio (6-22) Glucose (80-110) mg/dL Lactate (0.7-2.1) mmol/L Calcium (8.4-10.2) mg/dL Total Bilirubin (0.2-1.3) mg/dL AST (14-36) IU/L ALT (<35) IU/L Alkaline Phosphatase (38-126) U/L Total Creatine Kinase (30-135) U/L Troponin I (0.01-0.034) ng/mL NT-Pro-B Natriuret Pep (<450) pg/mL Total Protein (6.3-8.2) g/dL Albumin (3.5-5.0) g/dL Globulin (1.7-4.1) g/dL Albumin/Globulin Ratio (1.0-2.8) Lipase (23-300) U/L Procalcitonin (<0.5) ng/mL Urine Color Yellow Urine Appearance Clear Urine pH 5.0 Normal (4.5-8.0) Ur Specific [place] 1.015 (1.000-1.035) Urine Protein 1+ H (Negative) Urine Glucose (UA) Negative (Negative) g/dL Urine Ketones Negative (NEGATIVE) Urine Occult Blood Negative (Negative) Urine Nitrate Negative (Negative) Urine Bilirubin Negative (NEGATIVE) Urine Urobilinogen 0.2 (0.2) E.U./dL Ur Leukocyte Esterase Negative (NEGATIVE) Urine RBC None seen (0-5/HPF) Urine WBC None seen (0-5/HPF) Ur Squamous Epith Cells 0-1 /hpf (0-5/HPF) Urine Bacteria None seen (None) Ur Culture Indicated? Cult not indicated Vol Urine Centrifuged 10ml (spun) U Opiates 300ng/mL cut Negative (Negative) Ur Oxycodone Screen Negative (Negative) Urine Methadone Screen Negative (Negative) Ur Barbiturates Screen Negative (Negative) U Tricyclic Antidepress Negative (Negative) Ur Phencyclidine Scrn Negative (Negative) Ur Amphetamines Screen Negative (Negative) U Methamphetamines Scrn Negative (Negative) Ur MDMA Scrn (Ecstasy) Negative (Negative) U Benzodiazepines Scrn Negative (Negative) Urine Cocaine Screen Negative (Negative) U Marijuana (THC) Screen Negative (Negative) Urine Specific [place] Normal (Normal) Ur Creatinine Normal (Normal) Chlamy pneumoniae PCR Not detected (Not Detect) Adenovirus (PCR) Not detected (Not Detect) B.parapertussis DNA PCR Not detected (Not Detecte) Coronavirus OC43 (PCR) Not detected (Not Detect) Coronavirus HKU1 (PCR) Not detected (Not Detect) Coronavirus 229E (PCR) Not detected (Not Detect) SARS-CoV-2 (PCR) Not detected (Not Detecte) Coronavirus NL63 (PCR) Not detected (Not Detect) Human Metapneumovir PCR Not detected (Not Detect) Influenza Type A (PCR) Not detected (Not Detect) Influenza Type B (PCR) Not detected (Not Detect) M. pneumoniae (PCR) Not detected (Not Detect) Parainfluenza 1 (PCR) Not detected (Not Detect) Parainfluenza 2 (PCR) Not detected (Not Detect) Parainfluenza 3 (PCR) Not detected (Not Detect) Parainfluenza 4 (PCR) Not detected (Not Detect) RSV (PCR) Not detected (Not Detect) Entero/Rhino (PCR) Not detected (Not Detect) 01/27/24 01/27/24 Range/Units 08:00 13:12 WBC (4.5-11.0) X10^3/uL RBC (4.0-5.2) X10^6/uL Hgb (12.0-16.0) g/dL Hct (36-46) % MCV (80-100) fL MCH (26-34) PG MCHC (30-36) % RDW (11.6-14.8) % Plt Count (150-400) X10^3/uL Neut % (Auto) (50-75) % Lymph % (Auto) (25-40) % [place] % (Auto) (3-14) % Eos % (Auto) (2-4) % Baso % (Auto) (0-2) % Neut # (Auto) (2233-7161) /uL Lymph # (Auto) (2898-4783) /uL [place] # (Auto) (0-900) /uL Eos # (Auto) (0-450) /uL Baso # (Auto) (0-100) /uL PT (9.4-12.5) SECONDS INR (0.9-1.3) APTT (25.1-36.5) SECONDS ABG Sample Site ABG pH (7.35-7.45) ABG pCO2 (35-45) mmHg ABG pO2 (80-100) mmHg ABG HCO3 (23-27) mmol/L ABG Total CO2 (23-27) mmol/L ABG O2 Saturation (95-100) % ABG Base Excess (-2-3) mmol/L FiO2 Sodium 131 L 128 L (137-145) mmol/L Potassium 5.5 H 6.3 H* (3.4-5.1) mmol/L Chloride 108 H 103 (98-107) mmol/L Carbon Dioxide 15 L 17 L (22-32) mmol/L BUN 75 H 80 H (7-17) mg/dL Creatinine 1.98 H 2.20 H (0.52-1.04) mg/dL Estimated GFR 25 L 22 L (>60) mL/min BUN/Creatinine Ratio 37.9 H 36.4 H (6-22) Glucose 149 H 230 H (80-110) mg/dL Lactate 0.8 (0.7-2.1) mmol/L Calcium 8.3 L 8.1 L (8.4-10.2) mg/dL Total Bilirubin (0.2-1.3) mg/dL AST (14-36) IU/L ALT (<35) IU/L Alkaline Phosphatase (38-126) U/L Total Creatine Kinase (30-135) U/L Troponin I (0.01-0.034) ng/mL NT-Pro-B Natriuret Pep (<450) pg/mL Total Protein (6.3-8.2) g/dL Albumin (3.5-5.0) g/dL Globulin (1.7-4.1) g/dL Albumin/Globulin Ratio (1.0-2.8) Lipase (23-300) U/L Procalcitonin (<0.5) ng/mL Urine Color Urine Appearance Urine pH (4.5-8.0) Ur Specific [place] (1.000-1.035) Urine Protein (Negative) Urine Glucose (UA) (Negative) g/dL Urine Ketones (NEGATIVE) Urine Occult Blood (Negative) Urine Nitrate (Negative) Urine Bilirubin (NEGATIVE) Urine Urobilinogen (0.2) E.U./dL Ur Leukocyte Esterase (NEGATIVE) Urine RBC (0-5/HPF) Urine WBC (0-5/HPF) Ur Squamous Epith Cells (0-5/HPF) Urine Bacteria (None) Ur Culture Indicated? Vol Urine Centrifuged U Opiates 300ng/mL cut (Negative) Ur Oxycodone Screen (Negative) Urine Methadone Screen (Negative) Ur Barbiturates Screen (Negative) U Tricyclic Antidepress (Negative) Ur Phencyclidine Scrn (Negative) Ur Amphetamines Screen (Negative) U Methamphetamines Scrn (Negative) Ur MDMA Scrn (Ecstasy) (Negative) U Benzodiazepines Scrn (Negative) Urine Cocaine Screen (Negative) U Marijuana (THC) Screen (Negative) Urine Specific [place] (Normal) Ur Creatinine (Normal) Chlamy pneumoniae PCR (Not Detect) Adenovirus (PCR) (Not Detect) B.parapertussis DNA PCR (Not Detecte) Coronavirus OC43 (PCR) (Not Detect) Coronavirus HKU1 (PCR) (Not Detect) Coronavirus 229E (PCR) (Not Detect) SARS-CoV-2 (PCR) (Not Detecte) Coronavirus NL63 (PCR) (Not Detect) Human Metapneumovir PCR (Not Detect) Influenza Type A (PCR) (Not Detect) Influenza Type B (PCR) (Not Detect) M. pneumoniae (PCR) (Not Detect) Parainfluenza 1 (PCR) (Not Detect) Parainfluenza 2 (PCR) (Not Detect) Parainfluenza 3 (PCR) (Not Detect) Parainfluenza 4 (PCR) (Not Detect) RSV (PCR) (Not Detect) Entero/Rhino (PCR) (Not Detect) Point of Care Testing Glucose POC 245 MDM Narrative Medical decision making narrative: MDM CC: Back pain shortness of breath found Complicating co-morbidities: Coronary artery disease with stents congestive heart failure, pulmonary edema Data collected from: and EMS Medical records reviewed: Recent admission August 27 through September 05 with osteomyelitis Differential considered: Pulmonary embolism dissection aneurysm sepsis, rhabdomyolysis, trauma, stroke Exam documented above, pertinent findings include: Mottled cool tachypneic, thin does not appear hypervolemic Lab Test results independently reviewed as above. Pertinent findings: Lactate 5.8, hemoglobin stable at 9.5 and hematocrit 29.3 previously 8.4 and 25 WBC 7.5, sodium 136 which is stable, potassium 5.2, chloride 110, bicarb 12, BUN 71, creatinine 1.8, baseline 1.27-1.59, glucose 160, bili 0.7, AST 54, ALT 30, troponin negative x2, BNP 16058,. Procalcitonin 0.7, CPK 64 Independently reviewed EKG as above: Probable new left bundle branch block, no Sgarbossa criteria Imaging studies independently reviewed: Chest x-ray initially for ET tube placement and repeat chest x-ray for central line placement-no pneumo, CT head CT cervical spine CT angio chest abdomen pelvis no evidence of pulmonary embolism dissection aneurysm. Consultations: 07:11 Dr. Choi, cardiology at [facility] updated patient's symptoms test results concern with pulmonary edema new left bundle concern for cardiac event. He agrees that patient likely needs higher level of care but she has a [facility] patient and recommends going up there. Treatments: Intubation, Levophed, antibiotics Re-evaluations: She has had significant improvement with intubation and oxygenation. She remains hypothermic, but blood pressure has also significantly improved. Discussion: Patient brought in cool mottled and an obvious distress. She was having some shortness of breath. She was immediately intubated. It was difficult to get good oxygen read and blood pressure. She was then taken to the CT scanner. She was found down and cool and hypoxic. Worried about pulmonary embolism and dissection. Although those were negative. She does have obvious pulmonary edema on her x-ray. Patient actually quickly improved when she started oxygenating. Elevated BNP sudden onset possible flash pulmonary edema. She has new left bundle and EKG changes since August. Concern for cardiac event causing pulmonary edema. Cardiology agrees that patient likely needs higher level of care recommends going to [facility] where her care is. Patient overall continued to improve. Patient signed out to Dr. Ivan Love -care of patient is signed to me by Dr. Medina at 7:00 a.m.. Patient reassessed, she is currently intubated, sedated on propofol and fentanyl. Levophed has been ordered on standby however currently not needed as blood pressure is 120/70. There are maintenance IV fluids going at a rate of 150 mL/hour, however patient's clinical presentation is consistent with volume overload and these are discontinued. She did receive a prophylactic dose of antibiotics, which will finish. Pepcid ordered for ulcer prophylaxis. Despite receiving 60 mg of IV Lasix patient has had poor urine output, we will continue to closely monitor. Last ABG at 5:00 a.m, which showed mixed respiratory and metabolic acidosis, since patient has been on the ventilator for some time a repeat ABG was ordered for assessment. Received a call back from Dr. Roque of Cardiology, who was able to review the patient's records. Apparently patient refused a biventricular ICD in the past, which makes him think that the left bundle branch block is chronic and not new. He states that if [facility] does not have any available beds then they are happy to accept the patient at [facility]. Repeat ABG shows minimal improvement, no ventilator setting changes at this time. Repeat BMP shows slight worsening of kidney function with creatinine now 1.98, GFR 25, CO2 15. Patient still has had minimal urine output despite IV Lasix. Call placed to Nephrology, who recommended a concentrated bicarb drip with 200 mEq of sodium bicarbonate over 24 hour. Recommended the concentrated drip due to volume overload and to help decrease the IV fluids patient received. 1125 - patient accepted by Dr. Cheng at [facility] for transfer. 1345 -formerly [facility] transport service has arrived to take patient to [facility]. Just prior to transport from the hospital laboratory work taken earlier resulted showing a worsening creatinine of 2.2 and a potassium of 6.3. EKG shows no peaked T-waves, glucose 230. Patient is on a bicarb drip. Given insulin. Transported in guarded condition to [facility] for further assessment Critical Care Time <Susi Harkins, - Last Filed: 01/28/24 09:53> Critical Care Time Critical Care Time: Yes Total Critical Care Time: 60 Attestation: The high probability of a clinically significant, sudden or life threatening deterioration of the [cardiovascular] system(s) required my full and direct attention, intervention and personal management. The aggregate critical care time was 60 minutes. This time is in addition to time spent performing reported procedures but includes the following: [x] Data Review and interpretation [x] Patient assessment and monitoring of vital signs [x] Documentation [x] Medication orders and management Discharge Plan Departure Patient Disposition: [facility] Clinical Impression: Acute respiratory failure with hypoxia, Coronary artery disease, Acute renal failure with oliguria Volume overload Qualifiers: Hypervolemia type: other Qualified Code(s): E87.79 - Other fluid overload Anemia Qualifiers: Anemia type: unspecified type Qualified Code(s): D64.9 - Anemia, unspecified Prescriptions: No Action clopidogrel [Plavix] 75 mg Tablet 75 mg PO DAILY atorvastatin 40 mg tablet 40 mg PO QPM carvedilol 6.25 mg tablet 6.25 mg PO BID spironolactone 25 mg tablet 25 mg PO DAILY tramadol 50 mg Tablet 50 mg PO TID PRN (Reason: Pain, Moderate (4-6)) Qty: 16 0RF daptomycin 350 mg recon soln 400 mg IV Q24H Rx Instructions: administer over 30 mins aspirin 81 mg Tablet,Chewable 81 mg PO DAILY lisinopril 2.5 mg Tablet 2.5 mg PO DAILY Referrals: Galen Michael DO [Primary Care Provider] -
[2024-01-27 04:06] LABS: Add Manual Diff / Slide Review NO; Basophils Absolute Auto 300 /uL (0-100); Basophils Percent Auto 3.7 % (0-2); Eosinophils Absolute Auto 200 /uL (0-450); Eosinophils Percent Auto 3.1 % (2-4); Hematocrit 29.3 % (36-46); Hemoglobin 9.5 g/dL (12.0-16.0); Lymphocytes Absolute Auto 800 /uL (1100-4500); Lymphocytes Percent Auto 10.6 % (25-40); Mean Corpuscular HGB Conc 32.5 % (30-36); Mean Corpuscular Hemoglobin 34.5 PG (26-34); Mean Corpuscular Volume 106.4 fL (80-100); Monocytes Absolute Auto 600 /uL (0-900); Monocytes Percent Auto 8.4 % (3-14); Neutrophils Absolute Auto 5500 /uL (1500-7000); Neutrophils Percent Auto 74.2 % (50-75); Platelet Count 245 X10^3/uL (150-400); Red Blood Cell Count 2.76 X10^6/uL (4.0-5.2); Red Cell Distribution Width 14.1 % (11.6-14.8); White Blood Cell Count 7.5 X10^3/uL (4.5-11.0)
--- NOTE | 2024-01-27 04:06 | DI.CT.S_ITS ---
PROCEDURE: CT CERVICAL SPINE WO CON INDICATIONS: found down TECHNIQUE: Noncontrast 3 mm thick sections acquired from the skull base to the T4 level. Sagittal and coronal reformats were then constructed. For radiation dose reduction, the following was used: automated exposure control, adjustment of mA and/or kV according to patient size. COMPARISON: None. FINDINGS: Image quality: Excellent. ET tube within thoracic inlet. Bones: No fractures or dislocations. Visualized superior ribs are intact. Moderate spondylitic changes. Soft tissues: Prevertebral soft tissues are normal in thickness. No paravertebral hematomas. No apical pneumothoraces. Pleural effusions. Pulmonary edema and interstitial thickening. IMPRESSION: 1. No displaced fracture or traumatic subluxation. 2. Moderate spondylitic cervical changes. 3. Pleural effusion. 4. Pulmonary edema with interstitial thickening. Interpretation is concordant with overnight read. Dictated by: Nolan Owens M.D. on 01/27/2024 at 8:47 Approved by: Nolan Owens M.D. on 01/27/2024 at 8:50
[2024-01-27 04:13] LABS: INR 1.1 (0.9-1.3); Prothrombin Time 12.1 SECONDS (9.4-12.5)
[2024-01-27 04:16] LABS: PTT Partial Thromboplastin Tim 22 SECONDS (25.1-36.5)
[2024-01-27 04:18] LABS: Alanine Aminotransferase 30 IU/L (<35); Albumin 3.4 g/dL (3.5-5.0); Albumin Globulin Ratio 1.1 (1.0-2.8); Alkaline Phosphatase 94 U/L (38-126); Aspartate Aminotransferase 54 IU/L (14-36); BUN Creatinine Ratio 38.6 (6-22); Bilirubin Total 0.7 mg/dL (0.2-1.3); Blood Urea Nitrogen 71 mg/dL (7-17); Calcium 8.7 mg/dL (8.4-10.2); Carbon Dioxide 12 mmol/L (22-32); Chloride 110 mmol/L (98-107); Creatine Kinase 64 U/L (30-135); Estimated Glomerular Filt Rate 28 mL/min (>60); Globulin 3.2 g/dL (1.7-4.1); Glucose 160 mg/dL (80-110); HEMOLYSIS < 15 (0-50); Lipase 156 U/L (23-300); Potassium 5.2 mmol/L (3.4-5.1); Sodium 136 mmol/L (137-145); Total Protein 6.6 g/dL (6.3-8.2)
[2024-01-27 04:27] LABS: NT-proBNP (BNP-Adult 18+) 12700 pg/mL (<450)
[2024-01-27 04:30] LABS: Troponin I < 0.012 ng/mL (0.01-0.034)
[2024-01-27 04:35] LABS: Procalcitonin 0.07 ng/mL (<0.5)
[2024-01-27] MEDS: fentaNYL 100 MCG/2 ML INJ 50 MCG IV (04:58)
[2024-01-27] MEDS: propofoL 1,000 MG/100 ML VIAL 1.388 MG IV (05:18)
[2024-01-27 05:27] LABS: Allen Test for ABG Passed? Yes, Passed; Blood Gas Collection Site Right Brachial; Fractionated Inspired Oxygen 100; HCO3 ABG 16 mmol/L (23-27); Oxygen Saturation ABG 96 % (95-100); PCO2 ABG 49.5 mmHg (35-45); PO2 ABG 109 mmHg (80-100); TCO2 ABG 18 mmol/L (23-27); pH ABG 7.12 (7.35-7.45)
[2024-01-27] MEDS: FUROSEMIDE 60 MG in SODIUM CHLORIDE 0.9% 50 ML 112 MG IV (05:28)
--- NOTE | 2024-01-27 05:30 | PC.NURSE ---
MD Harkins placed central line tripple lumen catheter to left neck. Pt tolerated well. Bleeding noted at site. Awaiting xray to confirm placement.
--- NOTE | 2024-01-27 05:39 | DI.RAD.S_ITS ---
PROCEDURE: XR CHEST 1V INDICATIONS: central line TECHNIQUE: One view of the chest was acquired. COMPARISON: [facility], CR, XR CHEST 1V, 01/27/2024, 3:47. FINDINGS: Surgical changes and devices: Endotracheal tube is appropriate position. Enteric tube courses below the diaphragm with side port projecting over the gastric bubble. There is a left central line with tip still within the brachiocephalic vein Lungs and pleura: Dense diffuse airspace opacities throughout the bilateral lungs. No pleural effusion. No pneumothorax. Mediastinum: Mediastinal contours appear normal. Heart size is normal. Bones and chest wall: No suspicious bony lesions. Overlying soft tissues appear unremarkable. Bilateral implants are present. IMPRESSION: Left central line with tip in the brachiocephalic vein. ET and enteric tubes are appropriately positioned. Diffuse airspace opacities which may reflect pulmonary edema. Interpretation is concordant with overnight read. Dictated by: Nolan Owens M.D. on 01/27/2024 at 8:27 Approved by: Nolan Owens M.D. on 01/27/2024 at 8:31
[2024-01-27 05:43] LABS: Lactate (Lactic Acid) 5.8 mmol/L (0.7-2.1)
[2024-01-27] MEDS: propofoL 200 MG/20 ML VIAL 30 MG IV (06:01)
[2024-01-27] MEDS: fentaNYL 1,000 MCG in DEXTROSE 5% IN WATER 230 ML 13 MCG IV (06:14)
--- NOTE | 2024-01-27 06:15 | PC.NURSE ---
MD Harkins aware of increased drainage to central line site, tegaderm was taken off with MD at bedside, no profuse bleeding noted just a slow ooze. MD verbalized to put on new tegaderm. MD Harkins also aware of blood in NG tube.
[2024-01-27 06:48] LABS: Appearance Urine UA CLEAR; Bilirubin Urine UA NEGATIVE (NEGATIVE); Color Urine UA YELLOW; Glucose Urine UA NEGATIVE (Negative); Ketones Urine UA NEGATIVE (NEGATIVE); Leukocyte Esterase Urine UA NEGATIVE (NEGATIVE); Nitrite Urine UA NEGATIVE (Negative); Occult Blood Urine UA NEGATIVE (Negative); Protein Urine UA 1+ (Negative); Specific Gravity Urine UA 1.015 (1.000-1.035); Urobilinogen Urine UA 0.2 E.U./dL (0.2)
--- NOTE | 2024-01-27 06:49 | PC.NURSE ---
MD Harkins aware that OG tube has bloody output.
[2024-01-27 06:52] LABS: Troponin I 0.034 ng/mL (0.01-0.034)
[2024-01-27 06:54] LABS: UR Morphine/Opiate cutoff 300 Negative (Negative); Ur Creatinine Normal (Normal); Ur Specific Gravity Normal (Normal); Urine Amphetamines Negative (Negative); Urine Barbiturates Negative (Negative); Urine Benzodiazepines Negative (Negative); Urine Cocaine Negative (Negative); Urine MDMA Negative (Negative); Urine Methadone Negative (Negative); Urine Methamphetamines Negative (Negative); Urine Oxycodone Negative (Negative); Urine Phencyclidine Negative (Negative); Urine Tetrahydrocannabinol Negative (Negative); Urine Tricyclic Antidepressant Negative (Negative); Urine pH Normal (Normal)
[2024-01-27 07:02] LABS: Bacteria Urine None Seen; Culture Indicated Urine Cult Not Indicated; RBC Urine None Seen (0-5/HPF); Squamous Epithelial Cell Urine 0-1 /HPF (0-5/HPF); Urine Volume 10mL (spun); WBC Urine None Seen (0-5/HPF)
[2024-01-27 07:06] LABS: Reflexed Lactate in 2 Hours Y
[2024-01-27] MEDS: SODIUM CHLORIDE 0.9% 1,000 ML 150 ML IV (07:10)
[2024-01-27] MEDS: PIPERACILLIN/TAZO 4.5 GM in SODIUM CHLORIDE 0.9% 100 ML IV (07:10)
--- NOTE | 2024-01-27 07:34 | PC.NURSE ---
Addendum entered by Zaina Lema R.N. 01/27/24 10:08: Per NOC shift, contrast infiltration on an IV that has since been removed on her L arm. Coban wrapping removed. Appears normal in color without complications. Addendum entered by Zaina Lema R.N. 01/27/24 08:11: Assessment: Neuro: intubated 7.0 ETT 22cm @ lip. Propofol and fentanyl per JAN. +gag Cardiac: HR 50 with BBB. MD aware. BP 97/54 MAP 71 Resp: TV 380/70%/16RR/5 PEEP appears comfortable at this time on vent GI: 18F NG in place secured to nose with 100mL sanguineous output : 16 F richmond 75mL clear yellow urine total output. Temp 95.2 temp richmond IV: L IJ CL triple lumen, 20G R hand, 20G R FA Skin: initial report for mottling on arrival. No mottling noted at this time. Some bruising on R hand and at CL insertion point. Remains on Bear Hugger for warming measures with warm blankets and warmed room. 0817: 0.5mg atropine given for HR 48. HR with improvement to 60 NSR with BBB Original Note: rec'd report from CHANDRAKANT Carbajal. L central line in place, CXR completed at 0530 without result by 0730. Bedside US completed by Dr Elise Love confirming placement and OK'd use. +blood return from all lumens. Started on Levophed per JAN for MAP <60. Initial HR at 0730 in 70's and has decreased to 40's. Dr Love aware and at bedside. Verbal order to titrate Levophed to 15mcg/min and if no change in HR to give 0.5mg Atropine. Holding ordered Precedex at this time for potential reflex bradycardia. BP 99/57 at this time.
[2024-01-27 07:35] LABS: Adenovirus Not Detected (Not Detect); B. parapertussis Not Detected (Not Detecte); Bordetella pertussis Not Detected (Not Detect); Chlamydophila pneumoniae Not Detected (Not Detect); Coronavirus 229E Not Detected (Not Detect); Coronavirus HKU1 Not Detected (Not Detect); Coronavirus NL 63 Not Detected (Not Detect); Coronavirus OC43 Not Detected (Not Detect); Human Metapneumovirus Not Detected (Not Detect); Human Rhinovirus/Enterovirus Not Detected (Not Detect); Influenza A Not Detected (Not Detect); Influenza B Not Detected (Not Detect); Mycoplasma pneumoniae Not Detected (Not Detect); Parainfluenza Virus 1 Not Detected (Not Detect); Parainfluenza Virus 2 Not Detected (Not Detect); Parainfluenza Virus 3 Not Detected (Not Detect); Parainfluenza Virus 4 Not Detected (Not Detect); Respiratory Syncytial Virus Not Detected (Not Detect); SARS- CoV-2 Not Detected (Not Detecte)
--- NOTE | 2024-01-27 07:38 | PC.NURSE ---
1 to 1 care with patient from time of arrival to now. Report given to CHANDRAKANT Mahajan. MD Love at bedside, gave verbal order to use central line in left side of neck.
--- NOTE | 2024-01-27 07:44 | PC.NURSE ---
MANAGER FLEET note: Images pushed and face sheet faxed to [facility] @ [phone]
[2024-01-27] MEDS: HEPARIN 5,000 UNIT/ML VIAL 5000 UNIT IV (07:47)
[2024-01-27] MEDS: NOREPINEPHRINE BITARTRATE/D5W 4 MG/250 ML PLAST..BAG 30 MG IV (07:48)
[2024-01-27] MEDS: HEPARIN DRIP 25,000 UNIT/500 ML IV.SOLN 11.104 UNIT IV (07:50)
[2024-01-27 07:56] LABS: Allen Test for ABG Passed? Yes, Passed; Blood Gas Collection Site Right Radial; Fractionated Inspired Oxygen 70; HCO3 ABG 17 mmol/L (23-27); Oxygen Saturation ABG 96 % (95-100); PCO2 ABG 46.3 mmHg (35-45); PO2 ABG 99 mmHg (80-100); TCO2 ABG 18 mmol/L (23-27); pH ABG 7.17 (7.35-7.45)
[2024-01-27] MEDS: ATROPINE 1 MG/10 ML SYRINGE IV (08:21)
--- NOTE | 2024-01-27 08:23 | PC.NURSE ---
FAILURE ANALYSIS TECHNICIAN Note: [facility] wait listed. ED report/Images/Face sheet/ EKG faxed to [facility]. Spoke with Brittany to start transfer.
[2024-01-27 08:30] LABS: BUN Creatinine Ratio 37.9 (6-22); Blood Urea Nitrogen 75 mg/dL (7-17); Calcium 8.3 mg/dL (8.4-10.2); Carbon Dioxide 15 mmol/L (22-32); Chloride 108 mmol/L (98-107); Estimated Glomerular Filt Rate 25 mL/min (>60); Glucose 149 mg/dL (80-110); HEMOLYSIS < 15 (0-50); Sodium 131 mmol/L (137-145)
[2024-01-27 08:31] LABS: Lactate 2HR (Lactic Acid Rflx) 0.8 mmol/L (0.7-2.1); Potassium 5.5 mmol/L (3.4-5.1)
[2024-01-27] MEDS: SODIUM BICARB 8.4% VIAL 150 MEQ in DEXTROSE 5% WATER 1,000 ML IV (09:28)
--- NOTE | 2024-01-27 09:39 | PC.NURSE ---
Delayed cap refill.
--- NOTE | 2024-01-27 09:40 | PC.NURSE ---
Blood tinged emesis coming from NG tube. Unchanged from arrival.
--- NOTE | 2024-01-27 09:54 | PC.NURSE ---
MD aware of limited urine output
--- NOTE | 2024-01-27 11:16 | PC.NURSE ---
Pt changed and adjusted in bed. Pt BP decreased to 80s/40s and HR went from 60s>50s. MD notified. MD stated to hold on giving atropine at this time.
[2024-01-27] MEDS: CHLORHEXIDINE GLUCONATE 15 ML CUP PO (11:18)
--- NOTE | 2024-01-27 11:54 | PC.NURSE ---
GLOBAL PROCESS OWNER Note: Brittany with [facility] called to let us know that she will call back at 1300 with a bed assignment.
--- NOTE | 2024-01-27 12:44 | PC.NURSE ---
Report called to [facility]. RM 2016.
[2024-01-27 13:30] LABS: BUN Creatinine Ratio 36.4 (6-22); Blood Urea Nitrogen 80 mg/dL (7-17); Calcium 8.1 mg/dL (8.4-10.2); Carbon Dioxide 17 mmol/L (22-32); Chloride 103 mmol/L (98-107); Estimated Glomerular Filt Rate 22 mL/min (>60); Glucose 230 mg/dL (80-110); Sodium 128 mmol/L (137-145)
[2024-01-27 13:31] LABS: HEMOLYSIS 53 (0-50)
[2024-01-27 13:33] LABS: Potassium 6.3 mmol/L (3.4-5.1)
--- NOTE | 2024-01-27 13:36 | PC.NURSE ---
aware of chemistry panel including critical potassium level. BP 99/50, HR 55, temp 100.0. EKG obtained at bedside. Critical Care transport in room. Dr. Love aware of the above.
--- NOTE | 2024-01-27 13:40 | PC.NURSE ---
Critical Care transport at bedside.
[2024-01-27] MEDS: INSULIN REGULAR 100 UNIT/ML 3 ML VIAL IV (13:50)
--- NOTE | 2024-01-27 13:57 | PC.NURSE ---
Report given to ambulance. [facility] stated they will recheck pt blood sugar in transport. RN and EMT aware that 5 units of insulin were given IV to manage pt potassium levels. Pt continued on infusions (fentanyl, propofol, heparin, bicarb, and levophed). Pt remains intubated. Friend/family at bedside
== END 2024-01-27 14:03 | disposition short-term general hospital (02) ==
PROVIDERS: Emergency Medicine; Emergency Provider Emergency Medicine; PCP Family Medicine
DX: J96.01 Acute respiratory failure with hypoxia (principal); N17.8 Other acute kidney failure; E87.79 Other fluid overload; D64.9 Anemia, unspecified; I25.10 Atherosclerotic heart disease of native coronary artery without angina pectoris; M54.9 Dorsalgia, unspecified; Z20.822 Contact with and (suspected) exposure to COVID-19
CPT/HCPCS: 31500; 36415; 36569; 36600; 70450; 71045; 71275; 72125; 74174; 80048; 80053; 80305; 81001; 82550; 82805; 82962; 83605; 83690; 83880; 84145; 84484; 85025; 85610; 85730; 87040; 87633; 93005; 94002; 94799; 96365; 96366; 96367; 96368; 96375; 99285; 99291; 99292; J0171; J0461; J1644; J1940; J2543; J2704; J3010; Q9967